=== PATIENT | female | born 1975 | race African-American/Black ===

== ENCOUNTER 2018-12-18 15:08 | Emergency (ER) | payer OTHER ==
[2018-12-18] MEDS ORDERED: FENTANYL CITRATE INJ/PF 100 MCG/2 ML AMPUL IV ONE ×2 (16:01→17:29)
[2018-12-18] MEDS ORDERED: NORMAL SALINE 1000 ML 1,000 ML IV ONE (16:01)
--- NOTE | 2018-12-18 16:03 | ER Document Report ---
ED Medical Screen (RME) - General Chief Complaint: Abdominal Pain Stated Complaint: ABDOMINAL PAIN Time Seen by Provider: 12/18/18 16:00 Primary Care Provider: MARCOS HALE MD [Primary Care Provider] - Follow up as needed Mode of Arrival: Medic Information source: Patient Notes: 43-year-old female presents to ED for complaint of severe left lower abdominal pain that started this morning and got much worse around noon. She states she has not had any nausea vomiting or diarrhea. She denies any fever. She states she is just having severe pain in the left lower quadrant. She states she had a normal bowel movement yesterday no diarrhea today. She does have a history of diabetes and cholesterol. Her last menstrual period was November 27. She states the only surgical history she has is a x2. Patient has not been to the ER recently. Patient is alert oriented respirations regular unlabored does have severe tenderness with palpation of the left lower quadrant. Consult to Dr. bonilla neurologist for the pain due to her allergy to morphine he stated to give her fentanyl 50 mcg IV. I have greeted and performed a rapid initial assessment of this patient. A comprehensive ED assessment and evaluation of the patient, analysis of test results and completion of medical decision making process will be conducted by an additional ED providers. TRAVEL OUTSIDE OF THE [place] IN LAST 30 DAYS: No - Related Data Allergies/Adverse Reactions: morphine [Morphine] Allergy (Verified 12/18/18 15:10) Hives Past Medical History - Social History Chew tobacco use (# tins/day): No Frequency of alcohol use: Occasional Drug Abuse: None Endocrine Medical History: Reports: Hx Diabetes Mellitus Type 2 - gestational DM Renal/ Medical History: Denies: Hx Peritoneal Dialysis Psychiatric Medical History: Reports: Hx Depression Past Surgical History: Reports: Hx Section - x2 - Immunizations Hx Diphtheria, Pertussis, Tetanus Vaccination: Yes Physical Exam - Vital signs Vitals: Temp Pulse Resp BP Pulse Ox 100.0 F 110 H 17 112/76 98 12/18/18 15:16 12/18/18 15:16 12/18/18 15:16 12/18/18 15:16 12/18/18 15:16 Course - Vital Signs Vital signs: Temp Pulse Resp BP Pulse Ox 100.0 F 110 H 17 112/76 98 12/18/18 15:16 12/18/18 15:16 12/18/18 15:16 12/18/18 15:16 12/18/18 15:16 Doctor's Discharge - Discharge Referrals: MARCOS HALE MD [Primary Care Provider] - Follow up as needed
--- NOTE | 2018-12-18 16:58 | ER Document Report ---
ED General - General Chief Complaint: Abdominal Pain Stated Complaint: ABDOMINAL PAIN Time Seen by Provider: 12/18/18 16:00 Primary Care Provider: JT YEE MD [ACTIVE STAFF] - Follow up tomorrow MARCOS HALE MD [ACTIVE STAFF] - Follow up as needed Mode of Arrival: Medic Notes: Patient is a 43-year-old female that presents to the emergency department for chief complaint of abdominal pain. Patient states the pain started early this morning, and has been persistent and seemingly worsening over time. The pain is located left upper quadrant of the abdomen, and they currently rate the pain as a 10 out of 10, and described as aching, and constant. She is had sharp pain associated with this as well, but denies having any nausea, vomiting, diarrhea, dysuria, hematuria, vaginal bleeding or discharge. Denies having pain like this in the past. Denies history of kidney stones. No other complaints at this time other than the pain. No recent fevers, chills, night sweats, headache, chest pain, shortness of breath or difficulty breathing. Past Medical History: Diabetes mellitus Past Surgical History: Denies chronic medical conditions Social History: Denies tobacco, alcohol or drug use Family History: Reviewed and noncontributory for presenting illness Allergies: Reviewed, see documented allergy list. REVIEW OF SYSTEMS: Other than noted above, the 12 point review of systems was reviewed with the patient and were negative, all pertinent findings are included in the HPI. PHYSICAL EXAMINATION: Vital signs reviewed, nursing noted reviewed. GENERAL: Obese female and appears uncomfortable HEAD: Atraumatic, normocephalic. EYES: Eyes appear normal, extraocular movements intact, sclera anicteric, conjunctiva are normal. ENT: nares patent, oropharynx clear without exudates. Moist mucous membranes. NECK: Normal range of motion, supple without lymphadenopathy LUNGS: Breath sounds clear to auscultation bilaterally and equal. No wheezes rales or rhonchi. HEART: Regular rate and rhythm without murmurs ABDOMEN: Soft, normal bowel sounds, tenderness with palpation, in the left upper quadrant of the abdomen, No rebound, guarding, or rigidity. No masses appre ciated. EXTREMITIES: Nontender, good range of motion, no pitting or edema. NEUROLOGICAL: No focal neurological deficits. Moves all extremities spontaneously Motor and sensory grossly intact on exam. PSYCH: Normal mood, normal affect. SKIN: Warm, Dry, normal turgor, no rashes or lesions noted on exposed skin TRAVEL OUTSIDE OF THE [place] IN LAST 30 DAYS: No - Related Data Allergies/Adverse Reactions: morphine [Morphine] Allergy (Verified 12/18/18 15:10) Hives Past Medical History - General Information source: Patient - Social History Smoking Status: Never Smoker Chew tobacco use (# tins/day): No Frequency of alcohol use: Occasional Drug Abuse: None Family History: Reviewed & Not Pertinent Patient has suicidal ideation: No Patient has homicidal ideation: No Endocrine Medical History: Reports: Hx Diabetes Mellitus Type 2 - gestational DM Renal/ Medical History: Denies: Hx Peritoneal Dialysis Psychiatric Medical History: Reports: Hx Depression Past Surgical History: Reports: Hx Section - x2 - Immunizations Hx Diphtheria, Pertussis, Tetanus Vaccination: Yes Physical Exam - Vital signs Vitals: Temp Pulse Resp BP Pulse Ox 100.0 F 110 H 17 112/76 98 12/18/18 15:16 12/18/18 15:16 12/18/18 15:16 12/18/18 15:16 12/18/18 15:16 Course - Re-evaluation Re-evalutation: Patient seen and examined vital signs reviewed. Laboratory data and imaging were ordered as appropriate for the patient's presenting symptoms and complaint, with consideration of any critical or life threatening conditions that may be associated with their obtained history and exam as noted above. Patient was treated with IV fluid, Zofran, initially given IV fentanyl 50 mcg x2, but the pain was uncontrolled and she was given a dose of 1 mg of IV Dilaudid, and 30 mg of IV Toradol. Results were reviewed when available and demonstrated suspicious lesion in the tail the pancreas measuring 2 cm, with some surrounding heterogenicity, with possible inflammation, blood work was otherwise unremarkable and negative, she did have a glucose of 213, normal lipase, LFTs normal, CBC was negative. As well as her UA. The patient was re-evaluated and was improved after medications, I discussed this case with the surgeon on-call Dr. Yee regarding the pancreatic lesion, he states it is possible this could be causing the pain, and like the patient to follow-up with him as she may need surgical resection and at minimum an MRI to have it further delineated which could be done as an outpatient recommended pain control with either Percocet or [place], and have her follow-up with him in his office. Patient was agreeable with this plan of care. Evaluation was most consistent with abdominal pain, pancreatic mass. Results were discussed with the patient at this point, after careful consideration I feel that that patient can be discharged from the emergency department, the patient was educated treatments and reasons to return to the emergency department based on their presumed diagnosis as noted above, they were advised to followup with a primary care physician in 2-3 days. Patient was agreeable to plan of care. *Note is created using voice recognition software and may contain spelling, syntax or grammatical errors. Laboratory 12/18/18 12/18/18 12/18/18 16:35 16:55 16:55 WBC 8.5 RBC 4.32 Hgb 12.6 Hct 37.8 MCV 88 MCH 29.1 MCHC 33.3 RDW 13.4 Plt Count 150 Seg Neutrophils % 82.7 H Lymphocytes % 9.7 L Monocytes % 6.9 Eosinophils % 0.3 Basophils % 0.4 Absolute Neutrophils 7.1 Absolute Lymphocytes 0.8 Absolute Monocytes 0.6 Absolute Eosinophils 0.0 Absolute Basophils 0.0 Sodium 138.5 Potassium 4.1 Chloride 102 Carbon Dioxide 27 Anion Gap 10 BUN 13 Creatinine 0.62 Est GFR ( Amer) > 60 Est GFR (Non-Af Amer) > 60 Glucose 233 H Calcium 9.1 Total Bilirubin 0.4 Direct Bilirubin 0.2 Neonat Total Bilirubin Not Reportable Neonat Direct Bilirubin Not Reportable Neonat Indirect Bili Not Reportable AST 24 ALT 22 Alkaline Phosphatase 83 Total Protein 7.8 Albumin 4.3 Lipase Beta HCG, Quant < 2.39 Total Beta HCG NEGATIVE Urine Color YELLOW Urine Appearance SLIGHTLY-CLOUDY Urine pH 6.0 Ur Specific [place] 1.018 Urine Protein NEGATIVE Urine Glucose (UA) 50 H Urine Ketones 20 H Urine Blood NEGATIVE Urine Nitrite NEGATIVE Urine Bilirubin NEGATIVE Urine Urobilinogen 2.0 H Ur Leukocyte Esterase TRACE H Urine WBC (Auto) 7 Urine RBC (Auto) 3 Urine Bacteria (Auto) 1+ Squamous Epi Cells Auto 8 Urine Mucus (Auto) RARE Urine Ascorbic Acid NEGATIVE 12/18/18 16:55 WBC RBC Hgb Hct MCV MCH MCHC RDW Plt Count Seg Neutrophils % Lymphocytes % Monocytes % Eosinophils % Basophils % Absolute Neutrophils Absolute Lymphocytes Absolute Monocytes Absolute Eosinophils Absolute Basophils Sodium Potassium Chloride Carbon Dioxide Anion Gap BUN Creatinine Est GFR ( Amer) Est GFR (Non-Af Amer) Glucose Calcium Total Bilirubin Direct Bilirubin Neonat Total Bilirubin Neonat Direct Bilirubin Neonat Indirect Bili AST ALT Alkaline Phosphatase Total Protein Albumin Lipase 118.4 Beta HCG, Quant Total Beta HCG Urine Color Urine Appearance Urine pH Ur Specific [place] Urine Protein Urine Glucose (UA) Urine Ketones Urine Blood Urine Nitrite Urine Bilirubin Urine Urobilinogen Ur Leukocyte Esterase Urine WBC (Auto) Urine RBC (Auto) Urine Bacteria (Auto) Squamous Epi Cells Auto Urine Mucus (Auto) Urine Ascorbic Acid Abdomen/Pelvis CT 12/18/18 17:07 IMPRESSION: 1. A 2 cm somewhat ill-defined area of decreased attenuation is seen in the tail of the pancreas. Concerning for neoplasm. Consider MRI with pancreas protocol for further evaluation. - Vital Signs Vital signs: Temp Pulse Resp BP Pulse Ox 99.6 F 92 17 113/80 98 12/18/18 20:16 12/18/18 21:10 12/18/18 20:16 12/18/18 20:16 12/18/18 20:16 - Laboratory Result Diagrams: 12/18/18 16:55 12/18/18 16:55 Laboratory results interpreted by me: 12/18/18 12/18/18 12/18/18 16:35 16:55 16:55 Seg Neutrophils % 82.7 H Lymphocytes % 9.7 L Glucose 233 H Urine Glucose (UA) 50 H Urine Ketones 20 H Urine Urobilinogen 2.0 H Ur Leukocyte Esterase TRACE H Discharge - Discharge Clinical Impression: Pancreatic mass Abdominal pain Qualifiers: Abdominal location: unspecified location Qualified Code(s): R10.9 - Unspecified abdominal pain Condition: Stable Disposition: HOME, SELF-CARE Instructions: Abdominal Pain ([facility]) Additional Instructions: Please follow-up with Dr. Yee with surgery, call his office tomorrow, and state that you were in the emergency department, and Dr. Yee is aware of your case and wants to see you in the office sooner than later. Least take the pain medication as directed, as well as the nausea medication. If you have any worsening pain, or if not controlled at home, do not hesitate to return to the emergency department. Prescriptions: Ondansetron HCl [Zofran 4 mg Tablet] 1 tab PO Q6H PRN #12 tablet PRN Reason: nausea Oxycodone HCl/Acetaminophen [Percocet 5-325 mg Tablet] 1 tab PO Q8H PRN #15 tab PRN Reason: general pain Referrals: MARCOS HALE MD [ACTIVE STAFF] - Follow up as needed JT YEE MD [ACTIVE STAFF] - Follow up tomorrow
[2018-12-18 17:23] LABS: APPEARANCE,URINE SLIGHTLY-CLOUDY; BILIRUBIN,URINE NEGATIVE (NEGATIVE); COLOR,URINE YELLOW; GLUCOSE, URINE 50 mg/dL (NEGATIVE); KETONES,URINE 20 mg/dL (NEGATIVE); LEUKOCYTE ESTERASE,URINE TRACE (NEGATIVE); NITRITE,URINE NEGATIVE (NEGATIVE); PROTEIN,URINE NEGATIVE (NEGATIVE); URINE SPECIFIC GRAVITY 1.018
[2018-12-18 17:27] LABS: ABSOLUTE LYMPHOCYTES (AUTO) 0.8 10^3/uL (0.5-4.7); ABSOLUTE MONOCYTES (AUTO) 0.6 10^3/uL (0.1-1.4); ABSOLUTE NEUT (AUTO) 7.1 10^3/uL (1.7-8.2); BASOPHILS % (AUTO) 0.4 % (0-2); EOSINOPHILS % (AUTO) 0.3 % (0-6); HEMATOCRIT 37.8 % (36.0-47.0); HEMOGLOBIN 12.6 g/dL (12.0-15.5); LYMPHOCYTES % (AUTO) 9.7 % (13-45); MEAN CORPUSCULAR HEMOGLOBIN 29.1 pg (27.0-33.4); MEAN CORPUSCULAR HGB CONC 33.3 g/dL (32.0-36.0); MEAN CORPUSCULAR VOLUME 88 fl (80-97); MONOCYTES % (AUTO) 6.9 % (3-13); PLATELET COUNT 150 10^3/uL (150-450); RED BLOOD COUNT 4.32 10^6/uL (3.72-5.28); RED CELL DISTRIBUTION WIDTH 13.4 % (11.5-14.0); SEGMENTED NEUTROPHILS % (AUTO) 82.7 % (42-78); TOTAL CELLS COUNTED % (AUTO) 100 %; WHITE BLOOD COUNT 8.5 10^3/uL (4.0-10.5)
[2018-12-18 17:42] LABS: ALANINE AMINOTRANSFERASE 22 U/L (9-52); ALBUMIN 4.3 g/dL (3.5-5.0); ALKALINE PHOSPHATASE 83 U/L (38-126); ANION GAP 10 (5-19); ASPARTATE AMINO TRANSFERASE 24 U/L (14-36); BILIRUBIN,DIRECT 0.2 mg/dL (0.0-0.4); BILIRUBIN,TOTAL 0.4 mg/dL (0.2-1.3); BLOOD UREA NITROGEN 13 mg/dL (7-20); CALCIUM 9.1 mg/dL (8.4-10.2); CARBON DIOXIDE 27 mmol/L (22-30); CHLORIDE 102 mmol/L (98-107); GLUCOSE 233 mg/dL (75-110); POTASSIUM 4.1 mmol/L (3.6-5.0); SODIUM 138.5 mmol/L (137-145); TOTAL PROTEIN 7.8 g/dL (6.3-8.2)
[2018-12-18] MEDS ORDERED: HYDROMORPHONE HCL INJ/PF 2 MG/ML AMPULE IV ONE ×2 (17:53→20:39)
[2018-12-18] MEDS ORDERED: KETOROLAC TROMETHAMINE INJ/PF 30 MG/1 ML SDV IV ONE (18:08)
--- NOTE | 2018-12-18 18:59 | RADIOLOGY REPORT (SQ) ---
EXAM DESCRIPTION: CT ABD/PELVIS WITH IV ONLY COMPLETED DATE/TIME: 12/18/2018 6:34 pm REASON FOR STUDY: llq abdominal pain COMPARISON: 02/03/2016 TECHNIQUE: CT scan of the abdomen and pelvis performed using helical scanning technique with dynamic intravenous contrast injection. No oral contrast. Images reviewed with lung, soft tissue, and bone windows. Reconstructed coronal and sagittal MPR images reviewed. Delayed images for evaluation of the urinary system also acquired. All images stored on PACS. All CT scanners at this facility use dose modulation, iterative reconstruction, and/or weight based d osing when appropriate to reduce radiation dose to as low as reasonably achievable (ALARA). [facility]: Dose Right [facility]: CareDose [facility]: Dose Right [facility]: Teradose 4D [facility]: [place] CONTRAST TYPE AND DOSE: contrast/concentration: Isovue 350.00 mg/ml; Total Contrast Delivered: 100.0 ml; Total Saline Delivered: 72.0 ml RENAL FUNCTION: BUN 13 creatinine 0.62 RADIATION DOSE: CT Rad equipment meets quality standard of care and radiation dose reduction techniq ues were employed. CTDIvol: 21.1 mGy. DLP: 2289 mGy-cm.. LIMITATIONS: None. FINDINGS: LOWER CHEST: No significant findings. No nodules or infiltrates. LIVER: Normal size. No masses. No dilated ducts. SPLEEN: The spleen is generous but not grossly enlarged. PANCREAS: There is the appearance of a 2 cm area of slightly decreased attenuation in the tail of the pancreas seen best on image 29. GALLBLADDER: No identified stones by CT criteria. No inflammatory changes to suggest cholecystitis. ADRENAL GLANDS: No significant masses or asymmetry. RIGHT KIDNEY AND URETER: No solid masses. No significant calcifications. No hydronephrosis or hyd roureter. LEFT KIDNEY AND URETER: No solid masses. No significant calcifications. No hydronephrosis or hydr oureter. AORTA AND VESSELS: No aneurysm. No dissection. Renal arteries, SMA, celiac without stenosis. RETROPERITONEUM: No retroperitoneal adenopathy, hemorrhage or masses. BOWEL AND PERITONEAL CAVITY: No masses or inflammatory changes. No free fluid or peritoneal masses. APPENDIX: Not identified. PELVIS: No mass. No free fluid. Normal bladder. ABDOMINAL WALL: No masses. No hernias. BONES: No significant or acute findings. OTHER: No other significant finding. IMPRESSION: 1. A 2 cm somewhat ill-defined area of decreased attenuation is seen in the tail of the pancreas. Concerning for neoplasm. Consider MRI with pancreas protocol for further evaluation. TECHNICAL DOCUMENTATION: JOB ID: [id number] Quality ID # [id number]: Final reports with documentation of one or more dose reduction techniques (e.g., Au tomated exposure control, adjustment of the mA and/or kV according to patient size, use of iterative reconstruction technique) 2010 [employer]- All Rights Reserved Reading location - IP/workstation name: [email or web address]
[2018-12-18 20:17] VITALS: BP 113/80
[2018-12-18] MEDS ORDERED: HYDROCODONE/ACETAMINOPHEN 5-325 MG (6 TAB/ER DISP) PO PRN (20:40)
== END 2018-12-18 21:13 | disposition home or self-care (01) ==
LOC: ER 15:08
DX: K86.9 Disease of pancreas, unspecified (principal); R10.9 Unspecified abdominal pain; R10.12 Left upper quadrant pain
CPT/HCPCS: 96376; 99284; 96361; 96374; 96375; 36415; 87086; 84702; 83690; 85025; 87088; 80053; 81001; 74177; J3010; J1885; J1170; J7030

== ENCOUNTER → 2018-12-20 | Outpatient (CLI) | payer OTHER ==
[2018-12-20 13:45] LABS: LIPASE 68.4 U/L (23-300)
== END ==
LOC: OD 11:59
PROVIDERS: ATTEND Surgery
DX: K86.9 Disease of pancreas, unspecified (principal); R10.9 Unspecified abdominal pain
CPT/HCPCS: 36415; 82150; 83690

== ENCOUNTER → 2018-12-20 | Outpatient (CLI) | payer OTHER ==
--- NOTE | 2018-12-20 17:26 | RADIOLOGY REPORT (SQ) ---
EXAM DESCRIPTION: MRI ABDOMEN COMBO COMPLETED DATE/TIME: 12/20/2018 3:54 pm REASON FOR STUDY: K86.9 DISEASE OF PANCREAS, UNSPECIFIED R10.9 UNSPECIFIED ABDOMINAL PAIN K86.9 DI SEASE OF PANCREAS, UNSPECIFIED COMPARISON: CT abdomen pelvis 12/18/2018, 02/03/2016, 02/25/2012 Abdominal ultrasound 02/25/2012 TECHNIQUE: Multiplanar multisequence imaging performed without and with contrast including sagittal, axial and coronal T2, axial T1, axial gradient fat sat T1, axial, sagittal and coronal fat sat T1 po st contrast. CONTRAST TYPE AND DOSE: 20 mL [place]. RENAL FUNCTION: GFR > 60. LIMITATIONS: None. FINDINGS: LIVER: Normal size. No masses. No dilated ducts. CBD normal. SPLEEN: 16 cm in length, stable compared to 12/18/2018, larger than on 02/03/2016. No focal lesions. PANCREAS: At the pancreatic tail, an ill-defined area of increased T2 signal is present with diffuse contrast enhancement. There is adjacent contrast enhancement in the peripancreatic fat. This correl ates with area of decreased density on CT exam 12/18/2018. This could either represent pancreatitis i nvolving the tail of the pancreas, or could represent an ill-defined mass. Remainder of the pancreat ic head neck and body is otherwise unremarkable. Normal flow in the splenic artery and vein GALLBLADDER: No masses. No stones. No gallbladder wall thickening or pericholecystic fluid. ADRENAL GLANDS: No significant masses or asymmetry. RIGHT KIDNEY AND URETER: No masses. No hydronephrosis. LEFT KIDNEY AND URETER: No masses. No hydronephrosis. AORTA AND VESSELS: No aneurysm. No dissection. Renal arteries, SMA, celiac without stenosis. RETROPERITONEUM: No retroperitoneal adenopathy, hemorrhage or masses. BOWEL: Not well seen. 3 cm gastric cardia diverticulum, filled with fluid on T2 image 14. This fill s with oral contrast on prior CT abdomen pelvis 02/25/2012 ABDOMINAL WALL AND PERITONEUM: No hernias. No free fluid. BONES: No acute or significant findings. OTHER: No other significant finding. IMPRESSION: Abnormality of the pancreatic tail, involving the distal 4 cm of pancreatic tail. Surro unding inflammatory change with increased T2 signal and spotty contrast enhancement could reflect eit her pancreatitis or tumor at the pancreatic tail. TECHNICAL DOCUMENTATION: JOB ID: [id number] [employer]- All Rights Reserved Reading location - IP/workstation name: [email or web address]
== END ==
LOC: RAD 16:14
PROVIDERS: ATTEND Surgery
DX: K86.9 Disease of pancreas, unspecified (principal); R10.9 Unspecified abdominal pain
CPT/HCPCS: 74183

== ENCOUNTER 2019-03-05 11:14 | Emergency (ER) | payer OTHER ==
[2019-03-05] MEDS ORDERED: FENTANYL CITRATE INJ/PF 100 MCG/2 ML AMPUL IV ONE (12:03)
[2019-03-05] MEDS ORDERED: ONDANSETRON HCL INJ/PF 4 MG/2 ML SDV IV ONE ×2 (12:03→19:15)
--- NOTE | 2019-03-05 12:08 | ER Document Report ---
ED Medical Screen (RME) - General Chief Complaint: Abdominal Pain Stated Complaint: ABDOMINAL PAIN Time Seen by Provider: 03/05/19 11:57 Primary Care Provider: JT YEE MD [Primary Care Provider] - Follow up as needed Mode of Arrival: Ambulatory Information source: Patient TRAVEL OUTSIDE OF THE [place] IN LAST 30 DAYS: No - HPI Patient complains to provider of: DAVID MCKEON CP Notes: 03/05/19 12:05 Patient here with complaints of upper abdominal pain and chest pain. The patient has a history of pancreatic cancer. She is currently not on chemo, but will be starting chemo shortly. She is here with complaints of upper abdominal pain. She had nausea, no vomiting. No fever. The patient recently had part of her pancreas removed as well as a splenectomy within the last 2 weeks. She was discharged home from [facility] [place] on Sunday. She was doing fine until about Sunday evening when the pain started. She states that the pain radiates up into her chest. She does complain of some mild exertional dyspnea. Exam Patient appears to be mildly uncomfortable, she is nontoxic-appearing. Upper abdominal incision is healing well with no redness, drainage. [place] are in place. Upper abdominal tenderness on limited triage abdominal exam. Lungs clear and equal throughout. Heart sounds normal. Plan CBC, CMP, lipase, troponin, BNP, UA. EKG. CT of the abdomen and pelvis due to recent abdominal surgery with pain. CTA of the chest to rule out PE due to the fact that the patient has pancreatic cancer and had a recent surgery. An initial examination was made on the patient as part of the triage process, and it was determined a more comprehensive evaluation was necessary. Initial labs were ordered and patient was transferred to another provider in the ED who assumed care and finished evaluation and plan. - Related Data Allergies/Adverse Reactions: morphine [Morphine] Allergy (Verified 03/05/19 11:25) Hives Past Medical History - Social History Chew tobacco use (# tins/day): No Frequency of alcohol use: Occasional Drug Abuse: None Endocrine Medical History: Reports: Hx Diabetes Mellitus Type 2 - gestational DM Renal/ Medical History: Denies: Hx Peritoneal Dialysis Psychiatric Medical History: Reports: Hx Depression Past Surgical History: Reports: Hx Section - x2 - Immunizations Hx Diphtheria, Pertussis, Tetanus Vaccination: Yes Physical Exam - Vital signs Vitals: Temp Pulse Resp BP Pulse Ox 98.8 F 81 18 126/74 H 95 03/05/19 11:28 03/05/19 11:28 03/05/19 11:28 03/05/19 11:28 03/05/19 11:28 Course - Vital Signs Vital signs: Temp Pulse Resp BP Pulse Ox 98.8 F 81 18 126/74 H 95 03/05/19 11:28 03/05/19 11:28 03/05/19 11:28 03/05/19 11:28 03/05/19 11:28 Doctor's Discharge - Discharge Referrals: JT YEE MD [Primary Care Provider] - Follow up as needed
[2019-03-05 12:54] LABS: ABSOLUTE EOSINOPHILS # (AUTO) 0.3 10^3/uL (0.0-0.6); ABSOLUTE LYMPHOCYTES (AUTO) 1.6 10^3/uL (0.5-4.7); ABSOLUTE MONOCYTES (AUTO) 1.1 10^3/uL (0.1-1.4); ABSOLUTE NEUT (AUTO) 8.3 10^3/uL (1.7-8.2); BASOPHILS % (AUTO) 0.4 % (0-2); HEMATOCRIT 31.1 % (36.0-47.0); HEMOGLOBIN 9.8 g/dL (12.0-15.5); LYMPHOCYTES % (AUTO) 13.8 % (13-45); MEAN CORPUSCULAR HEMOGLOBIN 26.6 pg (27.0-33.4); MEAN CORPUSCULAR HGB CONC 31.6 g/dL (32.0-36.0); MEAN CORPUSCULAR VOLUME 84 fl (80-97); MONOCYTES % (AUTO) 9.8 % (3-13); PLATELET COUNT 892 10^3/uL (150-450); RED CELL DISTRIBUTION WIDTH 16.4 % (11.5-14.0); TOTAL CELLS COUNTED % (AUTO) 100 %; WHITE BLOOD COUNT 11.4 10^3/uL (4.0-10.5)
[2019-03-05 13:15] LABS: ALANINE AMINOTRANSFERASE 102 U/L (9-52); ALBUMIN 3.4 g/dL (3.5-5.0); ALKALINE PHOSPHATASE 103 U/L (38-126); ANION GAP 8 (5-19); ASPARTATE AMINO TRANSFERASE 100 U/L (14-36); BILIRUBIN,DIRECT 0.2 mg/dL (0.0-0.4); BILIRUBIN,TOTAL 0.2 mg/dL (0.2-1.3); BLOOD UREA NITROGEN 3 mg/dL (7-20); CARBON DIOXIDE 29 mmol/L (22-30); CHLORIDE 102 mmol/L (98-107); GLUCOSE 196 mg/dL (75-110); LIPASE 12.5 U/L (23-300); POTASSIUM 4.6 mmol/L (3.6-5.0); SODIUM 139.4 mmol/L (137-145); TOTAL PROTEIN 6.8 g/dL (6.3-8.2)
[2019-03-05 13:28] LABS: NT PRO BNP 106 pg/mL (<125)
[2019-03-05 13:29] LABS: TROPONIN I < 0.012 ng/mL
--- NOTE | 2019-03-05 14:15 | RADIOLOGY REPORT (SQ) ---
EXAM DESCRIPTION: CTA CHEST COMPLETED DATE/TIME: 03/05/2019 2:04 pm REASON FOR STUDY: CP, RECENT SURG, HX OF PANCR CA COMPARISON: None. TECHNIQUE: CT scan of the chest performed using helical scanning technique with dynamic intravenous contrast injection. Images reviewed with lung, soft tissue and bone windows. Reconstructed coronal and sagittal MPR images reviewed. Additional 3 dimensional post-processing performed to develop Maximal Intensity Projection images (VA P). All images stored on PACS. All CT scanners at this facility use dose modulation, iterative reconstruction, and/or weight based d osing when appropriate to reduce radiation dose to as low as reasonably achievable (ALARA). [facility]: Dose Right [facility]: CareDose [facility]: Dose Right [facility]: Teradose 4D [facility]: [place] CONTRAST TYPE AND DOSE: contrast/concentration: Isovue 350.00 mg/ml; Total Contrast Delivered: 90.0 ml; Total Saline Delivered: 110.0 ml Contrast bolus optimized for the pulmonary arteries. Not diagnostic for the aorta. RENAL FUNCTION: None required. The patient is less than 50 years old. RADIATION DOSE: CT Rad equipment meets quality standard of care and radiation dose reduction techniq ues were employed. CTDIvol: 29.4 - 39.8 mGy. DLP: 5019 mGy-cm. . LIMITATIONS: None. FINDINGS: LUNGS AND PLEURA: Small left pleural effusion with associated atelectasis or consolidation . AORTA AND GREAT VESSELS: No aneurysm. Contrast bolus not optimized for the aorta. HEART: No pericardial effusion. No significant coronary artery calcifications. PULMONARY ARTERIES: No emboli visualized in the main pulmonary arteries or the segmental branches. HILAR AND MEDIASTINAL STRUCTURES: No identified masses or abnormal nodes. HARDWARE: None in the chest. UPPER ABDOMEN: See separate report of the CT of the abdomen. THYROID AND OTHER SOFT TISSUES: No masses. No adenopathy. BONES: No acute or significant finding. 3D MIPS: Confirm above findings. OTHER: No other significant finding. IMPRESSION: 1. Negative examination for pulmonary embolism. 2. Small left pleural effusion with associated atelectasis or consolidation. COMMENT: Quality ID # 436: Final reports with documentation of one or more dose reduction techniques (e.g., Automated exposure control, adjustment of the mA and/or kV according to patient size, use of iterative reconstruction technique) TECHNICAL DOCUMENTATION: JOB ID: [id number] [employer]- All Rights Reserved Reading location - IP/workstation name: [email or web address]
--- NOTE | 2019-03-05 14:26 | RADIOLOGY REPORT (SQ) ---
EXAM DESCRIPTION: CT ABD/PELVIS WITH IV ONLY COMPLETED DATE/TIME: 03/05/2019 2:04 pm REASON FOR STUDY: CP, RECENT SURG, HX OF PANCR CA COMPARISON: 12/18/2017 TECHNIQUE: CT scan of the abdomen and pelvis performed using helical scanning technique with dynamic intravenous contrast injection. No oral contrast. Images reviewed with lung, soft tissue, and bone windows. Reconstructed coronal and sagittal MPR images reviewed. Delayed images for evaluation of the urinary system also acquired. All images stored on PACS. All CT scanners at this facility use dose modulation, iterative reconstruction, and/or weight based d osing when appropriate to reduce radiation dose to as low as reasonably achievable (ALARA). [facility]: Dose Right [facility]: CareDose [facility]: Dose Right [facility]: Teradose 4D [facility]: [employer] CONTRAST TYPE AND DOSE: 90 mL Omnipaque 350 iodinated contrast IV RENAL FUNCTION: None required. The patient is less than 50 years old. RADIATION DOSE: 5019 mGy cm LIMITATIONS: None. FINDINGS: LOWER CHEST: See separate report of the CT of the chest. LIVER: Normal size. No masses. No dilated ducts. SPLEEN: Status post splenectomy. PANCREAS: Status post distal pancreatectomy. There is a fluid collection about the pancreatic neck m easuring 2.1 x 2.3 x 5.2 cm (series 604, image 36, series 3, image 152). GALLBLADDER: No identified stones by CT criteria. No inflammatory changes to suggest cholecystitis. ADRENAL GLANDS: No significant masses or asymmetry. RIGHT KIDNEY AND URETER: No solid masses. No significant calcifications. No hydronephrosis or hyd roureter. LEFT KIDNEY AND URETER: No solid masses. No significant calcifications. No hydronephrosis or hydr oureter. AORTA AND VESSELS: No aneurysm. No dissection. Renal arteries, SMA, celiac without stenosis. RETROPERITONEUM: No retroperitoneal adenopathy, hemorrhage or masses. BOWEL AND PERITONEAL CAVITY: No masses or inflammatory changes. Small volume ascites. APPENDIX: Normal. PELVIS: Probable fibroid of the uterine fundus. No free fluid. Normal bladder. ABDOMINAL WALL: Small air-fluid collection within the superior left rectus abdominus muscle body sangita uring 4.7 x 1.5 x 1.9 cm (series 3, image 155). BONES: No significant or acute findings. OTHER: No other significant finding. IMPRESSION: 1. Postoperative findings of distal pancreatectomy and splenectomy with a fluid collect ion about the pancreatic neck measuring 2.1 x 2.3 x 5.2 cm. This finding is nonspecific and consider ations include hematoma/seroma as well as abscess and pancreatic ductal leak. 2. Small air-fluid collection within the superior left rectus abdominus muscle body measuring 4.7 x 1 .5 x 1.9 cm, again nonspecific and may reflect postoperative hematoma/seroma as well as abscess. 3. Small volume ascites. TECHNICAL DOCUMENTATION: JOB ID: [id number] Quality ID # [id number]: Final reports with documentation of one or more dose reduction techniques (e.g., Au tomated exposure control, adjustment of the mA and/or kV according to patient size, use of iterative reconstruction technique) 2010 [employer]- All Rights Reserved Reading location - IP/workstation name: [email or web address]
[2019-03-05] MEDS ORDERED: NORMAL SALINE 1000 ML 1,000 ML IV ONE ×2 (15:46→17:31)
[2019-03-05] MEDS ORDERED: HYDROMORPHONE HCL INJ/PF 2 MG/ML AMPULE IV ONE ×2 (15:46→19:13)
--- NOTE | 2019-03-05 16:46 | ER Document Report ---
ED General - General Chief Complaint: Abdominal Pain Stated Complaint: ABDOMINAL PAIN Time Seen by Provider: 03/05/19 11:57 Primary Care Provider: JT YEE MD [ACTIVE STAFF] - Follow up as needed Mode of Arrival: Ambulatory Information source: Patient Notes: This is a 43-year-old female with stage II pancreatic cancer, status post partial pancreatectomy and splenectomy on February 25 (Dr. Niko Tillman at [facility]). Patient did have some residual fluid drainage by radiology at [facility] in the splenectomy sulcus 2 days after surgery. She presents to the emergency room with increasing abdominal pain over the last few days. Patient denies fever. TRAVEL OUTSIDE OF THE [place] IN LAST 30 DAYS: No - HPI Onset: Last week Onset/Duration: Gradual Quality of pain: Dull Severity: Moderate Pain Level: 4 Associated symptoms: Other - Decreased p.o. intake. denies: Chest pain, Shortness of breath Exacerbated by: Movement Relieved by: Remaining still Similar symptoms previously: Yes Recently seen / treated by doctor: Yes - Related Data Allergies/Adverse Reactions: morphine [Morphine] Allergy (Verified 03/05/19 11:25) Hives Past Medical History - General Information source: Patient - Social History Smoking Status: Unknown if Ever Smoked Cigarette use (# per day): No Chew tobacco use (# tins/day): No Frequency of alcohol use: Occasional Drug Abuse: None Lives with: Family Family History: Reviewed & Not Pertinent Patient has suicidal ideation: No Patient has homicidal ideation: No - Past Medical History Cardiac Medical History: Reports: None Pulmonary Medical History: Reports: None Neurological Medical History: Reports: None Endocrine Medical History: Reports: Hx Diabetes Mellitus Type 2 - gestational DM Renal/ Medical History: Reports: None. Denies: Hx Peritoneal Dialysis Malignancy Medical History: Reports: Hx Pancreatic Cancer GI Medical History: Reports: None Musculoskeletal Medical History: Reports None Skin Medical History: Reports None Psychiatric Medical History: Reports: Hx Depression Traumatic Medical History: Reports: None Infectious Medical History: Reports: None Past Surgical History: Reports: Hx Section - x2, Hx Pancreatic Surgery - Immunizations Hx Diphtheria, Pertussis, Tetanus Vaccination: Yes Review of Systems - Review of Systems Constitutional: denies: Chills, Fever EENT: No symptoms reported Cardiovascular: denies: Chest pain, Palpitations, Heart racing Respiratory: No symptoms reported Gastrointestinal: See HPI Genitourinary: No symptoms reported Female Genitourinary: No symptoms reported Musculoskeletal: No symptoms reported Skin: No symptoms reported Hematologic/Lymphatic: No symptoms reported Neurological/Psychological: No symptoms reported Physical Exam - Vital signs Vitals: Temp Pulse Resp BP Pulse Ox 98.8 F 81 18 126/74 H 95 03/05/19 11:28 03/05/19 11:28 03/05/19 11:28 03/05/19 11:28 03/05/19 11:28 Notes: Physical exam: GENERAL: Patient is alert and oriented x3, no acute distress HEAD: Atraumatic, normocephalic. EYES: Pupils equal round and reactive to light, extraocular movements intact, sclera anicteric, conjunctiva are normal. ENT: TMs normal, nares patent, oropharynx clear without exudates. Moist mucous membranes. NECK: Normal range of motion, supple without obvious mass or JVD. LUNGS: Breath sounds clear to auscultation bilaterally and equal. No wheezes rales or rhonchi. HEART: Regular rate and rhythm without murmurs, rubs or gallops. ABDOMEN: Soft, hypoactive bowel sounds. She does have some tenderness in the mid abdomen. No guarding, no rebound. No masses appreciated. Patient's wound site is intact, there is no erythema or dehiscence or discharge (it looks quite good). EXTREMITIES: Normal range of motion, no pitting or edema. No clubbing or cyanosis. NEUROLOGICAL: Cranial nerves II through XII grossly intact. Normal speech, moving all extremities. PSYCH: Normal mood, normal affect. SKIN: As mentioned above under the abdomen exam Course - Re-evaluation Re-evalutation: 03/05/19 18:38 I did discuss the new fluid changes with Jessica (nurse practitioner) who is covering for Dr. Niko Tillman. She did recommend we transfer the patient for evaluation and that we give the patient Zosyn. I have notified the family about this events and they are agreeable. Patient is getting IV fluids, IV Zosyn and will treat with pain medicine as needed. - Vital Signs Vital signs: Temp Pulse Resp BP Pulse Ox 98.8 F 81 18 126/74 H 95 03/05/19 11:28 03/05/19 11:28 03/05/19 11:28 03/05/19 11:28 03/05/19 11:28 - Laboratory Result Diagrams: 03/05/19 12:00 03/05/19 12:00 Laboratory results interpreted by me: 03/05/19 03/05/19 12:00 12:00 WBC 11.4 H RBC 3.70 L Hgb 9.8 L Hct 31.1 L MCH 26.6 L MCHC 31.6 L RDW 16.4 H Plt Count 892 H Absolute Neutrophils 8.3 H BUN 3 L Glucose 196 H AST 100 H ALT 102 H Albumin 3.4 L Lipase 12.5 L - Diagnostic Test Radiology reviewed: Image reviewed, Reports reviewed - CT does show 2 fluid collections 1 by the left lateral rectus and 1 by the pancreas Critical Care Note - Critical Care Note Total time excluding time spent on procedures (mins): 60 Discharge - Discharge Clinical Impression: Abdominal pain, Intra-abdominal Fluid collections Condition: Stable Disposition: [facility] Prescriptions: Ondansetron [Zofran Odt 4 mg Tablet] 4 mg PO Q4HP PRN #30 tab.rapdis PRN Reason: Hydromorphone HCl [Dilaudid 2 Mg Tablet] 2 mg PO Q6H PRN #20 tablet PRN Reason: for pain Referrals: JT YEE MD [ACTIVE STAFF] - Follow up as needed
[2019-03-05] MEDS ORDERED: PIPERACILLIN/TAZOBACTAM 3.375 GM VIAL IV SCH (17:45)
[2019-03-05] MEDS ORDERED: HYDROMORPHONE HCL INJ/PF 2 MG/ML AMPULE IV PRN (19:15)
[2019-03-05] MEDS ORDERED: ONDANSETRON HCL INJ/PF 4 MG/2 ML SDV IV SCH (19:30)
[2019-03-05 21:12] VITALS: BP 135/70
--- NOTE | 2019-03-05 22:58 | EKG REPORT ---
SEVERITY:- NORMAL ECG - SINUS RHYTHM : Confirmed by: Kyung Lee 05-Mar-2019 22:58:18
== END 2019-03-05 21:45 | disposition short-term general hospital (02) ==
LOC: ER 11:14
DX: R19.00 Intra-abdominal and pelvic swelling, mass and lump, unspecified site (principal); R10.9 Unspecified abdominal pain; R63.0 Anorexia; Z98.890 Other specified postprocedural states; E11.9 Type 2 diabetes mellitus without complications
CPT/HCPCS: 93005; 36415; 83690; 85025; 80053; 84484; 83880; 71275; 74177; 93010; J3010; J1170; J2405; J7030; J2543

== ENCOUNTER 2019-03-21 10:10 | Emergency (ER) | payer OTHER ==
--- NOTE | 2019-03-21 10:23 | ER Document Report ---
ED Medical Screen (RME) - General Chief Complaint: High Blood Sugar Stated Complaint: BLOOD SUGAR PROBLEM Time Seen by Provider: 03/21/19 10:20 Primary Care Provider: RACHANA PADILLA PA-C [Primary Care Provider] - Follow up as needed Notes: 43-year-old female presented to ED for complaint of elevated blood sugar of 490 this morning. She is a diabetic type II she also has a history of pancreatic cancer with a half of her pancreas and her spleen removed recently. She states she is on insulin and she is been using her insulin as instructed but she has been excessively thirsty cannot get her thirst clenched and is urinating constantly. Patient is alert oriented respirations regular and unlabored speaking in full sentences. I have ordered an Accu-Chek blood work and IV fluids at this time. I have greeted and performed a rapid initial assessment of this patient. A comprehensive ED assessment and evaluation of the patient, analysis of test results and completion of medical decision making process will be conducted by an additional ED providers. Dictation of this chart was performed using voice recognition software; therefore, there may be some unintended grammatical errors. TRAVEL OUTSIDE OF THE [place] IN LAST 30 DAYS: No - Related Data Allergies/Adverse Reactions: morphine [Morphine] Allergy (Verified 03/21/19 10:12) Hives Past Medical History Endocrine Medical History: Reports: Hx Diabetes Mellitus Type 2 - gestational DM Renal/ Medical History: Denies: Hx Peritoneal Dialysis Malignancy Medical History: Reports: Hx Pancreatic Cancer Psychiatric Medical History: Reports: Hx Depression Past Surgical History: Reports: Hx Section - x2, Hx Pancreatic Surgery - Immunizations Hx Diphtheria, Pertussis, Tetanus Vaccination: Yes Physical Exam - Vital signs Vitals: Temp Pulse Resp BP Pulse Ox 97.8 F 90 16 147/87 H 98 03/21/19 10:14 03/21/19 10:14 03/21/19 10:14 03/21/19 10:14 03/21/19 10:14 Course - Vital Signs Vital signs: Temp Pulse Resp BP Pulse Ox 97.8 F 90 16 147/87 H 98 03/21/19 10:14 03/21/19 10:14 03/21/19 10:14 03/21/19 10:14 03/21/19 10:14 Doctor's Discharge - Discharge Referrals: VALERIE,RACHANA, PA-C [Primary Care Provider] - Follow up as needed
[2019-03-21] MEDS: NORMAL SALINE 1000 ML 1,000 ML IV PRN ×2 (10:42→14:17)
[2019-03-21 11:01] LABS: VENOUS BLOOD BASE EXCESS -2.1 mmol/L; VENOUS BLOOD HCO3 22.4 mmol/L (20-32); VENOUS BLOOD PCO2 37.6 mmHg (35-63); VENOUS BLOOD PH 7.39 (7.30-7.42)
[2019-03-21 11:05] LABS: ABSOLUTE BASOPHILS # (AUTO) 0.2 10^3/uL (0.0-0.2); ABSOLUTE EOSINOPHILS # (AUTO) 0.1 10^3/uL (0.0-0.6); ABSOLUTE LYMPHOCYTES (AUTO) 2.1 10^3/uL (0.5-4.7); ABSOLUTE MONOCYTES (AUTO) 0.9 10^3/uL (0.1-1.4); ABSOLUTE NEUT (AUTO) 6.4 10^3/uL (1.7-8.2); BASOPHILS % (AUTO) 1.9 % (0-2); EOSINOPHILS % (AUTO) 1.5 % (0-6); HEMATOCRIT 35.3 % (36.0-47.0); HEMOGLOBIN 11.3 g/dL (12.0-15.5); LYMPHOCYTES % (AUTO) 21.7 % (13-45); MEAN CORPUSCULAR HEMOGLOBIN 26.2 pg (27.0-33.4); MEAN CORPUSCULAR HGB CONC 32.1 g/dL (32.0-36.0); MEAN CORPUSCULAR VOLUME 82 fl (80-97); PLATELET COUNT 810 10^3/uL (150-450); RED BLOOD COUNT 4.32 10^6/uL (3.72-5.28); RED CELL DISTRIBUTION WIDTH 16.5 % (11.5-14.0); SEGMENTED NEUTROPHILS % (AUTO) 65.9 % (42-78); TOTAL CELLS COUNTED % (AUTO) 100 %; WHITE BLOOD COUNT 9.7 10^3/uL (4.0-10.5)
[2019-03-21 11:18] LABS: APPEARANCE,URINE CLOUDY; BILIRUBIN,URINE NEGATIVE (NEGATIVE); COLOR,URINE YELLOW; GLUCOSE, URINE >=500 mg/dL (NEGATIVE); KETONES,URINE 80 mg/dL (NEGATIVE); LEUKOCYTE ESTERASE,URINE NEGATIVE (NEGATIVE); NITRITE,URINE NEGATIVE (NEGATIVE); PROTEIN,URINE 30 mg/dL (NEGATIVE); URINE SPECIFIC GRAVITY 1.036; UROBILINOGEN,URINE NEGATIVE mg/dL (<2.0)
[2019-03-21 11:24] LABS: ALANINE AMINOTRANSFERASE 48 U/L (9-52); ALBUMIN 4.3 g/dL (3.5-5.0); ALKALINE PHOSPHATASE 124 U/L (38-126); ANION GAP 15 (5-19); ASPARTATE AMINO TRANSFERASE 46 U/L (14-36); BILIRUBIN,DIRECT 0.4 mg/dL (0.0-0.4); BILIRUBIN,TOTAL 0.5 mg/dL (0.2-1.3); BLOOD UREA NITROGEN 10 mg/dL (7-20); CALCIUM 10.8 mg/dL (8.4-10.2); CARBON DIOXIDE 21 mmol/L (22-30); CHLORIDE 97 mmol/L (98-107); POTASSIUM 4.9 mmol/L (3.6-5.0); SODIUM 133.4 mmol/L (137-145); TOTAL PROTEIN 8.2 g/dL (6.3-8.2)
[2019-03-21 11:37] LABS: GLUCOSE 494 mg/dL (75-110)
[2019-03-21] MEDS ORDERED: INSULIN REG, HUMAN 100 UNIT/ML 3 ML VIAL (PYX) IV ONE (12:53)
--- NOTE | 2019-03-21 15:27 | ER Document Report ---
ED Blood Sugar Problem - General Chief Complaint: High Blood Sugar Stated Complaint: BLOOD SUGAR PROBLEM Time Seen by Provider: 03/21/19 10:20 Primary Care Provider: RACHANA PADILLA PA-C [Primary Care Provider] - Follow up as needed Mode of Arrival: Ambulatory Information source: Patient Notes: Patient is a 43-year-old female insulin diet dependent diabetic presented to the emergency department with home glucose of 490. She states she has been excessively thirsty and having increased urination lately. She states that she takes NovoLog 6 units with each meal and Lantus 20 units at night. She states that her pancreas and spleen were removed on 02/25/19 at [facility]. She states that her anodize machine operator at [facility] manages her insulins. TRAVEL OUTSIDE OF THE [place] IN LAST 30 DAYS: No - Related Data Allergies/Adverse Reactions: morphine [Morphine] Allergy (Verified 03/21/19 10:12) Hives Past Medical History - General Information source: Patient - Social History Smoking Status: Never Smoker Chew tobacco use (# tins/day): No Frequency of alcohol use: None Drug Abuse: None Family History: Reviewed & Not Pertinent Patient has suicidal ideation: No Patient has homicidal ideation: No Endocrine Medical History: Reports: Hx Diabetes Mellitus Type 2 - gestational DM Renal/ Medical History: Denies: Hx Peritoneal Dialysis Malignancy Medical History: Reports: Hx Pancreatic Cancer Psychiatric Medical History: Reports: Hx Depression Past Surgical History: Reports: Hx Section - x2, Hx Pancreatic Surgery - Immunizations Hx Diphtheria, Pertussis, Tetanus Vaccination: Yes Review of Systems - Review of Systems Constitutional: Other - Increased thirst, increased urination -: Yes All other systems reviewed and negative Physical Exam - Vital signs Vitals: Temp Pulse Resp BP Pulse Ox 97.8 F 90 16 147/87 H 98 03/21/19 10:14 03/21/19 10:14 03/21/19 10:14 03/21/19 10:14 03/21/19 10:14 - Notes Notes: PHYSICAL EXAMINATION: GENERAL: Well-appearing, well-nourished and in no acute distress. HEAD: Atraumatic, normocephalic. EYES: Pupils equal round and reactive to light, extraocular movements intact, conjunctiva are normal. ENT: Nares patent, oropharynx clear without exudates. Moist mucous membranes. NECK: Normal range of motion, supple without lymphadenopathy LUNGS: Breath sounds clear to auscultation bilaterally and equal. No wheezes r ales or rhonchi. HEART: Regular rate and rhythm without murmurs ABDOMEN: Soft, nontender, nondistended abdomen. No guarding, no rebound. No masses appreciated. Female : deferred Musculoskeletal: Normal range of motion, no pitting or edema. No cyanosis. NEUROLOGICAL: Cranial nerves grossly intact. Normal speech, normal gait. Normal sensory, motor exams PSYCH: Normal mood, normal affect. SKIN: Warm, Dry, normal turgor, no rashes or lesions noted. Course - Re-evaluation Re-evalutation: Patient appears well, nontoxic with no acute distress noted. Patient's labs as recorded. Patient has no evidence of DKA. Patient's blood sugar came down after giving her 2 L of fluids and 5 units of IV insulin. Patient is seeing endocrinology at [facility] due to recently having her pancreas removed. I do not want to make any changes to her insulin regimen, I did encourage her to call her anodize machine operator at [facility] for further direction since her blood sugars have been running higher than usual over the last couple of days. Patient verbalizes understanding and agreement with plan. ED return precautions were discussed. - Vital Signs Vital signs: Temp Pulse Resp BP Pulse Ox 98.6 F 95 18 132/80 H 98 03/21/19 16:04 03/21/19 16:04 03/21/19 16:04 03/21/19 16:04 03/21/19 16:04 - Laboratory Result Diagrams: 03/21/19 10:23 03/21/19 10:23 Laboratory results interpreted by me: 03/21/19 03/21/19 03/21/19 10:23 10:23 10:23 Hgb 11.3 L Hct 35.3 L MCH 26.2 L RDW 16.5 H Plt Count 810 H Sodium 133.4 L Chloride 97 L Carbon Dioxide 21 L Glucose 494 H* POC Glucose Calcium 10.8 H AST 46 H Urine Protein 30 H Urine Glucose (UA) >=500 H Urine Ketones 80 H 03/21/19 03/21/19 10:38 14:13 Hgb Hct MCH RDW Plt Count Sodium Chloride Carbon Dioxide Glucose POC Glucose 428 H* 353 H Calcium AST Urine Protein Urine Glucose (UA) Urine Ketones Discharge - Discharge Clinical Impression: Hyperglycemia Condition: Stable Disposition: HOME, SELF-CARE Additional Instructions: Your blood sugar was elevated today but there was no evidence of diabetic ketoacidosis. Please continue to watch your dietary intake, continue your insulins as per your usual insulin regimen. Please contact your anodize machine operator at [facility] to see if he would like you to increase your insulin. Return to the emergency department with any new or worsening symptoms. Referrals: RACHANA PADILLA PA-C [Primary Care Provider] - Follow up as needed
[2019-03-21 16:05] VITALS: BP 132/80
== END 2019-03-21 16:05 | disposition home or self-care (01) ==
LOC: ER 10:10
DX: E11.65 Type 2 diabetes mellitus with hyperglycemia (principal); Z88.6 Allergy status to analgesic agent; Z79.4 Long term (current) use of insulin; Z90.410 Acquired total absence of pancreas
CPT/HCPCS: 99284; 96360; 96361; 36415; 82962; 84703; 85025; 80053; 81001; 82803; J1815; J7030

== ENCOUNTER 2019-07-20 17:36 | Emergency (ER) | payer MEDICAID, OTHER ==
[2019-07-20 17:43] VITALS: BP 151/93
--- NOTE | 2019-07-20 17:50 | ER Document Report ---
ED Medical Screen (RME) - General Chief Complaint: High Blood Sugar Stated Complaint: HIGH BLOOD SUGAR Time Seen by Provider: 07/20/19 17:44 Primary Care Provider: RACHANA PADILLA PA-C [Primary Care Provider] - Follow up as needed TRAVEL OUTSIDE OF THE [place] IN LAST 30 DAYS: No - HPI Notes: 07/20/19 17:48 Patient is a 43-year-old female with a history of stage IV pancreatic cancer, type 2 diabetes on insulin and pills, DVT left personally diagnosed 5 days ago and subsequently placed on Xarelto who presents complaining of high readings on her glucometer as well as having excessive thirst and occasional blurriness with her vision. Patient states that she does have a slight productive cough that started yesterday. She does have aching in her legs primarily in the left one from the DVT. Her oncologist is induced. She did have chemotherapy this past Sunday. Denies YOUNGBLOOD, fever, neck pain, URI, CP, acute SOB, Abd pain, dysuria, back pain, or rash. I have treated and performed a rapid initial assessment of this patient. A comprehensive ED assessment and evaluation of the patient, analysis of test results and completion of medical decision making process will be conducted by additional ED providers. PHYSICAL EXAMINATION: GENERAL: Well-appearing, well-nourished and in no acute distress. A&Ox4. Answers questions appropriately. NEUROLOGICAL: Normal speech, normal gait. PSYCH: Normal mood, normal affect. - Related Data Allergies/Adverse Reactions: morphine [Morphine] Allergy (Verified 07/20/19 17:37) Hives Past Medical History Endocrine Medical History: Reports: Hx Diabetes Mellitus Type 2 - gestational DM Renal/ Medical History: Denies: Hx Peritoneal Dialysis Malignancy Medical History: Reports: Hx Pancreatic Cancer Psychiatric Medical History: Reports: Hx Depression Past Surgical History: Reports: Hx Section - x2, Hx Pancreatic Surgery - Immunizations Hx Diphtheria, Pertussis, Tetanus Vaccination: Yes Physical Exam - Vital signs Vitals: Temp Pulse Resp BP Pulse Ox 99.5 F 96 17 151/93 H 97 07/20/19 17:41 07/20/19 17:41 07/20/19 17:41 07/20/19 17:41 07/20/19 17:41 Course - Vital Signs Vital signs: Temp Pulse Resp BP Pulse Ox 99.5 F 96 17 151/93 H 97 07/20/19 17:41 07/20/19 17:41 07/20/19 17:41 07/20/19 17:41 07/20/19 17:41 Doctor's Discharge - Discharge Referrals: RACHANA PADILLA PA-C [Primary Care Provider] - Follow up as needed
[2019-07-20 18:28] LABS: VENOUS BLOOD BASE EXCESS -2.2 mmol/L; VENOUS BLOOD HCO3 22.7 mmol/L (20-32); VENOUS BLOOD PCO2 39.1 mmHg (35-63); VENOUS BLOOD PH 7.38 (7.30-7.42)
[2019-07-20] MEDS: NORMAL SALINE 1000 ML 1,000 ML IV PRN ×2 (18:31→19:19)
[2019-07-20 18:35] LABS: APPEARANCE,URINE CLEAR; BILIRUBIN,URINE NEGATIVE (NEGATIVE); COLOR,URINE STRAW; KETONES,URINE NEGATIVE (NEGATIVE); LEUKOCYTE ESTERASE,URINE NEGATIVE (NEGATIVE); NITRITE,URINE NEGATIVE (NEGATIVE); PROTEIN,URINE NEGATIVE (NEGATIVE); UROBILINOGEN,URINE NEGATIVE mg/dL (<2.0)
[2019-07-20 18:36] LABS: GLUCOSE, URINE >=1000 mg/dL (NEGATIVE); URINE SPECIFIC GRAVITY 1.029
[2019-07-20 18:38] LABS: ABSOLUTE BASOPHILS # (AUTO) 0.1 10^3/uL (0.0-0.2); ABSOLUTE LYMPHOCYTES (AUTO) 1.3 10^3/uL (0.5-4.7); ABSOLUTE MONOCYTES (AUTO) 0.1 10^3/uL (0.1-1.4); ABSOLUTE NEUT (AUTO) 8.2 10^3/uL (1.7-8.2); BASOPHILS % (AUTO) 1.1 % (0-2); HEMATOCRIT 35.6 % (36.0-47.0); HEMOGLOBIN 11.1 g/dL (12.0-15.5); MEAN CORPUSCULAR HEMOGLOBIN 28.9 pg (27.0-33.4); MEAN CORPUSCULAR HGB CONC 31.3 g/dL (32.0-36.0); MEAN CORPUSCULAR VOLUME 93 fl (80-97); MONOCYTES % (AUTO) 1.5 % (3-13); PLATELET COUNT 396 10^3/uL (150-450); RED BLOOD COUNT 3.85 10^6/uL (3.72-5.28); RED CELL DISTRIBUTION WIDTH 24.9 % (11.5-14.0); SEGMENTED NEUTROPHILS % (AUTO) 84.4 % (42-78); TOTAL CELLS COUNTED % (AUTO) 100 %; WHITE BLOOD COUNT 9.7 10^3/uL (4.0-10.5)
[2019-07-20 18:40] LABS: INTERNATIONAL RATION (INR) 1.96; PROTHROMBIN TIME 22.6 SEC (11.4-15.4)
[2019-07-20 18:41] LABS: PARTIAL THROMBOPLASTIN TIME 37.1 SEC (23.5-35.8)
[2019-07-20 18:50] LABS: ALBUMIN 4.1 g/dL (3.5-5.0); ALKALINE PHOSPHATASE 133 U/L (38-126); ANION GAP 15 (5-19); ASPARTATE AMINO TRANSFERASE 49 U/L (14-36); BILIRUBIN,DIRECT 0.2 mg/dL (0.0-0.4); BILIRUBIN,TOTAL 0.4 mg/dL (0.2-1.3); BLOOD UREA NITROGEN 14 mg/dL (7-20); CALCIUM 9.5 mg/dL (8.4-10.2); CARBON DIOXIDE 23 mmol/L (22-30); CHLORIDE 90 mmol/L (98-107); POTASSIUM 4.7 mmol/L (3.6-5.0); TOTAL PROTEIN 6.8 g/dL (6.3-8.2)
--- NOTE | 2019-07-20 18:59 | RADIOLOGY REPORT (SQ) ---
EXAM DESCRIPTION: CHEST 2 VIEWS COMPLETED DATE/TIME: 07/20/2019 6:37 pm REASON FOR STUDY: cough, pancreatic CA stage 4 COMPARISON: 03/05/2019 TECHNIQUE: Frontal and lateral radiographic views of the chest acquired. NUMBER OF VIEWS: Two view. LIMITATIONS: None. FINDINGS: LUNGS AND PLEURA: No pneumothorax. No consolidation or pleural effusion. MEDIASTINUM AND HILAR STRUCTURES: Stable. HEART AND VASCULAR STRUCTURES: Stable. BONES: No acute findings. HARDWARE: Right chest port. OTHER: No other significant finding. IMPRESSION: NO ACUTE FINDINGS. TECHNICAL DOCUMENTATION: JOB ID: [id number] 2010 [employer]- All Rights Reserved Reading location - IP/workstation name: [email or web address]
[2019-07-20 19:01] LABS: ANISOCYTOSIS 3+; GLUCOSE 797 mg/dL (75-110); OVALOCYTES 1+; PLATELET COMMENT ADEQUATE; POIKILOCYTOSIS 1+; POLYCHROMASIA SLIGHT; TEAR DROP CELLS SLIGHT
[2019-07-20] MEDS ORDERED: INSULIN REG, HUMAN 100 UNIT/ML 3 ML VIAL (PYX) IV ONE (19:14)
--- NOTE | 2019-07-20 19:14 | ER Document Report ---
Entered by PAPI MEADE SCRIBE 07/20/19 1824 Acting as scribe for:RORY LAMBERT MD ED General - General Chief Complaint: High Blood Sugar Stated Complaint: HIGH BLOOD SUGAR Time Seen by Provider: 07/20/19 17:44 Primary Care Provider: RACHANA PADILLA PA-C [Primary Care Provider] - Follow up as needed Information source: Patient Notes: Patient is a 43-year-old female with stage IV pancreatic cancer (liver mets) status post partial pancreatectomy who presents to the emergency department today with complaints of elevated blood glucose levels for the last 2 days. Patient states her readings at home have been "high" for the last two days. Patient was also diagnosed with a DVT July 15 and started on xarelto. Patient states she has been taking her 50 units of Lantus at night and 8 units of NovoLog with meals as prescribed. Patient reports she is on a sliding scale for her NovoLog. TRAVEL OUTSIDE OF THE [place] IN LAST 30 DAYS: No - Related Data Allergies/Adverse Reactions: morphine [Morphine] Allergy (Verified 07/20/19 17:37) Hives Past Medical History - General Information source: Patient - Social History Smoking Status: Former Smoker Chew tobacco use (# tins/day): No Frequency of alcohol use: Occasional Drug Abuse: None Family History: Reviewed & Not Pertinent Patient has suicidal ideation: No Patient has homicidal ideation: No Endocrine Medical History: Reports: Hx Diabetes Mellitus Type 2 - gestational DM Malignancy Medical History: Reports: Hx Pancreatic Cancer Psychiatric Medical History: Reports: Hx Depression Past Surgical History: Reports: Hx Section - x2, Hx Pancreatic Surgery - Immunizations Hx Diphtheria, Pertussis, Tetanus Vaccination: Yes Review of Systems - Review of Systems Constitutional: See HPI, Other - elevated BGLs EENT: No symptoms reported Cardiovascular: No symptoms reported Respiratory: No symptoms reported Gastrointestinal: No symptoms reported Genitourinary: See HPI, Frequency Female Genitourinary: No symptoms reported Musculoskeletal: No symptoms reported Skin: No symptoms reported Hematologic/Lymphatic: No symptoms reported Neurological/Psychological: No symptoms reported -: Yes All other systems reviewed and negative Physical Exam - Vital signs Vitals: Temp Pulse Resp BP Pulse Ox 99.5 F 96 17 151/93 H 97 07/20/19 17:41 07/20/19 17:41 07/20/19 17:41 07/20/19 17:41 07/20/19 17:41 - Notes Notes: Physical Exam: General: Alert, appears chronically ill. Obese. HEENT: Normocephalic. Atraumatic. PERRL. Extraocular movements intact. Oropharynx clear. Dry mucous membranes. Neck: Supple. Non-tender. Respiratory: No respiratory distress. Clear and equal breath sounds bilaterally. Cardiovascular: Regular rate and rhythm. Abdominal: Obese. Non-tender. No distension. Normal Bowel Sounds. Back: No gross abnormalities. Extremities: Moves all four extremities. Upper extremities: Normal inspection. Normal ROM. Lower extremities: Normal inspection. No edema. Normal ROM. Neurological: Normal cognition. AAOx4. Normal speech. Psychological: Normal affect. Normal Mood. Skin: Warm. Dry. Normal color. Freshly healed right subclavian scar from port placement. Course - Re-evaluation Re-evalutation: 07/20/19 20:08 The blood sugar today is 797, there are no ketones in the urine, serum CO2 is normal. It would appear the additional insulin she used according to her her sliding scale was enough to prevent fat metabolism and ketosis, but not enough to bring the blood sugars down. 07/20/19 20:55 The patient's hemoglobin A1c is greater than 14, this would suggest that these [id number] sugars are a chronic problem, not acute. - Vital Signs Vital signs: Temp Pulse Resp BP Pulse Ox 99.5 F 96 17 151/93 H 97 07/20/19 17:41 07/20/19 17:41 07/20/19 17:41 07/20/19 17:41 07/20/19 17:41 - Laboratory Result Diagrams: 07/20/19 18:08 07/20/19 18:08 Laboratory results interpreted by me: 07/20/19 07/20/19 07/20/19 18:08 18:08 18:08 Hgb 11.1 L Hct 35.6 L MCHC 31.3 L RDW 24.9 H [place] % (Auto) 1.5 L Seg Neutrophils % 84.4 H PT 22.6 H APTT 37.1 H Sodium 128.0 L Chloride 90 L Glucose 797 H* Hemoglobin A1c % AST 49 H Alkaline Phosphatase 133 H Urine Glucose (UA) 07/20/19 07/20/19 18:08 18:08 Hgb Hct MCHC RDW [place] % (Auto) Seg Neutrophils % PT APTT Sodium Chloride Glucose Hemoglobin A1c % > 14.0 H AST Alkaline Phosphatase Urine Glucose (UA) >=1000 H Discharge - Discharge Clinical Impression: Poorly controlled diabetes mellitus, Dehydration Hyperglycemia due to type 2 diabetes mellitus Qualifiers: Diabetes mellitus termite inspector insulin use: with termite inspector use Qualified Code(s): E11.65 - Type 2 diabetes mellitus with hyperglycemia; Z79.4 - snf (current) use of insulin Condition: Stable Disposition: HOME, SELF-CARE Additional Instructions: Your hemoglobin A1c today was greater than 14.0 This shows that your blood sugars have been very poorly controlled for several months. You should drink plenty of fluids. Increase your Lantus to 60 units at bedtime. Be sure to use the sliding scale when you check your sugars, if you decide to skip a meal, you should still check your sugar and give insulin as indicated. Call your doctor at [place] tomorrow and tell them about your blood sugars at night, and more importantly what your hemoglobin A1c is. RETURN TO THE EMERGENCY ROOM IF ANY NEW OR WORSENING SYMPTOMS. Referrals: RACHANA PADILLA PA-C [Primary Care Provider] - Follow up in 3-5 days Scribe Attestation: 07/20/19 20:56 I personally performed the services described in the documentation, reviewed and edited the documentation which was dictated to the scribe in my presence, and it accurately records my words and actions. I personally performed the services described in the documentation, reviewed and edited the documentation which was dictated to the scribe in my presence, and it accurately records my words and actions.
[2019-07-20] MEDS ORDERED: NORMAL SALINE 1000 ML 1,000 ML IV ONE (20:11)
== END 2019-07-20 21:14 | disposition home or self-care (01) ==
LOC: ER 17:36
DX: E11.65 Type 2 diabetes mellitus with hyperglycemia (principal); Z79.4 Long term (current) use of insulin; E86.0 Dehydration; C25.9 Malignant neoplasm of pancreas, unspecified; Z87.891 Personal history of nicotine dependence
CPT/HCPCS: 36415; 83735; 85025; 85610; 85730; 80053; 81001; 83036; 82803; 71046; J1815; J7030

== ENCOUNTER 2019-08-01 18:17 | Emergency (ER) | payer MEDICAID ==
--- NOTE | 2019-08-01 19:02 | ER Document Report ---
ED Medical Screen (RME) - General Chief Complaint: High Blood Sugar Stated Complaint: HIGH BLOOD SUGAR Time Seen by Provider: 08/01/19 18:54 Primary Care Provider: RACHANA PADILLA PA-C [Primary Care Provider] - Follow up as needed Notes: Patient is a 43-year-old female with past medical history of pancreatic cancer who presents to the emergency department with 2 different complaints. She first states that she has left lower extremity pain, where she was diagnosed with a DVT about 2 weeks ago. She states that she continues to have pain in the area. Notes that the swelling has only gone down a little bit. She is currently on Xarelto. Also, her blood sugar was in the 400s around 1700 today. She is currently taking insulin. She denies any shortness of breath or difficulty breathing. Exam: Mild edema noted to left lower extremity. I have greeted and performed a rapid initial assessment of this patient. A comprehensive ED assessment and evaluation of the patient, analysis of test results and completion of medical decision making process will be conducted by an additional ED providers. - Related Data Allergies/Adverse Reactions: morphine [Morphine] Allergy (Verified 07/20/19 17:37) Hives Past Medical History Endocrine Medical History: Reports: Hx Diabetes Mellitus Type 2 - gestational DM Renal/ Medical History: Denies: Hx Peritoneal Dialysis Malignancy Medical History: Reports: Hx Pancreatic Cancer GI Medical History: Reports: Hx Gastroesophageal Reflux Disease Psychiatric Medical History: Reports: Hx Depression Past Surgical History: Reports: Hx Section - x2, Hx Pancreatic Surgery - Immunizations Hx Diphtheria, Pertussis, Tetanus Vaccination: Yes Physical Exam - Vital signs Vitals: Temp Pulse Resp BP Pulse Ox 98.4 F 111 H 22 H 133/49 H 99 08/01/19 18:41 08/01/19 18:41 08/01/19 18:41 08/01/19 18:41 08/01/19 18:41 Course - Vital Signs Vital signs: Temp Pulse Resp BP Pulse Ox 98.4 F 111 H 22 H 133/49 H 99 08/01/19 18:41 08/01/19 18:41 08/01/19 18:41 08/01/19 18:41 08/01/19 18:41 Doctor's Discharge - Discharge Referrals: RACHANA PADILLA PA-C [Primary Care Provider] - Follow up as needed
[2019-08-01 19:44] LABS: ABSOLUTE BASOPHILS # (AUTO) 0.1 10^3/uL (0.0-0.2); ABSOLUTE LYMPHOCYTES (AUTO) 2.3 10^3/uL (0.5-4.7); ABSOLUTE MONOCYTES (AUTO) 0.9 10^3/uL (0.1-1.4); ABSOLUTE NEUT (AUTO) 3.3 10^3/uL (1.7-8.2); BASOPHILS % (AUTO) 0.8 % (0-2); EOSINOPHILS % (AUTO) 0.4 % (0-6); HEMATOCRIT 36.1 % (36.0-47.0); HEMOGLOBIN 11.6 g/dL (12.0-15.5); INTERNATIONAL RATION (INR) 1.51; LYMPHOCYTES % (AUTO) 34.8 % (13-45); MEAN CORPUSCULAR HEMOGLOBIN 29.7 pg (27.0-33.4); MEAN CORPUSCULAR HGB CONC 32.1 g/dL (32.0-36.0); MEAN CORPUSCULAR VOLUME 93 fl (80-97); MONOCYTES % (AUTO) 13.3 % (3-13); PLATELET COUNT 242 10^3/uL (150-450); PROTHROMBIN TIME 18.4 SEC (11.4-15.4); RED CELL DISTRIBUTION WIDTH 24.1 % (11.5-14.0); SEGMENTED NEUTROPHILS % (AUTO) 50.7 % (42-78); TOTAL CELLS COUNTED % (AUTO) 100 %
[2019-08-01 19:45] LABS: PARTIAL THROMBOPLASTIN TIME 35.1 SEC (23.5-35.8)
[2019-08-01 19:49] LABS: ALBUMIN 3.6 g/dL (3.5-5.0); ALKALINE PHOSPHATASE 108 U/L (38-126); ANION GAP 7 (5-19); ASPARTATE AMINO TRANSFERASE 27 U/L (14-36); BILIRUBIN,DIRECT 0.1 mg/dL (0.0-0.4); BILIRUBIN,TOTAL 0.2 mg/dL (0.2-1.3); BLOOD UREA NITROGEN 6 mg/dL (7-20); CALCIUM 9.3 mg/dL (8.4-10.2); CARBON DIOXIDE 28 mmol/L (22-30); CHLORIDE 100 mmol/L (98-107); POTASSIUM 3.9 mmol/L (3.6-5.0); TOTAL PROTEIN 6.6 g/dL (6.3-8.2)
[2019-08-01 19:58] LABS: GLUCOSE 408 mg/dL (75-110)
[2019-08-01 20:05] LABS: ANISOCYTOSIS 3+
[2019-08-01 20:07] LABS: OVALOCYTES SLIGHT; PLATELET COMMENT ADEQUATE; POIKILOCYTOSIS 1+
[2019-08-01] MEDS ORDERED: RINGERS SOLUTION,LACTATED 1,000 ML IV ONE (20:21)
--- NOTE | 2019-08-01 20:26 | ER Document Report ---
ED General - General Chief Complaint: High Blood Sugar Stated Complaint: HIGH BLOOD SUGAR Time Seen by Provider: 08/01/19 18:54 Primary Care Provider: RACHANA PADILLA PA-C [Primary Care Provider] - Follow up as needed - HPI Notes: Patient with history of pancreatic cancer diagnosed in January of this year on chemotherapy presents for concern of pain in her left lower extremity. She states she was noticed with DVT approximately 2 weeks ago at [place] and has been on Xarelto and has been medically compliant. She also states that her blood sugars normally run between 3 and 400 and she is to see an business analyst consultant next week regarding this. She denies any nausea vomiting or diarrhea. She denies any chest pain or shortness of breath more than normal. Her primary concern is the pain in her leg gets tingling and wakes her up at night. - Related Data Allergies/Adverse Reactions: morphine [Morphine] Allergy (Verified 07/20/19 17:37) Hives Past Medical History - Social History Smoking Status: Never Smoker Family History: Reviewed & Not Pertinent Patient has suicidal ideation: No Patient has homicidal ideation: No Endocrine Medical History: Reports: Hx Diabetes Mellitus Type 2 - gestational DM Renal/ Medical History: Denies: Hx Peritoneal Dialysis Malignancy Medical History: Reports: Hx Pancreatic Cancer GI Medical History: Reports: Hx Gastroesophageal Reflux Disease Psychiatric Medical History: Reports: Hx Depression Past Surgical History: Reports: Hx Section - x2, Hx Pancreatic Surgery - Immunizations Hx Diphtheria, Pertussis, Tetanus Vaccination: Yes Review of Systems - Review of Systems Constitutional: No symptoms reported EENT: No symptoms reported Cardiovascular: No symptoms reported Respiratory: No symptoms reported Gastrointestinal: No symptoms reported Genitourinary: No symptoms reported Female Genitourinary: No symptoms reported Musculoskeletal: No symptoms reported Skin: No symptoms reported Hematologic/Lymphatic: No symptoms reported Neurological/Psychological: See HPI Physical Exam - Vital signs Vitals: Temp Pulse Resp BP Pulse Ox 98.4 F 111 H 22 H 133/49 H 99 08/01/19 18:41 08/01/19 18:41 08/01/19 18:41 08/01/19 18:41 08/01/19 18:41 - General General appearance: Appears well, Alert - HEENT Head: Normocephalic, Atraumatic Eyes: Normal Conjunctiva: Normal - Respiratory Respiratory status: No respiratory distress Chest status: Nontender Breath sounds: Normal - Cardiovascular Rhythm: Regular Heart sounds: Normal auscultation Murmur: No - Abdominal Inspection: Normal Distension: No distension Bowel sounds: Normal - Extremities General upper extremity: Normal inspection, Normal ROM General lower extremity: Normal inspection, Normal ROM - Neurological Neuro grossly intact: Yes Cognition: Normal Orientation: AAOx4 Course - Re-evaluation Re-evalutation: 08/01/19 20:24 Patient does have positive DVT study in the emergency department here. She is currently on Xarelto. Will provide short dose of pain medications to help patient sleep at night. She was provided 1 L of lactated Ringer's prior to discharge. Her blood sugar runs between 3 and 400s she states and she is within that range today. She is having endocrinology follow-up next week regarding this. - Vital Signs Vital signs: Temp Pulse Resp BP Pulse Ox 98.4 F 111 H 22 H 133/49 H 99 08/01/19 18:41 08/01/19 18:41 08/01/19 18:41 08/01/19 18:41 08/01/19 18:41 - Laboratory Result Diagrams: 08/01/19 19:12 08/01/19 19:12 Laboratory results interpreted by me: 08/01/19 08/01/19 08/01/19 19:12 19:12 19:12 Hgb 11.6 L RDW 24.1 H [place] % (Auto) 13.3 H PT 18.4 H Sodium 135.3 L BUN 6 L Glucose 408 H* POC Glucose 08/01/19 19:13 Hgb RDW [place] % (Auto) PT Sodium BUN Glucose POC Glucose 368 H Discharge - Discharge Clinical Impression: Hyperglycemia DVT (deep venous thrombosis) Qualifiers: DVT location: lower extremity Affected thrombotic vein of extremity: other lower extremity vein Chronicity: unspecified Laterality: right Qualified Code(s): I82.491 - Acute embolism and thrombosis of other specified deep vein of right lower extremity Condition: Good Disposition: HOME, SELF-CARE Instructions: DVT Outpatient Treatment ([facility]) Additional Instructions: Please follow-up with your endocrinology appointment next week regarding her blood glucose levels. If you experience worsening shortness of breath or chest pain please seek medical attention promptly Prescriptions: Oxycodone HCl/Acetaminophen [Percocet 5-325 mg Tablet] 1 tab PO Q4H PRN #15 tablet PRN Reason:
--- NOTE | 2019-08-01 21:24 | VASCULAR PRELIM REPORT ---
Provider Note Provider Note: Positive fro DVT in the left Posterior Tibial veins.
[2019-08-01 22:39] VITALS: BP 116/60
--- NOTE | 2019-08-02 10:25 | XCELERA REPORT ---
[address] [address] Lower Extremity Venous Evaluation Procedure: Color flow and duplex imaging of the veins of the left lower extremity as well as the right Common Femoral vein. Right Sided Venous Evaluation The right common femoral vein is fully compressible. Spontaneous and phasic flow is present in the right common femoral vein. Left Sided Venous Evaluation Abnormal vessel filling, no compression or Colour flow , in the paired Posterior tibial veins. Critical Findings Called in to the ER. Interpretation Summary Subacute Deep Venous Thrombosis in the left infrageniculate veins. Normal otherwise. Name: HOA SALES Age: 43 yrs Gender: Female : 1975 Patient Status: Emergency Patient Location: ER Study Date: 08/01/2019 08:01 PM Reason For Study: LLE pain Ordering Physician: JOHN ATWOOD Performed By: Ольга Roberts : JOHN ATWOOD > Jaya Hu
[2019-08-04 09:15] LABS: WHITE BLOOD COUNT 6.6 10^3/uL (4.0-10.5)
[2019-08-04 12:06] LABS: PATH REVIEW PATHOLOGIST REVIEWED
== END 2019-08-01 22:47 | disposition home or self-care (01) ==
LOC: ER 18:17
DX: R73.9 Hyperglycemia, unspecified (principal); I82.491 Acute embolism and thrombosis of other specified deep vein of right lower extremity; M79.662 Pain in left lower leg; C25.9 Malignant neoplasm of pancreas, unspecified; Z88.6 Allergy status to analgesic agent; Z86.718 Personal history of other venous thrombosis and embolism; Z79.01 Long term (current) use of anticoagulants; Z79.4 Long term (current) use of insulin
CPT/HCPCS: 36415; 82962; 85025; 85610; 85730; 80053; 93971 ×2; J7120; 96360; 99283

== ENCOUNTER 2019-10-07 18:18 | Observation (INO) | payer MEDICAID, OTHER ==
--- NOTE | 2019-10-07 18:58 | ER Document Report ---
ED Medical Screen (RME) - General Chief Complaint: High Blood Sugar Stated Complaint: BLOOD SUGAR ISSUES Time Seen by Provider: 10/07/19 18:50 Primary Care Provider: RACHANA PADILLA PA-C [Primary Care Provider] - Follow up as needed Notes: 43-year-old female with pancreatic cancer with history of ?Whipple surgery in February 2019, insulin-dependent diabetes mellitus, DVT and PE currently on Lovenox presents to the emergency department with chief complaint of high blood sugar. Patient states she was at home checked her sugar and it read "high". No nausea or vomiting, only complaints are some blurred vision while watching the TV, polyuria, and mild dizziness and lightheadedness. Exam: Well-appearing no acute distress, lungs clear to auscultation, regular cardiac rate and rhythm with no murmur I have greeted and performed a rapid initial assessment of this patient. A comprehensive ED assessment and evaluation of the patient, analysis of test results and completion of medical decision making process will be conducted by an additional ED providers. TRAVEL OUTSIDE OF THE [place] IN LAST 30 DAYS: No - Related Data Allergies/Adverse Reactions: morphine [Morphine] Allergy (Verified 10/07/19 18:48) Hives Past Medical History - Social History Chew tobacco use (# tins/day): No Frequency of alcohol use: None Drug Abuse: None Endocrine Medical History: Reports: Hx Diabetes Mellitus Type 2 - gestational DM Renal/ Medical History: Denies: Hx Peritoneal Dialysis Malignancy Medical History: Reports: Hx Pancreatic Cancer GI Medical History: Reports: Hx Gastroesophageal Reflux Disease Psychiatric Medical History: Reports: Hx Depression Past Surgical History: Reports: Hx Section - x2, Hx Pancreatic Surgery - Immunizations Hx Diphtheria, Pertussis, Tetanus Vaccination: Yes Physical Exam - Vital signs Vitals: Temp Pulse Resp BP Pulse Ox 97.7 F 107 H 16 142/93 H 98 10/07/19 18:28 10/07/19 18:28 10/07/19 18:28 10/07/19 18:28 10/07/19 18:28 Course - Vital Signs Vital signs: Temp Pulse Resp BP Pulse Ox 97.7 F 107 H 16 142/93 H 98 10/07/19 18:48 10/07/19 18:48 10/07/19 18:48 10/07/19 18:48 12/03/19 18:48 Doctor's Discharge - Discharge Referrals: RACHANA PADILLA PA-C [Primary Care Provider] - Follow up as needed
--- NOTE | 2019-10-07 19:27 | ER Document Report ---
ED General - General Chief Complaint: High Blood Sugar Stated Complaint: BLOOD SUGAR ISSUES Time Seen by Provider: 10/07/19 18:50 Primary Care Provider: RACHANA PADILLA PA-C [Primary Care Provider] - Follow up as needed TRAVEL OUTSIDE OF THE [place] IN LAST 30 DAYS: No - HPI Notes: This is a 43-year-old female presenting with concern about high blood sugar polydipsia and polyuria and blood sugar readings of "high" on home glucometer. This lady has a history of pancreatic CA and has had a Whipple procedure and has been a type I diabetic since then. She supposed be on Lantus 60 units/day but says that she is been out of this for nearly 2 weeks because her Medicaid would not authorize medication to be filled apparently. She says she talked with her primary care and her pharmacist without any satisfaction and therefore has decided to come to the emergency department today. She denies nausea vomiting. She is having some slightly blurred vision. Not running a fever. - Related Data Allergies/Adverse Reactions: morphine [Morphine] Allergy (Verified 10/07/19 18:48) Hives Past Medical History - General Information source: Patient, Relative - Social History Smoking Status: Never Smoker Chew tobacco use (# tins/day): No Frequency of alcohol use: None Drug Abuse: None Family History: Reviewed & Not Pertinent Patient has suicidal ideation: No Patient has homicidal ideation: No Endocrine Medical History: Reports: Hx Diabetes Mellitus Type 2 - gestational DM Renal/ Medical History: Denies: Hx Peritoneal Dialysis Malignancy Medical History: Reports: Hx Pancreatic Cancer GI Medical History: Reports: Hx Gastroesophageal Reflux Disease Psychiatric Medical History: Reports: Hx Depression Past Surgical History: Reports: Hx Section - x2, Hx Pancreatic Surgery - Immunizations Hx Diphtheria, Pertussis, Tetanus Vaccination: Yes Review of Systems - Review of Systems Notes: Constitutional: Negative for fever. HENT: Negative for sore throat. Eyes: Blurred vision. Cardiovascular: Negative for chest pain. Respiratory: Negative for shortness of breath. Gastrointestinal: Negative for abdominal pain, vomiting or diarrhea. Genitourinary: Urinary frequency. Negative for dysuria. Musculoskeletal: Negative for back pain. Skin: Negative for rash. Neurological: Negative for headaches, weakness or numbness. 10 point ROS negative except as marked above and in HPI. Physical Exam - Vital signs Vitals: Temp Pulse Resp BP Pulse Ox 97.7 F 107 H 16 142/93 H 98 10/07/19 18:28 10/07/19 18:28 10/07/19 18:28 10/07/19 18:28 10/07/19 18:28 - Notes Notes: GENERAL: Well-developed well-nourished appearing in no acute distress. SKIN: Good turgor no rashes. HEAD: Normocephalic atraumatic. EYES: PERRLA. Conjunctivae and sclerae clear. EARS: CANALS AND TMS CLEAR. NOSE: CLEAR. MOUTH: Moist mucosa. Good dentition. No stridor or edema. No drooling. NECK: Supple. No masses or thyromegaly. No adenopathy. Carotids 2+ without bruits. No JVD. BACK: Symmetrical without tenderness. CHEST: Respirations unlabored. Breath sounds clear and symmetrical. HEART: Regular rhythm. No murmur gallop or rub. ABDOMEN: Mildly obese with healed surgical scars present soft nontender without masses, organomegaly or rebound. Bowel sounds normally active. No bruits. GENITALIA: Deferred. EXTREMITIES: Trace pretibial edema. No calf tenderness. Cap refill less than 1.5 seconds. Dorsalis pedis and posterior tibial pulses 3+ and symmetrical. NEUROLOGICAL: GCS 15. Alert and oriented x3. Normal gait. Fluent speech. Cranial nerves II through XII intact. Sensorimotor and cerebellar normal. Normal tone. Course - Re-evaluation Re-evalutation: 10/07/19 20:29 Patient is in a hyperosmolar state with a blood sugar around 843. Her CO2 venous is normal and her anion gap is not significantly increased. She is receiving IV fluids and IV insulin drip has been initiated. She will be admitted to telemetry and has been accepted for admission by Dr. Rufino Reeves. - Vital Signs Vital signs: Temp Pulse Resp BP Pulse Ox 97.7 F 107 H 16 142/93 H 98 10/07/19 18:48 10/07/19 18:48 10/07/19 18:48 10/07/19 18:48 10/07/19 18:48 - Laboratory Result Diagrams: 10/07/19 19:10 10/07/19 19:10 Laboratory results interpreted by me: 10/07/19 10/07/19 19:10 19:10 MCHC 31.9 L RDW 17.3 H Plt Count 542 H Sodium 126.7 L Chloride 90 L BUN 6 L Glucose 843 H* Calcium 10.3 H - EKG Interpretation by Me EKG shows normal: Sinus rhythm, [place] Rate: Tachycardia Critical Care Note - Critical Care Note Total time excluding time spent on procedures (mins): 35 Comments: IV fluids and IV insulin drip with telemetry monitoring for hyperglycemia with hyperosmolar state. Discharge - Discharge Clinical Impression: Hyperglycemia with hyperosmolar state, Diabetes mellitus type 1 Condition: Fair Disposition: ADMITTED INPATIENT Admitting Provider: Leandro (Hospitalist) Unit Admitted: Telemetry Referrals: RACHANA PADILLA PA-C [Primary Care Provider] - Follow up as needed
[2019-10-07 19:36] LABS: ABSOLUTE BASOPHILS # (AUTO) 0.1 10^3/uL (0.0-0.2); ABSOLUTE EOSINOPHILS # (AUTO) 0.1 10^3/uL (0.0-0.6); ABSOLUTE LYMPHOCYTES (AUTO) 2.3 10^3/uL (0.5-4.7); ABSOLUTE MONOCYTES (AUTO) 1.1 10^3/uL (0.1-1.4); ABSOLUTE NEUT (AUTO) 5.8 10^3/uL (1.7-8.2); BASOPHILS % (AUTO) 0.6 % (0-2); EOSINOPHILS % (AUTO) 1.3 % (0-6); HEMATOCRIT 43.2 % (36.0-47.0); HEMOGLOBIN 13.8 g/dL (12.0-15.5); MEAN CORPUSCULAR HGB CONC 31.9 g/dL (32.0-36.0); MEAN CORPUSCULAR VOLUME 97 fl (80-97); MONOCYTES % (AUTO) 11.2 % (3-13); PLATELET COUNT 542 10^3/uL (150-450); RED BLOOD COUNT 4.44 10^6/uL (3.72-5.28); RED CELL DISTRIBUTION WIDTH 17.3 % (11.5-14.0); SEGMENTED NEUTROPHILS % (AUTO) 61.9 % (42-78); TOTAL CELLS COUNTED % (AUTO) 100 %; WHITE BLOOD COUNT 9.4 10^3/uL (4.0-10.5)
[2019-10-07] MEDS: NORMAL SALINE 1000 ML 1,000 ML IV PRN ×2 (19:53→21:54)
[2019-10-07 19:54] LABS: ALBUMIN 4.4 g/dL (3.5-5.0); ALKALINE PHOSPHATASE 122 U/L (38-126); ANION GAP 14 (5-19); ASPARTATE AMINO TRANSFERASE 29 U/L (14-36); BILIRUBIN,DIRECT 0.3 mg/dL (0.0-0.4); BILIRUBIN,TOTAL 0.6 mg/dL (0.2-1.3); BLOOD UREA NITROGEN 6 mg/dL (7-20); CALCIUM 10.3 mg/dL (8.4-10.2); CARBON DIOXIDE 23 mmol/L (22-30); CHLORIDE 90 mmol/L (98-107); POTASSIUM 4.8 mmol/L (3.6-5.0); TOTAL PROTEIN 7.7 g/dL (6.3-8.2)
[2019-10-07 20:11] LABS: GLUCOSE 843 mg/dL (75-110)
[2019-10-07 20:16] LABS: APPEARANCE,URINE CLEAR; BILIRUBIN,URINE NEGATIVE (NEGATIVE); COLOR,URINE COLORLESS; GLUCOSE, URINE >=500 mg/dL (NEGATIVE); KETONES,URINE NEGATIVE (NEGATIVE); LEUKOCYTE ESTERASE,URINE NEGATIVE (NEGATIVE); NITRITE,URINE NEGATIVE (NEGATIVE); PROTEIN,URINE NEGATIVE (NEGATIVE); URINE SPECIFIC GRAVITY 1.029; UROBILINOGEN,URINE NEGATIVE mg/dL (<2.0)
[2019-10-07] MEDS ORDERED: GLUCAGON,HUMAN RECOMB 1 MG INJ IM PRN ×2 (20:21→20:26)
[2019-10-07] MEDS ORDERED: DEXTROSE 50%-WATER 25 GM/50 ML DISP.SYRIN IV PRN ×4 (20:21→20:26)
[2019-10-07] MEDS ORDERED: NORMAL SALINE 100 ML with INSULIN REGULAR, HUMAN 100 UNIT IV PRN ×2 (20:21)
[2019-10-07] MEDS ORDERED: DEXTROSE 40% GEL 15 GM TUBE PO PRN ×4 (20:21→20:26)
[2019-10-07] MEDS ORDERED: IPRATROPIUM/ALBUTEROL 0.5-2.5 MG/3 ML AMPUL NEB PRN (20:26)
[2019-10-07] MEDS ORDERED: ACETAMINOPHEN 325 MG TABLET PO PRN (20:26)
[2019-10-07] MEDS ORDERED: MAGNESIUM HYDROXIDE SUSP 30 ML UDCUP PO PRN (20:26)
[2019-10-07] MEDS ORDERED: MAG HYDROX/AL HYDROX/SIMETH SUSP 30 ML UDCUP PO PRN (20:26)
[2019-10-07] MEDS ORDERED: NORMAL SALINE 1000 ML 1,000 ML IV SCH (20:30)
[2019-10-07] MEDS: INSULIN LISPRO 100 UNIT/ML 3 ML VIAL SUBCUT SCH (21:28)
[2019-10-07] MEDS: POTASSIUM CHLORIDE 10 MEQ TABLET.ER PO SCH (21:29)
[2019-10-07] MEDS: HEPARIN SOD (PORCINE) 5,000 UNIT/ML 1 ML VIAL SUBCUT SCH (21:29)
[2019-10-07] MEDS ORDERED: INSULIN GLARGINE,HUM.REC.ANLOG 1,000 UNIT/10 ML VIAL SUBCUT ONE (21:30)
[2019-10-07] MEDS ORDERED: INSULIN GLARGINE,HUM.REC.ANLOG 1,000 UNIT/10 ML VIAL SUBCUT SCH (22:00)
--- NOTE | 2019-10-08 00:33 | EKG REPORT ---
SEVERITY:- BORDERLINE ECG - SINUS TACHYCARDIA PROBABLE LEFT ATRIAL ABNORMALITY : Confirmed by: Jyoti Ashley MD 08-Oct-2019 00:32:45
[2019-10-08] MEDS: INSULIN LISPRO 100 UNIT/ML 3 ML VIAL SUBCUT SCH ×5 (01:19→23:47)
[2019-10-08] MEDS ORDERED: NORMAL SALINE 1000 ML 1,000 ML IV PRN (01:31)
[2019-10-08 05:58] LABS: ANION GAP 11 (5-19); BLOOD UREA NITROGEN 5 mg/dL (7-20); CALCIUM 10.8 mg/dL (8.4-10.2); CARBON DIOXIDE 26 mmol/L (22-30); CHLORIDE 104 mmol/L (98-107); GLUCOSE 190 mg/dL (75-110); POTASSIUM 3.9 mmol/L (3.6-5.0)
--- NOTE | 2019-10-08 06:09 | PDOC H&P ---
History of Present Illness Admission Date/PCP: 10/07/19 20:46 RACHANA PADILLA PA-C Patient complains of: Hyperglycemia and blurred vision History of Present Illness: HOA SALES is a 43 year old female with a past medical history of stage IV pancreatic cancer status post Whipple, with subsequent insulin-dependent diabetes, under going chemotherapy at [place]. She presents with 2 weeks of uncontrolled hyperglycemia as she is unable to fill Lantus secondary to lack of finances. She is seen in the emergency room complaining of polyuria polydipsia, blurred vision and hyperglycemia. She is found to have a blood glucose of 843 without acidosis. She is started on IV fluids, insulin and referred to the hospitalist for admission. Past Medical History Endocrine Medical History: Reports: Diabetes Mellitus Type 2 - gestational DM Malignancy Medical History: Reports: Pancreatic Cancer GI Medical History: Reports: Gastroesophageal Reflux Disease Psychiatric Medical History: Reports: Depression Past Surgical History Past Surgical History: Reports: Section - x2 Social History Information Source: Patient, [facility] Records Lives with: Family Smoking Status: Never Smoker Electronic Cigarette use?: No Frequency of Alcohol Use: None Hx Recreational Drug Use: No Drugs: None Hx Prescription Drug Abuse: No - Advance Directive Resuscitation Status: Full Code Family History Family History: Hypertension Parental Family History Reviewed: Yes Children Family History Reviewed: Yes Sibling(s) Family History Reviewed.: Yes Medication/Allergy Home Medications: Ondansetron [Zofran Odt 4 mg Tablet] 4 mg PO Q4HP PRN #30 tab.rapdis 03/05/19 Gabapentin [Neurontin 300 mg Capsule] 300 mg PO QHS 10/08/19 Ibuprofen [Motrin 800 Mg Tablet] 800 mg PO TID PRN 10/08/19 Insulin Aspart [Novolog Flexpen] 25 units SUBCUT ASDIR 10/08/19 Insulin Glargine,Hum.rec.anlog [Lantus Insulin 100 Unit/1 ml 10 ml] 60 units SUBCUT QHS 10/08/19 Trazodone HCl 50 mg PO HSP PRN 10/08/19 Allergies/Adverse Reactions: morphine [Morphine] Allergy (Verified 10/07/19 18:48) Hives Review of Systems Constitutional: PRESENT: as per HPI, fatigue. ABSENT: weakness Eyes: ABSENT: visual disturbances Ears: ABSENT: hearing changes Cardiovascular: ABSENT: chest pain, dyspnea on exertion, edema, orthropnea, palpitations Respiratory: ABSENT: cough, hemoptysis Gastrointestinal: ABSENT: abdominal pain, constipation, diarrhea, hematemesis, hematochezia, nausea, vomiting Genitourinary: ABSENT: dysuria, hematuria Musculoskeletal: ABSENT: joint swelling Integumentary: ABSENT: rash, wounds Neurological: ABSENT: abnormal gait, abnormal speech, confusion, dizziness, focal weakness, syncope Psychiatric: ABSENT: anxiety, depression, homidical ideation, suicidal ideation Endocrine: PRESENT: as per HPI, polydipsia, polyphagia, polyuria. ABSENT: cold intolerance, heat intolerance, menstrual abnormalities Hematologic/Lymphatic: ABSENT: easy bleeding, easy bruising Physical Exam Vital Signs: Temp Pulse Resp BP Pulse Ox 98.2 F 94 18 125/70 100 10/08/19 02:38 10/08/19 02:46 10/08/19 02:38 10/08/19 02:38 10/08/19 02:38 Intake & Output 10/06/19 10/07/19 10/08/19 11:59 11:59 11:59 Intake Total 1999 Balance 1999 Weight 120.8 kg General appearance: PRESENT: no acute distress, well-developed, well-nourished Head exam: PRESENT: atraumatic, normocephalic Eye exam: PRESENT: conjunctiva pink, EOMI, PERRLA. ABSENT: scleral icterus Ear exam: PRESENT: normal external ear exam Mouth exam: PRESENT: moist, tongue midline Neck exam: ABSENT: carotid bruit, JVD, lymphadenopathy, thyromegaly Respiratory exam: PRESENT: clear to auscultation osmani. ABSENT: rales, rhonchi, wheezes Cardiovascular exam: PRESENT: RRR. ABSENT: diastolic murmur, rubs, systolic murmur Pulses: PRESENT: normal dorsalis pedis pul Vascular exam: PRESENT: normal capillary refill GI/Abdominal exam: PRESENT: normal bowel sounds, soft. ABSENT: distended, guarding, mass, organolmegaly, rebound, tenderness Rectal exam: PRESENT: deferred Extremities exam: PRESENT: full ROM. ABSENT: calf tenderness, clubbing, pedal edema Neurological exam: PRESENT: alert, awake, oriented to person, oriented to place, oriented to time, oriented to situation, CN II-XII grossly intact. ABSENT: motor sensory deficit Psychiatric exam: PRESENT: appropriate affect, normal mood. ABSENT: homicidal ideation, suicidal ideation Skin exam: PRESENT: dry, intact, warm. ABSENT: cyanosis, rash Results Laboratory Results: 10/08/19 04:36 10/07/19 10/07/19 10/07/19 19:05 19:10 19:10 WBC 9.4 RBC 4.44 Hgb 13.8 Hct 43.2 MCV 97 MCH 31.0 MCHC 31.9 L RDW 17.3 H Plt Count 542 H Seg Neutrophils % 61.9 Sodium 126.7 L Potassium 4.8 Chloride 90 L Carbon Dioxide 23 Anion Gap 14 BUN 6 L Creatinine 0.56 Est GFR ( Amer) > 60 Glucose 843 H* Calcium 10.3 H Total Bilirubin 0.6 AST 29 Alkaline Phosphatase 122 Total Protein 7.7 Albumin 4.4 Lipase 84.5 Urine Color COLORLESS Urine Appearance CLEAR Urine pH 6.0 Ur Specific [place] 1.029 Urine Protein NEGATIVE Urine Glucose (UA) >=500 H Urine Ketones NEGATIVE Urine Blood NEGATIVE Urine Nitrite NEGATIVE Ur Leukocyte Esterase NEGATIVE Urine WBC (Auto) 0 Urine RBC (Auto) 4 10/08/19 04:36 WBC RBC Hgb Hct MCV MCH MCHC RDW Plt Count Seg Neutrophils % Sodium 140.6 Potassium 3.9 Chloride 104 Carbon Dioxide 26 Anion Gap 11 BUN 5 L Creatinine 0.48 L Est GFR ( Amer) > 60 Glucose 190 H Calcium 10.8 H Total Bilirubin AST Alkaline Phosphatase Total Protein Albumin Lipase Urine Color Urine Appearance Urine pH Ur Specific [place] Urine Protein Urine Glucose (UA) Urine Ketones Urine Blood Urine Nitrite Ur Leukocyte Esterase Urine WBC (Auto) Urine RBC (Auto) Assessment and Plan - Diagnosis (1) Hyperglycemia due to type 1 diabetes mellitus Is this a current diagnosis for this admission?: Yes Plan: N.p.o. for 12 hours, resume outpatient Lantus, Humalog sliding scale, education, discharge with alternative financially viable, long/intermediate acting insulin (2) Hyperosmolar syndrome Is this a current diagnosis for this admission?: Yes Plan: IV fluid challenge, insulin, education (3) Hypercalcemia Is this a current diagnosis for this admission?: Yes Plan: IV fluid challenge, follow-up chemistry (4) Hyponatremia Is this a current diagnosis for this admission?: Yes Plan: Pseudohyponatremia secondary to hyperglycemia, follow-up chemistry - Time Time Spent with patient: 25-34 minutes - Inpatient Certification Medical Necessity: Need Close Monitoring Due to Risk of Patient Decompensation
[2019-10-08] MEDS: HEPARIN SOD (PORCINE) 5,000 UNIT/ML 1 ML VIAL SUBCUT SCH ×3 (06:38→22:34)
[2019-10-08 06:43] LABS: ABSOLUTE BASOPHILS # (AUTO) 0.2 10^3/uL (0.0-0.2); ABSOLUTE EOSINOPHILS # (AUTO) 0.3 10^3/uL (0.0-0.6); ABSOLUTE LYMPHOCYTES (AUTO) 2.7 10^3/uL (0.5-4.7); ABSOLUTE MONOCYTES (AUTO) 1.6 10^3/uL (0.1-1.4); ABSOLUTE NEUT (AUTO) 6.3 10^3/uL (1.7-8.2); BASOPHILS % (AUTO) 1.6 % (0-2); EOSINOPHILS % (AUTO) 2.9 % (0-6); HEMATOCRIT 40.6 % (36.0-47.0); HEMOGLOBIN 13.4 g/dL (12.0-15.5); LYMPHOCYTES % (AUTO) 23.9 % (13-45); MEAN CORPUSCULAR HEMOGLOBIN 30.6 pg (27.0-33.4); MEAN CORPUSCULAR HGB CONC 32.9 g/dL (32.0-36.0); MONOCYTES % (AUTO) 14.9 % (3-13); PLATELET COUNT 506 10^3/uL (150-450); RED BLOOD COUNT 4.36 10^6/uL (3.72-5.28); RED CELL DISTRIBUTION WIDTH 16.8 % (11.5-14.0); SEGMENTED NEUTROPHILS % (AUTO) 56.7 % (42-78); TOTAL CELLS COUNTED % (AUTO) 100 %; WHITE BLOOD COUNT 11.1 10^3/uL (4.0-10.5)
[2019-10-08 06:44] LABS: MEAN CORPUSCULAR VOLUME 93 fl (80-97)
[2019-10-08] MEDS: INSULIN GLARGINE,HUM.REC.ANLOG 1,000 UNIT/10 ML VIAL SUBCUT SCH ×2 (09:09→22:45)
[2019-10-08] MEDS: POTASSIUM CHLORIDE 10 MEQ TABLET.ER PO SCH ×2 (09:09→22:33)
[2019-10-08] MEDS: DOCUSATE SODIUM 100 MG CAPSULE PO SCH ×2 (09:09→18:04)
[2019-10-08 15:43] LABS: ANION GAP 9 (5-19); BLOOD UREA NITROGEN 7 mg/dL (7-20); CALCIUM 10.5 mg/dL (8.4-10.2); CARBON DIOXIDE 25 mmol/L (22-30); CHLORIDE 105 mmol/L (98-107); GLUCOSE 267 mg/dL (75-110); POTASSIUM 4.3 mmol/L (3.6-5.0)
--- NOTE | 2019-10-08 16:47 | PDOC PROGRESS REPORT ---
Subjective Progress Note for:: 10/08/19 Subjective:: This is a 43 year old female with a past medical history of stage IV pancreatic cancer status post Whipple procedure, with subsequent insulin-dependent diabetes, under going chemotherapy at [place] presented with polyuria, polydipsia and blurred vision. Patient was noted to be in HHS. Patient has been off her Lantus for the past 2 weeks due to insurance coverage issues. No acute event overnight. HHS has resolved. She denies acute complaints. Will need assistance from facility planner regarding her insurance coverage for Lantus. Reason For Visit: HYPEROSM HYPERGLYCEMIA Physical Exam Vital Signs: Temp Pulse Resp BP Pulse Ox 98.3 F 106 H 18 119/87 H 99 10/08/19 15:51 10/08/19 15:51 10/08/19 15:51 10/08/19 15:51 10/08/19 15:51 Intake & Output 10/07/19 10/08/19 10/09/19 06:59 06:59 06:59 Intake Total 1999 360 Balance 1999 360 Weight 266 lb 5.094 oz 266 lb 5.094 oz General appearance: PRESENT: no acute distress, well-developed, well-nourished Head exam: PRESENT: atraumatic, normocephalic Eye exam: PRESENT: conjunctiva pink, EOMI, PERRLA. ABSENT: scleral icterus Ear exam: PRESENT: normal external ear exam Mouth exam: PRESENT: moist, tongue midline Neck exam: ABSENT: carotid bruit, JVD, lymphadenopathy, thyromegaly Respiratory exam: PRESENT: clear to auscultation osmani. ABSENT: rales, rhonchi, wheezes Cardiovascular exam: PRESENT: RRR. ABSENT: diastolic murmur, rubs, systolic murmur Pulses: PRESENT: normal dorsalis pedis pul GI/Abdominal exam: PRESENT: normal bowel sounds, soft. ABSENT: distended, guarding, mass, organolmegaly, rebound, tenderness Rectal exam: PRESENT: deferred Extremities exam: PRESENT: full ROM. ABSENT: calf tenderness, clubbing, pedal edema Neurological exam: PRESENT: alert, awake, oriented to person, oriented to place, oriented to time, oriented to situation, CN II-XII grossly intact. ABSENT: motor sensory deficit Results Laboratory Results: 10/08/19 04:36 10/08/19 15:07 10/07/19 10/07/19 10/07/19 19:05 19:10 19:10 WBC 9.4 RBC 4.44 Hgb 13.8 Hct 43.2 MCV 97 MCH 31.0 MCHC 31.9 L RDW 17.3 H Plt Count 542 H Seg Neutrophils % 61.9 Sodium 126.7 L Potassium 4.8 Chloride 90 L Carbon Dioxide 23 Anion Gap 14 BUN 6 L Creatinine 0.56 Est GFR ( Amer) > 60 Glucose 843 H* Calcium 10.3 H Total Bilirubin 0.6 AST 29 Alkaline Phosphatase 122 Total Protein 7.7 Albumin 4.4 Lipase 84.5 Urine Color COLORLESS Urine Appearance CLEAR Urine pH 6.0 Ur Specific [place] 1.029 Urine Protein NEGATIVE Urine Glucose (UA) >=500 H Urine Ketones NEGATIVE Urine Blood NEGATIVE Urine Nitrite NEGATIVE Ur Leukocyte Esterase NEGATIVE Urine WBC (Auto) 0 Urine RBC (Auto) 4 10/08/19 10/08/19 10/08/19 04:36 04:36 15:07 WBC 11.1 H RBC 4.36 Hgb 13.4 Hct 40.6 MCV 93 D MCH 30.6 MCHC 32.9 RDW 16.8 H Plt Count 506 H Seg Neutrophils % 56.7 Sodium 140.6 138.8 Potassium 3.9 4.3 Chloride 104 105 Carbon Dioxide 26 25 Anion Gap 11 9 BUN 5 L 7 Creatinine 0.48 L 0.60 Est GFR ( Amer) > 60 > 60 Glucose 190 H 267 H Calcium 10.8 H 10.5 H Total Bilirubin AST Alkaline Phosphatase Total Protein Albumin Lipase Urine Color Urine Appearance Urine pH Ur Specific [place] Urine Protein Urine Glucose (UA) Urine Ketones Urine Blood Urine Nitrite Ur Leukocyte Esterase Urine WBC (Auto) Urine RBC (Auto) Assessment and Plan - Diagnosis (1) Hyperosmolar syndrome Is this a current diagnosis for this admission?: Yes Plan: HHS secondary to noncompliance to Lantus due to insurance coverage issues. Resolved with IV fluids and insulin. Will need assistance from facility planner regarding her insurance coverage for Lantus. (2) Hyponatremia Is this a current diagnosis for this admission?: Yes Plan: Pseudohyponatremia secondary to hyperglycemia. Resolved.
[2019-10-08] MEDS: NYSTATIN TOPICAL POWDER 15 GM TP SCH (22:34)
[2019-10-08 22:54] LABS: ANION GAP 10 (5-19); BLOOD UREA NITROGEN 8 mg/dL (7-20); CALCIUM 10.3 mg/dL (8.4-10.2); CARBON DIOXIDE 24 mmol/L (22-30); CHLORIDE 102 mmol/L (98-107); POTASSIUM 4.3 mmol/L (3.6-5.0)
[2019-10-08 23:03] LABS: GLUCOSE 461 mg/dL (75-110)
[2019-10-08] MEDS ORDERED: INSULIN GLARGINE,HUM.REC.ANLOG 1,000 UNIT/10 ML VIAL (PYX) SUBCUT ONE (23:45)
[2019-10-09] MEDS: NYSTATIN TOPICAL POWDER 15 GM TP SCH ×2 (05:11→14:57)
[2019-10-09] MEDS: HEPARIN SOD (PORCINE) 5,000 UNIT/ML 1 ML VIAL SUBCUT SCH ×2 (05:11→14:10)
[2019-10-09] MEDS: INSULIN LISPRO 100 UNIT/ML 3 ML VIAL SUBCUT SCH ×2 (06:30→12:21)
[2019-10-09] MEDS: DOCUSATE SODIUM 100 MG CAPSULE PO SCH (09:58)
[2019-10-09] MEDS ORDERED: INSULIN GLARGINE,HUM.REC.ANLOG 1,000 UNIT/10 ML VIAL SUBCUT SCH (10:00)
[2019-10-09 15:47] VITALS: BP 114/79
[2019-10-09] MEDS ORDERED: NYSTATIN CREAM 15 GM TP SCH (16:00)
--- NOTE | 2019-10-10 17:41 | PDOC DISCHARGE SUMMARY ---
Impression - Admit/DC Date/PCP Admission Date/Primary Care Provider: 10/07/19 20:46 RACHANA PADILLA PA-C Discharge Date: 10/09/19 - Discharge Diagnosis (1) Hyperosmolar syndrome Is this a current diagnosis for this admission?: Yes (2) Hyponatremia Is this a current diagnosis for this admission?: Yes - Additional Information Resuscitation Status: Full Code Discharge Diet: Diabetic Discharge Activity: Activity As Tolerated Referrals: RACHANA PADILLA PA-C [Primary Care Provider] - 10/17/19 9:15 am Prescriptions: Nystatin [Mycostatin Topical Powder 15 gm] 1 applic TP Q8 #2 bottle Home Medications: Gabapentin [Neurontin 300 mg Capsule] 300 mg PO QHS 10/08/19 Ibuprofen [Motrin 800 mg Tablet] 800 mg PO Q8HP PRN 10/08/19 Insulin Aspart [Novolog Flexpen] 25 units SQ MEALS MDD UP TO 100 UNITS PER DAY 10/08/19 Insulin Glargine,Hum.rec.anlog [Lantus Insulin 100 Unit/1 ml 10 ml] 60 units SQ QHS 10/08/19 Ondansetron [Zofran Odt 4 mg Tablet] 4 mg PO Q4HP PRN 10/08/19 Trazodone HCl 50 mg PO HSP PRN 10/08/19 Nystatin [Mycostatin Topical Powder 15 gm] 1 applic TP Q8 #2 bottle 10/09/19 History of Present Illiness History of Present Illness: Admitting hospitalist's H&P: HOA SALES is a 43 year old female with a past medical history of stage IV pancreatic cancer status post Whipple, with subsequent insulin-dependent diabetes, under going chemotherapy at [place]. She presents with 2 weeks of uncontrolled hyperglycemia as she is unable to fill Lantus secondary to lack of finances. She is seen in the emergency room complaining of polyuria polydipsia, blurred vision and hyperglycemia. She is found to have a blood glucose of 843 without acidosis. She is started on IV fluids, insulin and referred to the hospitalist for admission. Hospital Course Hospital Course: This is a 43 year old female with a past medical history of stage IV pancreatic cancer status post Whipple procedure, with subsequent insulin-dependent diabetes, under going chemotherapy at [place] presented with polyuria, polydipsia and blurred vision. Patient was noted to be in HHS. Patient has been off her Lantus for the past 2 weeks due to insurance coverage issues. Patient was treated with IV fluids and insulin. Her HHS promptly resolved. She returned to her baseline and did not complain of any further acute symptoms. Discharge planning assisted with patient's Lantus coverage. Insurance issue was sorted out and her local pharmacy was contacted by discharge planning. Pharmacy confirmed she will only have a co-pay of $3 to be able to get her Lantus prescription. 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 Physical Exam Vital Signs: Temp Pulse Resp BP Pulse Ox 97.9 F 93 16 117/73 100 10/09/19 15:34 10/09/19 15:34 10/09/19 15:34 10/09/19 15:34 10/09/19 15:34 Intake & Output 10/09/19 10/10/19 10/11/19 06:59 06:59 06:59 Intake Total 930 358 Output Total 800 Balance 130 358 Weight 268 lb 4.841 oz General appearance: PRESENT: no acute distress, well-developed, well-nourished Head exam: PRESENT: atraumatic, normocephalic Eye exam: PRESENT: conjunctiva pink, EOMI, PERRLA. ABSENT: scleral icterus Ear exam: PRESENT: normal external ear exam Mouth exam: PRESENT: moist, tongue midline Neck exam: ABSENT: carotid bruit, JVD, lymphadenopathy, thyromegaly Respiratory exam: PRESENT: clear to auscultation osmani. ABSENT: rales, rhonchi, wheezes Cardiovascular exam: PRESENT: RRR. ABSENT: diastolic murmur, rubs, systolic murmur Pulses: PRESENT: normal dorsalis pedis pul GI/Abdominal exam: PRESENT: normal bowel sounds, soft. ABSENT: distended, guarding, mass, organolmegaly, rebound, tenderness Rectal exam: PRESENT: deferred Extremities exam: PRESENT: full ROM. ABSENT: calf tenderness, clubbing, pedal edema Neurological exam: PRESENT: alert, awake, oriented to person, oriented to place, oriented to time, oriented to situation, CN II-XII grossly intact. ABSENT: motor sensory deficit Results Laboratory Results: WBC 11.1 10^3/uL (4.0-10.5) H 10/08/19 04:36 RBC 4.36 10^6/uL (3.72-5.28) 10/08/19 04:36 Hgb 13.4 g/dL (12.0-15.5) 10/08/19 04:36 Hct 40.6 % (36.0-47.0) 10/08/19 04:36 MCV 93 fl (80-97) D 10/08/19 04:36 MCH 30.6 pg (27.0-33.4) 10/08/19 04:36 MCHC 32.9 g/dL (32.0-36.0) 10/08/19 04:36 RDW 16.8 % (11.5-14.0) H 10/08/19 04:36 Plt Count 506 10^3/uL (150-450) H 10/08/19 04:36 Lymph % (Auto) 23.9 % (13-45) 10/08/19 04:36 [place] % (Auto) 14.9 % (3-13) H 10/08/19 04:36 Eos % (Auto) 2.9 % (0-6) 10/08/19 04:36 Baso % (Auto) 1.6 % (0-2) 10/08/19 04:36 Absolute Neuts (auto) 6.3 10^3/uL (1.7-8.2) 10/08/19 04:36 Absolute Lymphs (auto) 2.7 10^3/uL (0.5-4.7) 10/08/19 04:36 Absolute Monos (auto) 1.6 10^3/uL (0.1-1.4) H 10/08/19 04:36 Absolute Eos (auto) 0.3 10^3/uL (0.0-0.6) 10/08/19 04:36 Absolute Basos (auto) 0.2 10^3/uL (0.0-0.2) 10/08/19 04:36 Seg Neutrophils % 56.7 % (42-78) 10/08/19 04:36 Sodium 135.6 mmol/L (137-145) L 10/08/19 22:14 Potassium 4.3 mmol/L (3.6-5.0) 10/08/19 22:14 Chloride 102 mmol/L (98-107) 10/08/19 22:14 Carbon Dioxide 24 mmol/L (22-30) 10/08/19 22:14 Anion Gap 10 (5-19) 10/08/19 22:14 BUN 8 mg/dL (7-20) 10/08/19 22:14 Creatinine 0.56 mg/dL (0.52-1.25) 10/08/19 22:14 Est GFR ( Amer) > 60 (>60) 10/08/19 22:14 Est GFR (MDRD) Non-Af > 60 (>60) 10/08/19 22:14 Glucose 461 mg/dL (75-110) H* 10/08/19 22:14 POC Glucose 263 mg/dL (70-110) H 10/09/19 15:21 Hemoglobin A1c % 13.3 % (4.7-6.0) H 10/08/19 04:36 Calcium 10.3 mg/dL (8.4-10.2) H 10/08/19 22:14 Total Bilirubin 0.6 mg/dL (0.2-1.3) 10/07/19 19:10 Direct Bilirubin 0.3 mg/dL (0.0-0.4) 10/07/19 19:10 Neonat Total Bilirubin Not Reportable 10/07/19 19:10 Neonat Direct Bilirubin Not Reportable 10/07/19 19:10 Neonat Indirect Bili Not Reportable 10/07/19 19:10 AST 29 U/L (14-36) 10/07/19 19:10 ALT 22 U/L (<35) 10/07/19 19:10 Alkaline Phosphatase 122 U/L (38-126) 10/07/19 19:10 Total Protein 7.7 g/dL (6.3-8.2) 10/07/19 19:10 Albumin 4.4 g/dL (3.5-5.0) 10/07/19 19:10 Lipase 84.5 U/L (23-300) 10/07/19 19:10 Urine Color COLORLESS 10/07/19 19:05 Urine Appearance CLEAR 10/07/19 19:05 Urine pH 6.0 (5.0-9.0) 10/07/19 19:05 Ur Specific [place] 1.029 10/07/19 19:05 Urine Protein NEGATIVE mg/dL (NEGATIVE) 10/07/19 19:05 Urine Glucose (UA) >=500 mg/dL (NEGATIVE) H 10/07/19 19:05 Urine Ketones NEGATIVE mg/dL (NEGATIVE) 10/07/19 19:05 Urine Blood NEGATIVE (NEGATIVE) 10/07/19 19:05 Urine Nitrite NEGATIVE (NEGATIVE) 10/07/19 19:05 Urine Bilirubin NEGATIVE (NEGATIVE) 10/07/19 19:05 Urine Urobilinogen NEGATIVE mg/dL (<2.0) 10/07/19 19:05 Ur Leukocyte Esterase NEGATIVE (NEGATIVE) 10/07/19 19:05 Urine WBC (Auto) 0 /HPF 10/07/19 19:05 Urine RBC (Auto) 4 /HPF 10/07/19 19:05 Squamous Epi Cells Auto <1 /HPF 10/07/19 19:05 Urine Mucus (Auto) RARE /LPF 10/07/19 19:05 Urine Ascorbic Acid NEGATIVE (NEGATIVE) 10/07/19 19:05 Urine HCG, Qual NEGATIVE (NEGATIVE) 10/07/19 19:05 Stroke Is this a Stroke Patient?: No Acute Heart Failure - Is this a Heart Failure Patient?: No
== END 2019-10-09 17:07 | disposition home or self-care (01) ==
LOC: ER 18:18 → EH 20:46 → INTOOBSV 20:46 → 4W 10-08 02:35
PROVIDERS: ADMIT Internal Medicine; ATTEND Internal Medicine
DX: E10.65 Type 1 diabetes mellitus with hyperglycemia (principal); E10.69 Type 1 diabetes mellitus with other specified complication; E87.1 Hypo-osmolality and hyponatremia; E87.0 Hyperosmolality and hypernatremia; C25.9 Malignant neoplasm of pancreas, unspecified; E83.52 Hypercalcemia; Z86.718 Personal history of other venous thrombosis and embolism; Z86.711 Personal history of pulmonary embolism; Z86.32 Personal history of gestational diabetes; Z90.49 Acquired absence of other specified parts of digestive tract; Z59.8 Other problems related to housing and economic circumstances; Z91.14 Patient's other noncompliance with medication regimen; Z87.19 Personal history of other diseases of the digestive system
CPT/HCPCS: 93005; 99291; 96360; 36415 ×2; 82962 ×3; 83690; 85025 ×2; 81025; 80048; 80053; 81001; 83036; 93010; G0378 ×4; J3490 ×5; J1815 ×6; J1644 ×3; J7030 ×2

== ENCOUNTER 2020-02-15 07:18 | Emergency (ER) | payer MEDICAID ==
[2020-02-15] MEDS ORDERED: NORMAL SALINE 1000 ML 1,000 ML IV ONE ×2 (07:37→12:42)
[2020-02-15] MEDS ORDERED: ONDANSETRON HCL INJ/PF 4 MG/2 ML SDV IV ONE ×2 (07:38→18:18)
[2020-02-15 08:03] LABS: ABSOLUTE BASOPHILS # (AUTO) 0.1 10^3/uL (0.0-0.2); ABSOLUTE LYMPHOCYTES (AUTO) 1.1 10^3/uL (0.5-4.7); ABSOLUTE MONOCYTES (AUTO) 0.8 10^3/uL (0.1-1.4); ABSOLUTE NEUT (AUTO) 7.2 10^3/uL (1.7-8.2); BASOPHILS % (AUTO) 1.1 % (0-2); EOSINOPHILS % (AUTO) 0.4 % (0-6); HEMATOCRIT 38.9 % (36.0-47.0); HEMOGLOBIN 12.9 g/dL (12.0-15.5); LYMPHOCYTES % (AUTO) 11.7 % (13-45); MEAN CORPUSCULAR HEMOGLOBIN 30.3 pg (27.0-33.4); MEAN CORPUSCULAR HGB CONC 33.3 g/dL (32.0-36.0); MEAN CORPUSCULAR VOLUME 91 fl (80-97); MONOCYTES % (AUTO) 8.4 % (3-13); PLATELET COUNT 628 10^3/uL (150-450); RED BLOOD COUNT 4.28 10^6/uL (3.72-5.28); RED CELL DISTRIBUTION WIDTH 18.7 % (11.5-14.0); SEGMENTED NEUTROPHILS % (AUTO) 78.4 % (42-78); TOTAL CELLS COUNTED % (AUTO) 100 %; WHITE BLOOD COUNT 9.2 10^3/uL (4.0-10.5)
[2020-02-15 08:20] LABS: ALBUMIN 4.4 g/dL (3.5-5.0); ALKALINE PHOSPHATASE 287 U/L (38-126); ASPARTATE AMINO TRANSFERASE 24 U/L (14-36); BILIRUBIN,DIRECT 0.4 mg/dL (0.0-0.4); BILIRUBIN,TOTAL 0.6 mg/dL (0.2-1.3); BLOOD UREA NITROGEN 15 mg/dL (7-20); CALCIUM 10.8 mg/dL (8.4-10.2); CARBON DIOXIDE 19 mmol/L (22-30); CHLORIDE 93 mmol/L (98-107); POTASSIUM 4.8 mmol/L (3.6-5.0); TOTAL PROTEIN 7.5 g/dL (6.3-8.2)
--- NOTE | 2020-02-15 08:31 | RADIOLOGY REPORT (SQ) ---
EXAM DESCRIPTION: ACUTE ABDOMEN SERIES IMAGES COMPLETED DATE/TIME: 02/15/2020 8:14 am REASON FOR STUDY: n/v/pancreatic cancer COMPARISON: None. NUMBER OF VIEWS: Three views. TECHNIQUE: Frontal chest, supine abdomen and upright/decubitus abdomen radiographic images acquired. LIMITATIONS: None. FINDINGS: CHEST: Lungs clear of infiltrates. FREE AIR: None. No abnormal gas collections. BOWEL GAS PATTERN: Nonobstructive pattern. No dilated loops or air fluid levels. CALCIFICATIONS: No suspicious calcifications. HARDWARE: Clips left upper quadrant. SOFT TISSUES: No gross mass or suggestion of organomegaly. BONES: No acute fracture. No worrisome bone lesions. OTHER: Right-sided port tip overlying SVC. IMPRESSION: NO RADIOGRAPHIC EVIDENCE FOR ACUTE ABDOMINAL DISEASE. TECHNICAL DOCUMENTATION: JOB ID: [id number] 2010 [employer]- All Rights Reserved Reading location - IP/workstation name: [email or web address]
[2020-02-15 08:32] LABS: ANION GAP 19 (5-19); GLUCOSE 448 mg/dL (75-110)
[2020-02-15] MEDS ORDERED: INSULIN REG, HUMAN 100 UNIT/ML 3 ML VIAL (PYX) IV ONE ×3 (08:45→14:59)
[2020-02-15 11:43] LABS: APPEARANCE,URINE CLEAR; BILIRUBIN,URINE NEGATIVE (NEGATIVE); COLOR,URINE YELLOW; GLUCOSE, URINE >=500 mg/dL (NEGATIVE); KETONES,URINE 80 mg/dL (NEGATIVE); LEUKOCYTE ESTERASE,URINE NEGATIVE (NEGATIVE); NITRITE,URINE NEGATIVE (NEGATIVE); PROTEIN,URINE NEGATIVE (NEGATIVE); URINE SPECIFIC GRAVITY 1.032; UROBILINOGEN,URINE NEGATIVE mg/dL (<2.0)
[2020-02-15 13:19] LABS: ANION GAP 16 (5-19); BLOOD UREA NITROGEN 16 mg/dL (7-20); CALCIUM 10.2 mg/dL (8.4-10.2); CARBON DIOXIDE 19 mmol/L (22-30); CHLORIDE 98 mmol/L (98-107); GLUCOSE 363 mg/dL (75-110); POTASSIUM 4.1 mmol/L (3.6-5.0)
--- NOTE | 2020-02-15 15:23 | RADIOLOGY REPORT (SQ) ---
EXAM DESCRIPTION: CT ABD/PELVIS WITH IV ORAL IMAGES COMPLETED DATE/TIME: 02/15/2020 3:08 pm REASON FOR STUDY: abd pain/pancreatic cancer COMPARISON: 03/05/2019 TECHNIQUE: CT scan of the abdomen and pelvis performed using helical scanning technique with dynamic intravenous contrast injection. With oral contrast. Images reviewed with lung, soft tissue, and bon e windows. Reconstructed coronal and sagittal MPR images reviewed. Delayed images for evaluation of t he urinary system also acquired. All images stored on PACS. All CT scanners at this facility use dose modulation, iterative reconstruction, and/or weight based d osing when appropriate to reduce radiation dose to as low as reasonably achievable (ALARA). [facility]: Dose Right [facility]: CareDose [facility]: Dose Right [facility]: Teradose 4D [facility]: Yatra CONTRAST TYPE AND DOSE: contrast/concentration: Isovue 350.00 mg/ml; Total Contrast Delivered: 100.0 ml; Total Saline Delivered: 72.0 ml RENAL FUNCTION: GFR > 60. RADIATION DOSE: CT Rad equipment meets quality standard of care and radiation dose reduction techniq ues were employed. CTDIvol: NaN - NaN mGy. DLP: 0 mGy-cm.. LIMITATIONS: None. FINDINGS: LOWER CHEST: No significant findings. No nodules or infiltrates. LIVER: Hepatic diffusion defects. There are several poorly defined low-density lesions in the liver which are highly suspicious for metastatic disease. Largest is 3 cm. SPLEEN: Partial splenectomy. PANCREAS: Ill-defined 4 cm mass junction of the head and body of the pancreas suspicious for recurren t tumor. Causes marked compression of the stomach with marked gastric distention. GALLBLADDER: No identified stones by CT criteria. No inflammatory changes to suggest cholecystitis. ADRENAL GLANDS: No significant masses or asymmetry. RIGHT KIDNEY AND URETER: No solid masses. No significant calcifications. No hydronephrosis or hyd roureter. LEFT KIDNEY AND URETER: No solid masses. No significant calcifications. No hydronephrosis or hydr oureter. AORTA AND VESSELS: No aneurysm. No dissection. Renal arteries, SMA, celiac without stenosis. RETROPERITONEUM: No retroperitoneal adenopathy, hemorrhage or masses. BOWEL AND PERITONEAL CAVITY: No masses or inflammatory changes. No free fluid or peritoneal masses. APPENDIX: Normal. PELVIS: 5 cm fibroid in the uterus. ABDOMINAL WALL: Periumbilical hernia contains nonobstructed bowel. BONES: No significant or acute findings. OTHER: No other significant finding. IMPRESSION: Poorly defined mass at the junction of head and body of the pancreas site of previous presley rgery highly suspicious for recurrence. Multiple very poorly defined lesions in the liver suspicious for metastatic disease. Large fibroid. Marked gastric distention. TECHNICAL DOCUMENTATION: JOB ID: [id number] Quality ID # [id number]: Final reports with documentation of one or more dose reduction techniques (e.g., Au tomated exposure control, adjustment of the mA and/or kV according to patient size, use of iterative reconstruction technique) 2010 [employer]- All Rights Reserved Reading location - IP/workstation name: [email or web address]
[2020-02-15] MEDS ORDERED: METOCLOPRAMIDE HCL INJ/PF 10 MG/2 ML SDV IV ONE (16:05)
--- NOTE | 2020-02-15 16:27 | ER Document Report ---
Entered by CRISTHIAN SCHAFFER SCRIBE 02/15/20 0734 Acting as scribe for:NELSON SWENSON MD ED General - General Stated Complaint: NAUSEA,HEADACHE Time Seen by Provider: 02/15/20 07:26 Primary Care Provider: RACHANA PADILLA PA-C [Primary Care Provider] - Follow up as needed Information source: Patient Notes: This 44 year old female patient presents to the emergency department today with complaints of nausea and vomiting for the past x3 weeks. Patient states she has pancreatic cancer and has been doing chemo for a year. Patient states she recently started radiation and was nauseous before her appointment, and her symptoms worsened after. Patient states she feels weak and dehydrated, but joey es any fever, chills, or trouble urinating. Patient states she cannot keep anything down and tries to eat popsicles. Patient states her medications for nausea have not relieved her symptoms. TRAVEL OUTSIDE OF THE [place] IN LAST 30 DAYS: No - Related Data Allergies/Adverse Reactions: morphine [Morphine] Allergy (Verified 10/07/19 18:48) Hives Past Medical History - General Information source: Patient - Social History Smoking Status: Unknown if Ever Smoked Family History: Hypertension Endocrine Medical History: Reports: Hx Diabetes Mellitus Type 2 - gestational DM Malignancy Medical History: Reports: Hx Pancreatic Cancer GI Medical History: Reports: Hx Gastroesophageal Reflux Disease Psychiatric Medical History: Reports: Hx Depression Past Surgical History: Reports: Hx Section - x2, Hx Pancreatic Surgery - Immunizations Hx Diphtheria, Pertussis, Tetanus Vaccination: Yes Review of Systems - Review of Systems Constitutional: See HPI, Weakness. denies: Chills, Fever EENT: No symptoms reported Cardiovascular: No symptoms reported Respiratory: No symptoms reported Gastrointestinal: See HPI, Nausea, Vomiting Genitourinary: See HPI Female Genitourinary: No symptoms reported Musculoskeletal: No symptoms reported Skin: No symptoms reported Hematologic/Lymphatic: No symptoms reported Neurological/Psychological: No symptoms reported -: Yes All other systems reviewed and negative Physical Exam - Vital signs Vitals: Temp Resp BP Pulse Ox 98.2 F 19 117/89 H 100 02/15/20 07:22 02/15/20 07:22 02/15/20 07:22 02/15/20 07:22 - General General appearance: Alert In distress: Mild - Mild to moderate distress. - HEENT Head: Normocephalic, Atraumatic Eyes: Normal Pupils: PERRL - Respiratory Respiratory status: No respiratory distress Chest status: Nontender Breath sounds: Normal Chest palpation: Normal - Cardiovascular Rhythm: Regular Heart sounds: Normal auscultation Murmur: No - Abdominal Inspection: Morbidly Obese Distension: No distension Bowel sounds: Normal Tenderness: Nontender. No: Guarding, Rebound - Extremities General upper extremity: Normal inspection. No: Edema General lower extremity: Normal inspection. No: Edema - Neurological Neuro grossly intact: Yes Cognition: Normal Orientation: AAOx4 - Psychological Associated symptoms: Normal affect, Normal mood - Skin Skin Temperature: Warm Skin Moisture: Dry Skin Color: Normal Course - Re-evaluation Re-evalutation: 02/15/20 16:21 Patient with pancreatic cancer recurrence and intractable nausea and vomiting since beginning chemotherapy. Patient is generally weak and has not been eating much in the past few days as well as using sliding scale no insulin at all due to her poor intake. Denies any fever chills diarrhea. - Vital Signs Vital signs: Temp Pulse Resp BP Pulse Ox 98.2 F 20 134/84 H 100 02/15/20 07:22 02/15/20 09:01 02/15/20 09:01 02/15/20 09:01 - Laboratory Result Diagrams: 02/15/20 07:40 02/15/20 12:37 Laboratory results interpreted by me: 02/15/20 02/15/20 02/15/20 07:40 07:40 09:57 RDW 18.7 H Plt Count 628 H Lymph % (Auto) 11.7 L Seg Neutrophils % 78.4 H Sodium 130.8 L Chloride 93 L Carbon Dioxide 19 L Glucose 448 H* POC Glucose 313 H Calcium 10.8 H Alkaline Phosphatase 287 H Lipase < 10.0 L Urine Glucose (UA) Urine Ketones 02/15/20 02/15/20 02/15/20 11:11 11:29 12:11 RDW Plt Count Lymph % (Auto) Seg Neutrophils % Sodium Chloride Carbon Dioxide Glucose POC Glucose 315 H 377 H Calcium Alkaline Phosphatase Lipase Urine Glucose (UA) >=500 H Urine Ketones 80 H 02/15/20 12:37 RDW Plt Count Lymph % (Auto) Seg Neutrophils % Sodium 133.2 L Chloride Carbon Dioxide 19 L Glucose 363 H POC Glucose Calcium Alkaline Phosphatase Lipase Urine Glucose (UA) Urine Ketones Elevated blood sugars, with a CO2 of 19 glucose 363. Anion gap 16. Pending beta hydroxybutyrate. - Diagnostic Test Radiology reviewed: Image reviewed, Reports reviewed Radiology results interpreted by me: 02/15/20 16:23 Acute abdominal series plain film shows no acute process chest clear of any infiltrate. Abdomen without any obstruction or air-fluid levels. CT abdomen and pelvis with oral and IV contrast disclose recurrence of tumor in the area of the head and body of the pancreas no obstructive process. Delayed gastric emptying in the stomach. Discharge - Discharge Clinical Impression: Pancreatic cancer, Intractable nausea and vomiting, Hyperglycemia, Hyperglycemia due to type 1 diabetes mellitus Condition: Fair Disposition: ADMITTED INPATIENT Admitting Provider: Jared (Hospitalist) Unit Admitted: Medical Floor Referrals: RACHANA PADILLA PA-C [Primary Care Provider] - Follow up as needed I personally performed the services described in the documentation, reviewed and edited the documentation which was dictated to the scribe in my presence, and it accurately records my words and actions.
--- NOTE | 2020-02-15 17:31 | PDOC CONSULTATION ---
Consultation Consult Date: 02/15/20 Attending physician:: NELSON SWENSON Provider Consulted: ALONSO LAGUERRE History of Present Illness Admission Date/PCP: RACHANA PADILLA PA-C Patient complains of: nausea and vomiting History of Present Illness: HOA SALES is a 44 year old female with a past medical history of pancreatic cancer, diabetes mellitus, and DVT who presented to the emergency department today with a complaint of 3 weeks of progressively worsening nausea a nd vomiting to the extent that she can no longer tolerate any p.o. fluids. Per patient, she is no longer even tolerating popsicles and begins vomiting shortly after attempting. She also reports increased abdominal discomfort. Evaluation in the emergency department revealed tachycardia but otherwise stable vital signs, thrombocytosis but otherwise acceptable CBC, mild dehydration with hyponatremia and high urine pecific gravity; bicarb 19, glucose 448 at time of arrival, normal lactic acid, and negative urinalysis. Acute abdominal series was negative for acute disease; follow-up abdominal CT demonstrated who poorly defined mass at the junction of head and body of pancreas suspicious for recurrent malignant lesion, multiple poorly defined liver lesions concerning for metastatic disease marked gastric distention; likely due to a 4 cm mass of the pancreas causing marked decompression of the stomach. Patient has been provided 2 L normal saline IV bolus, appropriate IV insulin therapy, and antiemetics. She is then referred to the hospitalist service for evaluation for admission and management of the above-stated complaints and findings. Past Medical History Cardiac Medical History: Reports: None Pulmonary Medical History: Reports: None EENT Medical History: Reports: None Neurological Medical History: Reports: None Endocrine Medical History: Reports: Diabetes Mellitus Type 2 - Insulin-dependent Renal/ Medical History: Reports: None Malignancy Medical History: Reports: Pancreatic Cancer GI Medical History: Reports: Gastroesophageal Reflux Disease Musculoskeltal Medical History: Reports: None Skin Medical History: Reports: None Psychiatric Medical History: Reports: Depression Traumatic Medical History: Reports: None Hematology: Reports: None Past Surgical History Past Surgical History: Reports: Section - x2 Social History Information Source: Patient Smoking Status: Unknown if Ever Smoked Frequency of Alcohol Use: None Hx Recreational Drug Use: No Drugs: None Hx Prescription Drug Abuse: No - Advance Directive Resuscitation Status: Full Code Family History Family History: Hypertension Parental Family History Reviewed: Yes Children Family History Reviewed: Yes Sibling(s) Family History Reviewed.: Yes Medication/Allergy Home Medications: Gabapentin [Neurontin 300 mg Capsule] 300 mg PO QHS 10/08/19 Ibuprofen [Motrin 800 mg Tablet] 800 mg PO Q8HP PRN 10/08/19 Insulin Aspart [Novolog Flexpen] 25 units SQ MEALS MDD UP TO 100 UNITS PER DAY 10/08/19 Insulin Glargine,Hum.rec.anlog [Lantus Insulin 100 Unit/1 ml 10 ml] 60 units SQ QHS 10/08/19 Ondansetron [Zofran Odt 4 mg Tablet] 4 mg PO Q4HP PRN 10/08/19 Trazodone HCl 50 mg PO HSP PRN 10/08/19 Nystatin [Mycostatin Topical Powder 15 gm] 1 applic TP Q8 #2 bottle 10/09/19 Allergies/Adverse Reactions: morphine [Morphine] Allergy (Verified 10/07/19 18:48) Hives Review of Systems Constitutional: PRESENT: anorexia. ABSENT: chills, fever(s), headache(s), weight gain, weight loss Eyes: ABSENT: visual disturbances Ears: ABSENT: hearing changes Cardiovascular: ABSENT: chest pain, dyspnea on exertion, edema, orthropnea, palpitations Respiratory: ABSENT: cough, hemoptysis Gastrointestinal: PRESENT: abdominal pain, nausea, vomiting. ABSENT: constipation, diarrhea, hematemesis, hematochezia Genitourinary: ABSENT: dysuria, hematuria Musculoskeletal: ABSENT: joint swelling Integumentary: ABSENT: rash, wounds Neurological: ABSENT: abnormal gait, abnormal speech, confusion, dizziness, focal weakness, syncope Psychiatric: ABSENT: anxiety, depression, homidical ideation, suicidal ideation Endocrine: ABSENT: cold intolerance, heat intolerance, polydipsia, polyuria Hematologic/Lymphatic: ABSENT: easy bleeding, easy bruising Physical Exam Vital Signs: Temp Pulse Resp BP Pulse Ox 98.2 F 13 123/76 100 02/15/20 07:22 02/15/20 14:01 02/15/20 14:01 02/15/20 12:01 Intake & Output 02/14/20 02/15/20 02/16/20 06:59 06:59 06:59 Intake Total 1999 Balance 1999 Weight 121.109 kg General appearance: PRESENT: no acute distress, well-developed, well-nourished Head exam: PRESENT: atraumatic, normocephalic Eye exam: PRESENT: conjunctiva pink, EOMI, PERRLA. ABSENT: scleral icterus Mouth exam: PRESENT: dry mucosa, tongue midline Respiratory exam: PRESENT: clear to auscultation osmani, symmetrical, unlabored. ABSENT: rales, rhonchi, wheezes Cardiovascular exam: PRESENT: RRR. ABSENT: diastolic murmur, rubs, systolic murmur Pulses: PRESENT: normal dorsalis pedis pul Vascular exam: PRESENT: normal capillary refill GI/Abdominal exam: PRESENT: diminished bowel sounds, distended, soft, tenderness. ABSENT: guarding, mass, organolmegaly, rebound Rectal exam: PRESENT: deferred Extremities exam: PRESENT: full ROM. ABSENT: calf tenderness, clubbing, pedal edema Neurological exam: PRESENT: alert, awake, oriented to person, oriented to place, oriented to time, oriented to situation, CN II-XII grossly intact. ABSENT: motor sensory deficit Psychiatric exam: PRESENT: appropriate affect, normal mood. ABSENT: homicidal ideation, suicidal ideation Skin exam: PRESENT: dry, intact, warm. ABSENT: cyanosis, rash Results Laboratory Results: 02/15/20 07:40 02/15/20 12:37 02/15/20 02/15/20 02/15/20 07:40 07:40 07:50 WBC 9.2 RBC 4.28 Hgb 12.9 Hct 38.9 MCV 91 MCH 30.3 MCHC 33.3 RDW 18.7 H Plt Count 628 H Seg Neutrophils % 78.4 H Sodium 130.8 L Potassium 4.8 Chloride 93 L Carbon Dioxide 19 L Anion Gap 19 BUN 15 Creatinine 0.67 Est GFR ( Amer) > 60 Glucose 448 H* Lactic Acid 1.9 Calcium 10.8 H Total Bilirubin 0.6 AST 24 Alkaline Phosphatase 287 H Total Protein 7.5 Albumin 4.4 Lipase < 10.0 L Urine Color Urine Appearance Urine pH Ur Specific [place] Urine Protein Urine Glucose (UA) Urine Ketones Urine Blood Urine Nitrite Ur Leukocyte Esterase Urine WBC (Auto) 02/15/20 02/15/20 11:29 12:37 WBC RBC Hgb Hct MCV MCH MCHC RDW Plt Count Seg Neutrophils % Sodium 133.2 L Potassium 4.1 Chloride 98 Carbon Dioxide 19 L Anion Gap 16 BUN 16 Creatinine 0.59 Est GFR ( Amer) > 60 Glucose 363 H Lactic Acid Calcium 10.2 Total Bilirubin AST Alkaline Phosphatase Total Protein Albumin Lipase Urine Color YELLOW Urine Appearance CLEAR Urine pH 6.0 Ur Specific [place] 1.032 Urine Protein NEGATIVE Urine Glucose (UA) >=500 H Urine Ketones 80 H Urine Blood NEGATIVE Urine Nitrite NEGATIVE Ur Leukocyte Esterase NEGATIVE Urine WBC (Auto) 1 Impressions: Abdomen/Pelvis CT 02/15/20 00:00 IMPRESSION: Poorly defined mass at the junction of head and body of the pancreas site of previous surgery highly suspicious for recurrence. Multiple very poorly defined lesions in the liver suspicious for metastatic disease. Large fibroid. Marked gastric distention. Acute Abdomen Series 02/15/20 07:37 IMPRESSION: NO RADIOGRAPHIC EVIDENCE FOR ACUTE ABDOMINAL DISEASE. Assessment and Plan - Diagnosis (1) Gastric outlet obstruction Is this a current diagnosis for this admission?: Yes Plan: CT abdomen revealed a 4 cm pancreatic mass causing marked compression of the stomach resulting in marked gastric distention. Discussed with surgery; Dr. Flores recommends the patient transfer to [facility] where she is an established patient. She should be evaluated by her team there for radiation treatment versus surgical intervention. Discussed recommendations for transfer with Dr. Swenson. (2) Gastric distention Is this a current diagnosis for this admission?: Yes Plan: Secondary to pancreatic mass causing outlet obstruction. Evaluation management as above. (3) Pancreatic cancer Qualifiers: Pancreatic malignancy location: body of pancreas Qualified Code(s): C25.1 - Malignant neoplasm of body of pancreas Is this a current diagnosis for this admission?: Yes Plan: CT of the abdomen reveals a 4 cm mass at the junction of the head and body of the pancreas. She is also noted to have hepatic diffuse defects with several poorly defined low-density lesions in the liver highly suspicious for metastatic disease. Followed at [place]. As the patient is now developing gastric compression and resultant marked distention, it is recommended by both the hospitalist service and surgery (personally spoke with Dr. Flores who reviewed CT images with me). (4) Intractable nausea and vomiting Is this a current diagnosis for this admission?: Yes Plan: Secondary to all of the above. Recommend consideration of NG tube to low wall suction. Continue antiemetics. IV fluids as needed to maintain hydration. Unfortunately, her N/V is likely to persist until the pancreatic mass is dire ctly addressed. (5) Thrombocytosis Is this a current diagnosis for this admission?: Yes (6) Diabetes Qualifiers: Diabetes mellitus type: type 2 Diabetes mellitus half-way insulin use: wi th termite helper use Is this a current diagnosis for this admission?: Yes Plan: Recommend Accu-Cheks every 6 hours with sliding scale insulin while in n.p.o. status. Observe for hypoglycemia and change IV fluids as necessary to prevent. Recommend continuing IV fluids to prevent dehydration and thus placing the patient at further risk of developing DKA. Fortunately at this time her anion gap is normal although her bicarb is slightly low. - Time Time Spent with patient: 35 or more minutes Medications reviewed and adjusted accordingly: Yes Disposition: Recommend transfer to [place].
[2020-02-15] MEDS ORDERED: LIDOCAINE 2% URO-JET 5 ML KIT MM ONE (18:27)
--- NOTE | 2020-02-15 19:27 | RADIOLOGY REPORT (SQ) ---
EXAM DESCRIPTION: CHEST SINGLE VIEW IMAGES COMPLETED DATE/TIME: 02/15/2020 7:17 pm REASON FOR STUDY: ng tube placement COMPARISON: 07/20/2019 EXAM PARAMETERS: NUMBER OF VIEWS: One view. TECHNIQUE: Single frontal radiographic view of the chest acquired. RADIATION DOSE: NA LIMITATIONS: None. FINDINGS: LUNGS AND PLEURA: No opacities, masses or pneumothorax. No pleural effusion. MEDIASTINUM AND HILAR STRUCTURES: No masses. Contour normal. HEART AND VASCULAR STRUCTURES: Heart normal in size. Normal vasculature. BONES: No acute findings. HARDWARE: Venous access catheter. NG tube tip in the stomach. OTHER: No other significant finding. IMPRESSION: NO ACUTE RADIOGRAPHIC FINDING IN THE CHEST. TECHNICAL DOCUMENTATION: JOB ID: [id number] 2010 [employer]- All Rights Reserved Reading location - IP/workstation name: [email or web address]
[2020-02-15 20:28] VITALS: BP 96/51
== END 2020-02-15 20:00 | disposition short-term general hospital (02) ==
LOC: ER 07:18
DX: C25.1 Malignant neoplasm of body of pancreas (principal); K30 Functional dyspepsia; R11.2 Nausea with vomiting, unspecified; E10.65 Type 1 diabetes mellitus with hyperglycemia; R53.1 Weakness; Z79.899 Other long term (current) drug therapy; Z88.6 Allergy status to analgesic agent; Z88.5 Allergy status to narcotic agent
CPT/HCPCS: 96376; 99285; 96361; 96374; 96375; 36415; 82010; 82962; 83605; 83690; 85025; 80053; 81001; 74022; 71045; 74177; J2765; J1815; J2405; J7030; J3490

== ENCOUNTER 2020-04-14 14:10 | Emergency (ER) | payer BC, MEDICAID ==
[2020-04-14] MEDS ORDERED: NORMAL SALINE 1000 ML 1,000 ML IV ONE ×3 (15:33→18:36)
[2020-04-14] MEDS ORDERED: METOCLOPRAMIDE HCL INJ/PF 10 MG/2 ML SDV IV ONE (15:33)
[2020-04-14 16:14] LABS: ABSOLUTE BASOPHILS # (AUTO) 0.1 10^3/uL (0.0-0.2); ABSOLUTE LYMPHOCYTES (AUTO) 1.7 10^3/uL (0.5-4.7); ABSOLUTE MONOCYTES (AUTO) 0.8 10^3/uL (0.1-1.4); ABSOLUTE NEUT (AUTO) 5.6 10^3/uL (1.7-8.2); BASOPHILS % (AUTO) 0.8 % (0-2); EOSINOPHILS % (AUTO) 0.1 % (0-6); HEMATOCRIT 39.2 % (36.0-47.0); HEMOGLOBIN 12.9 g/dL (12.0-15.5); LYMPHOCYTES % (AUTO) 20.5 % (13-45); MEAN CORPUSCULAR HEMOGLOBIN 30.7 pg (27.0-33.4); MEAN CORPUSCULAR HGB CONC 32.8 g/dL (32.0-36.0); MEAN CORPUSCULAR VOLUME 93 fl (80-97); MONOCYTES % (AUTO) 9.8 % (3-13); PLATELET COUNT 260 10^3/uL (150-450); RED BLOOD COUNT 4.19 10^6/uL (3.72-5.28); RED CELL DISTRIBUTION WIDTH 16.7 % (11.5-14.0); SEGMENTED NEUTROPHILS % (AUTO) 68.8 % (42-78); TOTAL CELLS COUNTED % (AUTO) 100 %; WHITE BLOOD COUNT 8.2 10^3/uL (4.0-10.5)
[2020-04-14 16:31] LABS: ALBUMIN 3.4 g/dL (3.5-5.0); ALKALINE PHOSPHATASE 230 U/L (38-126); ANION GAP 16 (5-19); ASPARTATE AMINO TRANSFERASE 33 U/L (14-36); BILIRUBIN,DIRECT 0.1 mg/dL (0.0-0.4); BILIRUBIN,TOTAL 0.5 mg/dL (0.2-1.3); BLOOD UREA NITROGEN 16 mg/dL (7-20); CALCIUM 9.7 mg/dL (8.4-10.2); CARBON DIOXIDE 20 mmol/L (22-30); CHLORIDE 95 mmol/L (98-107); POTASSIUM 4.7 mmol/L (3.6-5.0); TOTAL PROTEIN 6.3 g/dL (6.3-8.2)
[2020-04-14 16:39] LABS: GLUCOSE 442 mg/dL (75-110)
[2020-04-14] MEDS ORDERED: INSULIN REG, HUMAN 100 UNIT/ML 3 ML VIAL (PYX) IV ONE (16:44)
--- NOTE | 2020-04-14 17:50 | RADIOLOGY REPORT (SQ) ---
EXAM DESCRIPTION: CT ABD/PELVIS WITH IV ONLY IMAGES COMPLETED DATE/TIME: 04/14/2020 4:17 pm REASON FOR STUDY: panc ca/abd pain. Distal pancreatectomy and splenectomy in 2019. Currently recei ving chemotherapy. COMPARISON: CT abdomen pelvis, 02/15/2020. CT abdomen and pelvis, 03/05/2019. CT abdomen and pelvis, 12/18/2018. MRI abdomen, 12/20/2018. TECHNIQUE: CT scan of the abdomen and pelvis performed using helical scanning technique with dynamic intravenous contrast injection. No oral contrast. Images reviewed with lung, soft tissue, and bone windows. Reconstructed coronal and sagittal MPR images reviewed. Delayed images for evaluation of the urinary system also acquired. All images stored on PACS. All CT scanners at this facility use dose modulation, iterative reconstruction, and/or weight based d osing when appropriate to reduce radiation dose to as low as reasonably achievable (ALARA). [facility]: Dose Right [facility]: CareDose [facility]: Dose Right [facility]: Teradose 4D [facility]: [employer] CONTRAST TYPE AND DOSE: 100 mL Omnipaque 350- low osmolar. RENAL FUNCTION: GFR > 60. RADIATION DOSE: CT Rad equipment meets quality standard of care and radiation dose reduction techniq ues were employed. CTDIvol: 18.6 - 21.0 mGy. DLP: 2277 mGy-cm.. LIMITATIONS: None. FINDINGS: LOWER CHEST: No significant findings. No nodules or infiltrates. LIVER: The liver has normal size and contour. Multiple new hepatic metastases in the right hepatic l obe, for example the largest along the right lateral subcapsular region measures 2.7 cm. There is th rombus in the left portal vein and branches, in retrospect present on previous examination. Thrombos ed main portal vein with collateralization at the duodenum consistent with chronic thrombosis. No bi liary ductal dilation. SPLEEN: Surgically absent. PANCREAS: Resection of the distal pancreas with decreasing size of the hypodense attenuation along th e surgical suture now measuring 2 cm previously 3 cm when measured similarly. This hypodense attenua tion is directly adjacent to the surgical clip and may represent postsurgical change or recurrent elly or. No pancreatic ductal dilation in the residual pancreatic head. No peripancreatic fluid. GALLBLADDER: No identified stones by CT criteria. No inflammatory changes to suggest cholecystitis. ADRENAL GLANDS: No significant masses or asymmetry. RIGHT KIDNEY AND URETER: No solid masses. No significant calcifications. No hydronephrosis or hyd roureter. LEFT KIDNEY AND URETER: No solid masses. No significant calcifications. No hydronephrosis or hydr oureter. AORTA AND VESSELS: No aneurysm. No dissection. Renal arteries, SMA, celiac without stenosis. RETROPERITONEUM: No retroperitoneal adenopathy, hemorrhage or masses. BOWEL AND PERITONEAL CAVITY: No masses or inflammatory changes. Decreasing size of the postsurgical seroma adjacent to the left kidney since previous. No evidence of focal drainable abscess. . APPENDIX: Normal. PELVIS: No mass. No free fluid. Normal bladder. ABDOMINAL WALL: Multiple injection granulomas. No subcutaneous mass or fluid. Small fat containing umbilical hernia is unchanged. BONES: No suspicious bone lesions. OTHER: No other significant finding. IMPRESSION: 1. No acute abnormality to explain the patient's symptoms. 2. Status post resection of the distal pancreas and spleen. Decreasing size of the postsurgical sero ma adjacent to the left kidney since previous. Decreasing size of the hypodense attenuation along th e resection margin of the pancreas, which may represent postsurgical change or residual tumor. 3. Multiple new hepatic metastases in the right hepatic lobe. 4. 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 Multiple collaterals are seen in the hepatic hilum with normal filling of the mid to distal main portal vein. TECHNICAL DOCUMENTATION: JOB ID: [id number] Quality ID # [id number]: Final reports with documentation of one or more dose reduction techniques (e.g., Au tomated exposure control, adjustment of the mA and/or kV according to patient size, use of iterative reconstruction technique) 2010 [employer]- All Rights Reserved Reading location - IP/workstation name: [email or web address]
[2020-04-14] MEDS ORDERED: ONDANSETRON HCL INJ/PF 4 MG/2 ML SDV IV ONE (18:36)
--- NOTE | 2020-04-14 18:36 | ER Document Report ---
ED General - General Chief Complaint: Nausea/Vomiting Stated Complaint: NAUSEA/VOMITING Time Seen by Provider: 04/14/20 14:44 Primary Care Provider: RACHANA PADILLA PA-C [Primary Care Provider] - Follow up as needed Information source: Patient TRAVEL OUTSIDE OF THE [place] IN LAST 30 DAYS: No - HPI Notes: Patient complains of nausea and vomiting. She has had some mild diffuse abdominal cramping as well. This pain is been mild to moderate. Is been const ant. Not makes better or worse. It does radiate throughout her abdomen. She does have a history of pancreatic cancer with pancreatic resection. She states she is currently on chemotherapy and last had chemo about 1 week ago. She states she is not been able to keep down any type of liquids or solids over the last several days. She states that she does not see an oncologist here in [place] her care is in [place]. - Related Data Allergies/Adverse Reactions: morphine [Morphine] Allergy (Verified 04/14/20 15:04) Hives Past Medical History - General Information source: Patient - Social History Smoking Status: Never Smoker Frequency of alcohol use: None Drug Abuse: None Family History: Hypertension Patient has homicidal ideation: No Endocrine Medical History: Reports: Hx Diabetes Mellitus Type 2 - Insulin-dep endent Renal/ Medical History: Denies: Hx Peritoneal Dialysis Malignancy Medical History: Reports: Hx Pancreatic Cancer GI Medical History: Reports: Hx Gastroesophageal Reflux Disease Psychiatric Medical History: Reports: Hx Depression Past Surgical History: Reports: Hx Abdominal Surgery - pancreas resection, splenectomy, Hx Section - x2, Hx Pancreatic Surgery - pancreatic surgery - Immunizations Hx Diphtheria, Pertussis, Tetanus Vaccination: Yes Review of Systems - Review of Systems Constitutional: Malaise, Weakness. denies: Chills, Fever Cardiovascular: denies: Chest pain, Palpitations Respiratory: denies: Cough, Short of breath -: Yes All other systems reviewed and negative Physical Exam - Vital signs Vitals: Temp Pulse Resp BP Pulse Ox 98.7 F 123 H 14 113/86 H 99 04/14/20 14:17 04/14/20 14:17 04/14/20 14:17 04/14/20 14:17 04/14/20 14:17 Interpretation: Tachycardic - General General appearance: Appears well, Alert - HEENT Head: Normocephalic, Atraumatic Eyes: Normal Pupils: PERRL - Respiratory Respiratory status: No respiratory distress Chest status: Nontender Breath sounds: Normal Chest palpation: Normal - Cardiovascular Rhythm: Regular Heart sounds: Normal auscultation Murmur: No - Abdominal Inspection: Obese Distension: No distension Bowel sounds: Normal Tenderness: Tender - Mild diffuse Organomegaly: No organomegaly - Back Back: Normal, Nontender - Extremities General upper extremity: Normal inspection, Nontender, Normal color, Normal ROM, Normal temperature General lower extremity: Normal inspection, Nontender, Normal color, Normal ROM, Normal temperature, Normal weight bearing. No: Brenden's sign - Neurological Neuro grossly intact: Yes Cognition: Normal Orientation: AAOx4 [place] Coma Scale Eye Opening: Spontaneous [place] Coma Scale Verbal: Oriented [place] Coma Scale Motor: Obeys Commands [place] Coma Scale Total: 15 Speech: Normal Motor strength normal: LUE, RUE, LLE, RLE Sensory: Normal - Psychological Associated symptoms: Normal affect, Normal mood - Skin Skin Temperature: Warm Skin Moisture: Dry Skin Color: Normal Course - Re-evaluation Re-evalutation: 04/14/20 18:34 I have reexamined patient several times. Most recently at 6:30 PM. At this time she states that her nausea is better but she does not feel well enough to be discharged. She states that she would prefer not to be admitted to the hospital. She asked if she can receive some more nausea medicine another liter of fluids and be reexamined in an hour to see if she feels well enough to go home. She is not requesting any pain medication at this time. CT shows no evidence of any new pathology that would explain her persistent nausea such as a bowel obstruction. Patient's labs are unremarkable other than patient sugar of 440. She was treated with insulin for this. Currently that will be rechecked. I will turn the care of the patient over to Dr. Dooley will follow-up after patient receives more fluid and antinausea medicine to see if discharge is possible. - Vital Signs Vital signs: Temp Pulse Resp BP Pulse Ox 98.7 F 123 H 14 113/86 H 99 04/14/20 14:59 04/14/20 14:17 04/14/20 14:17 04/14/20 14:17 04/14/20 14:17 - Laboratory Result Diagrams: 04/14/20 16:00 04/14/20 16:00 Laboratory results interpreted by me: 04/14/20 04/14/20 16:00 16:00 RDW 16.7 H Sodium 130.8 L Chloride 95 L Carbon Dioxide 20 L Glucose 442 H* ALT 40 H Alkaline Phosphatase 230 H Albumin 3.4 L - Diagnostic Test Radiology reviewed: Image reviewed, Reports reviewed Discharge - Discharge Clinical Impression: Pancreatic cancer metastasized to liver Vomiting Qualifiers: Vomiting type: unspecified Vomiting Intractability: intractable Nausea presence: with nausea Qualified Code(s): R11.2 - Nausea with vomiting, uns pecified Condition: Serious Disposition: OTHER Referrals: RACHANA PADILLA PA-C [Primary Care Provider] - Follow up as needed
[2020-04-14] MEDS ORDERED: PROMETHAZINE HCL INJ 25 MG/1 ML VIAL IV ONE (19:57)
[2020-04-14 20:18] LABS: APPEARANCE,URINE CLEAR; BILIRUBIN,URINE NEGATIVE (NEGATIVE); COLOR,URINE YELLOW; GLUCOSE, URINE >=500 mg/dL (NEGATIVE); KETONES,URINE 80 mg/dL (NEGATIVE); LEUKOCYTE ESTERASE,URINE NEGATIVE (NEGATIVE); NITRITE,URINE NEGATIVE (NEGATIVE); PROTEIN,URINE NEGATIVE (NEGATIVE); URINE SPECIFIC GRAVITY 1.058; UROBILINOGEN,URINE NEGATIVE mg/dL (<2.0)
[2020-04-14] MEDS ORDERED: HEPARIN SOD (PORCINE) 1,000 UNIT/ML 10 ML VIAL IV ONE (21:32)
[2020-04-14 21:49] VITALS: BP 124/72
== END 2020-04-14 21:50 | disposition other institution (70) ==
LOC: ER 14:10
DX: R11.2 Nausea with vomiting, unspecified (principal); R10.84 Generalized abdominal pain; C25.9 Malignant neoplasm of pancreas, unspecified; C78.7 Secondary malignant neoplasm of liver and intrahepatic bile duct; I81 Portal vein thrombosis; R53.81 Other malaise; R53.1 Weakness; E11.9 Type 2 diabetes mellitus without complications; Z79.899 Other long term (current) drug therapy; Z88.6 Allergy status to analgesic agent; Z88.5 Allergy status to narcotic agent
CPT/HCPCS: 36591; 99284; 96361; 96374; 96375; 36415; 82962; 85025; 80053; 81001; 74177; J2765; J1815; J2550; J2405; J7030

== ENCOUNTER 2020-07-19 15:49 | Inpatient (IN) | payer BC, MEDICAID ==
[2020-07-19] MEDS ORDERED: NORMAL SALINE 1000 ML 2,950 ML IV ONE (16:23)
[2020-07-19] MEDS ORDERED: NORMAL SALINE 100 ML with INSULIN REGULAR, HUMAN 100 UNIT IV PRN ×2 (16:24)
[2020-07-19 16:36] LABS: INTERNATIONAL RATION (INR) 1.19; PROTHROMBIN TIME 15.3 SEC (11.4-15.4)
[2020-07-19] MEDS ORDERED: INSULIN REG, HUMAN 100 UNIT/ML 3 ML VIAL (PYX) ONE (16:42)
--- NOTE | 2020-07-19 16:46 | RADIOLOGY REPORT (SQ) ---
EXAM DESCRIPTION: CHEST SINGLE VIEW IMAGES COMPLETED DATE/TIME: 07/19/2020 4:38 pm REASON FOR STUDY: sob COMPARISON: 02/15/2020 EXAM PARAMETERS: NUMBER OF VIEWS: One view. TECHNIQUE: Single frontal radiographic view of the chest acquired. RADIATION DOSE: NA LIMITATIONS: None. FINDINGS: LUNGS AND PLEURA: No opacities, masses or pneumothorax. No pleural effusion. MEDIASTINUM AND HILAR STRUCTURES: No masses. Contour normal. HEART AND VASCULAR STRUCTURES: Heart normal in size. Normal vasculature. BONES: No acute findings. HARDWARE: Right-sided chest port with catheter tip at cavoatrial junction. OTHER: No other significant finding. IMPRESSION: No evidence of acute intrathoracic process. TECHNICAL DOCUMENTATION: JOB ID: [id number] 2010 [employer]- All Rights Reserved Reading location - IP/workstation name: [email or web address]
[2020-07-19 17:44] LABS: HEMATOCRIT 40.4 % (36.0-47.0); HEMOGLOBIN 12.2 g/dL (12.0-15.5); RED CELL DISTRIBUTION WIDTH 17.8 % (11.5-14.0)
[2020-07-19 17:48] LABS: MEAN CORPUSCULAR HEMOGLOBIN 28.9 pg (27.0-33.4); MEAN CORPUSCULAR HGB CONC 30.1 g/dL (32.0-36.0); MEAN CORPUSCULAR VOLUME 96 fl (80-97); RED BLOOD COUNT 4.21 10^6/uL (3.72-5.28)
[2020-07-19 17:51] LABS: ABSOLUTE LYMPHOCYTES# (MANUAL) 0.7 10^3/uL (0.5-4.7); ABSOLUTE MONOCYTES # (MANUAL) 0.1 10^3/uL (0.1-1.4); BAND NEUTROPHILS % (MANUAL) 1 % (3-5); BASOPHILS % (MANUAL) 1 % (0-2); EOSINOPHILS % (MANUAL) 0 % (0-6); LYMPHOCYTES % (MANUAL) 8 % (13-45); MONOCYTES % (MANUAL) 1 % (3-13); PLATELET CLUMPS PRESENT; PLATELET COMMENT ADEQUATE; PLATELET LARGE PRESENT; SEGMENTED NEUTROPHILS % (MAN) 88 % (42-78); TOTAL CELLS COUNTED 100
[2020-07-19 17:52] LABS: ANISOCYTOSIS 1+
[2020-07-19 17:53] LABS: OVALOCYTES 1+; POIKILOCYTOSIS 2+
[2020-07-19 17:54] LABS: TARGET CELLS SLIGHT
[2020-07-19 17:55] LABS: PLATELET COUNT 328 10^3/uL (150-450)
[2020-07-19 18:16] LABS: APPEARANCE,URINE CLEAR; BILIRUBIN,URINE NEGATIVE (NEGATIVE); COLOR,URINE STRAW; GLUCOSE, URINE >=500 mg/dL (NEGATIVE); KETONES,URINE 80 mg/dL (NEGATIVE); PROTEIN,URINE 100 mg/dL (NEGATIVE); URINE SPECIFIC GRAVITY 1.023; UROBILINOGEN,URINE NEGATIVE mg/dL (<2.0)
[2020-07-19 19:11] LABS: VENOUS BLOOD BASE EXCESS -26.3 mmol/L; VENOUS BLOOD HCO3 5.5 mmol/L (20-32); VENOUS BLOOD PCO2 27.7 mmHg (35-63)
[2020-07-19 19:11] LABS: ALBUMIN 4.5 g/dL (3.5-5.0); BILIRUBIN,DIRECT 0.5 mg/dL (0.0-0.4); BILIRUBIN,TOTAL 0.6 mg/dL (0.2-1.3); BLOOD UREA NITROGEN 12 mg/dL (7-20); CALCIUM 9.8 mg/dL (8.4-10.2); CHLORIDE 105 mmol/L (98-107); GLUCOSE 375 mg/dL (75-110); TOTAL PROTEIN 8.1 g/dL (6.3-8.2)
[2020-07-19 19:18] LABS: CARBON DIOXIDE < 5 mmol/L (22-30)
[2020-07-19] MEDS ORDERED: NORMAL SALINE 1000 ML 1,000 ML IV ONE ×2 (19:18→19:19)
[2020-07-19 19:19] LABS: ALKALINE PHOSPHATASE 252 U/L (38-126); ASPARTATE AMINO TRANSFERASE 39 U/L (14-36); POTASSIUM 5.5 mmol/L (3.6-5.0)
--- NOTE | 2020-07-19 19:24 | ER Document Report ---
ED General - General Chief Complaint: Shortness Of Breath Stated Complaint: SHORTNESS OF BREATH Time Seen by Provider: 07/19/20 16:22 Primary Care Provider: RACHANA PADILLA PA-C [Primary Care Provider] - Follow up as needed Mode of Arrival: Medic Information source: Patient TRAVEL OUTSIDE OF THE [place] IN LAST 30 DAYS: No - HPI Notes: Patient presents with severe weakness upper epigastric pain and vomiting. She states she has a history of pancreatic cancer and is currently receiving chemotherapy at [facility]. She also states that she is diabetic. She denies any known recent infections. She describes the pain as currently absent but earlier it was mild in the epigastric area without radiation. Nothing made it better or worse. It was a sharp sensation. Patient has had no significant diarrhea. She has had some vomiting. Patient states she feels weak as well. No recent fevers cough cold or congestion. - Related Data Allergies/Adverse Reactions: morphine [Morphine] Allergy (Verified 04/14/20 15:04) Hives Past Medical History - General Information source: Patient - Social History Smoking Status: Former Smoker Chew tobacco use (# tins/day): No Frequency of alcohol use: None Drug Abuse: None Family History: Hypertension Endocrine Medical History: Reports: Hx Diabetes Mellitus Type 2 - Insulin- dependent Renal/ Medical History: Denies: Hx Peritoneal Dialysis Malignancy Medical History: Reports: Hx Pancreatic Cancer GI Medical History: Reports: Hx Gastroesophageal Reflux Disease Psychiatric Medical History: Reports: Hx Depression Past Surgical History: Reports: Hx Abdominal Surgery - pancreas resection, splenectomy, Hx Section - x2, Hx Pancreatic Surgery - pancreatic surgery - Immunizations Hx Diphtheria, Pertussis, Tetanus Vaccination: Yes Review of Systems - Review of Systems Constitutional: Malaise, Weakness. denies: Chills, Fever Cardiovascular: denies: Chest pain, Palpitations Respiratory: denies: Cough, Short of breath -: Yes All other systems reviewed and negative Physical Exam - Vital signs Vitals: Pulse Ox 100 07/19/20 15:49 Interpretation: Tachycardic, Tachypneic - General General appearance: Alert, Anxious In distress: Mild - HEENT Head: Normocephalic, Atraumatic Eyes: Normal Pupils: PERRL - Respiratory Respiratory status: Tachypnea Chest status: Nontender Breath sounds: Normal Chest palpation: Normal - Cardiovascular Rhythm: Tachycardia Heart sounds: Normal auscultation Murmur: No - Abdominal Inspection: Normal Distension: No distension Bowel sounds: Normal Tenderness: Nontender Organomegaly: No organomegaly - Back Back: Normal, Nontender - Extremities General upper extremity: Normal inspection, Nontender, Normal color, Normal ROM, Normal temperature General lower extremity: Normal inspection, Nontender, Normal color, Normal ROM, Normal temperature, Normal weight bearing. No: Brenden's sign - Neurological Neuro grossly intact: Yes Cognition: Normal Orientation: AAOx4 [place] Coma Scale Eye Opening: Spontaneous [place] Coma Scale Verbal: Oriented [place] Coma Scale Motor: Obeys Commands [place] Coma Scale Total: 15 Speech: Normal Motor strength normal: LUE, RUE, LLE, RLE Sensory: Normal - Psychological Associated symptoms: Normal affect, Normal mood - Skin Skin Temperature: Warm Skin Moisture: Dry Skin Color: Normal Course - Re-evaluation Re-evalutation: 07/19/20 19:22 Patient presents with tachypnea tachycardia and malaise. She is a pancreatic cancer patient with a history of diabetes. Presentation was consistent with diabetic ketoacidosis. Laboratories confirm this. She is on insulin drip and currently receiving fluids. After a little over 2 L of fluid she has had significant improvement. Her blood sugars are approximately half of what they were when she arrived. In addition she is no longer tachypneic. Also her heart rate has significantly lowered and she states she feels better. - Vital Signs Vital signs: Temp Pulse Resp BP Pulse Ox 97.3 F 26 H 126/114 H 98 07/19/20 16:09 07/19/20 19:01 07/19/20 19:00 07/19/20 17:55 - Laboratory Result Diagrams: 07/19/20 15:50 07/19/20 15:50 Laboratory results interpreted by me: 07/19/20 07/19/20 07/19/20 15:50 16:35 17:43 MCHC 30.1 L RDW 17.8 H Seg Neuts % (Manual) 88 H Band Neutrophils % 1 L Lymphocytes % (Manual) 8 L Monocytes % (Manual) 1 L POC Glucose 450 H* 420 H* Urine Protein Urine Glucose (UA) Urine Ketones Urine Blood 07/19/20 07/19/20 17:47 18:41 MCHC RDW Seg Neuts % (Manual) Band Neutrophils % Lymphocytes % (Manual) Monocytes % (Manual) POC Glucose 392 H Urine Protein 100 H Urine Glucose (UA) >=500 H Urine Ketones 80 H Urine Blood SMALL H - Diagnostic Test Radiology reviewed: Image reviewed, Reports reviewed Critical Care Note - Critical Care Note Total time excluding time spent on procedures (mins): 50 Comments: Approximate 50 minutes of critical care time were spent on this patient. This time was spent doing multiple reassessments. Is spent talking with travel service consultant. Is spent reviewing imaging and laboratory values. Discharge - Discharge Clinical Impression: Diabetic ketoacidosis Qualifiers: Diabetes mellitus type: type 1 Diabetes mellitus complication detail: without coma Qualified Code(s): E10.10 - Type 1 diabetes mellitus with ketoacidosis without coma Pancreatic cancer Qualifiers: Pancreatic malignancy location: unspecified Qualified Code(s): C25.9 - Malignant neoplasm of pancreas, unspecified Condition: Critical Disposition: ADMITTED INPATIENT Admitting Provider: [facility] (Clinical Data Specialist) Unit Admitted: ICU Referrals: RACHANA PADILLA PA-C [Primary Care Provider] - Follow up as needed
[2020-07-19 19:30] LABS: VENOUS BLOOD PH 6.91 (7.30-7.42)
[2020-07-19] MEDS ORDERED: DEXTROSE 40% GEL 15 GM TUBE PO PRN ×4 (20:49→21:50)
[2020-07-19] MEDS ORDERED: GLUCAGON,HUMAN RECOMB 1 MG INJ SUBCUT PRN (20:49)
[2020-07-19] MEDS ORDERED: RINGERS SOLUTION,LACTATED 1,000 ML IV PRN (20:49)
[2020-07-19] MEDS ORDERED: DEXTROSE 50%-WATER 25 GM/50 ML DISP.SYRIN IV PRN ×4 (20:49→21:50)
[2020-07-19] MEDS ORDERED: ONDANSETRON HCL INJ/PF 4 MG/2 ML SDV IV PRN (20:49)
[2020-07-19] MEDS ORDERED: ACETAMINOPHEN 325 MG TABLET PO PRN (20:49)
[2020-07-19] MEDS ORDERED: NORMAL SALINE 1000 ML 1,000 ML IV PRN (21:00)
[2020-07-19] MEDS ORDERED: GLUCAGON,HUMAN RECOMB 1 MG INJ IM PRN (21:50)
[2020-07-19] MEDS ORDERED: PANTOPRAZOLE SODIUM 40 MG VIAL IV SCH (22:00)
[2020-07-19 22:09] LABS: ALBUMIN 3.5 g/dL (3.5-5.0); BLOOD UREA NITROGEN 10 mg/dL (7-20); CHLORIDE 115 mmol/L (98-107)
[2020-07-19 22:10] LABS: ALKALINE PHOSPHATASE 206 U/L (38-126); ASPARTATE AMINO TRANSFERASE 25 U/L (14-36); BILIRUBIN,DIRECT 0.3 mg/dL (0.0-0.4); BILIRUBIN,TOTAL 0.3 mg/dL (0.2-1.3); PHOSPHORUS 1.4 mg/dL (2.5-4.5); TOTAL PROTEIN 6.6 g/dL (6.3-8.2)
[2020-07-19 22:14] LABS: AMYLASE < 30 U/L (30-110)
[2020-07-19] MEDS ORDERED: DEXTROSE 50%-WATER 25 GM/50 ML DISP.SYRIN IV ONE (22:17)
[2020-07-19] MEDS ORDERED: DEXTROSE 5%-WATER 1000 ML 1,000 ML IV PRN (22:18)
[2020-07-19 22:24] LABS: GLUCOSE 27 mg/dL (75-110); POTASSIUM 3.5 mmol/L (3.6-5.0)
[2020-07-19 22:25] LABS: ANION GAP 19 (5-19); CARBON DIOXIDE 5 mmol/L (22-30)
[2020-07-19] MEDS ORDERED: SODIUM BICARBONATE 8.4% INJ 50 MEQ/50 ML DISP.SYRIN IV ONE ×3 (22:50→22:58)
[2020-07-19] MEDS ORDERED: DEXTROSE 5%-1/2 NORMAL SALINE 1,000 ML IV PRN (22:51)
[2020-07-19 22:53] LABS: VENOUS BLOOD BASE EXCESS -21.6 mmol/L; VENOUS BLOOD HCO3 6.8 mmol/L (20-32); VENOUS BLOOD PCO2 23.9 mmHg (35-63)
[2020-07-19 22:55] LABS: VENOUS BLOOD PH 7.07 (7.30-7.42)
[2020-07-19 22:57] LABS: APPEARANCE,URINE SLIGHTLY-CLOUDY; BILIRUBIN,URINE NEGATIVE (NEGATIVE); COLOR,URINE YELLOW; GLUCOSE, URINE >=500 mg/dL (NEGATIVE); KETONES,URINE 80 mg/dL (NEGATIVE); PROTEIN,URINE 100 mg/dL (NEGATIVE); URINE SPECIFIC GRAVITY 1.018; UROBILINOGEN,URINE NEGATIVE mg/dL (<2.0)
[2020-07-19] MEDS ORDERED: SODIUM BICARBONATE 8.4% INJ 50 MEQ/50 ML DISP.SYRIN ONE (23:00)
[2020-07-19] MEDS ORDERED: 1/2 NORMAL SALINE 1,000 ML IV PRN (23:07)
[2020-07-19] MEDS ORDERED: POTASSI CL 20 MEQ/1/2NS 1L 20 MEQ/1,000 ML RTUINJ IV PRN ×2 (23:10→23:23)
[2020-07-19] MEDS: HEPARIN SOD (PORCINE) 5,000 UNIT/ML 1 ML VIAL SUBCUT SCH (23:20)
[2020-07-20] MEDS ORDERED: POTASSIUM PHOS,M-BASIC-D-BASIC 30 MMOL in NORMAL SALINE 500 ML IV ONE ×2 (01:00→08:00)
--- NOTE | 2020-07-20 01:06 | CRITICAL CARE ADMISSION REPORT ---
HPI Date:: 07/19/20 Time:: 21:00 Reason for ICU Reason:: DKA , insulin drip Admission Date/Time & PCP: Admission Date/Time: 07/19/20 19:37 Primary Care Provider: RACHANA PADILLA PA-C - Diagnosis/Plan (1) Diabetic ketoacidosis Qualifiers: Diabetes mellitus type: type 2 Diabetes mellitus complication detail: without coma Qualified Code(s): E11.10 - Type 2 diabetes mellitus with ketoacidosis without coma Is this a current diagnosis for this admission?: Yes Plan: Patient has history DM, admitted due to DKA. Blood sugar, lactic acid and and anion gap elevated.IVF boluses given and insulin drip per protocol. (2) Pancreatic cancer Qualifiers: Pancreatic malignancy location: unspecified Qualified Code(s): C25.9 - Malignant neoplasm of pancreas, unspecified Is this a current diagnosis for this admission?: Yes Plan: Patient has history of pancreatic cancer and being treated @ [facility]. (5) Hyperosmolar syndrome Is this a current diagnosis for this admission?: Yes Plan: Monitor. Past Medical History Pulmonary Medical History: Reports: Asthma Neurological Medical History: Reports: None Endocrine Medical History: Reports: Diabetes Mellitus Type 2 - Insulin-dependent Renal/ Medical History: Reports: None Malignancy Medical History: Reports: None, Pancreatic Cancer GI Medical History: Reports: None, Gastroesophageal Reflux Disease Psychiatric Medical History: Reports: Depression Hematology: Reports: None Infectious Medical History: Reports: None Past Surgical History Past Surgical History: Reports: Section - x2 Social/Family History - Social History Smoking Status: Former Smoker Number of Years Smokin Last Time Smoked: 2009 Frequency of Alcohol Use: Social Hx Recreational Drug Use: No Drugs: None Hx Prescription Drug Abuse: No - Medication/Allergies Home Medications: Gabapentin [Neurontin 300 mg Capsule] 300 mg PO QHS 10/08/19 Ibuprofen [Motrin 800 mg Tablet] 800 mg PO Q8HP PRN 10/08/19 Insulin Aspart [Novolog Flexpen] 25 units SQ MEALS MDD UP TO 100 UNITS PER DAY 10/08/19 Insulin Glargine,Hum.rec.anlog [Lantus Insulin 100 Unit/1 ml 10 ml] 60 units SQ QHS 10/08/19 Ondansetron [Zofran Odt 4 mg Tablet] 4 mg PO Q4HP PRN 12/04/19 Trazodone HCl 50 mg PO HSP PRN 10/08/19 Nystatin [Mycostatin Topical Powder 15 gm] 1 applic TP Q8 #2 bottle 10/09/19 Promethazine HCl 12.5 mg RC TID #8 supp.rect 04/14/20 Allergies/Adverse Reactions: morphine [Morphine] Allergy (Verified 04/14/20 15:04) Hives Review of Systems ROS unobtainable: Due to mental status, Other Constitutional: PRESENT: as per HPI Eyes: PRESENT: as per HPI Ears: PRESENT: as per HPI Nose, Mouth, and Throat: PRESENT: as per HPI Breasts: PRESENT: as per HPI Cardiovascular: PRESENT: edema Respiratory: PRESENT: as per HPI, cough Gastrointestinal: PRESENT: bloating, constipation, nausea Musculoskeletal: PRESENT: other Integumentary: PRESENT: as per HPI Psychiatric: PRESENT: other Hematologic/Lymphatic: PRESENT: as per HPI Allergic/Immunologic: PRESENT: as per HPI Physical Exam Vital Signs: Temp Pulse Resp BP Pulse Ox 97.3 F 22 H 128/100 H 98 07/19/20 16:09 07/19/20 20:01 07/19/20 20:01 07/19/20 17:55 Intake & Output 07/18/20 07/19/20 07/20/20 06:59 06:59 06:59 Intake Total 2969 Output Total 300 Balance 2669 Weight 98.3 kg Weight/Height Weight 98.3 kg Height 5 ft 1 in General appearance: PRESENT: no acute distress, obese Head exam: PRESENT: atraumatic, normocephalic Eye exam: PRESENT: conjunctival injection, EOMI, PERRLA Ear exam: PRESENT: normal external ear exam Mouth exam: PRESENT: dry mucosa, tongue midline Throat exam: PRESENT: other Neck exam: PRESENT: carotid bruit Cardiovascular exam: PRESENT: RRR, +S1, +S2 Laboratory/Radiographs Laboratory Results: 07/19/20 15:50 07/19/20 07/19/20 07/19/20 15:50 15:50 17:47 WBC 8.0 RBC 4.21 Hgb 12.2 Hct 40.4 MCV 96 MCH 28.9 MCHC 30.1 L RDW 17.8 H Plt Count 328 Seg Neutrophils % Not Reportable VBG pH VBG pCO2 VBG HCO3 VBG Base Excess Sodium Cancelled Potassium Cancelled Chloride Cancelled Carbon Dioxide Cancelled Anion Gap Cancelled BUN Cancelled Creatinine Cancelled Est GFR ( Amer) Cancelled Est GFR (Non-Af Amer) Cancelled Glucose Cancelled Lactic Acid Calcium Cancelled Total Bilirubin Cancelled AST Cancelled Alkaline Phosphatase Cancelled Total Protein Cancelled Albumin Cancelled Urine Color STRAW Urine Appearance CLEAR Urine pH 5.0 Ur Specific [place] 1.023 Urine Protein 100 H Urine Glucose (UA) >=500 H Urine Ketones 80 H Urine Blood SMALL H Urine RBC (Auto) 2 07/19/20 07/19/20 07/19/20 18:29 18:29 18:46 WBC RBC Hgb Hct MCV MCH MCHC RDW Plt Count Seg Neutrophils % VBG pH 6.91 L* VBG pCO2 27.7 L VBG HCO3 5.5 L VBG Base Excess -26.3 Sodium 137.4 Potassium 5.5 H Chloride 105 Carbon Dioxide < 5 L* Anion Gap Not Reportable BUN 12 Creatinine 0.95 Est GFR ( Amer) > 60 Est GFR (Non-Af Amer) Glucose 375 H Lactic Acid 3.4 H Calcium 9.8 Total Bilirubin 0.6 AST 39 H Alkaline Phosphatase 252 H Total Protein 8.1 Albumin 4.5 Urine Color Urine Appearance Urine pH Ur Specific [place] Urine Protein Urine Glucose (UA) Urine Ketones Urine Blood Urine RBC (Auto) 07/19/20 15:50 Troponin I < 0.012 Impressions: Chest X-Ray 07/19/20 16:23 IMPRESSION: No evidence of acute intrathoracic process. Critical Time Critical Time (minutes): 50 -: The care of a critically ill patient is dynamic. This note represents a static moment in the admission process. Orders and treatments may be given simultaneously and urgently, and time is not rental sales representative of the treatment process. This patient requires Critical Care secondary to life threatening organ or limb dysfunction. Without Critical Care services, the patient is at risk for increased mortality and morbidity.
[2020-07-20] MEDS ORDERED: GLUCAGON,HUMAN RECOMB 1 MG INJ IM PRN ×2 (01:10→07:23)
[2020-07-20] MEDS ORDERED: DEXTROSE 50%-WATER 25 GM/50 ML DISP.SYRIN IV PRN ×4 (01:10→07:23)
[2020-07-20] MEDS ORDERED: DEXTROSE 40% GEL 15 GM TUBE PO PRN ×3 (01:10→07:23)
[2020-07-20] MEDS ORDERED: NORMAL SALINE 100 ML with INSULIN REGULAR, HUMAN 100 UNIT IV PRN ×2 (01:11)
[2020-07-20 01:13] LABS: ANION GAP 18 (5-19); BLOOD UREA NITROGEN 10 mg/dL (7-20); CHLORIDE 112 mmol/L (98-107); GLUCOSE 216 mg/dL (75-110)
[2020-07-20] MEDS ORDERED: DEXTROSE 5%-1/4 NORMAL SALINE 1,000 ML IV PRN (01:13)
[2020-07-20 01:25] LABS: CARBON DIOXIDE 7 mmol/L (22-30)
[2020-07-20 01:43] LABS: ARTERIAL BLOOD BASE EXCESS -15.5 mmol/L; ARTERIAL BLOOD FIO2 ROOM AIR; ARTERIAL BLOOD H2CO3 0.57 mmol/L (1.05-1.35); ARTERIAL BLOOD HCO3 9.1 mmol/L (20-24); ARTERIAL BLOOD O2 SATURATION 97.7 % (94-98); ARTERIAL BLOOD PCO2 19.1 mmHg (35-45); ARTERIAL BLOOD PH 7.29 (7.35-7.45); ARTERIAL BLOOD PO2 109.8 mmHg (80-100); ARTERIAL BLOOD TOTAL CO2 9.6 mmol/L (21-25)
[2020-07-20] MEDS ORDERED: SODIUM BICARBONATE 8.4% INJ 50 MEQ/50 ML DISP.SYRIN IV ONE (01:50)
[2020-07-20] MEDS: DEXTROSE 5%-1/2 NORMAL SALINE 1,000 ML IV PRN ×2 (03:13→10:10)
[2020-07-20 04:50] LABS: INTERNATIONAL RATION (INR) 1.07; PROTHROMBIN TIME 14.1 SEC (11.4-15.4)
[2020-07-20 04:51] LABS: PARTIAL THROMBOPLASTIN TIME 24.5 SEC (23.5-35.8)
[2020-07-20 04:57] LABS: HEMATOCRIT 33.2 % (36.0-47.0); HEMOGLOBIN 10.4 g/dL (12.0-15.5); MEAN CORPUSCULAR HEMOGLOBIN 28.9 pg (27.0-33.4); MEAN CORPUSCULAR HGB CONC 31.2 g/dL (32.0-36.0); MEAN CORPUSCULAR VOLUME 93 fl (80-97); PLATELET COUNT 196 10^3/uL (150-450); RED BLOOD COUNT 3.58 10^6/uL (3.72-5.28); RED CELL DISTRIBUTION WIDTH 17.4 % (11.5-14.0); WHITE BLOOD COUNT 7.9 10^3/uL (4.0-10.5)
[2020-07-20 04:59] LABS: CHOLESTEROL 233.45 mg/dL (0-200); TRIGLYCERIDES 189 mg/dL (<150)
[2020-07-20 05:11] LABS: DIRECT LDL 128 mg/dL (<100)
[2020-07-20 05:35] LABS: VLDL CHOLESTEROL 37.8 mg/dL (10-31)
[2020-07-20 05:50] LABS: ABSOLUTE LYMPHOCYTES# (MANUAL) 1.6 10^3/uL (0.5-4.7); ABSOLUTE MONOCYTES # (MANUAL) 0.3 10^3/uL (0.1-1.4); BASOPHILS % (MANUAL) 1 % (0-2); EOSINOPHILS % (MANUAL) 0 % (0-6); LYMPHOCYTES % (MANUAL) 20 % (13-45); MONOCYTES % (MANUAL) 4 % (3-13); SEGMENTED NEUTROPHILS % (MAN) 75 % (42-78); TOTAL CELLS COUNTED 100
[2020-07-20 05:52] LABS: ANISOCYTOSIS 1+; BURR CELLS 2+; HOWELL-JOLLY BODIES PRESENT; OVALOCYTES SLIGHT; PLATELET COMMENT ADEQUATE; POIKILOCYTOSIS 1+; TOXIC GRANULATION SLIGHT
[2020-07-20] MEDS: HEPARIN SOD (PORCINE) 5,000 UNIT/ML 1 ML VIAL SUBCUT SCH ×3 (06:28→22:51)
[2020-07-20] MEDS ORDERED: INSULIN GLARGINE,HUM.REC.ANLOG 1,000 UNIT/10 ML VIAL (PYX) SUBCUT ONE ×2 (08:00→22:40)
[2020-07-20 08:14] LABS: ANION GAP 19 (5-19); BLOOD UREA NITROGEN 10 mg/dL (7-20); CALCIUM 9.5 mg/dL (8.4-10.2); CHLORIDE 115 mmol/L (98-107); GLUCOSE 210 mg/dL (75-110); POTASSIUM 4.5 mmol/L (3.6-5.0)
[2020-07-20] MEDS: INSULIN REG, HUMAN 100 UNIT/ML 3 ML VIAL (PYX) SUBCUT SCH ×4 (08:19→23:53)
[2020-07-20 08:22] LABS: CARBON DIOXIDE 10 mmol/L (22-30)
--- NOTE | 2020-07-20 09:09 | EKG REPORT ---
SEVERITY:- OTHERWISE NORMAL ECG - SINUS TACHYCARDIA : Confirmed by: Kyung Lee 20-Jul-2020 09:08:45
[2020-07-20] MEDS: DOCUSATE SODIUM 100 MG CAPSULE PO SCH (09:24)
--- NOTE | 2020-07-20 09:34 | RADIOLOGY REPORT (SQ) ---
EXAM DESCRIPTION: CHEST SINGLE VIEW IMAGES COMPLETED DATE/TIME: 07/20/2020 5:55 am REASON FOR STUDY: shortness of breath COMPARISON: 07/19/2020 NUMBER OF VIEWS: One view. TECHNIQUE: Single frontal radiographic image of the chest acquired. LIMITATIONS: Poor inspiratory effort. FINDINGS: LUNGS AND PLEURA: Low lung volumes. No infiltrate or pneumothorax. MEDIASTINUM AND HEART: Stable heart size and mediastinal structures. SUPPORT DEVICES: Appropriate location without change. BONY STRUCTURES: No acute findings. HARDWARE: None. OTHER: No other significant finding. IMPRESSION: No infiltrate or pneumothorax. Reading location - IP/workstation name: [email or web address]
[2020-07-20 09:52] LABS: ALBUMIN 3.2 g/dL (3.5-5.0); ALKALINE PHOSPHATASE 186 U/L (38-126); ANION GAP 12 (5-19); ASPARTATE AMINO TRANSFERASE 23 U/L (14-36); BILIRUBIN,DIRECT 0.3 mg/dL (0.0-0.4); BILIRUBIN,TOTAL 0.4 mg/dL (0.2-1.3); BLOOD UREA NITROGEN 8 mg/dL (7-20); CARBON DIOXIDE 16 mmol/L (22-30); CHLORIDE 108 mmol/L (98-107); GLUCOSE 218 mg/dL (75-110); PHOSPHORUS 2.3 mg/dL (2.5-4.5); POTASSIUM 3.8 mmol/L (3.6-5.0)
--- NOTE | 2020-07-20 11:17 | PDOC CRITICAL CARE PROG REPORT ---
General Date:: 07/20/20 Hospital Day:: 2 Resuscitation Status: Full Code Events in the past 12 to 24 Hours:: Anion gap closed Review of systems relevant to events:: Endocrine Reason for ICU Addmission:: DKA , insulin drip, acidosis now improved. - Medications: Medications reviewed and adjusted accordingly: Yes Vasopressors:: None Sedation:: None Physical Exam Vital Signs: Temp Pulse Resp BP Pulse Ox 98.6 F 80 19 104/72 100 07/20/20 10:01 07/20/20 08:00 07/20/20 10:01 07/20/20 10:00 07/20/20 08:00 Intake & Output 07/19/20 07/20/20 07/21/20 06:59 06:59 06:59 Intake Total 5876 1000 Output Total 1300 Balance 4576 1000 Weight 101.5 kg Weight/Height Weight 101.5 kg Height 5 ft 1 in General appearance: PRESENT: no acute distress, obese, other - Sleepy Head exam: PRESENT: atraumatic, normocephalic Eye exam: PRESENT: conjunctiva pink, EOMI, PERRLA. ABSENT: scleral icterus Ear exam: PRESENT: normal external ear exam Mouth exam: PRESENT: moist, tongue midline Respiratory exam: PRESENT: clear to auscultation osmani, decreased breath sounds. ABSENT: rales, rhonchi, wheezes Cardiovascular exam: PRESENT: RRR. ABSENT: diastolic murmur, rubs, systolic murmur GI/Abdominal exam: PRESENT: normal bowel sounds, soft. ABSENT: distended, guarding, mass, organolmegaly, rebound, tenderness Rectal exam: PRESENT: deferred Gentrourinary exam: PRESENT: indwelling catheter Extremities exam: PRESENT: full ROM. ABSENT: calf tenderness, clubbing, pedal edema Neurological exam: PRESENT: alert, awake, oriented to person, oriented to place, oriented to time, oriented to situation, CN II-XII grossly intact. ABSENT: motor sensory deficit Psychiatric exam: PRESENT: flat affect. ABSENT: homicidal ideation, suicidal ideation Skin exam: PRESENT: dry, intact, warm. ABSENT: cyanosis, rash Laboratory/Radiographs Laboratory Results: 07/20/20 04:21 07/20/20 09:20 07/19/20 07/19/20 07/19/20 15:50 15:50 17:47 WBC 8.0 RBC 4.21 Hgb 12.2 Hct 40.4 MCV 96 MCH 28.9 MCHC 30.1 L RDW 17.8 H Plt Count 328 Seg Neutrophils % Not Reportable Carbonic Acid HCO3/H2CO3 Ratio ABG pH ABG pCO2 ABG pO2 ABG HCO3 ABG O2 Saturation ABG Base Excess VBG pH VBG pCO2 VBG HCO3 VBG Base Excess FiO2 Sodium Cancelled Potassium Cancelled Chloride Cancelled Carbon Dioxide Cancelled Anion Gap Cancelled BUN Cancelled Creatinine Cancelled Est GFR ( Amer) Cancelled Est GFR (Non-Af Amer) Cancelled Glucose Cancelled Lactic Acid Calcium Cancelled Phosphorus Magnesium Total Bilirubin Cancelled AST Cancelled Alkaline Phosphatase Cancelled Total Protein Cancelled Albumin Cancelled Triglycerides Cholesterol LDL Cholesterol Direct VLDL Cholesterol HDL Cholesterol Amylase Lipase TSH Urine Color STRAW Urine Appearance CLEAR Urine pH 5.0 Ur Specific [place] 1.023 Urine Protein 100 H Urine Glucose (UA) >=500 H Urine Ketones 80 H Urine Blood SMALL H Urine RBC (Auto) 2 07/19/20 07/19/20 07/19/20 18:29 18:29 18:46 WBC RBC Hgb Hct MCV MCH MCHC RDW Plt Count Seg Neutrophils % Carbonic Acid HCO3/H2CO3 Ratio ABG pH ABG pCO2 ABG pO2 ABG HCO3 ABG O2 Saturation ABG Base Excess VBG pH 6.91 L* VBG pCO2 27.7 L VBG HCO3 5.5 L VBG Base Excess -26.3 FiO2 Sodium 137.4 Potassium 5.5 H Chloride 105 Carbon Dioxide < 5 L* Anion Gap Not Reportable BUN 12 Creatinine 0.95 Est GFR ( Amer) > 60 Est GFR (Non-Af Amer) Glucose 375 H Lactic Acid 3.4 H Calcium 9.8 Phosphorus Magnesium Total Bilirubin 0.6 AST 39 H Alkaline Phosphatase 252 H Total Protein 8.1 Albumin 4.5 Triglycerides Cholesterol LDL Cholesterol Direct VLDL Cholesterol HDL Cholesterol Amylase Lipase TSH Urine Color Urine Appearance Urine pH Ur Specific [place] Urine Protein Urine Glucose (UA) Urine Ketones Urine Blood Urine RBC (Auto) 07/19/20 07/19/20 07/19/20 21:42 21:42 21:42 WBC RBC Hgb Hct MCV MCH MCHC RDW Plt Count Seg Neutrophils % Carbonic Acid HCO3/H2CO3 Ratio ABG pH ABG pCO2 ABG pO2 ABG HCO3 ABG O2 Saturation ABG Base Excess VBG pH VBG pCO2 VBG HCO3 VBG Base Excess FiO2 Sodium 138.6 Potassium 3.5 L D Chloride 115 H Carbon Dioxide 5 L* Anion Gap 19 BUN 10 Creatinine 0.69 Est GFR ( Amer) > 60 Est GFR (Non-Af Amer) Glucose 27 L* Lactic Acid 1.0 Calcium 9.0 Phosphorus 1.4 L Magnesium 1.9 Total Bilirubin 0.3 AST 25 Alkaline Phosphatase 206 H Total Protein 6.6 Albumin 3.5 Triglycerides Cholesterol LDL Cholesterol Direct VLDL Cholesterol HDL Cholesterol Amylase < 30 L Lipase 17.6 L TSH Urine Color Urine Appearance Urine pH Ur Specific [place] Urine Protein Urine Glucose (UA) Urine Ketones Urine Blood Urine RBC (Auto) 07/19/20 07/19/20 07/20/20 22:32 22:32 00:36 WBC RBC Hgb Hct MCV MCH MCHC RDW Plt Count Seg Neutrophils % Carbonic Acid HCO3/H2CO3 Ratio ABG pH ABG pCO2 ABG pO2 ABG HCO3 ABG O2 Saturation ABG Base Excess VBG pH 7.07 L* VBG pCO2 23.9 L VBG HCO3 6.8 L VBG Base Excess -21.6 FiO2 Sodium Potassium Chloride Carbon Dioxide Anion Gap BUN Creatinine Est GFR ( Amer) Est GFR (Non-Af Amer) Glucose Lactic Acid 1.8 Calcium Phosphorus Magnesium Total Bilirubin AST Alkaline Phosphatase Total Protein Albumin Triglycerides Cholesterol LDL Cholesterol Direct VLDL Cholesterol HDL Cholesterol Amylase Lipase TSH Urine Color YELLOW Urine Appearance SLIGHTLY-CLOUDY Urine pH 5.0 Ur Specific [place] 1.018 Urine Protein 100 H Urine Glucose (UA) >=500 H Urine Ketones 80 H Urine Blood SMALL H Urine RBC (Auto) 0 07/20/20 07/20/20 07/20/20 00:36 01:25 04:21 WBC 7.9 RBC 3.58 L Hgb 10.4 L Hct 33.2 L MCV 93 MCH 28.9 MCHC 31.2 L RDW 17.4 H Plt Count 196 Seg Neutrophils % Not Reportable Carbonic Acid 0.57 L HCO3/H2CO3 Ratio 15:1 ABG pH 7.29 L ABG pCO2 19.1 L* ABG pO2 109.8 H ABG HCO3 9.1 L ABG O2 Saturation 97.7 ABG Base Excess -15.5 VBG pH VBG pCO2 VBG HCO3 VBG Base Excess FiO2 ROOM AIR Sodium 136.6 L Potassium 4.0 Chloride 112 H Carbon Dioxide 7 L* Anion Gap 18 BUN 10 Creatinine 0.67 Est GFR ( Amer) > 60 Est GFR (Non-Af Amer) Glucose 216 H Lactic Acid Calcium 9.0 Phosphorus Magnesium Total Bilirubin AST Alkaline Phosphatase Total Protein Albumin Triglycerides Cholesterol LDL Cholesterol Direct VLDL Cholesterol HDL Cholesterol Amylase Lipase TSH Urine Color Urine Appearance Urine pH Ur Specific [place] Urine Protein Urine Glucose (UA) Urine Ketones Urine Blood Urine RBC (Auto) 07/20/20 07/20/20 07/20/20 04:21 04:21 04:21 WBC RBC Hgb Hct MCV MCH MCHC RDW Plt Count Seg Neutrophils % Carbonic Acid HCO3/H2CO3 Ratio ABG pH ABG pCO2 ABG pO2 ABG HCO3 ABG O2 Saturation ABG Base Excess VBG pH VBG pCO2 VBG HCO3 VBG Base Excess FiO2 Sodium 144.4 Potassium 4.5 Chloride 115 H Carbon Dioxide 10 L* Anion Gap 19 BUN 10 Creatinine 0.64 Est GFR ( Amer) > 60 Est GFR (Non-Af Amer) Glucose 210 H Lactic Acid Calcium 9.5 Phosphorus Magnesium Total Bilirubin AST Alkaline Phosphatase Total Protein Albumin Triglycerides 189 H Cholesterol 233.45 H LDL Cholesterol Direct 128 H VLDL Cholesterol 37.8 H HDL Cholesterol 73 Amylase Lipase TSH 1.43 Urine Color Urine Appearance Urine pH Ur Specific [place] Urine Protein Urine Glucose (UA) Urine Ketones Urine Blood Urine RBC (Auto) 07/20/20 09:20 WBC RBC Hgb Hct MCV MCH MCHC RDW Plt Count Seg Neutrophils % Carbonic Acid HCO3/H2CO3 Ratio ABG pH ABG pCO2 ABG pO2 ABG HCO3 ABG O2 Saturation ABG Base Excess VBG pH VBG pCO2 VBG HCO3 VBG Base Excess FiO2 Sodium 136.2 L Potassium 3.8 Chloride 108 H Carbon Dioxide 16 L Anion Gap 12 BUN 8 Creatinine 0.58 Est GFR ( Amer) > 60 Est GFR (Non-Af Amer) Glucose 218 H Lactic Acid Calcium 9.0 Phosphorus 2.3 L Magnesium Total Bilirubin 0.4 AST 23 Alkaline Phosphatase 186 H Total Protein 6.0 L Albumin 3.2 L Triglycerides Cholesterol LDL Cholesterol Direct VLDL Cholesterol HDL Cholesterol Amylase Lipase TSH Urine Color Urine Appearance Urine pH Ur Specific [place] Urine Protein Urine Glucose (UA) Urine Ketones Urine Blood Urine RBC (Auto) 07/19/20 07/20/20 15:50 04:21 Troponin I < 0.012 NT-Pro-B Natriuret Pep 37 Impressions: Chest X-Ray 07/20/20 06:00 IMPRESSION: No infiltrate or pneumothorax. All labs, radiographs, diagnostic studies and EKGs were personally reviewed: Yes In addition, reports of radiographic and diagnostic studies were read: Yes Assessment and Plan - Diagnosis (1) Diabetic ketoacidosis Qualifiers: Diabetes mellitus type: type 2 Diabetes mellitus complication detail: wit hout coma Qualified Code(s): E11.10 - Type 2 diabetes mellitus with ketoa cidosis without coma Is this a current diagnosis for this admission?: Yes Plan: She has BG in urine, ketones and acidosis. Blood sugar is not high. Can be maintained on IMC if insulin drip needed. (2) Pancreatic cancer Qualifiers: Pancreatic malignancy location: tail of pancreas Qualified Code(s): C25.2 - Malignant neoplasm of tail of pancreas Is this a current diagnosis for this admission?: Yes Plan: The records are at [facility]. Said to have liver metastises. Getting CTx. Plan Summary: Able to down grade. Start lantus and d/c insulin drip. Critical Time Critical Time (minutes): 30 Level of Care: IMCU Anticipated discharge: Home Anticipated DC Timeframe: Other -: 1. The care of a critical patient is a dynamic process. This note is a repre sentative synopsis but static in nature. The timeframe for treatments given in order is not necessarily the actual time these treatments may have been done. 2. This patient requires critical care secondary to ongoing requirements for therapy not offered or safe outside the critical care environment. Transfer to a lower level of care will result in altered life or limb morbidity and mortality. 3. Multidisciplinary rounds completed. 4. ABCDE bundle addressed.
[2020-07-20] MEDS: NORMAL SALINE 1000 ML 1,000 ML IV PRN (12:43)
[2020-07-20] MEDS: INSULIN GLARGINE,HUM.REC.ANLOG 1,000 UNIT/10 ML VIAL SUBCUT SCH (22:51)
[2020-07-21] MEDS: NORMAL SALINE 1000 ML 1,000 ML IV PRN ×2 (01:57→18:16)
[2020-07-21] MEDS: HEPARIN SOD (PORCINE) 5,000 UNIT/ML 1 ML VIAL SUBCUT SCH ×3 (05:06→22:53)
[2020-07-21 06:11] LABS: HEMATOCRIT 28.1 % (36.0-47.0); HEMOGLOBIN 9.2 g/dL (12.0-15.5); MEAN CORPUSCULAR HEMOGLOBIN 28.7 pg (27.0-33.4); MEAN CORPUSCULAR HGB CONC 32.7 g/dL (32.0-36.0); PLATELET COUNT 140 10^3/uL (150-450); RED BLOOD COUNT 3.21 10^6/uL (3.72-5.28); RED CELL DISTRIBUTION WIDTH 17.3 % (11.5-14.0); WHITE BLOOD COUNT 4.9 10^3/uL (4.0-10.5)
[2020-07-21 06:19] LABS: ALBUMIN 2.6 g/dL (3.5-5.0); ALKALINE PHOSPHATASE 174 U/L (38-126); ANION GAP 7 (5-19); ASPARTATE AMINO TRANSFERASE 22 U/L (14-36); BILIRUBIN,DIRECT 0.3 mg/dL (0.0-0.4); BILIRUBIN,TOTAL 0.4 mg/dL (0.2-1.3); BLOOD UREA NITROGEN 6 mg/dL (7-20); CALCIUM 8.7 mg/dL (8.4-10.2); CARBON DIOXIDE 19 mmol/L (22-30); CHLORIDE 107 mmol/L (98-107); GLUCOSE 242 mg/dL (75-110); POTASSIUM 3.3 mmol/L (3.6-5.0)
[2020-07-21 06:41] LABS: MEAN CORPUSCULAR VOLUME 88 fl (80-97)
[2020-07-21 06:44] LABS: ABSOLUTE LYMPHOCYTES# (MANUAL) 0.5 10^3/uL (0.5-4.7); ABSOLUTE MONOCYTES # (MANUAL) 0.4 10^3/uL (0.1-1.4); BASOPHILS % (MANUAL) 0 % (0-2); EOSINOPHILS % (MANUAL) 1 % (0-6); LYMPHOCYTES % (MANUAL) 11 % (13-45); MONOCYTES % (MANUAL) 8 % (3-13); NUCLEATED RED BLOOD CELLS 2 /100 WBC (0); SEGMENTED NEUTROPHILS % (MAN) 80 % (42-78); TOTAL CELLS COUNTED 100
[2020-07-21 06:45] LABS: ANISOCYTOSIS 1+; OVALOCYTES 1+; POIKILOCYTOSIS 1+; POLYCHROMASIA 1+
[2020-07-21 06:46] LABS: HOWELL-JOLLY BODIES PRESENT; PAPPENHEIMER BODIES PRESENT; PLATELET COMMENT DECREASED; SCHISTOCYTES SLIGHT
[2020-07-21] MEDS: INSULIN REG, HUMAN 100 UNIT/ML 3 ML VIAL (PYX) SUBCUT SCH ×4 (08:28→22:55)
--- NOTE | 2020-07-21 09:20 | RADIOLOGY REPORT (SQ) ---
EXAM DESCRIPTION: CHEST SINGLE VIEW IMAGES COMPLETED DATE/TIME: 07/21/2020 8:57 am REASON FOR STUDY: shortness of breath COMPARISON: 07/20/2020 EXAM PARAMETERS: NUMBER OF VIEWS: One view. TECHNIQUE: Single frontal radiographic view of the chest acquired. RADIATION DOSE: NA LIMITATIONS: None. FINDINGS: LUNGS AND PLEURA: No opacities, masses or pneumothorax. No pleural effusion. MEDIASTINUM AND HILAR STRUCTURES: No masses. Contour normal. HEART AND VASCULAR STRUCTURES: Heart normal in size. Normal vasculature. BONES: No acute findings. HARDWARE: [id number] remains in place. OTHER: No other significant finding. IMPRESSION: NO ACUTE RADIOGRAPHIC FINDING IN THE CHEST. TECHNICAL DOCUMENTATION: JOB ID: [id number] 2010 [employer]- All Rights Reserved Reading location - IP/workstation name: [email or web address]
[2020-07-21] MEDS: INSULIN GLARGINE,HUM.REC.ANLOG 1,000 UNIT/10 ML VIAL SUBCUT SCH ×2 (10:00→22:54)
[2020-07-21] MEDS: DOCUSATE SODIUM 100 MG CAPSULE PO SCH (10:00)
[2020-07-21] MEDS ORDERED: TRAZODONE HCL 50 MG TABLET PO PRN (10:44)
[2020-07-21] MEDS ORDERED: ALBUTEROL SULFATE HFA (90 MCG/PUFF) 8 GM MDI (1 MDI/ER DISP) IH PRN (10:44)
[2020-07-21] MEDS ORDERED: PROMETHAZINE HCL INJ 25 MG/1 ML VIAL IV PRN (10:47)
--- NOTE | 2020-07-21 10:53 | PDOC PROGRESS REPORT ---
Subjective Progress Note for:: 07/21/20 Subjective:: Patient still feeling poorly. She is experiencing nausea with any attempts to eat and even drink. She states that this does happen at home. She is not due for her next chemotherapy treatment until this coming Sunday. Her Accu-Cheks are still higher than desired. Reason For Visit: DIABETIC KETOACIDOSIS,PANCREATIC CANCER Physical Exam Vital Signs: Temp Pulse Resp BP Pulse Ox 98.5 F 95 18 115/75 100 07/21/20 07:47 07/21/20 07:47 07/21/20 07:47 07/21/20 07:47 07/21/20 07:47 Intake & Output 07/20/20 07/21/20 07/22/20 06:59 06:59 06:59 Intake Total 5876 2201 Output Total 1300 590 Balance 4576 1611 Weight 101.5 kg 105.2 kg General appearance: PRESENT: cooperative, mild distress, morbidly obese, well- developed Head exam: PRESENT: atraumatic, normocephalic Eye exam: PRESENT: conjunctiva pale, EOMI Ear exam: PRESENT: normal external ear exam. ABSENT: bleeding, drainage Mouth exam: PRESENT: moist, tongue midline Respiratory exam: PRESENT: clear to auscultation osmani, symmetrical, unlabored. ABSENT: rales, rhonchi, tachypnea, wheezes Cardiovascular exam: PRESENT: RRR, +S1, +S2. ABSENT: bradycardia, diastolic murmur, irregular rhythm, systolic murmur, tachycardia GI/Abdominal exam: PRESENT: normal bowel sounds, soft. ABSENT: distended, tenderness Rectal exam: PRESENT: deferred Extremities exam: PRESENT: pedal edema - Trace Neurological exam: PRESENT: alert, awake, oriented to person, oriented to place, oriented to time, oriented to situation, CN II-XII grossly intact Psychiatric exam: PRESENT: flat affect. ABSENT: agitated, anxious Focused psych exam: ABSENT: delusional, paranoid, restlessness Skin exam: PRESENT: dry, warm. ABSENT: rash Results Laboratory Results: 07/21/20 05:14 07/21/20 05:14 07/21/20 07/21/20 05:14 05:14 WBC 4.9 RBC 3.21 L Hgb 9.2 L Hct 28.1 L MCV 88 D MCH 28.7 MCHC 32.7 RDW 17.3 H Plt Count 140 L Seg Neutrophils % Not Reportable Sodium 132.6 L Potassium 3.3 L Chloride 107 Carbon Dioxide 19 L Anion Gap 7 BUN 6 L Creatinine 0.51 L Est GFR ( Amer) > 60 Glucose 242 H Calcium 8.7 Magnesium 1.7 Total Bilirubin 0.4 AST 22 Alkaline Phosphatase 174 H Total Protein 5.0 L Albumin 2.6 L 07/19/20 07/20/20 15:50 04:21 Troponin I < 0.012 NT-Pro-B Natriuret Pep 37 Impressions: Chest X-Ray 07/21/20 06:00 IMPRESSION: NO ACUTE RADIOGRAPHIC FINDING IN THE CHEST. Assessment and Plan - Diagnosis (1) Diabetic ketoacidosis Qualifiers: Diabetes mellitus type: type 2 Diabetes mellitus complication detail: without coma Qualified Code(s): E11.10 - Type 2 diabetes mellitus with ketoacidosis without coma Is this a current diagnosis for this admission?: Yes (2) Hypokalemia Is this a current diagnosis for this admission?: Yes (3) Hyponatremia Is this a current diagnosis for this admission?: Yes (4) Hyperosmolar syndrome Is this a current diagnosis for this admission?: Yes (5) Pancreatic cancer Qualifiers: Pancreatic malignancy location: tail of pancreas Qualified Code(s): C25.2 - Malignant neoplasm of tail of pancreas Is this a current diagnosis for this admission?: Yes (6) Nausea Is this a current diagnosis for this admission?: Yes - Plan Summary Summary: 07/21/2020 The ketoacidosis has resolved. The patient's Accu-Cheks are still higher than desired. I will increase her Lantus to 14 units twice daily and continue Accu- Cheks with sliding scale The patient has hyponatremia and now hypokalemia. Because of her nausea I have chosen to give her a dose of IV potassium chloride today and start oral potassium chloride 20 mEq daily which is her standard home dose beginning tomorrow. Continue to monitor electrolytes and glucose. The patient reports that her nausea is no better in fact today might be a little worse. She reports that the Zofran only gives marginal relief. We will try Phenergan and resume her scheduled metoclopramide - Time Time Spent with patient: 15-24 minutes Medications reviewed and adjusted accordingly: Yes Anticipated Discharge Disposition: Home with Home Health Anticipated Discharge Timeframe: within 72 hours
[2020-07-21] MEDS ORDERED: POTASSI CL 20 MEQ/50 ML RIDER 20 MEQ/50 ML RTUPB IV ONE (10:54)
[2020-07-21] MEDS: POTASSIUM CHLORIDE 10 MEQ TABLET.ER PO SCH (12:26)
[2020-07-21] MEDS: METOCLOPRAMIDE HCL ORAL SOLN 10 MG/10 ML UDCUP PO SCH ×3 (12:26→22:54)
[2020-07-21] MEDS ORDERED: LIDOCAINE 4% CREAM 5 GM TUBE TP ONE (16:00)
[2020-07-21] MEDS: GABAPENTIN 100 MG CAPSULE PO SCH (18:10)
[2020-07-21] MEDS ORDERED: METOPROLOL TARTRATE PF/INJ 5 MG/5 ML SDV IV ONE (18:45)
--- NOTE | 2020-07-21 19:05 | EKG REPORT ---
SEVERITY:- BORDERLINE ECG - SINUS TACHYCARDIA PROBABLE LEFT ATRIAL ABNORMALITY : Confirmed by: Kyung Lee 21-Jul-2020 19:04:31
[2020-07-21] MEDS: GABAPENTIN 300 MG CAPSULE PO SCH (22:56)
[2020-07-22 05:49] LABS: HEMATOCRIT 27.5 % (36.0-47.0); HEMOGLOBIN 9.1 g/dL (12.0-15.5); MEAN CORPUSCULAR HEMOGLOBIN 28.9 pg (27.0-33.4); MEAN CORPUSCULAR VOLUME 88 fl (80-97); PLATELET COUNT 129 10^3/uL (150-450); RED BLOOD COUNT 3.13 10^6/uL (3.72-5.28); RED CELL DISTRIBUTION WIDTH 17.6 % (11.5-14.0); WHITE BLOOD COUNT 4.6 10^3/uL (4.0-10.5)
[2020-07-22 06:09] LABS: ALBUMIN 2.5 g/dL (3.5-5.0); ALKALINE PHOSPHATASE 179 U/L (38-126); ANION GAP 7 (5-19); ASPARTATE AMINO TRANSFERASE 24 U/L (14-36); BILIRUBIN,DIRECT 0.2 mg/dL (0.0-0.4); BILIRUBIN,TOTAL 0.4 mg/dL (0.2-1.3); BLOOD UREA NITROGEN 5 mg/dL (7-20); CALCIUM 8.8 mg/dL (8.4-10.2); CARBON DIOXIDE 21 mmol/L (22-30); CHLORIDE 109 mmol/L (98-107); GLUCOSE 146 mg/dL (75-110); TOTAL PROTEIN 5.1 g/dL (6.3-8.2)
[2020-07-22 06:19] LABS: POTASSIUM 2.7 mmol/L (3.6-5.0)
[2020-07-22 06:30] LABS: BASOPHILS % (MANUAL) 0 % (0-2); EOSINOPHILS % (MANUAL) 0 % (0-6); LYMPHOCYTES % (MANUAL) 21 % (13-45); MONOCYTES % (MANUAL) 1 % (3-13); NUCLEATED RED BLOOD CELLS 2 /100 WBC (0); SEGMENTED NEUTROPHILS % (MAN) 78 % (42-78); TOTAL CELLS COUNTED 100
[2020-07-22 06:32] LABS: ANISOCYTOSIS 1+; OVALOCYTES SLIGHT; PLATELET COMMENT DECREASED; POIKILOCYTOSIS SLIGHT; SCHISTOCYTES SLIGHT
[2020-07-22 06:33] LABS: HOWELL-JOLLY BODIES PRESENT
[2020-07-22] MEDS: HEPARIN SOD (PORCINE) 5,000 UNIT/ML 1 ML VIAL SUBCUT SCH ×3 (07:00→22:53)
[2020-07-22] MEDS: POTASSIUM CHLORIDE 20 MEQ/50 ML RTU IV SCH ×2 (07:00→09:05)
[2020-07-22] MEDS: NORMAL SALINE 1000 ML 1,000 ML IV PRN ×2 (07:02→23:03)
[2020-07-22] MEDS: INSULIN REG, HUMAN 100 UNIT/ML 3 ML VIAL (PYX) SUBCUT SCH ×4 (09:05→23:02)
[2020-07-22] MEDS: METOCLOPRAMIDE HCL ORAL SOLN 10 MG/10 ML UDCUP PO SCH ×3 (09:06→23:00)
[2020-07-22] MEDS: DEXAMETHASONE 4 MG TABLET PO SCH (09:09)
[2020-07-22] MEDS: PANTOPRAZOLE SODIUM 40 MG TABLET.DR PO SCH (09:09)
[2020-07-22] MEDS: POTASSIUM CHLORIDE 10 MEQ TABLET.ER PO SCH ×4 (09:09→18:07)
[2020-07-22] MEDS: INSULIN GLARGINE,HUM.REC.ANLOG 1,000 UNIT/10 ML VIAL SUBCUT SCH ×2 (09:10→23:00)
[2020-07-22] MEDS: DOCUSATE SODIUM 100 MG CAPSULE PO SCH (09:10)
[2020-07-22] MEDS: GABAPENTIN 100 MG CAPSULE PO SCH ×2 (09:10→18:07)
--- NOTE | 2020-07-22 09:43 | RADIOLOGY REPORT (SQ) ---
EXAM DESCRIPTION: CHEST SINGLE VIEW IMAGES COMPLETED DATE/TIME: 07/22/2020 8:33 am REASON FOR STUDY: shortness of breath COMPARISON: AP view of the chest from 07/21/2020. EXAM PARAMETERS: NUMBER OF VIEWS: One view. TECHNIQUE: An AP view of the chest was obtained. RADIATION DOSE: NA LIMITATIONS: None. FINDINGS: LUNGS AND PLEURA: No consolidation, pleural effusion or pneumothorax. MEDIASTINUM AND HILAR STRUCTURES: No mediastinal or hilar contour abnormality. HEART AND VASCULAR STRUCTURES: The cardiac silhouette and pulmonary vasculature are within normal day its. BONES: No acute findings. HARDWARE: The tip of the right IJ single-lumen port projects within the SVC. OTHER: No other finding. IMPRESSION: Low inspiratory lung volumes without a superimposed acute cardiopulmonary process. TECHNICAL DOCUMENTATION: JOB ID: [id number] 2010 [employer]- All Rights Reserved Reading location - IP/workstation name: [email or web address]
--- NOTE | 2020-07-22 11:10 | PDOC PROGRESS REPORT ---
Subjective Progress Note for:: 07/22/20 Subjective:: States she feels a little better. The meclizine seems to be helping. She said at the edge of the bed but has not been out of bed to chair. Reason For Visit: DIABETIC KETOACIDOSIS,PANCREATIC CANCER Physical Exam Vital Signs: Temp Pulse Resp BP Pulse Ox 98.4 F 90 20 101/75 89 L 07/22/20 03:21 07/22/20 07:00 07/22/20 03:21 07/22/20 03:21 07/22/20 03:21 Intake & Output 07/21/20 07/22/20 07/23/20 06:59 06:59 06:59 Intake Total 2201 2675 1008 Output Total 590 1625 Balance 1611 1050 1008 Weight 105.2 kg 107.9 kg General appearance: PRESENT: no acute distress, cooperative, morbidly obese, well-developed Head exam: PRESENT: atraumatic, normocephalic Eye exam: PRESENT: conjunctiva pale. ABSENT: scleral icterus Mouth exam: PRESENT: moist, tongue midline Respiratory exam: PRESENT: clear to auscultation osmani, symmetrical, unlabored. ABSENT: rales, rhonchi, tachypnea, wheezes Cardiovascular exam: PRESENT: RRR, +S1, +S2, systolic murmur - 2/6. ABSENT: bradycardia, diastolic murmur, irregular rhythm, tachycardia GI/Abdominal exam: PRESENT: normal bowel sounds, soft. ABSENT: tenderness Rectal exam: PRESENT: deferred Extremities exam: ABSENT: pedal edema Musculoskeletal exam: PRESENT: normal inspection. ABSENT: deformity, dislocation Neurological exam: PRESENT: alert, awake, oriented to person, oriented to place, oriented to time, oriented to situation, CN II-XII grossly intact. ABSENT: altered Psychiatric exam: PRESENT: flat affect. ABSENT: agitated, anxious Focused psych exam: ABSENT: delusional, paranoid, restlessness Results Laboratory Results: 07/22/20 05:24 07/22/20 05:24 07/22/20 07/22/20 05:24 05:24 WBC 4.6 RBC 3.13 L Hgb 9.1 L Hct 27.5 L MCV 88 MCH 28.9 MCHC 33.0 RDW 17.6 H Plt Count 129 L Seg Neutrophils % Not Reportable Sodium 137.4 Potassium 2.7 L* Chloride 109 H Carbon Dioxide 21 L Anion Gap 7 BUN 5 L Creatinine 0.50 L Est GFR ( Amer) > 60 Glucose 146 H Calcium 8.8 Magnesium 1.7 Total Bilirubin 0.4 AST 24 Alkaline Phosphatase 179 H Total Protein 5.1 L Albumin 2.5 L 07/19/20 07/20/20 15:50 04:21 Troponin I < 0.012 NT-Pro-B Natriuret Pep 37 Impressions: Chest X-Ray 07/22/20 06:00 IMPRESSION: Low inspiratory lung volumes without a superimposed acute cardiopulmonary process. Assessment and Plan - Diagnosis (1) Diabetic ketoacidosis Qualifiers: Diabetes mellitus type: type 2 Diabetes mellitus complication detail: witho ut coma Qualified Code(s): E11.10 - Type 2 diabetes mellitus with ketoacidosis without coma Is this a current diagnosis for this admission?: Yes (2) Hypokalemia Is this a current diagnosis for this admission?: Yes (3) Hyponatremia Is this a current diagnosis for this admission?: Yes (4) Hyperosmolar syndrome Is this a current diagnosis for this admission?: Yes (5) Pancreatic cancer Qualifiers: Pancreatic malignancy location: tail of pancreas Qualified Code(s): C25.2 - Malignant neoplasm of tail of pancreas Is this a current diagnosis for this admission?: Yes (6) Nausea Is this a current diagnosis for this admission?: Yes - Plan Summary Summary: 07/21/2020 The ketoacidosis has resolved. The patient's Accu-Cheks are still higher than desired. I will increase her Lantus to 14 units twice daily and continue Accu- Cheks with sliding scale The patient has hyponatremia and now hypokalemia. Because of her nausea I have chosen to give her a dose of IV potassium chloride today and start oral potassium chloride 20 mEq daily which is her standard home dose beginning tomorrow. Continue to monitor electrolytes and glucose. The patient reports that her nausea is no better in fact today might be a little worse. She reports that the Zofran only gives marginal relief. We will try Phenergan and resume her scheduled metoclopramide 07/22/2020 Hypokalemia potassium is down to 2.7 today. This is unexpected with potassium supplement initiated yesterday. Accu-Cheks have been much better on the increased dose of Lantus. She reports ongoing nausea however intake and output records indicate that she is eating 100% of multiple meals. The nausea certainly could be related to the carcinoma. I am going to increase her metoclopramide back to her standard 10 mg before meals and at bedtime. Will recheck laboratory studies tomorrow. I did broach the subject of depression. The patient's family is concerned. The patient does exhibit a flat affect all of the time but denied depression out right. - Time Time Spent with patient: 15-24 minutes Medications reviewed and adjusted accordingly: Yes Anticipated Discharge Disposition: Home, Self Care Anticipated Discharge Timeframe: within 72 hours
[2020-07-22] MEDS: GABAPENTIN 300 MG CAPSULE PO SCH (23:00)
[2020-07-23] MEDS: HEPARIN SOD (PORCINE) 5,000 UNIT/ML 1 ML VIAL SUBCUT SCH ×3 (06:07→21:30)
[2020-07-23] MEDS: INSULIN REG, HUMAN 100 UNIT/ML 3 ML VIAL (PYX) SUBCUT SCH ×4 (09:09→21:31)
[2020-07-23] MEDS: DOCUSATE SODIUM 100 MG CAPSULE PO SCH (09:10)
[2020-07-23] MEDS: PANTOPRAZOLE SODIUM 40 MG TABLET.DR PO SCH (09:10)
[2020-07-23] MEDS: GABAPENTIN 100 MG CAPSULE PO SCH ×2 (09:10→17:59)
[2020-07-23] MEDS: POTASSIUM CHLORIDE 10 MEQ TABLET.ER PO SCH ×3 (09:10→17:58)
[2020-07-23] MEDS: METOCLOPRAMIDE HCL ORAL SOLN 10 MG/10 ML UDCUP PO SCH ×4 (09:10→21:31)
[2020-07-23] MEDS ORDERED: INSULIN GLARGINE,HUM.REC.ANLOG 1,000 UNIT/10 ML VIAL (PYX) SUBCUT ONE (09:14)
[2020-07-23] MEDS: DEXAMETHASONE 4 MG TABLET PO SCH (09:16)
[2020-07-23] MEDS: INSULIN GLARGINE,HUM.REC.ANLOG 1,000 UNIT/10 ML VIAL SUBCUT SCH (09:18)
[2020-07-23 09:35] LABS: HEMOGLOBIN 10.1 g/dL (12.0-15.5); MEAN CORPUSCULAR HEMOGLOBIN 28.3 pg (27.0-33.4); MEAN CORPUSCULAR HGB CONC 32.4 g/dL (32.0-36.0); MEAN CORPUSCULAR VOLUME 87 fl (80-97); RED BLOOD COUNT 3.55 10^6/uL (3.72-5.28); RED CELL DISTRIBUTION WIDTH 18.7 % (11.5-14.0); WHITE BLOOD COUNT 6.3 10^3/uL (4.0-10.5)
[2020-07-23 09:49] LABS: BLOOD UREA NITROGEN 4 mg/dL (7-20); CALCIUM 9.3 mg/dL (8.4-10.2); GLUCOSE 127 mg/dL (75-110); POTASSIUM 3.7 mmol/L (3.6-5.0)
[2020-07-23 09:55] LABS: CARBON DIOXIDE 23 mmol/L (22-30); CHLORIDE 110 mmol/L (98-107)
[2020-07-23 09:57] LABS: ANION GAP 4 (5-19)
[2020-07-23 10:39] LABS: ABSOLUTE LYMPHOCYTES# (MANUAL) 1.9 10^3/uL (0.5-4.7); ABSOLUTE MONOCYTES # (MANUAL) 0.8 10^3/uL (0.1-1.4); BASOPHILS % (MANUAL) 0 % (0-2); EOSINOPHILS % (MANUAL) 0 % (0-6); LYMPHOCYTES % (MANUAL) 30 % (13-45); MONOCYTES % (MANUAL) 13 % (3-13); NUCLEATED RED BLOOD CELLS 1 /100 WBC (0); SEGMENTED NEUTROPHILS % (MAN) 57 % (42-78); TOTAL CELLS COUNTED 100
[2020-07-23 10:44] LABS: ANISOCYTOSIS 2+; OVALOCYTES SLIGHT; POIKILOCYTOSIS 1+; POLYCHROMASIA 1+; SCHISTOCYTES 1+
[2020-07-23 10:45] LABS: HOWELL-JOLLY BODIES PRESENT; PAPPENHEIMER BODIES PRESENT; PLATELET CLUMPS PRESENT; PLATELET COMMENT DECREASED; PLATELET COUNT 135 10^3/uL (150-450); PLATELET LARGE PRESENT; TARGET CELLS SLIGHT; TEAR DROP CELLS SLIGHT
--- NOTE | 2020-07-23 15:33 | PDOC PROGRESS REPORT ---
Subjective Progress Note for:: 07/23/20 Subjective:: The patient is feeling better. She would like to advance her diet. Her glucose was low this morning but is better now. She is experiencing less nausea. Reason For Visit: DIABETIC KETOACIDOSIS,PANCREATIC CANCER Physical Exam Vital Signs: Temp Pulse Resp BP Pulse Ox 98.2 F 111 H 20 111/68 100 07/23/20 15:08 07/23/20 07:00 07/23/20 03:06 07/23/20 03:06 07/23/20 03:06 Intake & Output 07/22/20 07/23/20 07/24/20 06:59 06:59 06:59 Intake Total 2675 2215 Output Total 1625 2025 Balance 1050 190 Weight 107.9 kg 110.5 kg General appearance: PRESENT: no acute distress, cooperative, morbidly obese, well-developed Head exam: PRESENT: atraumatic, normocephalic Eye exam: PRESENT: conjunctiva pink. ABSENT: nystagmus, scleral icterus Ear exam: PRESENT: normal external ear exam. ABSENT: bleeding, drainage Mouth exam: PRESENT: moist, neck supple, tongue midline Neck exam: PRESENT: full ROM. ABSENT: carotid bruit, JVD, lymphadenopathy, tracheostomy Respiratory exam: PRESENT: clear to auscultation osmani, symmetrical, unlabored. ABSENT: rales, rhonchi, tachypnea, wheezes Cardiovascular exam: PRESENT: RRR, +S1, +S2. ABSENT: bradycardia, diastolic murmur, irregular rhythm, systolic murmur, tachycardia GI/Abdominal exam: PRESENT: normal bowel sounds, soft. ABSENT: distended, tenderness Extremities exam: ABSENT: pedal edema Musculoskeletal exam: PRESENT: ambulatory, normal inspection. ABSENT: deformity, dislocation Neurological exam: PRESENT: alert, awake, oriented to person, oriented to place, oriented to time, oriented to situation, CN II-XII grossly intact. ABSENT: altered Psychiatric exam: PRESENT: appropriate affect. ABSENT: agitated, anxious Focused psych exam: PRESENT: delusional, paranoid, restlessness Skin exam: PRESENT: dry, normal color, warm. ABSENT: rash Results Laboratory Results: 07/23/20 08:51 07/23/20 08:51 07/23/20 07/23/20 07/23/20 08:51 08:51 08:51 WBC 6.3 RBC 3.55 L Hgb 10.1 L Hct 31.0 L MCV 87 MCH 28.3 MCHC 32.4 RDW 18.7 H Plt Count 135 L Seg Neutrophils % Not Reportable Sodium 136.9 L Potassium 3.7 Chloride 110 H Carbon Dioxide 23 Anion Gap 4 L BUN 4 L Creatinine 0.54 Est GFR ( Amer) > 60 Glucose 127 H Calcium 9.3 Magnesium 1.6 07/19/20 07/20/20 15:50 04:21 Troponin I < 0.012 NT-Pro-B Natriuret Pep 37 Impressions: Chest X-Ray 07/22/20 06:00 IMPRESSION: Low inspiratory lung volumes without a superimposed acute cardiopulmonary process. Assessment and Plan - Diagnosis (1) Diabetic ketoacidosis Qualifiers: Diabetes mellitus type: type 2 Diabetes mellitus complication detail: without coma Qualified Code(s): E11.10 - Type 2 diabetes mellitus with ketoacidosis without coma Is this a current diagnosis for this admission?: Yes (2) Hypokalemia Is this a current diagnosis for this admission?: Yes (3) Hyponatremia Is this a current diagnosis for this admission?: Yes (4) Hyperosmolar syndrome Is this a current diagnosis for this admission?: Yes (5) Pancreatic cancer Qualifiers: Pancreatic malignancy location: tail of pancreas Qualified Code(s): C25.2 - Malignant neoplasm of tail of pancreas Is this a current diagnosis for this admission?: Yes (6) Nausea Is this a current diagnosis for this admission?: Yes - Plan Summary Summary: 07/21/2020 The ketoacidosis has resolved. The patient's Accu-Cheks are still higher than desired. I will increase her Lantus to 14 units twice daily and continue Accu- Cheks with sliding scale The patient has hyponatremia and now hypokalemia. Because of her nausea I have chosen to give her a dose of IV potassium chloride today and start oral potassium chloride 20 mEq daily which is her standard home dose beginning tomorrow. Continue to monitor electrolytes and glucose. The patient reports that her nausea is no better in fact today might be a little worse. She reports that the Zofran only gives marginal relief. We will try Phenergan and resume her scheduled metoclopramide 07/22/2020 Hypokalemia potassium is down to 2.7 today. This is unexpected with potassium supplement initiated yesterday. Accu-Cheks have been much better on the increased dose of Lantus. She reports ongoing nausea however intake and output records indicate that she is eating 100% of multiple meals. The nausea certainly could be related to the carcinoma. I am going to increase her metoclopramide back to her standard 10 mg before meals and at bedtime. Will recheck laboratory studies tomorrow. I did broach the subject of depression. The patient's family is concerned. The patient does exhibit a flat affect all of the time but denied depression out right. 07/23/2020 Hypokalemia-serum potassium is now normal. Continue scheduled oral supplements Diabetes-low Accu-Chek this morning. Will change to 12 units of Lantus at night and 16 in the morning. Adjust based on sliding scale and insulin requirements. Nausea is much better. She is requesting an advance in diet. Will move to mechanical soft with chopped meats. Even the patient has a fairly flat affect she still denies depression. Scheduled for chemotherapy on Sunday. If she does well with soft mechanical diet anticipate discharge tomorrow. - Time Time Spent with patient: 15-24 minutes Medications reviewed and adjusted accordingly: Yes Anticipated Discharge Disposition: Home with Home Health Anticipated Discharge Timeframe: within 48 hours
[2020-07-23] MEDS: GABAPENTIN 300 MG CAPSULE PO SCH (21:31)
[2020-07-23] MEDS ORDERED: INSULIN GLARGINE,HUM.REC.ANLOG 1,000 UNIT/10 ML VIAL SUBCUT SCH (22:00)
[2020-07-24] MEDS: HEPARIN SOD (PORCINE) 5,000 UNIT/ML 1 ML VIAL SUBCUT SCH ×3 (05:49→21:28)
[2020-07-24 06:52] LABS: RED BLOOD COUNT 3.05 10^6/uL (3.72-5.28)
[2020-07-24 07:01] LABS: HEMATOCRIT 26.9 % (36.0-47.0); HEMOGLOBIN 8.7 g/dL (12.0-15.5); MEAN CORPUSCULAR HEMOGLOBIN 28.5 pg (27.0-33.4); MEAN CORPUSCULAR HGB CONC 32.3 g/dL (32.0-36.0); MEAN CORPUSCULAR VOLUME 88 fl (80-97); PLATELET COUNT 105 10^3/uL (150-450); RED CELL DISTRIBUTION WIDTH 18.7 % (11.5-14.0); WHITE BLOOD COUNT 5.2 10^3/uL (4.0-10.5)
[2020-07-24 07:08] LABS: ALBUMIN 2.4 g/dL (3.5-5.0); ALKALINE PHOSPHATASE 188 U/L (38-126); ASPARTATE AMINO TRANSFERASE 35 U/L (14-36); BILIRUBIN,DIRECT 0.2 mg/dL (0.0-0.4); BILIRUBIN,TOTAL 0.4 mg/dL (0.2-1.3); BLOOD UREA NITROGEN 5 mg/dL (7-20); CALCIUM 8.9 mg/dL (8.4-10.2); CARBON DIOXIDE 20 mmol/L (22-30); CHLORIDE 109 mmol/L (98-107); GLUCOSE 212 mg/dL (75-110); POTASSIUM 4.3 mmol/L (3.6-5.0)
[2020-07-24 07:17] LABS: ANION GAP 4 (5-19)
[2020-07-24 08:21] LABS: ABSOLUTE LYMPHOCYTES# (MANUAL) 1.9 10^3/uL (0.5-4.7); ABSOLUTE MONOCYTES # (MANUAL) 0.6 10^3/uL (0.1-1.4); BASOPHILS % (MANUAL) 1 % (0-2); EOSINOPHILS % (MANUAL) 2 % (0-6); LYMPHOCYTES % (MANUAL) 36 % (13-45); MONOCYTES % (MANUAL) 12 % (3-13); NUCLEATED RED BLOOD CELLS 1 /100 WBC (0); SEGMENTED NEUTROPHILS % (MAN) 49 % (42-78); TOTAL CELLS COUNTED 100
[2020-07-24 08:22] LABS: ANISOCYTOSIS 2+; OVALOCYTES 1+
[2020-07-24 08:23] LABS: HOWELL-JOLLY BODIES PRESENT; PLATELET COMMENT DECREASED
[2020-07-24] MEDS: INSULIN REG, HUMAN 100 UNIT/ML 3 ML VIAL (PYX) SUBCUT SCH ×4 (08:41→21:43)
[2020-07-24] MEDS: POTASSIUM CHLORIDE 10 MEQ TABLET.ER PO SCH ×3 (08:41→17:45)
[2020-07-24] MEDS: PANTOPRAZOLE SODIUM 40 MG TABLET.DR PO SCH (08:41)
[2020-07-24] MEDS: METOCLOPRAMIDE HCL ORAL SOLN 10 MG/10 ML UDCUP PO SCH ×5 (08:41→21:42)
[2020-07-24] MEDS: DEXAMETHASONE 4 MG TABLET PO SCH (11:40)
[2020-07-24] MEDS: INSULIN GLARGINE,HUM.REC.ANLOG 1,000 UNIT/10 ML VIAL SUBCUT SCH ×2 (11:40→21:43)
[2020-07-24] MEDS: GABAPENTIN 100 MG CAPSULE PO SCH ×2 (11:41→17:45)
[2020-07-24] MEDS: DOCUSATE SODIUM 100 MG CAPSULE PO SCH (11:41)
[2020-07-24] MEDS ORDERED: RINGERS SOLUTION,LACTATED 1,000 ML IV ONE (14:24)
--- NOTE | 2020-07-24 14:24 | PDOC PROGRESS REPORT ---
Subjective Progress Note for:: 07/24/20 Subjective:: Patient complains of increased shortness of breath and tachycardia when walking to the bathroom. Last night she needed 2 L nasal cannula oxygen briefly. Reason For Visit: DIABETIC KETOACIDOSIS,PANCREATIC CANCER Physical Exam Vital Signs: Temp Pulse Resp BP Pulse Ox 97.8 F 120 H 21 H 101/72 100 07/24/20 11:58 07/24/20 11:58 07/24/20 11:58 07/24/20 11:58 07/24/20 11:58 Intake & Output 07/23/20 07/24/20 07/25/20 06:59 06:59 06:59 Intake Total 2215 1616 Output Total 2024 1700 Balance 190 -84 Weight 110.5 kg 114 kg General appearance: PRESENT: cooperative, mild distress, morbidly obese, well-developed Head exam: PRESENT: atraumatic, normocephalic Eye exam: PRESENT: conjunctiva pink. ABSENT: scleral icterus Ear exam: PRESENT: normal external ear exam. ABSENT: bleeding, drainage Mouth exam: PRESENT: moist, tongue midline Teeth exam: ABSENT: poor dentation Respiratory exam: PRESENT: clear to auscultation osmani, symmetrical, unlabored. ABSENT: prolonged expiratory phas, rales, rhonchi, tachypnea, wheezes Cardiovascular exam: PRESENT: +S1, +S2, tachycardia. ABSENT: bradycardia, diastolic murmur, irregular rhythm, systolic murmur GI/Abdominal exam: PRESENT: normal bowel sounds, soft. ABSENT: distended, guarding, tenderness Rectal exam: PRESENT: deferred Gentrourinary exam: PRESENT: indwelling catheter Extremities exam: ABSENT: pedal edema Musculoskeletal exam: PRESENT: ambulatory, normal inspection. ABSENT: deformity, dislocation Neurological exam: PRESENT: alert, awake, oriented to person, oriented to place, oriented to time, oriented to situation, CN II-XII grossly intact. ABSENT: altered Psychiatric exam: PRESENT: appropriate affect. ABSENT: agitated, anxious Focused psych exam: ABSENT: delusional, paranoid, restlessness Skin exam: PRESENT: dry, normal color, warm. ABSENT: erythema, rash Results Laboratory Results: 07/24/20 06:27 07/24/20 06:27 07/24/20 07/24/20 06:27 06:27 WBC 5.2 RBC 3.05 L Hgb 8.7 L Hct 26.9 L MCV 88 MCH 28.5 MCHC 32.3 RDW 18.7 H Plt Count 105 L Seg Neutrophils % Not Reportable Sodium 133.4 L Potassium 4.3 Chloride 109 H Carbon Dioxide 20 L Anion Gap 4 L BUN 5 L Creatinine 0.57 Est GFR ( Amer) > 60 Glucose 212 H Calcium 8.9 Total Bilirubin 0.4 AST 35 Alkaline Phosphatase 188 H Total Protein 5.0 L Albumin 2.4 L 07/19/20 07/20/20 15:50 04:21 Troponin I < 0.012 NT-Pro-B Natriuret Pep 37 Impressions: Chest X-Ray 07/22/20 06:00 IMPRESSION: Low inspiratory lung volumes without a superimposed acute cardiopulmonary process. Assessment and Plan - Diagnosis (1) Diabetic ketoacidosis Qualifiers: Diabetes mellitus type: type 2 Diabetes mellitus complication detail: without coma Qualified Code(s): E11.10 - Type 2 diabetes mellitus with ketoacidosis without coma Is this a current diagnosis for this admission?: Yes (2) Hypokalemia Is this a current diagnosis for this admission?: Yes (3) Hyponatremia Is this a current diagnosis for this admission?: Yes (4) Hyperosmolar syndrome Is this a current diagnosis for this admission?: Yes (5) Pancreatic cancer Qualifiers: Pancreatic malignancy location: tail of pancreas Qualified Code(s): 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 The patient's Accu-Cheks are still higher than desired. I will increase her Lantus to 14 units twice daily and continue Accu- Cheks with sliding scale The patient has hyponatremia and now hypokalemia. Because of her nausea I have chosen to give her a dose of IV potassium chloride today and start oral potassium chloride 20 mEq daily which is her standard home dose beginning tomorrow. Continue to monitor electrolytes and glucose. The patient reports that her nausea is no better in fact today might be a little worse. She reports that the Zofran only gives marginal relief. We will try Phenergan and resume her scheduled metoclopramide 07/22/2020 Hypokalemia potassium is down to 2.7 today. This is unexpected with potassium supplement initiated yesterday. Accu-Cheks have been much better on the increased dose of Lantus. She reports ongoing nausea however intake and output records indicate that she is eating 100% of multiple meals. The nausea certainly could be related to the carcinoma. I am going to increase her metoclopramide back to her standard 10 mg before meals and at bedtime. Will recheck laboratory studies tomorrow. I did broach the subject of depression. The patient's family is concerned. The patient does exhibit a flat affect all of the time but denied depression out right. 07/23/2020 Hypokalemia-serum potassium is now normal. Continue scheduled oral supplements Diabetes-low Accu-Chek this morning. Will change to 12 units of Lantus at night and 16 in the morning. Adjust based on sliding scale and insulin requirements. Nausea is much better. She is requesting an advance in diet. Will move to mechanical soft with chopped meats. Even the patient has a fairly flat affect she still denies depression. Scheduled for chemotherapy on Sunday. If she does well with soft mechanical diet anticipate discharge tomorrow. 07/24/2020 Tachycardia-her lungs are clear. I will check a chest x-ray. I believe she is hypovolemic and will order IV fluids. She states that she feels winded walking to and from the bathroom. There is probably some deconditioning as well. Diabetes-month small change in Lantus her Accu-Cheks are now very high. After discussion with the nurse it is discovered that family brings in food that is inappropriate for a controlled carbohydrate diet. I will adjust Lantus. Anemia-hemoglobin is low. No evidence of bleeding. Will check again tomorrow. This certainly could account for shortness of breath with exertion. - Time Time Spent with patient: 15-24 minutes Medications reviewed and adjusted accordingly: Yes Anticipated Discharge Disposition: Home with Home Health Anticipated Discharge Timeframe: within 72 hours
[2020-07-24] MEDS: NORMAL SALINE 1000 ML 1,000 ML IV PRN ×2 (17:46→18:50)
[2020-07-24] MEDS ORDERED: INSULIN GLARGINE,HUM.REC.ANLOG 1,000 UNIT/10 ML VIAL (PYX) SUBCUT ONE (21:37)
[2020-07-24] MEDS: RINGERS SOLUTION,LACTATED 1,000 ML IV PRN (21:42)
[2020-07-24] MEDS: GABAPENTIN 300 MG CAPSULE PO SCH (21:42)
[2020-07-25] MEDS ORDERED: NORMAL SALINE 1000 ML 1,000 ML IV ONE (01:00)
[2020-07-25] MEDS: RINGERS SOLUTION,LACTATED 1,000 ML IV PRN (04:37)
[2020-07-25 05:54] LABS: HEMATOCRIT 26.2 % (36.0-47.0); HEMOGLOBIN 8.4 g/dL (12.0-15.5); MEAN CORPUSCULAR HEMOGLOBIN 28.5 pg (27.0-33.4); MEAN CORPUSCULAR HGB CONC 32.1 g/dL (32.0-36.0); MEAN CORPUSCULAR VOLUME 89 fl (80-97); PLATELET COUNT 132 10^3/uL (150-450); RED BLOOD COUNT 2.95 10^6/uL (3.72-5.28); WHITE BLOOD COUNT 5.4 10^3/uL (4.0-10.5)
[2020-07-25 06:10] LABS: ALBUMIN 2.3 g/dL (3.5-5.0); ALKALINE PHOSPHATASE 178 U/L (38-126); ASPARTATE AMINO TRANSFERASE 34 U/L (14-36); BILIRUBIN,DIRECT 0.2 mg/dL (0.0-0.4); BILIRUBIN,TOTAL 0.2 mg/dL (0.2-1.3); BLOOD UREA NITROGEN 5 mg/dL (7-20); CALCIUM 8.7 mg/dL (8.4-10.2); CARBON DIOXIDE 22 mmol/L (22-30); CHLORIDE 113 mmol/L (98-107); GLUCOSE 143 mg/dL (75-110); POTASSIUM 4.3 mmol/L (3.6-5.0); TOTAL PROTEIN 4.8 g/dL (6.3-8.2)
[2020-07-25 06:17] LABS: ANION GAP 2 (5-19)
[2020-07-25] MEDS: PANTOPRAZOLE SODIUM 40 MG TABLET.DR PO SCH (06:31)
[2020-07-25 07:02] LABS: ABSOLUTE LYMPHOCYTES# (MANUAL) 1.1 10^3/uL (0.5-4.7); ABSOLUTE MONOCYTES # (MANUAL) 0.3 10^3/uL (0.1-1.4); BASOPHILS % (MANUAL) 0 % (0-2); EOSINOPHILS % (MANUAL) 2 % (0-6); LYMPHOCYTES % (MANUAL) 21 % (13-45); MONOCYTES % (MANUAL) 5 % (3-13); SEGMENTED NEUTROPHILS % (MAN) 72 % (42-78); TOTAL CELLS COUNTED 100
[2020-07-25 07:05] LABS: ANISOCYTOSIS 2+; OVALOCYTES 1+; TEAR DROP CELLS SLIGHT
[2020-07-25 07:06] LABS: HYPOCHROMASIA SLIGHT; POLYCHROMASIA SLIGHT; TARGET CELLS SLIGHT
[2020-07-25 07:07] LABS: PLATELET COMMENT DECREASED
[2020-07-25] MEDS: HEPARIN SOD (PORCINE) 5,000 UNIT/ML 1 ML VIAL SUBCUT SCH ×2 (07:11→13:08)
[2020-07-25] MEDS: INSULIN REG, HUMAN 100 UNIT/ML 3 ML VIAL (PYX) SUBCUT SCH ×4 (09:29→21:45)
[2020-07-25] MEDS: GABAPENTIN 100 MG CAPSULE PO SCH ×2 (09:32→17:37)
[2020-07-25] MEDS: POTASSIUM CHLORIDE 10 MEQ TABLET.ER PO SCH ×3 (09:32→17:37)
[2020-07-25] MEDS: METOCLOPRAMIDE HCL ORAL SOLN 10 MG/10 ML UDCUP PO SCH ×4 (09:32→21:45)
[2020-07-25] MEDS: DOCUSATE SODIUM 100 MG CAPSULE PO SCH (09:32)
[2020-07-25] MEDS: INSULIN GLARGINE,HUM.REC.ANLOG 1,000 UNIT/10 ML VIAL SUBCUT SCH ×2 (09:33→21:46)
[2020-07-25] MEDS: DEXAMETHASONE 4 MG TABLET PO SCH (09:33)
--- NOTE | 2020-07-25 12:33 | PDOC PROGRESS REPORT ---
Subjective Progress Note for:: 07/25/20 Subjective:: Still somewhat lightheaded and short of breath. Blood pressures have been in the 90s and she has been tachycardic. Hemoglobin is lower today. She does report a history of GI bleeding in the past. Awaiting a stool sample for fecal occult blood testing. Reason For Visit: DIABETIC KETOACIDOSIS,PANCREATIC CANCER Physical Exam Vital Signs: Temp Pulse Resp BP Pulse Ox 98.1 F 109 H 18 94/64 L 99 07/25/20 07:28 07/25/20 07:28 07/25/20 07:28 07/25/20 07:28 07/25/20 07:28 Intake & Output 07/24/20 07/25/20 07/26/20 06:59 06:59 06:59 Intake Total 2616 3793 1000 Output Total 1700 2150 Balance 916 1643 1000 Weight 114 kg 117.5 kg General appearance: PRESENT: cooperative, mild distress, morbidly obese, well- developed Head exam: PRESENT: atraumatic, normocephalic Eye exam: PRESENT: conjunctiva pale. ABSENT: scleral icterus Ear exam: PRESENT: normal external ear exam. ABSENT: bleeding, drainage Mouth exam: PRESENT: moist, tongue midline Respiratory exam: PRESENT: clear to auscultation osmani, symmetrical, unlabored. ABSENT: rales, rhonchi, tachypnea, wheezes Cardiovascular exam: PRESENT: +S1, +S2, tachycardia. ABSENT: bradycardia, diastolic murmur, irregular rhythm, systolic murmur GI/Abdominal exam: PRESENT: normal bowel sounds, soft, tenderness - Mild nonspecific, other - Pendulous abdomen. ABSENT: guarding Rectal exam: PRESENT: deferred Gentrourinary exam: ABSENT: indwelling catheter Extremities exam: ABSENT: calf tenderness, joint swelling, pedal edema Musculoskeletal exam: PRESENT: ambulatory, normal inspection. ABSENT: deformity, dislocation Neurological exam: PRESENT: alert, awake, oriented to person, oriented to place, oriented to time, oriented to situation, CN II-XII grossly intact. ABSENT: altered Psychiatric exam: PRESENT: flat affect. ABSENT: agitated, anxious Focused psych exam: ABSENT: delusional, paranoid, restlessness Skin exam: PRESENT: dry, normal color, warm. ABSENT: erythema, rash Results Laboratory Results: 07/25/20 05:06 07/25/20 05:06 07/25/20 07/25/20 05:06 05:06 WBC 5.4 RBC 2.95 L Hgb 8.4 L Hct 26.2 L MCV 89 MCH 28.5 MCHC 32.1 RDW 19.0 H Plt Count 132 L Seg Neutrophils % Not Reportable Sodium 137.0 Potassium 4.3 Chloride 113 H Carbon Dioxide 22 Anion Gap 2 L BUN 5 L Creatinine 0.65 Est GFR ( Amer) > 60 Glucose 143 H Calcium 8.7 Magnesium 1.6 Total Bilirubin 0.2 AST 34 Alkaline Phosphatase 178 H Total Protein 4.8 L Albumin 2.3 L 07/19/20 20:03 Blood Blood Culture - Final NO GROWTH IN 5 DAYS 07/19/20 18:51 Blood Blood Culture - Final NO GROWTH IN 5 DAYS 07/19/20 07/20/20 15:50 04:21 Troponin I < 0.012 NT-Pro-B Natriuret Pep 37 Impressions: Chest X-Ray 07/22/20 06:00 IMPRESSION: Low inspiratory lung volumes without a superimposed acute cardiopulmonary process. Assessment and Plan - Diagnosis (1) Pulmonary embolism Qualifiers: Pulmonary embolism type: multiple subsegmental (without acute cor pulmonale) Qualified Code(s): I26.94 - Multiple subsegmental pulmonary emboli without acute cor pulmonale Is this a current diagnosis for this admission?: Yes (2) Diabetic ketoacidosis Qualifiers: Diabetes mellitus type: type 2 Diabetes mellitus complication detail: without coma Qualified Code(s): E11.10 - Type 2 diabetes mellitus with ketoacidosis without coma Is this a current diagnosis for this admission?: Yes (3) Hypokalemia Is this a current diagnosis for this admission?: Yes (4) Hyponatremia Is this a current diagnosis for this admission?: Yes (5) Hyperosmolar syndrome Is this a current diagnosis for this admission?: Yes (6) Pancreatic cancer Qualifiers: Pancreatic malignancy location: tail of pancreas Qualified Code(s): 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 The patient's Accu-Cheks are still higher than desired. I will increase her Lantus to 14 units twice daily and continue Accu- Cheks with sliding scale The patient has hyponatremia and now hypokalemia. Because of her nausea I have chosen to give her a dose of IV potassium chloride today and start oral potassium chloride 20 mEq daily which is her standard home dose beginning tomorrow. Continue to monitor electrolytes and glucose. The patient reports that her nausea is no better in fact today might be a little worse. She reports that the Zofran only gives marginal relief. We will try Phenergan and resume her scheduled metoclopramide 07/22/2020 Hypokalemia potassium is down to 2.7 today. This is unexpected with potassium supplement initiated yesterday. Accu-Cheks have been much better on the increased dose of Lantus. She reports ongoing nausea however intake and output records indicate that she is eating 100% of multiple meals. The nausea certainly could be related to the carcinoma. I am going to increase her metoclopramide back to her standard 10 mg before meals and at bedtime. Will recheck laboratory studies tomorrow. I did broach the subject of depression. The patient's family is concerned. The patient does exhibit a flat affect all of the time but denied depression out right. 07/23/2020 Hypokalemia-serum potassium is now normal. Continue scheduled oral supplements Diabetes-low Accu-Chek this morning. Will change to 12 units of Lantus at night and 16 in the morning. Adjust based on sliding scale and insulin requirements. Nausea is much better. She is requesting an advance in diet. Will move to mechanical soft with chopped meats. Even the patient has a fairly flat affect she still denies depression. Scheduled for chemotherapy on Sunday. If she does well with soft mechanical diet anticipate discharge tomorrow. 07/24/2020 Tachycardia-her lungs are clear. I will check a chest x-ray. I believe she is hypovolemic and will order IV fluids. She states that she feels winded walking to and from the bathroom. There is probably some deconditioning as well. Diabetes-month small change in Lantus her Accu-Cheks are now very high. After discussion with the nurse it is discovered that family brings in food that is in appropriate for a controlled carbohydrate diet. I will adjust Lantus. Anemia-hemoglobin is low. No evidence of bleeding. Will check again tomorrow. This certainly could account for shortness of breath with exertion. 07/25/2020 The patient blood pressure was low today. She still complained of dyspnea. Because of her history we obtained a CT angiogram of the chest and this showed multiple bilateral pulmonary emboli. Laboratory studies were available at approximately the same time as the CT scan report. D-dimer was greater than 20. The CT scan suggested right heart strain and I have ordered an echocardiogram. The patient was placed immediately on therapeutic dose Lovenox. Diabetes-morning Accu-Cheks are quite good. The afternoon Accu-Cheks are still high. I will increase her morning Lantus. Anemia-iron studies have been ordered. Dr. Tesfaye will see the patient tomorrow. Part of this is likely consumption due to the increased clotting. Serum iron was quite low. Ferritin was normal. B12 and folic acid were also within the normal range. - Time Time Spent with patient: 15-24 minutes Medications reviewed and adjusted accordingly: Yes Anticipated Discharge Disposition: Home with Home Health Anticipated Discharge Timeframe: within 72 hours
[2020-07-25] MEDS: HYDROCORTISONE SOD SUCCINATE INJ/PF 100 MG/2 ML SDV IV SCH ×2 (13:06→21:46)
[2020-07-25 13:41] LABS: ABSOLUTE RETICS # 0.192 10^6/uL (0.028-0.122); RETICULOCYTE COUNT (AUTO) 5.59 % (0.66-2.85)
[2020-07-25 13:44] LABS: IRON(TIBC) 19.9 ug/dL (37-170)
[2020-07-25 13:45] LABS: INTERNATIONAL RATION (INR) 0.98; PROTHROMBIN TIME 13.2 SEC (11.4-15.4)
[2020-07-25 13:46] LABS: FIBRINOGEN 276 mg/dL (209-497)
[2020-07-25] MEDS ORDERED: HYDROCORTISONE SOD SUCCINATE INJ/PF 100 MG/2 ML SDV IV SCH (14:00)
[2020-07-25 14:43] LABS: D-DIMER > 20.00 ug/mL (0.00-0.50)
[2020-07-25 14:51] LABS: FOLATE 4.12 ng/mL (>2.76)
--- NOTE | 2020-07-25 14:57 | RADIOLOGY REPORT (SQ) ---
EXAM DESCRIPTION: CTA CHEST; CTA ABDOMEN/PELVIS W WO IMAGES COMPLETED DATE/TIME: 07/25/2020 12:53 pm REASON FOR STUDY: History DVT/PE, increasedsob, tachy low BP; Hx DVT/PE, inc sob, tachy low BP, panc CA, infarc COMPARISON: Chest radiograph same date. CT abdomen and pelvis, 02/15/2020 and 04/14/2020. CONTRAST TYPE AND DOSE: contrast/concentration: Isovue 350.00 mmol/ml; Total Contrast Delivered: 72. 0 ml; Total Saline Delivered: 50.0 ml RENAL FUNCTION: GFR > 60. TECHNIQUE: CT scan of the chest performed using helical scanning technique with dynamic intravenous contrast injection. Images reviewed with lung, soft tissue and bone windows. Reconstructed coronal a nd sagittal MPR images reviewed. All images stored on PACS. CT scan of the abdomen and pelvis performed with intravenous and oral contrast using helical scanning technique with dynamic intravenous contrast injection. Images reviewed with lung, soft tissue and b one windows. Reconstructed coronal and sagittal MPR images reviewed. Delayed images for evaluation of the urinary system also acquired and evaluated. All images stored on PACS. All CT scanners at this facility use dose modulation, iterative reconstruction, and/or weight based d osing when appropriate to reduce radiation dose to as low as reasonably achievable (ALARA). [facility]: Dose Right [facility]: CareDose [facility]: Dose Right [facility]: Teradose 4D [facility]: Smart Technologies RADIATION DOSE: CT Rad equipment meets quality standard of care and radiation dose reduction techniq ues were employed. CTDIvol: 14.9 - 39.6 mGy. DLP: 4330 mGy-cm. . LIMITATIONS: None. FINDINGS: CHEST: AXILLAE: No adenopathy. CHEST WALL: No masses. No subcutaneous air. LUNGS: Trachea has normal caliber and appearance. No bronchial wall thickening or bronchiectasis. N o focal consolidation. Minimal atelectasis. No suspicious pulmonary nodules. PLEURA: No effusions. No calcifications. THYROID: No masses or significant asymmetry. HILAR AND MEDIASTINAL STRUCTURES: No identified masses or abnormal nodes. AORTA AND GREAT VESSELS: No aneurysm. No dissection. PULMONARY ARTERIES: There is extensive pulmonary emboli involving the right and left main pulmonary a rteries, right upper, middle, and lower lobar and segmental pulmonary arteries, and left upper and lo wer lobar and lower lobe segmental pulmonary arteries. There is evidence of right heart strain with RV/LV ratio of 30/29 or 1.31. HEART: Heart has normal size. Small pericardial effusion/ pericardial thickening, slightly increased from prior. HARDWARE AND LIFELINES: Right MediPort catheter with tip in the right atrium. BONES: No suspicious bone lesions. OTHER: No other significant finding. ABDOMEN AND PELVIS: LIVER: Normal size and contour. Multiple hepatic metastases are again demonstrated. Probable subcap sular implants at the right inferior hepatic lobe. Hepatic and portal veins are patent. Interval re solution of the portal vein thrombus since prior. No biliary ductal dilation. SPLEEN: Post splenectomy. PANCREAS: Status post distal pancreatectomy. The pancreatic head has normal contour. No recurrent p ancreatic mass. GALLBLADDER: No identified stones by CT criteria. No inflammatory changes to suggest cholecystitis. ADRENAL GLANDS: No significant masses or asymmetry. RIGHT KIDNEY AND URETER: No solid masses. No significant calcifications. No hydronephrosis or hyd roureter. LEFT KIDNEY AND URETER: No solid masses. No significant calcifications. No hydronephrosis or hydr oureter. AORTA AND VESSELS: No aneurysm. No dissection. Renal arteries, SMA, celiac without stenosis. RETROPERITONEUM: No retroperitoneal adenopathy, hemorrhage or masses. LARGE AND SMALL BOWEL: No dilatation. No masses. No wall thickening. APPENDIX: Not visualized. ABDOMINAL WALL: No hernia or masses. PERITONEAL CAVITY: Increased pain size of a peritoneal nodule along the anterior left abdomen now jojo suring 1.8 x 2.2 cm, previously subcentimeter 1.4 x 1.3 cm. No pleural effusion or pneumothorax. PELVIS: No mass or free fluid. Normal bladder. BONES: No significant or acute findings. OTHER: No other significant finding. IMPRESSION: 1. Extensive bilateral pulmonary emboli. There is evidence of right heart failure. 2. Small pericardial effusion/ pericardial thickening. 3. Probable new subcapsular implant in the right hepatic lobe. Multiple hepatic metastases. 4. Increasing size of a peritoneal implant along the anterior left abdomen. COMMENT: Findings were communicated to Abbey Fletcher RN on 07/25/2020 at 1445 hours. TECHNICAL DOCUMENTATION: JOB ID: [id number] Quality ID # [id number]: Final reports with documentation of one or more dose reduction techniques (e.g., Au tomated exposure control, adjustment of the mA and/or kV according to patient size, use of iterative reconstruction technique) 2010 [employer]- All Rights Reserved Reading location - IP/workstation name: [email or web address]
[2020-07-25] MEDS: ENOXAPARIN SODIUM INJ 120 MG/0.8 ML DISP.SYRIN SUBCUT SCH (15:30)
[2020-07-25] MEDS: GABAPENTIN 300 MG CAPSULE PO SCH (21:45)
[2020-07-26] MEDS: NORMAL SALINE 1000 ML 1,000 ML IV PRN (03:54)
[2020-07-26] MEDS: PANTOPRAZOLE SODIUM 40 MG TABLET.DR PO SCH (05:31)
[2020-07-26] MEDS: HYDROCORTISONE SOD SUCCINATE INJ/PF 100 MG/2 ML SDV IV SCH ×3 (05:31→22:32)
[2020-07-26] MEDS: ENOXAPARIN SODIUM INJ 120 MG/0.8 ML DISP.SYRIN SUBCUT SCH ×2 (05:31→17:23)
[2020-07-26 06:14] LABS: WHITE BLOOD COUNT 6.4 10^3/uL (4.0-10.5)
[2020-07-26 06:15] LABS: HEMATOCRIT 26.3 % (36.0-47.0); HEMOGLOBIN 8.4 g/dL (12.0-15.5); MEAN CORPUSCULAR HEMOGLOBIN 28.4 pg (27.0-33.4); MEAN CORPUSCULAR HGB CONC 32.1 g/dL (32.0-36.0); MEAN CORPUSCULAR VOLUME 88 fl (80-97); PLATELET COUNT 182 10^3/uL (150-450); RED BLOOD COUNT 2.98 10^6/uL (3.72-5.28); RED CELL DISTRIBUTION WIDTH 18.9 % (11.5-14.0)
--- NOTE | 2020-07-26 07:50 | PDOC CONSULTATION ---
Consultation Consult Date: 07/26/20 Attending physician:: MIGUEL JIMENEZ Provider Consulted: DELMA VALENTE Consult reason:: Patient with stage IV pancreatic cancer here with weakness, tachycardia, found to have PE History of Present Illness Admission Date/PCP: 07/19/20 19:37 RACHANA PADILLA PA-C Patient complains of: Weakness, tachycardia History of Present Illness: HOA SALES is a 44 year old female who presented with weakness and tachy cardia, ultimately found to have DKA and was being treated aggressively in the ICU setting. More recently, she was transferred to the floor setting and was getting more hypotensive and tachycardic, although the DKA seem to have resolved. Therefore, hospitalist team decided on doing CTA of the chest which indeed showed what was feared, bilateral PE. She has been placed on Lovenox. Her hemoglobin has been low in the 8 range, I asked for iron studies and B12 levels to be sent, ferritin was indeed 30 indicating low levels. Of note, we have seen her in the past about 4 years ago for iron infusions. She tolerated them well. But more recently about a year and a half ago she was diagnosed in 02/2019 with stage IV pancreatic cancer, it sounds like she was initially on chemotherapy may be with Gemzar and Abraxane and more recently she has been on FOLFIRINOX, she has been treated primarily through [facility]. She is being seen by Dr. WILLIS there. Records have been requested. She was due for another cycle of chemotherapy tomorrow. Of note, in review of the CT imaging here, they note some changes in the liver and omental metastasis, however the patient notes that all of her previous imaging had been done at [place]. Also of note, patient has had both GI bleed as well as PE in the past, she tells me she was placed on Xarelto but unfortunately had failure of that and ultimately had to complete a 6-month course of Lovenox, but she was unclear on dates. She also notes that she had history of variceal bleed in the past. On this admission, she is Hemoccult positive. But she denies any notice of GI bleed. Past Medical History Pulmonary Medical History: Reports: Asthma Neurological Medical History: Reports: None Endocrine Medical History: Reports: Diabetes Mellitus Type 2 - Insulin-dependent Renal/ Medical History: Reports: None Malignancy Medical History: Reports: Pancreatic Cancer GI Medical History: Reports: None, Gastroesophageal Reflux Disease Psychiatric Medical History: Reports: Depression Hematology: Reports: None Infectious Medical History: Reports: None Past Surgical History Past Surgical History: Reports: Section - x2 Social History Information Source: Patient Smoking Status: Former Smoker Electronic Cigarette use?: No Number of Years Smokin Last Time Smoked: 2009 Frequency of Alcohol Use: Social Hx Recreational Drug Use: No Drugs: None Hx Prescription Drug Abuse: No - Advance Directive Resuscitation Status: Full Code Family History Family History: Hypertension Parental Family History Reviewed: Yes Children Family History Reviewed: Yes Sibling(s) Family History Reviewed.: Yes Medication/Allergy Home Medications: Gabapentin [Neurontin 300 mg Capsule] 300 mg PO QHS 10/08/19 Insulin Glargine,Hum.rec.anlog [Lantus Insulin 100 Unit/1 ml 10 ml] 35 units SQ QHS 10/08/19 Ondansetron [Zofran Odt 4 mg Tablet] 8 mg PO Q12HP PRN 10/08/19 Trazodone HCl 50 mg PO HSP PRN 10/08/19 Albuterol Sulfate [Albuterol Sulfate Hfa] 1 puff IH Q4HP PRN 07/20/20 Dexamethasone [Decadron 4 Mg Tablet] 2 mg PO DAILY 07/20/20 Gabapentin [Neurontin 100 mg Capsule] 100 mg PO BID 07/20/20 Lidocaine/Benadryl\Maalox 5 ml PO Q4 07/20/20 Metoclopramide HCl [Reglan] 10 mg PO TID 07/20/20 Oxycodone HCl [Oxycodone HCl ER] 40 mg PO TIDP PRN 07/20/20 Pantoprazole Sodium [Protonix [address] Tablet] 40 mg PO QAM 07/20/20 Potassium Chloride 20 meq PO DAILY 07/20/20 Allergies/Adverse Reactions: morphine [Morphine] Allergy (Verified 04/14/20 15:04) Hives Review of Systems Constitutional: ABSENT: chills, fever(s), headache(s), weight gain, weight loss Eyes: ABSENT: visual disturbances Ears: ABSENT: hearing changes Cardiovascular: ABSENT: chest pain, dyspnea on exertion, edema, orthropnea, palpitations Respiratory: ABSENT: cough, hemoptysis Gastrointestinal: ABSENT: abdominal pain, constipation, diarrhea, hematemesis, hematochezia, nausea, vomiting Genitourinary: ABSENT: dysuria, hematuria Musculoskeletal: ABSENT: joint swelling Integumentary: ABSENT: rash, wounds Neurological: ABSENT: abnormal gait, abnormal speech, confusion, dizziness, focal weakness, syncope Psychiatric: ABSENT: anxiety, depression, homidical ideation, suicidal ideation Endocrine: ABSENT: cold intolerance, heat intolerance, polydipsia, polyuria Hematologic/Lymphatic: ABSENT: easy bleeding, easy bruising Physical Exam Vital Signs: Temp Pulse Resp BP Pulse Ox 97.6 F 85 14 111/68 100 07/26/20 03:10 07/26/20 03:10 07/26/20 03:10 07/26/20 03:10 07/26/20 03:10 Intake & Output 07/25/20 07/26/20 07/27/20 06:59 06:59 06:59 Intake Total 3793 2915 Output Total 2150 1501 Balance 1643 1414 Weight 117.5 kg 117.6 kg General appearance: PRESENT: no acute distress, well-developed, well-nourished Head exam: PRESENT: atraumatic, normocephalic Eye exam: PRESENT: conjunctiva pink, EOMI, PERRLA. ABSENT: scleral icterus Ear exam: PRESENT: normal external ear exam Mouth exam: PRESENT: moist, tongue midline Neck exam: ABSENT: carotid bruit, JVD, lymphadenopathy, thyromegaly Respiratory exam: PRESENT: clear to auscultation osmani. ABSENT: rales, rhonchi, wheezes Cardiovascular exam: PRESENT: RRR. ABSENT: diastolic murmur, rubs, systolic murmur Pulses: PRESENT: normal dorsalis pedis pul Vascular exam: PRESENT: normal capillary refill GI/Abdominal exam: PRESENT: normal bowel sounds, soft. ABSENT: distended, guarding, mass, organolmegaly, rebound, tenderness Rectal exam: PRESENT: deferred Extremities exam: PRESENT: full ROM. ABSENT: calf tenderness, clubbing, pedal edema Neurological exam: PRESENT: alert, awake, oriented to person, oriented to place, oriented to time, oriented to situation, CN II-XII grossly intact. ABSENT: motor sensory deficit Psychiatric exam: PRESENT: appropriate affect, normal mood. ABSENT: homicidal ideation, suicidal ideation Skin exam: PRESENT: dry, intact, warm. ABSENT: cyanosis, rash Results Laboratory Results: 07/26/20 05:27 07/25/20 05:06 07/25/20 07/25/20 07/25/20 12:38 13:20 13:20 WBC RBC Hgb Hct MCV MCH MCHC RDW Plt Count Retic Count (auto) 5.59 H Iron 19.9 L TIBC 284 % Saturation 7 Ferritin 32.80 Vitamin B12 915.0 Folate 4.12 Stool Occult Blood POSITIVE 07/26/20 05:27 WBC 6.4 RBC 2.98 L Hgb 8.4 L Hct 26.3 L MCV 88 MCH 28.4 MCHC 32.1 RDW 18.9 H Plt Count 182 Retic Count (auto) Iron TIBC % Saturation Ferritin Vitamin B12 Folate Stool Occult Blood 07/19/20 07/20/20 15:50 04:21 Troponin I < 0.012 NT-Pro-B Natriuret Pep 37 Impressions: Chest X-Ray 07/22/20 06:00 IMPRESSION: Low inspiratory lung volumes without a superimposed acute cardiopulmonary process. Abdomen/Pelvis CTA 07/25/20 00:00 IMPRESSION: 1. Extensive bilateral pulmonary emboli. There is evidence of right heart failure. 2. Small pericardial effusion/ pericardial thickening. 3. Probable new subcapsular implant in the right hepatic lobe. Multiple hepatic metastases. 4. Increasing size of a peritoneal implant along the anterior left abdomen. Chest/Abdomen CTA 07/25/20 00:00 IMPRESSION: 1. Extensive bilateral pulmonary emboli. There is evidence of right heart failure. 2. Small pericardial effusion/ pericardial thickening. 3. Probable new subcapsular implant in the right hepatic lobe. Multiple hepatic metastases. 4. Increasing size of a peritoneal implant along the anterior left abdomen. Assessment & Plan - Diagnosis (1) Pulmonary embolism Qualifiers: Pulmonary embolism type: multiple subsegmental (without acute cor pulmonale) Qualified Code(s): I26.94 - Multiple subsegmental pulmonary emboli without acute cor pulmonale Is this a current diagnosis for this admission?: Yes Plan: Agree with Lovenox, ultimately she will need to be discharged on Lovenox and probably will need lifelong Lovenox or Arixtra. She has failed Xarelto in the past. She will need lifelong anticoagulation because she has had a PE in the past and because she has a cancer diagnosis. (2) Anemia Qualifiers: Anemia type: iron deficiency Iron deficiency anemia type: other iron deficiency Qualified Code(s): D50.8 - Other iron deficiency anemias Is this a current diagnosis for this admission?: Yes Plan: Iron deficiency anemia, I will give her 1 dose of Feraheme. This should improve her hemoglobin. There is some concern of GI bleed because she is Hemoccult positive, I will discuss with the hospitalist team, ultimately she would benefit from a GI work-up. (3) Pancreatic cancer Qualifiers: Pancreatic malignancy location: tail of pancreas Qualified Code(s): C25.2 - Malignant neoplasm of tail of pancreas Is this a current diagnosis for this admission?: Yes Plan: Stage IV pancreatic cancer, patient voiced interest in trying to get chemotherapy done closer to home. We will ultimately try and make those arrangements for her. - Time Time Spent: Greater than 70 Minutes - Inpatient Certification Based on my medical assessment, after consideration of the patient's comorbidities, presenting symptoms, or acuity I expect that the services needed warrant INPATIENT care.: Yes I certify that my determination is in accordance with my understanding of Medicare's requirements for reasonable and necessary INPATIENT services [42 CFR 412.3e].: Yes Medical Necessity: Risk of Complication if Not Cared For in Hospital
[2020-07-26] MEDS: INSULIN REG, HUMAN 100 UNIT/ML 3 ML VIAL (PYX) SUBCUT SCH ×4 (09:12→21:59)
[2020-07-26] MEDS: METOCLOPRAMIDE HCL ORAL SOLN 10 MG/10 ML UDCUP PO SCH ×4 (09:12→21:58)
[2020-07-26] MEDS: DOCUSATE SODIUM 100 MG CAPSULE PO SCH ×2 (09:12→10:15)
[2020-07-26] MEDS: POTASSIUM CHLORIDE 10 MEQ TABLET.ER PO SCH ×3 (09:12→17:23)
[2020-07-26] MEDS: GABAPENTIN 100 MG CAPSULE PO SCH ×2 (09:12→17:23)
[2020-07-26] MEDS: DEXAMETHASONE 4 MG TABLET PO SCH (09:14)
[2020-07-26] MEDS: INSULIN GLARGINE,HUM.REC.ANLOG 1,000 UNIT/10 ML VIAL SUBCUT SCH ×2 (09:14→21:58)
--- NOTE | 2020-07-26 15:24 | XCELERA REPORT ---
[address] [address] Transthoracic Echocardiogram Report Name: HOA SALES Age: 44 yrs Gender: Female : 1975 Patient Status: Inpatient Patient Location: [address] [place], [place] [address] Study Date: 07/26/2020 11:09 AM History: Pulmomary Embolism Height: 61 in Weight: 259 lb BSA: 2.1 m2 Procedure: A complete two-dimensional transthoracic echocardiogram was performed (2D, M-mode, spectral and color flow Doppler). The study was technically difficult with many images being suboptimal in quality. Reason For Study: bilateral PE's Previous Evaluation: No previous studies were available. History: Pulmomary Embolism. Ordering Physician: MIGUEL JIMENEZ Performed By: Suzie Murillo Interpretation Summary The study was technically difficult with many images being suboptimal in quality. Left ventricular systolic function is normal. The Ejection Fraction estimate is 55-60% The right ventricle is normal in size and function. There is no mitral regurgitation noted. There is no aortic valve stenosis There is a trace amount of tricuspid regurgitation There is mild pulmonary hypertension by echo There is no pericardial effusion. MMode/2D Measurements & Calculations RVDd: 3.1 cm LVIDd: 4.8 cm FS: 39.1 % Ao root diam: 2.4 cm IVSd: 0.99 cm LVIDs: 2.9 cm EDV(Teich): 108.7 ml Ao root area: 4.6 cm2 LVPWd: 1.0 cm ESV(Teich): 33.2 ml LA dimension: 3.1 cm EF(Teich): 69.4 % Doppler Measurements & Calculations MV E max acacia: MV P1/2t max acacia: Ao V2 max: LV V1 max P.5 cm/sec 77.1 cm/sec 165.1 cm/sec 4.8 mmHg MV A max acacia: MV P1/2t: 75.3 msec Ao max PG: LV V1 max: 67.1 cm/sec MVA(P1/2t): 2.9 cm2 10.9 mmHg 109.1 cm/sec MV E/A: 1.2 MV dec slope: 300.0 cm/sec2 MV dec time: 0.26 sec PA V2 max: TR max acacia: MV P1/2t-pr_phl: 89.8 cm/sec 277.1 cm/sec 75.3 msec PA max PG: TR max P.7 mmHg 3.2 mmHg Left Ventricle The left ventricle is normal in size. There is mild concentric left ventricular hypertrophy. Left ventricular systolic function is normal. The Ejection Fraction estimate is 55-60%. Doppler measurements suggest pseudonormalized left ventricular relaxation, which is associated with grade II/IV or mild to moderate diastolic dysfunction. Regional wall motion abnormalities cannot be excluded due to limited visualization. Right Ventricle The right ventricle is normal in size and function. Atria The right atrium is normal. The left atrial size is normal. The interatrial septum is intact with no evidence for an atrial septal defect. There is no Doppler evidence for an interatrial shunt. Mitral Valve The mitral valve is grossly normal. There is no mitral valve stenosis. There is no mitral regurgitation noted. Aortic Valve The aortic valve opens well. The aortic valve is normal in structure and function. The aortic valve is trileaflet. There is no aortic valve stenosis. No aortic regurgitation is present. Tricuspid Valve The tricuspid valve is normal in structure and function. There is no tricuspid stenosis. There is a trace amount of tricuspid regurgitation. Right ventricular systolic pressure is estimated to be elevated at 30-40mmHg. There is mild pulmonary hypertension by echo. Pulmonic Valve The pulmonic valve is normal in structure and function. There is no pulmonic valvular stenosis. There is a trace amount of pulmonic regurgitation. Great Vessels The aortic root is normal size. The inferior vena cava appeared normal and decreased > 50% with respiration (RAP 5-10 mmHg). Effusions There is no pericardial effusion. : MIGUEL JIMENEZ Anil
[2020-07-26] MEDS ORDERED: FERUMOXYTOL (ESRD) 510 MG/NS 100 ML IV PRN ×2 (20:00)
[2020-07-26] MEDS: GABAPENTIN 300 MG CAPSULE PO SCH (21:58)
--- NOTE | 2020-07-26 22:54 | PDOC PROGRESS REPORT ---
Subjective Progress Note for:: 07/26/20 Subjective:: The patient is resting in bed. Her mother is at the bedside. She reports feeling somewhat better but still gets short of breath. Noticeable edema lower extremities. Reason For Visit: DIABETIC KETOACIDOSIS,PANCREATIC CANCER Physical Exam Vital Signs: Temp Pulse Resp BP Pulse Ox 97.9 F 76 20 108/67 97 07/26/20 19:20 07/26/20 19:20 07/26/20 19:20 07/26/20 19:20 07/26/20 19:20 Intake & Output 07/25/20 07/26/20 07/27/20 06:59 06:59 06:59 Intake Total 3793 2915 2372 Output Total 2150 1501 Balance 1643 1414 2372 Weight 117.5 kg 117.6 kg 117.6 kg General appearance: PRESENT: no acute distress, cooperative, morbidly obese, well-developed Head exam: PRESENT: atraumatic, normocephalic Eye exam: PRESENT: conjunctiva pale. ABSENT: scleral icterus Ear exam: PRESENT: normal external ear exam. ABSENT: bleeding, drainage Mouth exam: PRESENT: moist, tongue midline Neck exam: ABSENT: carotid bruit, JVD, lymphadenopathy Respiratory exam: PRESENT: clear to auscultation osmani, symmetrical, unlabored. ABSENT: rales, rhonchi, tachypnea, wheezes Cardiovascular exam: PRESENT: RRR, +S1, +S2, systolic murmur - 2/6. ABSENT: bradycardia, diastolic murmur, irregular rhythm, tachycardia GI/Abdominal exam: PRESENT: normal bowel sounds, soft, other - Protuberant abdomen. ABSENT: tenderness Rectal exam: PRESENT: deferred Gentrourinary exam: ABSENT: indwelling catheter Extremities exam: PRESENT: +1 edema Musculoskeletal exam: PRESENT: ambulatory, normal inspection. ABSENT: deformity, dislocation Neurological exam: PRESENT: alert, awake, oriented to person, oriented to place, oriented to time, oriented to situation, CN II-XII grossly intact. ABSENT: altered Psychiatric exam: PRESENT: appropriate affect. ABSENT: agitated, anxious Focused psych exam: ABSENT: delusional, paranoid, restlessness Skin exam: PRESENT: dry, normal color, warm. ABSENT: rash Results Laboratory Results: 07/26/20 05:27 07/25/20 05:06 07/26/20 05:27 WBC 6.4 RBC 2.98 L Hgb 8.4 L Hct 26.3 L MCV 88 MCH 28.4 MCHC 32.1 RDW 18.9 H Plt Count 182 07/19/20 07/20/20 15:50 04:21 Troponin I < 0.012 NT-Pro-B Natriuret Pep 37 Impressions: Chest X-Ray 07/22/20 06:00 IMPRESSION: Low inspiratory lung volumes without a superimposed acute cardiopulmonary process. Abdomen/Pelvis CTA 07/25/20 00:00 IMPRESSION: 1. Extensive bilateral pulmonary emboli. There is evidence of right heart failure. 2. Small pericardial effusion/ pericardial thickening. 3. Probable new subcapsular implant in the right hepatic lobe. Multiple hepatic metastases. 4. Increasing size of a peritoneal implant along the anterior left abdomen. Chest/Abdomen CTA 07/25/20 00:00 IMPRESSION: 1. Extensive bilateral pulmonary emboli. There is evidence of right heart failure. 2. Small pericardial effusion/ pericardial thickening. 3. Probable new subcapsular implant in the right hepatic lobe. Multiple hepatic metastases. 4. Increasing size of a peritoneal implant along the anterior left abdomen. Assessment and Plan - Diagnosis (1) Pulmonary embolism Qualifiers: Pulmonary embolism type: multiple subsegmental (without acute cor pulmonale) Qualified Code(s): I26.94 - Multiple subsegmental pulmonary emboli without acute cor pulmonale Is this a current diagnosis for this admission?: Yes (2) Diabetic ketoacidosis Qualifiers: Diabetes mellitus type: type 2 Diabetes mellitus complication detail: without coma Qualified Code(s): E11.10 - Type 2 diabetes mellitus with ketoacidosis without coma Is this a current diagnosis for this admission?: Yes (3) Hypokalemia Is this a current diagnosis for this admission?: Yes (4) Hyponatremia Is this a current diagnosis for this admission?: Yes (5) Hyperosmolar syndrome Is this a current diagnosis for this admission?: Yes (6) Pancreatic cancer Qualifiers: Pancreatic malignancy location: tail of pancreas Qualified Code(s): 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 The patient's Accu-Cheks are still higher than desired. I will increase her Lantus to 14 units twice daily and continue Accu- Cheks with sliding scale The patient has hyponatremia and now hypokalemia. Because of her nausea I have chosen to give her a dose of IV potassium chloride today and start oral potassium chloride 20 mEq daily which is her standard home dose beginning tomorrow. Continue to monitor electrolytes and glucose. The patient reports that her nausea is no better in fact today might be a little worse. She reports that the Zofran only gives marginal relief. We will try Phenergan and resume her scheduled metoclopramide 07/22/2020 Hypokalemia potassium is down to 2.7 today. This is unexpected with potassium supplement initiated yesterday. Accu-Cheks have been much better on the increased dose of Lantus. She reports ongoing nausea however intake and output records indicate that she is eating 100% of multiple meals. The nausea certainly could be related to the carcinoma. I am going to increase her metoclopramide back to her standard 10 mg before meals and at bedtime. Will recheck laboratory studies tomorrow. I did broach the subject of depression. The patient's family is concerned. The patient does exhibit a flat affect all of the time but denied depression out right. 07/23/2020 Hypokalemia-serum potassium is now normal. Continue scheduled oral supplements Diabetes-low Accu-Chek this morning. Will change to 12 units of Lantus at night and 16 in the morning. Adjust based on sliding scale and insulin requirements. Nausea is much better. She is requesting an advance in diet. Will move to mechanical soft with chopped meats. Even the patient has a fairly flat affect she still denies depression. Scheduled for chemotherapy on Sunday. If she does well with soft mechanical diet anticipate discharge tomorrow. 07/24/2020 Tachycardia-her lungs are clear. I will check a chest x-ray. I believe she is hypovolemic and will order IV fluids. She states that she feels winded walking to and from the bathroom. There is probably some deconditioning as well. Diabetes-month small change in Lantus her Accu-Cheks are now very high. After discussion with the nurse it is discovered that family brings in food that is inappropriate for a controlled carbohydrate diet. I will adjust Lantus. Anemia-hemoglobin is low. No evidence of bleeding. Will check again tomorrow. This certainly could account for shortness of breath with exertion. 07/25/2020 The patient blood pressure was low today. She still complained of dyspnea. Because of her history we obtained a CT angiogram of the chest and this showed multiple bilateral pulmonary emboli. Laboratory studies were available at approximately the same time as the CT scan report. D-dimer was greater than 20. The CT scan suggested right heart strain and I have ordered an echocardiogram. The patient was placed immediately on therapeutic dose Lovenox. Diabetes-morning Accu-Cheks are quite good. The afternoon Accu-Cheks are still high. I will increase her morning Lantus. Anemia-iron studies have been ordered. Dr. Tesfaye will see the patient tomorrow. Part of this is likely consumption due to the increased clotting. Serum iron was quite low. Ferritin was normal. B12 and folic acid were also within the normal range. 07/26/2020 The patient is currently on Lovenox. This is adequate treatment for her pulmonary emboli. When she had her last pulmonary embolus she failed DOAC treatment. She was on Lovenox at that time. Echocardiogram revealed normal ejection fraction. 2/4 diastolic failure with mild pulmonary hypertension. Anemia-the patient did have a fecal occult blood positive test. She has a history of variceal bleeding and. Her hemoglobin is stable. The conundrum is stop the Lovenox to investigate the GI bleeding but leave her open for more pulmonary emboli. The other option is to continue the Lovenox and monitor her hemoglobin. If her hemoglobin is stable or improved slightly then pick a window several weeks from now where it might be safer to stop the Lovenox for 48 hours while she gets an endoscopy and then resume Lovenox based on the results of the endoscopy. Another alternative could be to put the patient on a heparin drip. Stop it, perform the gastroscopy then resume the heparin or Lovenox based on the results of the endoscopy. Was unable to obtain a gastroenterology consult today as there was no coverage. I believe there is coverage tomorrow. Dr. Tesfaye continues to follow the patient as well. This is a complex issue because she already failed oral anticoagulant therapy once. Diabetic ketoacidosis has resolved. Continue Accu-Cheks and adjust treatment plan based on sliding scale requirements. I have been increasing her morning Lantus. Evidently her mother brings her food which is not completely consistent with a controlled carbohydrate diet. Diastolic failure-the echocardiogram revealed 2/4 diastolic dysfunction. We will hold IV fluids and will likely initiate diuretic therapy. - Time Time Spent with patient: 25-34 minutes Medications reviewed and adjusted accordingly: Yes Anticipated Discharge Disposition: Home with Home Health Anticipated Discharge Timeframe: within 72 hours
[2020-07-27] MEDS: PANTOPRAZOLE SODIUM 40 MG TABLET.DR PO SCH (05:41)
[2020-07-27] MEDS: HYDROCORTISONE SOD SUCCINATE INJ/PF 100 MG/2 ML SDV IV SCH ×2 (05:41→22:11)
[2020-07-27] MEDS: ENOXAPARIN SODIUM INJ 120 MG/0.8 ML DISP.SYRIN SUBCUT SCH ×2 (05:42→17:50)
[2020-07-27 07:16] LABS: HEMATOCRIT 25.1 % (36.0-47.0); HEMOGLOBIN 8.4 g/dL (12.0-15.5); MEAN CORPUSCULAR HEMOGLOBIN 29.8 pg (27.0-33.4); MEAN CORPUSCULAR HGB CONC 33.7 g/dL (32.0-36.0); MEAN CORPUSCULAR VOLUME 89 fl (80-97); PLATELET COUNT 261 10^3/uL (150-450); RED BLOOD COUNT 2.83 10^6/uL (3.72-5.28); RED CELL DISTRIBUTION WIDTH 19.3 % (11.5-14.0); WHITE BLOOD COUNT 7.9 10^3/uL (4.0-10.5)
[2020-07-27 07:22] LABS: APPEARANCE,URINE SLIGHTLY-CLOUDY; BILIRUBIN,URINE NEGATIVE (NEGATIVE); COLOR,URINE YELLOW; GLUCOSE, URINE 50 mg/dL (NEGATIVE); KETONES,URINE NEGATIVE (NEGATIVE); LEUKOCYTE ESTERASE,URINE NEGATIVE (NEGATIVE); NITRITE,URINE NEGATIVE (NEGATIVE); PROTEIN,URINE NEGATIVE (NEGATIVE); URINE SPECIFIC GRAVITY 1.014; UROBILINOGEN,URINE NEGATIVE mg/dL (<2.0)
[2020-07-27 07:40] LABS: ALBUMIN 2.5 g/dL (3.5-5.0); ALKALINE PHOSPHATASE 175 U/L (38-126); ASPARTATE AMINO TRANSFERASE 30 U/L (14-36); BILIRUBIN,DIRECT 0.3 mg/dL (0.0-0.4); BILIRUBIN,TOTAL 0.5 mg/dL (0.2-1.3); BLOOD UREA NITROGEN 12 mg/dL (7-20); CALCIUM 9.1 mg/dL (8.4-10.2); GLUCOSE 216 mg/dL (75-110); POTASSIUM 4.3 mmol/L (3.6-5.0)
[2020-07-27 07:46] LABS: ANION GAP 5 (5-19); CARBON DIOXIDE 22 mmol/L (22-30); CHLORIDE 109 mmol/L (98-107)
--- NOTE | 2020-07-27 07:55 | PDOC PROGRESS REPORT ---
Subjective Progress Note for:: 07/27/20 Subjective:: no acute events overnight Reason For Visit: DIABETIC KETOACIDOSIS,PANCREATIC CANCER Physical Exam Vital Signs: Temp Pulse Resp BP Pulse Ox 97.8 F 87 20 110/69 96 07/27/20 03:10 07/27/20 03:10 07/27/20 03:10 07/27/20 03:10 07/27/20 03:10 Intake & Output 07/26/20 07/27/20 07/28/20 06:59 06:59 06:59 Intake Total 2915 2694 Output Total 1501 700 Balance 1414 1993 Weight 117.6 kg 118.4 kg General appearance: PRESENT: no acute distress, well-developed, well-nourished Head exam: PRESENT: atraumatic, normocephalic Eye exam: PRESENT: conjunctiva pink, EOMI, PERRLA. ABSENT: scleral icterus Ear exam: PRESENT: normal external ear exam Mouth exam: PRESENT: moist, tongue midline Neck exam: ABSENT: carotid bruit, JVD, lymphadenopathy, thyromegaly Respiratory exam: PRESENT: clear to auscultation osmani. ABSENT: rales, rhonchi, wheezes Cardiovascular exam: PRESENT: RRR. ABSENT: diastolic murmur, rubs, systolic murmur Pulses: PRESENT: normal dorsalis pedis pul Vascular exam: PRESENT: normal capillary refill GI/Abdominal exam: PRESENT: normal bowel sounds, soft. ABSENT: distended, guarding, mass, organolmegaly, rebound, tenderness Rectal exam: PRESENT: deferred Extremities exam: PRESENT: full ROM. ABSENT: calf tenderness, clubbing, pedal edema Neurological exam: PRESENT: alert, awake, oriented to person, oriented to place, oriented to time, oriented to situation, CN II-XII grossly intact. ABSENT: motor sensory deficit Psychiatric exam: PRESENT: appropriate affect, normal mood. ABSENT: homicidal ideation, suicidal ideation Skin exam: PRESENT: dry, intact, warm. ABSENT: cyanosis, rash Results Laboratory Results: 07/27/20 06:58 07/27/20 07/27/20 05:15 06:58 Sodium 135.5 L Potassium 4.3 Chloride 109 H Carbon Dioxide 22 Anion Gap 5 BUN 12 Creatinine 0.61 Est GFR ( Amer) > 60 Glucose 216 H Calcium 9.1 Magnesium 1.6 Total Bilirubin 0.5 AST 30 Alkaline Phosphatase 175 H Total Protein 5.0 L Albumin 2.5 L Urine Color YELLOW Urine Appearance SLIGHTLY-CLOUDY Urine pH 5.0 Ur Specific [place] 1.014 Urine Protein NEGATIVE Urine Glucose (UA) 50 H Urine Ketones NEGATIVE Urine Blood NEGATIVE Urine Nitrite NEGATIVE Ur Leukocyte Esterase NEGATIVE Urine WBC (Auto) 1 Urine RBC (Auto) 1 07/19/20 07/20/20 15:50 04:21 Troponin I < 0.012 NT-Pro-B Natriuret Pep 37 Impressions: Chest X-Ray 07/22/20 06:00 IMPRESSION: Low inspiratory lung volumes without a superimposed acute cardiopulmonary process. Abdomen/Pelvis CTA 07/25/20 00:00 IMPRESSION: 1. Extensive bilateral pulmonary emboli. There is evidence of right heart failure. 2. Small pericardial effusion/ pericardial thickening. 3. Probable new subcapsular implant in the right hepatic lobe. Multiple hepatic metastases. 4. Increasing size of a peritoneal implant along the anterior left abdomen. Chest/Abdomen CTA 07/25/20 00:00 IMPRESSION: 1. Extensive bilateral pulmonary emboli. There is evidence of right heart failure. 2. Small pericardial effusion/ pericardial thickening. 3. Probable new subcapsular implant in the right hepatic lobe. Multiple hepatic metastases. 4. Increasing size of a peritoneal implant along the anterior left abdomen. Assessment & Plan - Diagnosis (1) Pulmonary embolism Qualifiers: Pulmonary embolism type: multiple subsegmental (without acute cor pulmonale) Qualified Code(s): I26.94 - Multiple subsegmental pulmonary emboli without acute cor pulmonale Is this a current diagnosis for this admission?: Yes Plan: cont lifelong lovenox (2) Anemia Qualifiers: Anemia type: iron deficiency Iron deficiency anemia type: other iron deficiency Qualified Code(s): D50.8 - Other iron deficiency anemias Is this a current diagnosis for this admission?: Yes Plan: IV iron given. 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 Plan for f/u in our office - Time Time Spent with patient: 35 or more minutes
[2020-07-27 08:42] LABS: ABSOLUTE LYMPHOCYTES# (MANUAL) 0.6 10^3/uL (0.5-4.7); ABSOLUTE MONOCYTES # (MANUAL) 0.8 10^3/uL (0.1-1.4); BASOPHILS % (MANUAL) 0 % (0-2); EOSINOPHILS % (MANUAL) 0 % (0-6); LYMPHOCYTES % (MANUAL) 6 % (13-45); MONOCYTES % (MANUAL) 10 % (3-13); SEGMENTED NEUTROPHILS % (MAN) 83 % (42-78); TOTAL CELLS COUNTED 100
[2020-07-27 08:46] LABS: ANISOCYTOSIS 1+; HOWELL-JOLLY BODIES PRESENT; OVALOCYTES SLIGHT; PAPPENHEIMER BODIES PRESENT; PLATELET COMMENT ADEQUATE; POIKILOCYTOSIS 1+; POLYCHROMASIA 1+; SCHISTOCYTES 1+; TARGET CELLS SLIGHT; TEAR DROP CELLS SLIGHT; TOXIC GRANULATION SLIGHT
[2020-07-27 08:47] LABS: NUCLEATED RED BLOOD CELLS 6 /100 WBC (0)
[2020-07-27] MEDS: DOCUSATE SODIUM 100 MG CAPSULE PO SCH (09:15)
[2020-07-27] MEDS: METOCLOPRAMIDE HCL ORAL SOLN 10 MG/10 ML UDCUP PO SCH ×4 (09:19→22:11)
[2020-07-27] MEDS: GABAPENTIN 100 MG CAPSULE PO SCH ×2 (09:19→17:52)
[2020-07-27] MEDS: POTASSIUM CHLORIDE 10 MEQ TABLET.ER PO SCH ×3 (09:19→17:51)
[2020-07-27] MEDS: DEXAMETHASONE 4 MG TABLET PO SCH ×2 (09:20→10:11)
[2020-07-27] MEDS: INSULIN REG, HUMAN 100 UNIT/ML 3 ML VIAL (PYX) SUBCUT SCH ×4 (09:20→22:11)
[2020-07-27] MEDS: INSULIN GLARGINE,HUM.REC.ANLOG 1,000 UNIT/10 ML VIAL SUBCUT SCH ×2 (09:21→22:12)
--- NOTE | 2020-07-27 10:09 | PDOC PROGRESS REPORT ---
Subjective Progress Note for:: 07/27/20 Subjective:: 44-year-old female with history of pancreatic cancer admitted with DKA. Also found to have pulmonary embolism on Lovenox at this time. Patient failed oral anticoagulation before. Patient is tachycardic this morning. Oncology is following the patient. Patient is comfortably in the bed communicating well. Hemoglobin today 8.4 stable for the last 3 days. Reason For Visit: DIABETIC KETOACIDOSIS,PANCREATIC CANCER Physical Exam Vital Signs: Temp Pulse Resp BP Pulse Ox 97.8 F 68 20 110/69 96 07/27/20 03:10 07/27/20 07:00 07/27/20 03:10 07/27/20 03:10 07/27/20 03:10 Intake & Output 07/26/20 07/27/20 07/28/20 06:59 06:59 06:59 Intake Total 2915 2694 Output Total 1501 700 Balance 1414 1994 Weight 117.6 kg 118.4 kg General appearance: PRESENT: no acute distress, morbidly obese Head exam: PRESENT: atraumatic Eye exam: PRESENT: conjunctiva pale, PERRLA Ear exam: PRESENT: normal external ear exam Mouth exam: PRESENT: neck supple Teeth exam: PRESENT: poor dentation Neck exam: ABSENT: carotid bruit, JVD, lymphadenopathy, thyromegaly Respiratory exam: PRESENT: clear to auscultation osmani, other - Port is present on the right side of the chest.. ABSENT: rales, rhonchi, wheezes Cardiovascular exam: PRESENT: tachycardia GI/Abdominal exam: PRESENT: normal bowel sounds, soft. ABSENT: distended, guarding, mass, organolmegaly, rebound, tenderness Rectal exam: PRESENT: deferred Extremities exam: PRESENT: full ROM. ABSENT: calf tenderness, clubbing, pedal edema Neurological exam: PRESENT: alert, awake, oriented to person, oriented to place, oriented to time, oriented to situation, CN II-XII grossly intact. ABSENT: motor sensory deficit Psychiatric exam: PRESENT: appropriate affect, normal mood. ABSENT: homicidal ideation, suicidal ideation Results Laboratory Results: 07/27/20 06:58 07/27/20 06:58 07/27/20 07/27/20 07/27/20 05:15 06:58 06:58 WBC 7.9 RBC 2.83 L Hgb 8.4 L Hct 25.1 L MCV 89 MCH 29.8 MCHC 33.7 RDW 19.3 H Plt Count 261 Seg Neutrophils % Not Reportable Sodium 135.5 L Potassium 4.3 Chloride 109 H Carbon Dioxide 22 Anion Gap 5 BUN 12 Creatinine 0.61 Est GFR ( Amer) > 60 Glucose 216 H Calcium 9.1 Magnesium 1.6 Total Bilirubin 0.5 AST 30 Alkaline Phosphatase 175 H Total Protein 5.0 L Albumin 2.5 L Urine Color YELLOW Urine Appearance SLIGHTLY-CLOUDY Urine pH 5.0 Ur Specific [place] 1.014 Urine Protein NEGATIVE Urine Glucose (UA) 50 H Urine Ketones NEGATIVE Urine Blood NEGATIVE Urine Nitrite NEGATIVE Ur Leukocyte Esterase NEGATIVE Urine WBC (Auto) 1 Urine RBC (Auto) 1 07/19/20 07/20/20 15:50 04:21 Troponin I < 0.012 NT-Pro-B Natriuret Pep 37 Impressions: Chest X-Ray 07/22/20 06:00 IMPRESSION: Low inspiratory lung volumes without a superimposed acute cardiopulmonary process. Abdomen/Pelvis CTA 07/25/20 00:00 IMPRESSION: 1. Extensive bilateral pulmonary emboli. There is evidence of right heart failure. 2. Small pericardial effusion/ pericardial thickening. 3. Probable new subcapsular implant in the right hepatic lobe. Multiple hepatic metastases. 4. Increasing size of a peritoneal implant along the anterior left abdomen. Chest/Abdomen CTA 07/25/20 00:00 IMPRESSION: 1. Extensive bilateral pulmonary emboli. There is evidence of right heart failure. 2. Small pericardial effusion/ pericardial thickening. 3. Probable new subcapsular implant in the right hepatic lobe. Multiple hepatic metastases. 4. Increasing size of a peritoneal implant along the anterior left abdomen. Assessment and Plan - Diagnosis (1) Pancreatic cancer Qualifiers: Pancreatic malignancy location: tail of pancreas Qualified Code(s): C25.2 - Malignant neoplasm of tail of pancreas Is this a current diagnosis for this admission?: Yes Plan: The records are at [facility]. Said to have liver metastises. Getting CTx. 07/27/2020-patient has history of pancreatic cancer Dr. Tesfaye is following the patient on regular basis. (2) Anemia Qualifiers: Anemia type: iron deficiency Iron deficiency anemia type: other iron deficiency Qualified Code(s): D50.8 - Other iron deficiency anemias Is this a current diagnosis for this admission?: Yes Plan: 07/27/2020-patient has history of anemia of chronic disease. Latest hemoglobin is 8.4. Stool guaiac was positive. Patient is on full dose of Lovenox for pulmonary embolism. Patient has history of failed oral anticoagulation. (3) Diabetic ketoacidosis Qualifiers: Diabetes mellitus type: type 2 Diabetes mellitus complication detail: without coma Qualified Code(s): E11.10 - Type 2 diabetes mellitus with ketoacidosis without coma Is this a current diagnosis for this admission?: Yes Plan: She has BG in urine, ketones and acidosis. Blood sugar is not high. Can be maintained on IMC if insulin drip needed. 07/27/2020-latest blood sugar is 216. Patient is noncompliant with the diet. Presently on insulin sliding scale before meals and at bedtime. She is also on Lantus 18 units in the morning, 14 units at bedtime. Patient is also on hydrocortisone 100 mg IV every 8 hours. Plan is to decrease the IV Solu-Medrol to 100 mg twice a day. (4) Pulmonary embolism Qualifiers: Pulmonary embolism type: multiple subsegmental (without acute cor pulmonale) Qualified Code(s): I26.94 - Multiple subsegmental pulmonary emboli without acute cor pulmonale Is this a current diagnosis for this admission?: Yes Plan: 07/27/2020-patient has history of pulmonary embolism. CTA during the hospital stay indicated pulmonary embolism and echocardiogram ruled out right heart strain. Patient failed outpatient oral anticoagulation. Presently on Lovenox plan is to discharge her home on Lovenox and follow-up with Dr. Tesfaye as an outpatient. (5) Chronic diastolic heart failure Is this a current diagnosis for this admission?: Yes Plan: 07/27/2020-patient has a history of chronic diastolic heart failure. EF is 55 to 60%. Not in fluid overload at the time of my examination. (6) Hypokalemia Is this a current diagnosis for this admission?: Yes Plan: 07/27/2020-latest serum potassium is 4.3. Hypokalemia resolved. (7) Tachycardia Is this a current diagnosis for this admission?: Yes Plan: 07/27/2020-patient is tachycardic. Heart rate in the 90s. Most likely secondary to deconditioning. (8) Morbid obesity Is this a current diagnosis for this admission?: No Plan: 07/27/2020-patient BMI is more than 49. Diet exercise weight loss lifestyle modifications discussed with the patient. (9) Hyperosmolar syndrome Is this a current diagnosis for this admission?: Yes (10) Hyponatremia Is this a current diagnosis for this admission?: Yes Plan: 07/27/2020-latest serum sodium is around 135. Hyponatremia is resolved. - Plan Summary Summary: 07/21/2020 The ketoacidosis has resolved. The patient's Accu-Cheks are still higher than desired. I will increase her Lantus to 14 units twice daily and continue Accu- Cheks with sliding scale The patient has hyponatremia and now hypokalemia. Because of her nausea I have chosen to give her a dose of IV potassium chloride today and start oral potassium chloride 20 mEq daily which is her standard home dose beginning tomorrow. Continue to monitor electrolytes and glucose. The patient reports that her nausea is no better in fact today might be a little worse. She reports that the Zofran only gives marginal relief. We will try Phenergan and resume her scheduled metoclopramide 07/22/2020 Hypokalemia potassium is down to 2.7 today. This is unexpected with potassium supplement initiated yesterday. Accu-Cheks have been much better on the increased dose of Lantus. She reports ongoing nausea however intake and output records indicate that she is eating 100% of multiple meals. The nausea certainly could be related to the carcinoma. I am going to increase her metoclopramide back to her standard 10 mg before meals and at bedtime. Will recheck laboratory studies tomorrow. I did broach the subject of depression. The patient's family is concerned. The patient does exhibit a flat affect all of the time but denied depression out right. 07/23/2020 Hypokalemia-serum potassium is now normal. Continue scheduled oral supplements Diabetes-low Accu-Chek this morning. Will change to 12 units of Lantus at night and 16 in the morning. Adjust based on sliding scale and insulin requirements. Nausea is much better. She is requesting an advance in diet. Will move to mechanical soft with chopped meats. Even the patient has a fairly flat affect she still denies depression. Scheduled for chemotherapy on Sunday. If she does well with soft mechanical diet anticipate discharge tomorrow. 07/24/2020 Tachycardia-her lungs are clear. I will check a chest x-ray. I believe she is hypovolemic and will order IV fluids. She states that she feels winded walking to and from the bathroom. There is probably some deconditioning as well. Diabetes-month small change in Lantus her Accu-Cheks are now very high. After discussion with the nurse it is discovered that family brings in food that is inappropriate for a controlled carbohydrate diet. I will adjust Lantus. Anemia-hemoglobin is low. No evidence of bleeding. Will check again tomorrow. This certainly could account for shortness of breath with exertion. 07/25/2020 The patient blood pressure was low today. She still complained of dyspnea. Because of her history we obtained a CT angiogram of the chest and this showed multiple bilateral pulmonary emboli. Laboratory studies were available at approximately the same time as the CT scan report. D-dimer was greater than 20. The CT scan suggested right heart strain and I have ordered an echocardiogram. The patient was placed immediately on therapeutic dose Lovenox. Diabetes-morning Accu-Cheks are quite good. The afternoon Accu-Cheks are still high. I will increase her morning Lantus. Anemia-iron studies have been ordered. Dr. Tesfaye will see the patient tomorrow. Part of this is likely consumption due to the increased clotting. Serum iron was quite low. Ferritin was normal. B12 and folic acid were also within the normal range. 07/26/2020 The patient is currently on Lovenox. This is adequate treatment for her pulmonary emboli. When she had her last pulmonary embolus she failed DOAC treatment. She was on Lovenox at that time. Echocardiogram revealed normal ejection fraction. 2/4 diastolic failure with mild pulmonary hypertension. Anemia-the patient did have a fecal occult blood positive test. She has a history of variceal bleeding and. Her hemoglobin is stable. The conundrum is stop the Lovenox to investigate the GI bleeding but leave her open for more pulmonary emboli. The other option is to continue the Lovenox and monitor her hemoglobin. If her hemoglobin is stable or improved slightly then pick a window several weeks from now where it might be safer to stop the Lovenox for 48 hours while she gets an endoscopy and then resume Lovenox based on the results of the endoscopy. Another alternative could be to put the patient on a heparin drip. Stop it, perform the gastroscopy then resume the heparin or Lovenox based on the results of the endoscopy. Was unable to obtain a gastroenterology consult today as there was no coverage. I believe there is coverage tomorrow. Dr. Tesfaye continues to follow the patient as well. This is a complex issue because she already failed oral anticoagulant therapy once. Diabetic ketoacidosis has resolved. Continue Accu-Cheks and adjust treatment plan based on sliding scale requirements. I have been increasing her morning Lantus. Evidently her mother brings her food which is not completely consistent with a controlled carbohydrate diet. Diastolic failure-the echocardiogram revealed 2/4 diastolic dysfunction. We will hold IV fluids and will likely initiate diuretic therapy. - Time Anticipated Discharge Disposition: Home, Self Care Anticipated Discharge Timeframe: within 24 hours
[2020-07-27 13:01] LABS: PATH REVIEW PATHOLOGIST REVIEWED
[2020-07-27] MEDS: GABAPENTIN 300 MG CAPSULE PO SCH (22:11)
[2020-07-28 06:11] LABS: HEMATOCRIT 26.3 % (36.0-47.0); HEMOGLOBIN 8.6 g/dL (12.0-15.5); MEAN CORPUSCULAR HEMOGLOBIN 29.3 pg (27.0-33.4); MEAN CORPUSCULAR HGB CONC 32.8 g/dL (32.0-36.0); MEAN CORPUSCULAR VOLUME 89 fl (80-97); PLATELET COUNT 326 10^3/uL (150-450); RED BLOOD COUNT 2.95 10^6/uL (3.72-5.28); RED CELL DISTRIBUTION WIDTH 19.6 % (11.5-14.0)
[2020-07-28 06:30] LABS: ABSOLUTE LYMPHOCYTES# (MANUAL) 1.1 10^3/uL (0.5-4.7); ABSOLUTE MONOCYTES # (MANUAL) 1.1 10^3/uL (0.1-1.4); BASOPHILS % (MANUAL) 0 % (0-2); EOSINOPHILS % (MANUAL) 1 % (0-6); LYMPHOCYTES % (MANUAL) 12 % (13-45); MONOCYTES % (MANUAL) 12 % (3-13); NUCLEATED RED BLOOD CELLS 24 /100 WBC (0); SEGMENTED NEUTROPHILS % (MAN) 75 % (42-78); TOTAL CELLS COUNTED 100
[2020-07-28 06:32] LABS: ALBUMIN 2.4 g/dL (3.5-5.0); ALKALINE PHOSPHATASE 171 U/L (38-126); ASPARTATE AMINO TRANSFERASE 37 U/L (14-36); BILIRUBIN,DIRECT 0.3 mg/dL (0.0-0.4); BILIRUBIN,TOTAL 0.4 mg/dL (0.2-1.3); BLOOD UREA NITROGEN 11 mg/dL (7-20); CALCIUM 9.1 mg/dL (8.4-10.2); CHLORIDE 112 mmol/L (98-107); GLUCOSE 109 mg/dL (75-110); POTASSIUM 4.1 mmol/L (3.6-5.0); TOTAL PROTEIN 4.9 g/dL (6.3-8.2)
[2020-07-28 06:37] LABS: CARBON DIOXIDE 23 mmol/L (22-30)
[2020-07-28 06:38] LABS: ANION GAP 1 (5-19)
[2020-07-28 06:39] LABS: ANISOCYTOSIS 2+; OVALOCYTES 1+; POIKILOCYTOSIS 1+; POLYCHROMASIA 1+
[2020-07-28 06:40] LABS: PLATELET COMMENT ADEQUATE; TARGET CELLS SLIGHT; TOXIC GRANULATION SLIGHT
[2020-07-28] MEDS: PANTOPRAZOLE SODIUM 40 MG TABLET.DR PO SCH (06:44)
[2020-07-28] MEDS: ENOXAPARIN SODIUM INJ 120 MG/0.8 ML DISP.SYRIN SUBCUT SCH (06:44)
--- NOTE | 2020-07-28 08:41 | PDOC PROGRESS REPORT ---
Subjective Progress Note for:: 07/28/20 Subjective:: Doing okay, patient has appointment with us next week, eager to go home Reason For Visit: DIABETIC KETOACIDOSIS,PANCREATIC CANCER Physical Exam Vital Signs: Temp Pulse Resp BP Pulse Ox 98.5 F 81 20 111/61 95 07/28/20 07:20 07/28/20 07:20 07/28/20 07:20 07/28/20 07:20 07/28/20 07:20 Intake & Output 07/27/20 07/28/20 07/29/20 06:59 06:59 06:59 Intake Total 2694 1862 Output Total 700 1300 Balance 1994 562 Weight 118.4 kg 120.5 kg General appearance: PRESENT: no acute distress, well-developed, well-nourished Head exam: PRESENT: atraumatic, normocephalic Eye exam: PRESENT: conjunctiva pink, EOMI, PERRLA. ABSENT: scleral icterus Ear exam: PRESENT: normal external ear exam Mouth exam: PRESENT: moist, tongue midline Neck exam: ABSENT: carotid bruit, JVD, lymphadenopathy, thyromegaly Respiratory exam: PRESENT: clear to auscultation osmani. ABSENT: rales, rhonchi, wheezes Cardiovascular exam: PRESENT: RRR. ABSENT: diastolic murmur, rubs, systolic murmur Pulses: PRESENT: normal dorsalis pedis pul Vascular exam: PRESENT: normal capillary refill GI/Abdominal exam: PRESENT: normal bowel sounds, soft. ABSENT: distended, guarding, mass, organolmegaly, rebound, tenderness Rectal exam: PRESENT: deferred Extremities exam: PRESENT: full ROM. ABSENT: calf tenderness, clubbing, pedal edema Neurological exam: PRESENT: alert, awake, oriented to person, oriented to place, oriented to time, oriented to situation, CN II-XII grossly intact. ABSENT: motor sensory deficit Psychiatric exam: PRESENT: appropriate affect, normal mood. ABSENT: homicidal ideation, suicidal ideation Skin exam: PRESENT: dry, intact, warm. ABSENT: cyanosis, rash Results Laboratory Results: 07/28/20 05:45 07/28/20 05:45 07/27/20 07/28/20 07/28/20 06:58 05:45 05:45 WBC 7.9 9.0 RBC 2.83 L 2.95 L Hgb 8.4 L 8.6 L Hct 25.1 L 26.3 L MCV 89 89 MCH 29.8 29.3 MCHC 33.7 32.8 RDW 19.3 H 19.6 H Plt Count 261 326 Seg Neutrophils % Not Reportable Sodium 136.1 L Potassium 4.1 Chloride 112 H Carbon Dioxide 23 Anion Gap 1 L BUN 11 Creatinine 0.59 Est GFR ( Amer) > 60 Glucose 109 Calcium 9.1 Magnesium 1.8 Total Bilirubin 0.4 AST 37 H Alkaline Phosphatase 171 H Total Protein 4.9 L Albumin 2.4 L 07/19/20 07/20/20 15:50 04:21 Troponin I < 0.012 NT-Pro-B Natriuret Pep 37 Impressions: Chest X-Ray 07/22/20 06:00 IMPRESSION: Low inspiratory lung volumes without a superimposed acute cardiopulmonary process. Abdomen/Pelvis CTA 07/25/20 00:00 IMPRESSION: 1. Extensive bilateral pulmonary emboli. There is evidence of right heart failure. 2. Small pericardial effusion/ pericardial thickening. 3. Probable new subcapsular implant in the right hepatic lobe. Multiple hepatic metastases. 4. Increasing size of a peritoneal implant along the anterior left abdomen. Chest/Abdomen CTA 07/25/20 00:00 IMPRESSION: 1. Extensive bilateral pulmonary emboli. There is evidence of right heart failure. 2. Small pericardial effusion/ pericardial thickening. 3. Probable new subcapsular implant in the right hepatic lobe. Multiple hepatic metastases. 4. Increasing size of a peritoneal implant along the anterior left abdomen. Assessment & Plan - Diagnosis (1) Pulmonary embolism Qualifiers: Pulmonary embolism type: multiple subsegmental (without acute cor pulmonale) Qualified Code(s): I26.94 - Multiple subsegmental pulmonary emboli without acute cor pulmonale Is this a current diagnosis for this admission?: Yes Plan: Continue lifelong Lovenox (2) Anemia Qualifiers: Anemia type: iron deficiency Iron deficiency anemia type: other iron deficiency Qualified Code(s): D50.8 - Other iron deficiency anemias Is this a current diagnosis for this admission?: Yes Plan: Hemoglobin has been stable, GI work-up could potentially be done as an outpatient (3) Pancreatic cancer Qualifiers: Pancreatic malignancy location: tail of pancreas Qualified Code(s): C25.2 - Malignant neoplasm of tail of pancreas Is this a current diagnosis for this admission?: Yes Plan: Contacted [facility], awaiting response, we will be seeing patient next week - Time Time Spent with patient: 25-34 minutes
[2020-07-28] MEDS: INSULIN REG, HUMAN 100 UNIT/ML 3 ML VIAL (PYX) SUBCUT SCH ×2 (09:01→12:25)
[2020-07-28] MEDS: POTASSIUM CHLORIDE 10 MEQ TABLET.ER PO SCH ×2 (09:11→13:02)
[2020-07-28] MEDS: METOCLOPRAMIDE HCL ORAL SOLN 10 MG/10 ML UDCUP PO SCH ×2 (09:12→12:25)
[2020-07-28] MEDS: DOCUSATE SODIUM 100 MG CAPSULE PO SCH (09:13)
[2020-07-28] MEDS: DEXAMETHASONE 4 MG TABLET PO SCH (09:13)
[2020-07-28] MEDS: INSULIN GLARGINE,HUM.REC.ANLOG 1,000 UNIT/10 ML VIAL SUBCUT SCH (09:14)
[2020-07-28] MEDS: GABAPENTIN 100 MG CAPSULE PO SCH (09:15)
[2020-07-28] MEDS: HYDROCORTISONE SOD SUCCINATE INJ/PF 100 MG/2 ML SDV IV SCH (09:15)
[2020-07-28 12:42] VITALS: BP 110/70
--- NOTE | 2020-07-28 17:50 | PDOC DISCHARGE SUMMARY ---
Impression - Admit/DC Date/PCP Admission Date/Primary Care Provider: 07/19/20 19:37 RACHANA PADILLA PA-C Discharge Date: 07/28/20 - Discharge Diagnosis (1) Pancreatic cancer Is this a current diagnosis for this admission?: Yes (2) Anemia Is this a current diagnosis for this admission?: Yes (3) Diabetic ketoacidosis Is this a current diagnosis for this admission?: Yes (4) Pulmonary embolism Is this a current diagnosis for this admission?: Yes (5) Chronic diastolic heart failure Is this a current diagnosis for this admission?: Yes (6) Hypokalemia Is this a current diagnosis for this admission?: Yes (7) Tachycardia Is this a current diagnosis for this admission?: Yes (8) Morbid obesity Is this a current diagnosis for this admission?: No (9) Hyperosmolar syndrome Is this a current diagnosis for this admission?: Yes (10) Hyponatremia Is this a current diagnosis for this admission?: Yes - Assessment Summary: 07/21/2020 The ketoacidosis has resolved. The patient's Accu-Cheks are still higher than desired. I will increase her Lantus to 14 units twice daily and continue Accu- Cheks with sliding scale The patient has hyponatremia and now hypokalemia. Because of her nausea I have chosen to give her a dose of IV potassium chloride today and start oral potassium chloride 20 mEq daily which is her standard home dose beginning tomorrow. Continue to monitor electrolytes and glucose. The patient reports that her nausea is no better in fact today might be a little worse. She reports that the Zofran only gives marginal relief. We will try Phenergan and resume her scheduled metoclopramide 07/22/2020 Hypokalemia potassium is down to 2.7 today. This is unexpected with potassium supplement initiated yesterday. Accu-Cheks have been much better on the increased dose of Lantus. She reports ongoing nausea however intake and output records indicate that she is eating 100% of multiple meals. The nausea certainly could be related to the carcinoma. I am going to increase her metoclopramide back to her standard 10 mg before meals and at bedtime. Will recheck laboratory studies tomorrow. I did broach the subject of depression. The patient's family is concerned. The patient does exhibit a flat affect all of the time but denied depression out right. 07/23/2020 Hypokalemia-serum potassium is now normal. Continue scheduled oral supplements Diabetes-low Accu-Chek this morning. Will change to 12 units of Lantus at night and 16 in the morning. Adjust based on sliding scale and insulin requirements. Nausea is much better. She is requesting an advance in diet. Will move to ks chanical soft with chopped meats. Even the patient has a fairly flat affect she still denies depression. Scheduled for chemotherapy on Sunday. If she does well with soft mechanical diet anticipate discharge tomorrow. 07/24/2020 Tachycardia-her lungs are clear. I will check a chest x-ray. I believe she is hypovolemic and will order IV fluids. She states that she feels winded walking to and from the bathroom. There is probably some deconditioning as well. Diabetes-month small change in Lantus her Accu-Cheks are now very high. After discussion with the nurse it is discovered that family brings in food that is inappropriate for a controlled carbohydrate diet. I will adjust Lantus. Anemia-hemoglobin is low. No evidence of bleeding. Will check again tomorrow. This certainly could account for shortness of breath with exertion. 07/25/2020 The patient blood pressure was low today. She still complained of dyspnea. Because of her history we obtained a CT angiogram of the chest and this showed multiple bilateral pulmonary emboli. Laboratory studies were available at approximately the same time as the CT scan report. D-dimer was greater than 20. The CT scan suggested right heart strain and I have ordered an echocardiogram. The patient was placed immediately on therapeutic dose Lovenox. Diabetes-morning Accu-Cheks are quite good. The afternoon Accu-Cheks are still high. I will increase her morning Lantus. Anemia-iron studies have been ordered. Dr. Tesfaye will see the patient tomorrow. Part of this is likely consumption due to the increased clotting. Serum iron was quite low. Ferritin was normal. B12 and folic acid were also within the normal range. 07/26/2020 The patient is currently on Lovenox. This is adequate treatment for her pulmonary emboli. When she had her last pulmonary embolus she failed DOAC treatment. She was on Lovenox at that time. Echocardiogram revealed normal ejection fraction. 2/4 diastolic failure with mild pulmonary hypertension. Anemia-the patient did have a fecal occult blood positive test. She has a history of variceal bleeding and. Her hemoglobin is stable. The conundrum is stop the Lovenox to investigate the GI bleeding but leave her open for more pulmonary emboli. The other option is to continue the Lovenox and monitor her hemoglobin. If her hemoglobin is stable or improved slightly then pick a window several weeks from now where it might be safer to stop the Lovenox for 48 hours while she gets an endoscopy and then resume Lovenox based on the results of the endoscopy. Another alternative could be to put the patient on a heparin drip. Stop it, perform the gastroscopy then resume the heparin or Lovenox based on the results of the endoscopy. Was unable to obtain a gastroenterology consult today as there was no coverage. I believe there is coverage tomorrow. Dr. Tesfaye continues to follow the patient as well. This is a complex issue because she already failed oral anticoagulant therapy once. Diabetic ketoacidosis has resolved. Continue Accu-Cheks and adjust treatment plan based on sliding scale requirements. I have been increasing her morning Lantus. Evidently her mother brings her food which is not completely consistent with a controlled carbohydrate diet. Diastolic failure-the echocardiogram revealed 2/4 diastolic dysfunction. We will hold IV fluids and will likely initiate diuretic therapy. (1) Pancreatic cancer Qualifiers: Pancreatic malignancy location: tail of pancreas Qualified Code(s): C25.2 - Malignant neoplasm of tail of pancreas Is this a current diagnosis for this admission?: Yes Plan: The records are at [facility]. Said to have liver metastises. Getting CTx. 07/27/2020-patient has history of pancreatic cancer Dr. Tesfaye is following the patient on regular basis. 07/28/20 patient has history of pancreatic cancer she is going to follow-up with Dr. Tesfaye as an outpatient. (2) Anemia Qualifiers: Anemia type: iron deficiency Iron deficiency anemia type: other iron deficiency Qualified Code(s): D50.8 - Other iron deficiency anemias Is this a current diagnosis for this admission?: Yes Plan: 07/27/2020-patient has history of anemia of chronic disease. Latest hemoglobin is 8.4. Stool guaiac was positive. Patient is on full dose of Lovenox for pulmonary embolism. Patient has history of failed oral anticoagulation. 07/28/2020-patient has history of anemia of chronic disease. Hemoglobin is 8.6 today. Stable. (3) Diabetic ketoacidosis Qualifiers: Diabetes mellitus type: type 2 Diabetes mellitus complication detail: without coma Qualified Code(s): E11.10 - Type 2 diabetes mellitus with ketoacidosis without coma Is this a current diagnosis for this admission?: Yes Plan: She has BG in urine, ketones and acidosis. Blood sugar is not high. Can be maintained on IMC if insulin drip needed. 07/27/2020-latest blood sugar is 216. Patient is noncompliant with the diet. Presently on insulin sliding scale before meals and at bedtime. She is also on Lantus 18 units in the morning, 14 units at bedtime. Patient is also on hydrocortisone 100 mg IV every 8 hours. Plan is to decrease the IV Solu-Medrol to 100 mg twice a day. 07/28/20-blood sugar this morning is 116. Stable. Patient is advised to continue insulin sliding scale, diabetic diet and continue to use Lantus 35 units at bedtime. Diet exercise weight loss lifestyle modifications discussed with the patient again. She is going to follow-up with Dr. Viktoria lozoya. (4) Pulmonary embolism Qualifiers: Pulmonary embolism type: multiple subsegmental (without acute cor pulmonale) Qualified Code(s): I26.94 - Multiple subsegmental pulmonary emboli without acute cor pulmonale Is this a current diagnosis for this admission?: Yes Plan: 07/27/2020-patient has history of pulmonary embolism. CTA during the hospital stay indicated pulmonary embolism and echocardiogram ruled out right heart strain. Patient failed outpatient oral anticoagulation. Presently on Lovenox plan is to discharge her home on Lovenox and follow-up with Dr. Tesfaye as an o utpatient. 07/28/2020-patient is going home on treatment dose of Lovenox. She is to be on oral anticoagulation and has a treatment failure. (5) Chronic diastolic heart failure Is this a current diagnosis for this admission?: Yes Plan: 07/27/2020-patient has a history of chronic diastolic heart failure. EF is 55 to 60%. Not in fluid overload at the time of my examination. (6) Hypokalemia Is this a current diagnosis for this admission?: Yes Plan: 07/27/2020-latest serum potassium is 4.3. Hypokalemia resolved. (7) Tachycardia Is this a current diagnosis for this admission?: Yes Plan: 07/27/2020-patient is tachycardic. Heart rate in the 90s. Most likely secondary to deconditioning. (8) Morbid obesity Is this a current diagnosis for this admission?: No Plan: 07/27/2020-patient BMI is more than 49. Diet exercise weight loss lifestyle modifications discussed with the patient. (9) Hyperosmolar syndrome Is this a current diagnosis for this admission?: Yes (10) Hyponatremia Is this a current diagnosis for this admission?: Yes Plan: 07/27/2020-latest serum sodium is around 135. Hyponatremia is resolved. - Additional Information Resuscitation Status: Full Code Discharge Diet: Diabetic Discharge Activity: Activity As Tolerated Referrals: DELMA TESFAYE MD [ACTIVE STAFF] - 08/02/20 9:30 am RACHANA PADILLA PA-C [Primary Care Provider] - 08/04/20 10:15 am Prescriptions: Enoxaparin Sodium [Lovenox Inj 120 mg/0.8 ml Disp.syrin] 120 mg SUBCUT Q12A 30 Days #240 disp.syrin Home Medications: Gabapentin [Neurontin 300 mg Capsule] 300 mg PO QHS 10/08/19 Insulin Glargine,Hum.rec.anlog [Lantus Insulin 100 Unit/1 ml 10 ml] 35 units SQ QHS 10/08/19 Ondansetron [Zofran Odt 4 mg Tablet] 8 mg PO Q12HP PRN 10/08/19 Trazodone HCl 50 mg PO HSP PRN 10/08/19 Albuterol Sulfate [Albuterol Sulfate Hfa] 1 puff IH Q4HP PRN 07/20/20 Lidocaine/Benadryl\Maalox 5 ml PO Q4 07/20/20 Metoclopramide HCl [Reglan] 10 mg PO TID 07/20/20 Oxycodone HCl [Oxycodone HCl ER] 40 mg PO TIDP PRN 07/20/20 Pantoprazole Sodium [Protonix [address] Tablet] 40 mg PO QAM 07/20/20 Potassium Chloride 20 meq PO DAILY 07/20/20 Enoxaparin Sodium [Lovenox Inj 120 mg/0.8 ml Disp.syrin] 120 mg SUBCUT Q12A 30 Days #240 disp.syrin 07/28/20 History of Present Illiness History of Present Illness: HOA SALES is a 44 year old female with history of pancreatic cancer came to the emergency room with uncontrolled blood sugars. She was admitted to ICU and transfer to [facility]. Dilatation with Dr. Tesfaye was done during the hospital stay. No acute events no complications during the hospital stay. Blood sugars are relatively controlled. Sugar this morning is 116. Alert and awake communicating well. Not in distress. Patient is advised to continue her home medications. Because of history of Tsai embolism and failed outpatient oral anticoagulation patient went home on Lovenox treatment dose. She is going to follow-up with Dr. Tesfaye next week. Physical Exam Vital Signs: Temp Pulse Resp BP Pulse Ox 98.1 F 74 18 110/70 99 07/28/20 12:37 07/28/20 12:37 07/28/20 12:37 07/28/20 12:37 07/28/20 12:37 Intake & Output 07/27/20 07/28/20 07/29/20 06:59 06:59 06:59 Intake Total 2694 1862 Output Total 700 1300 Balance 1993 562 Weight 118.4 kg 120.5 kg General appearance: PRESENT: no acute distress, morbidly obese Head exam: PRESENT: atraumatic Eye exam: PRESENT: PERRLA Neck exam: ABSENT: carotid bruit, JVD, lymphadenopathy, thyromegaly Cardiovascular exam: PRESENT: RRR. ABSENT: diastolic murmur, rubs, systolic murmur GI/Abdominal exam: PRESENT: normal bowel sounds, soft. ABSENT: distended, guarding, mass, organolmegaly, rebound, tenderness Rectal exam: PRESENT: deferred, decreased rectal tone Extremities exam: PRESENT: full ROM. ABSENT: calf tenderness, clubbing, pedal edema Musculoskeletal exam: PRESENT: ambulatory Neurological exam: PRESENT: alert, awake, oriented to person, oriented to place, oriented to time, oriented to situation, CN II-XII grossly intact. ABSENT: motor sensory deficit Psychiatric exam: PRESENT: appropriate affect, normal mood. ABSENT: homicidal ideation, suicidal ideation Results Laboratory Results: WBC 9.0 10^3/uL (4.0-10.5) 07/28/20 05:45 RBC 2.95 10^6/uL (3.72-5.28) L 07/28/20 05:45 Hgb 8.6 g/dL (12.0-15.5) L 07/28/20 05:45 Hct 26.3 % (36.0-47.0) L 07/28/20 05:45 MCV 89 fl (80-97) 07/28/20 05:45 MCH 29.3 pg (27.0-33.4) 07/28/20 05:45 MCHC 32.8 g/dL (32.0-36.0) 07/28/20 05:45 RDW 19.6 % (11.5-14.0) H 07/28/20 05:45 Plt Count 326 10^3/uL (150-450) 07/28/20 05:45 Lymph % (Auto) Not Reportable 07/28/20 05:45 [place] % (Auto) Not Reportable 07/28/20 05:45 Eos % (Auto) Not Reportable 07/28/20 05:45 Baso % (Auto) Not Reportable 07/28/20 05:45 Reticulocyte # 0.192 10^6/uL (0.028-0.122) H 07/25/20 13:20 Absolute Neuts (auto) Not Reportable 07/28/20 05:45 Absolute Lymphs (auto) Not Reportable 07/28/20 05:45 Absolute Monos (auto) Not Reportable 07/28/20 05:45 Absolute Eos (auto) Not Reportable 07/28/20 05:45 Absolute Basos (auto) Not Reportable 07/28/20 05:45 Total Counted 100 07/28/20 05:45 Seg Neutrophils % Not Reportable 07/28/20 05:45 Seg Neuts % (Manual) 75 % (42-78) 07/28/20 05:45 Band Neutrophils % 1 % (3-5) L 07/19/20 15:50 Lymphocytes % (Manual) 12 % (13-45) L 07/28/20 05:45 Atypical Lymphs % 1 % (0) 07/27/20 06:58 Monocytes % (Manual) 12 % (3-13) 07/28/20 05:45 Eosinophils % (Manual) 1 % (0-6) 07/28/20 05:45 Basophils % (Manual) 0 % (0-2) 07/28/20 05:45 Abs Neuts (Manual) 6.8 10^3/uL (1.7-8.2) 07/28/20 05:45 Abs Lymphs (Manual) 1.1 10^3/uL (0.5-4.7) 07/28/20 05:45 Abs Monocytes (Manual) 1.1 10^3/uL (0.1-1.4) 07/28/20 05:45 Absolute Eos (Manual) 0.1 10^3/uL (0.0-0.6) 07/28/20 05:45 Abs Basophils (Manual) 0.0 10^3/uL (0.0-0.2) 07/28/20 05:45 Nucleated RBCs 24 /100 WBC (0) 07/28/20 05:45 Toxic Granulation SLIGHT 07/28/20 05:45 Clumped Platelets PRESENT 07/23/20 08:51 Large Platelets PRESENT 07/23/20 08:51 Platelet Comment ADEQUATE 07/28/20 05:45 Polychromasia 1+ 07/28/20 05:45 Hypochromasia SLIGHT 07/25/20 05:06 Poikilocytosis 1+ 07/28/20 05:45 Anisocytosis 2+ 07/28/20 05:45 Pappenheimer Bodies PRESENT 07/27/20 06:58 Target Cells SLIGHT 07/28/20 05:45 Tear Drop Cells SLIGHT 07/27/20 06:58 Ovalocytes 1+ 07/28/20 05:45 [place] Bodies PRESENT 07/27/20 06:58 [place] Cells 2+ 07/20/20 04:21 Acanthocytes (Spur) 1+ 07/27/20 06:58 Schistocytes 1+ 07/27/20 06:58 Retic Count (auto) 5.59 % (0.66-2.85) H 07/25/20 13:20 PT 13.2 SEC (11.4-15.4) 07/25/20 13:20 INR 0.98 07/25/20 13:20 APTT 31.0 SEC (23.5-35.8) 07/25/20 13:20 Fibrinogen 276 mg/dL (209-497) 07/25/20 13:20 D-Dimer > 20.00 ug/mL (0.00-0.50) H* 07/25/20 13:20 Carbonic Acid 0.57 mmol/L (1.05-1.35) L 07/20/20 01:25 HCO3/H2CO3 Ratio 15:1 07/20/20 01:25 ABG pH 7.29 (7.35-7.45) L 07/20/20 01:25 ABG pCO2 19.1 mmHg (35-45) L* 07/20/20 01:25 ABG pO2 109.8 mmHg (80-100) H 07/20/20 01:25 ABG HCO3 9.1 mmol/L (20-24) L 07/20/20 01:25 ABG Total CO2 9.6 mmol/L (21-25) L 07/20/20 01:25 ABG O2 Saturation 97.7 % (94-98) 07/20/20 01:25 ABG Base Excess -15.5 mmol/L 07/20/20 01:25 VBG pH 7.07 (7.30-7.42) L* 07/19/20 22:32 VBG pCO2 23.9 mmHg (35-63) L 07/19/20 22:32 VBG HCO3 6.8 mmol/L (20-32) L 07/19/20 22:32 VBG Base Excess -21.6 mmol/L 07/19/20 22:32 FiO2 ROOM AIR 07/20/20 01:25 Sodium 136.1 mmol/L (137-145) L 07/28/20 05:45 Potassium 4.1 mmol/L (3.6-5.0) 07/28/20 05:45 Chloride 112 mmol/L (98-107) H 07/28/20 05:45 Carbon Dioxide 23 mmol/L (22-30) 07/28/20 05:45 Anion Gap 1 (5-19) L 07/28/20 05:45 BUN 11 mg/dL (7-20) 07/28/20 05:45 Creatinine 0.59 mg/dL (0.52-1.25) 07/28/20 05:45 Est GFR ( Amer) > 60 (>60) 07/28/20 05:45 Est GFR (Non-Af Amer) Cancelled 07/19/20 15:50 Est GFR (MDRD) Non-Af > 60 (>60) 07/28/20 05:45 Glucose 109 mg/dL (75-110) 07/28/20 05:45 POC Glucose 208 mg/dL (70-110) H 07/28/20 11:24 Hemoglobin A1c % 13.6 % (4.7-6.0) H 07/20/20 04:21 Lactic Acid 1.8 mmol/L (0.7-2.1) 07/20/20 00:36 Calcium 9.1 mg/dL (8.4-10.2) 07/28/20 05:45 Phosphorus 2.3 mg/dL (2.5-4.5) L 07/20/20 09:20 Magnesium 1.8 mg/dL (1.6-2.3) 07/28/20 05:45 Iron 19.9 ug/dL (37-170) L 07/25/20 13:20 TIBC 284 ug/dL (250-450) 07/25/20 13:20 % Saturation 7 % 07/25/20 13:20 Ferritin 32.80 ng/mL (6.2-137.0) 07/25/20 13:20 Total Bilirubin 0.4 mg/dL (0.2-1.3) 07/28/20 05:45 Direct Bilirubin 0.3 mg/dL (0.0-0.4) 07/28/20 05:45 Neonat Total Bilirubin Not Reportable 07/28/20 05:45 Neonat Direct Bilirubin Not Reportable 07/28/20 05:45 Neonat Indirect Bili Not Reportable 07/28/20 05:45 AST 37 U/L (14-36) H 07/28/20 05:45 ALT 25 U/L (<35) 07/28/20 05:45 Alkaline Phosphatase 171 U/L (38-126) H 07/28/20 05:45 Troponin I < 0.012 ng/mL 07/19/20 15:50 NT-Pro-B Natriuret Pep 37 pg/mL (<125) 07/20/20 04:21 Total Protein 4.9 g/dL (6.3-8.2) L 07/28/20 05:45 Albumin 2.4 g/dL (3.5-5.0) L 07/28/20 05:45 Triglycerides 189 mg/dL (<150) H 07/20/20 04:21 Cholesterol 233.45 mg/dL (0-200) H 07/20/20 04:21 LDL Cholesterol Direct 128 mg/dL (<100) H 07/20/20 04:21 VLDL Cholesterol 37.8 mg/dL (10-31) H 07/20/20 04:21 HDL Cholesterol 73 mg/dL (>40) 07/20/20 04:21 Amylase < 30 U/L (30-110) L 07/19/20 21:42 Lipase 17.6 U/L (23-300) L 07/19/20 21:42 EGFR Cancelled 07/19/20 15:50 Vitamin B12 915.0 pg/mL (239-931) 07/25/20 13:20 Folate 4.12 ng/mL (>2.76) 07/25/20 13:20 TSH 1.43 uIU/mL (0.47-4.68) 07/20/20 04:21 Urine Color YELLOW 07/27/20 05:15 Urine Appearance SLIGHTLY-CLOUDY 07/27/20 05:15 Urine pH 5.0 (5.0-9.0) 07/27/20 05:15 Ur Specific [place] 1.014 07/27/20 05:15 Urine Protein NEGATIVE mg/dL (NEGATIVE) 07/27/20 05:15 Urine Glucose (UA) 50 mg/dL (NEGATIVE) H 07/27/20 05:15 Urine Ketones NEGATIVE mg/dL (NEGATIVE) 07/27/20 05:15 Urine Blood NEGATIVE (NEGATIVE) 07/27/20 05:15 Urine Nitrite NEGATIVE (NEGATIVE) 07/27/20 05:15 Urine Nitrite (Reflex) NEGATIVE (NEGATIVE) 07/19/20 22:32 Urine Bilirubin NEGATIVE (NEGATIVE) 07/27/20 05:15 Urine Urobilinogen NEGATIVE mg/dL (<2.0) 07/27/20 05:15 Ur Leukocyte Esterase NEGATIVE (NEGATIVE) 07/27/20 05:15 Leukocyte Esterase Rfl NEGATIVE (NEGATIVE) 07/19/20 22:32 Urine WBC (Auto) 1 /HPF 07/27/20 05:15 Urine RBC (Auto) 1 /HPF 07/27/20 05:15 U Hyaline Cast (Auto) 7 /LPF 07/19/20 22:32 Urine Bacteria (Auto) TRACE /HPF 07/27/20 05:15 Urine WBC (Reflex) 2 /HPF 07/19/20 22:32 Squamous Epi Cells Auto 5 /HPF 07/27/20 05:15 Urine Mucus (Auto) RARE /LPF 07/27/20 05:15 Urine Ascorbic Acid NEGATIVE (NEGATIVE) 07/27/20 05:15 Stool Occult Blood POSITIVE (NEGATIVE) 07/25/20 12:38 Slides for Path Review PATHOLOGIST REVIEWED 07/27/20 06:58 07/19/20 07/20/20 15:50 04:21 Troponin I < 0.012 NT-Pro-B Natriuret Pep 37 Impressions: Chest X-Ray 07/19/20 16:23 IMPRESSION: No evidence of acute intrathoracic process. Chest X-Ray 07/20/20 06:00 IMPRESSION: No infiltrate or pneumothorax. Chest X-Ray 07/21/20 06:00 IMPRESSION: NO ACUTE RADIOGRAPHIC FINDING IN THE CHEST. Chest X-Ray 07/22/20 06:00 IMPRESSION: Low inspiratory lung volumes without a superimposed acute card iopulmonary process. Abdomen/Pelvis CTA 07/25/20 00:00 IMPRESSION: 1. Extensive bilateral pulmonary emboli. There is evidence of right heart failure. 2. Small pericardial effusion/ pericardial thickening. 3. Probable new subcapsular implant in the right hepatic lobe. Multiple hepatic metastases. 4. Increasing size of a peritoneal implant along the anterior left abdomen. Chest/Abdomen CTA 07/25/20 00:00 IMPRESSION: 1. Extensive bilateral pulmonary emboli. There is evidence of right heart failure. 2. Small pericardial effusion/ pericardial thickening. 3. Probable new subcapsular implant in the right hepatic lobe. Multiple hepatic metastases. 4. Increasing size of a peritoneal implant along the anterior left abdomen. Plan Plan of Treatment: Patient is advised to be compliant with a diet exercise weight loss and medications she was also advised to follow-up with Dr. Tesfaye next week. Time Spent: Greater than 30 Minutes Stroke Is this a Stroke Patient?: No Acute Heart Failure Is this a Heart Failure Patient?: No
== END 2020-07-28 13:20 | disposition home or self-care (01) | DRG 637 ==
LOC: ER 15:49 → EH 19:37 → ICU 20:47 → 3S 07-20 20:45
PROVIDERS: ADMIT Anesthesiology; ATTEND Internal Medicine
DX: E11.10 Type 2 diabetes mellitus with ketoacidosis without coma (principal); I26.94 Multiple subsegmental thrombotic pulmonary emboli without acute cor pulmonale; I50.32 Chronic diastolic (congestive) heart failure; E87.1 Hypo-osmolality and hyponatremia; C25.2 Malignant neoplasm of tail of pancreas; C78.7 Secondary malignant neoplasm of liver and intrahepatic bile duct; Z68.41 Body mass index [BMI] 40.0-44.9, adult; E87.6 Hypokalemia; E66.01 Morbid (severe) obesity due to excess calories; E11.00 Type 2 diabetes mellitus with hyperosmolarity without nonketotic hyperglycemic-hyperosmolar coma (NKHHC); I27.20 Pulmonary hypertension, unspecified; D63.0 Anemia in neoplastic disease; R00.0 Tachycardia, unspecified; Z79.4 Long term (current) use of insulin; Z79.899 Other long term (current) drug therapy
CPT/HCPCS: 36415; 71045; 71275; 74174; 80048; 80053; 80061; 81001; 82150; 82272; 82607; 82728; 82746; 82803; 82962; 83036; 83540; 83550; 83605; 83690; 83735; 83880; 84100; 84443; 84484; 85025; 85027; 85045; 85379; 85384; 85610; 85730; 87040; 87070; 93005; 93010; 93306; 96360; 96361; 99291; C9113; J1642; J1644; J1650; J1720; J1815; J2405; J2550; J3480; J3490; J7030; J7040; J7050; J7120; J8540; Q0139

== ENCOUNTER → 2020-10-14 | Outpatient (CLI) | payer OTHER, MEDICAID ==
--- NOTE | 2020-10-14 11:48 | RADIOLOGY REPORT (SQ) ---
EXAM DESCRIPTION: CT CHEST WITH; CT ABD/PELVIS WITH IV ONLY IMAGES COMPLETED DATE/TIME: 10/14/2020 9:52 am REASON FOR STUDY: PANCREATIC CANCER C25.2 MALIGNANT NEOPLASM OF TAIL OF PANCREAS CONTRAST TYPE AND DOSE: contrast/concentration: Isovue 350.00 mmol/ml; Total Contrast Delivered: 100 .0 ml; Total Saline Delivered: 72.0 ml RENAL FUNCTION: Creatinine 0.6 COMPARISON: None. TECHNIQUE: CT scan of the chest performed using helical scanning technique with dynamic intravenous contrast injection. Images reviewed with lung, soft tissue and bone windows. Reconstructed coronal a nd sagittal MPR images reviewed. All images stored on PACS. All CT scanners at this facility use dose modulation, iterative reconstruction, and/or weight based d osing when appropriate to reduce radiation dose to as low as reasonably achievable (ALARA). [facility]: Dose Right [facility]: CareDose [facility]: Dose Right [facility]: Teradose 4D [facility]: [employer] RADIATION DOSE: CT Rad equipment meets quality standard of care and radiation dose reduction techniq ues were employed. CTDIvol: 13.5 - 18.6 mGy. DLP: 2480 mGy-cm. . LIMITATIONS: None. FINDINGS: AXILLAE: No adenopathy. CHEST WALL: No masses. No subcutaneous air. LUNGS: No suspicious pulmonary nodules. No consolidation. PLEURA: Bilateral pleural thickening versus very small effusions. THYROID: No masses or significant asymmetry. HILAR AND MEDIASTINAL STRUCTURES: No identified masses or abnormal nodes. AORTA AND GREAT VESSELS: No aneurysm. No dissection. PULMONARY ARTERIES: No identified pulmonary emboli. Study not optimized for the pulmonary arteries. HEART: No pericardial effusion. HARDWARE AND LIFELINES: Dmoldr-V-Vymd is in place on the right. BONES: No significant finding. OTHER: No other significant finding. IMPRESSION: No evidence of metastatic disease in the chest. Bilateral pleural thickening and/or sma ll effusions. COMPARISON: None. RADIATION DOSE: CT Rad equipment meets quality standard of care and radiation dose reduction techniq ues were employed. CTDIvol: 13.5 - 18.6 mGy. DLP: 2480 mGy-cm. mGy. TECHNIQUE: CT scan of the abdomen and pelvis performed with intravenous and oral contrast using shashi dwayne scanning technique with dynamic intravenous contrast injection. Images reviewed with lung, soft tissue and bone windows. Reconstructed coronal and sagittal MPR images reviewed. Delayed images for evaluation of the urinary system also acquired and evaluated. All images stored on PACS. All CT scanners at this facility use dose modulation, iterative reconstruction, and/or weight based d osing when appropriate to reduce radiation dose to as low as reasonably achievable (ALARA). [facility]: Dose Right [facility]: [employer] [facility]: Dose Right [facility]: Teradose 4D [facility]: [employer] FINDINGS: LIVER: Widespread hepatic metastasis are again noted. Subcapsular lesions in the right lo be are more apparent on today's study. SPLEEN: Prior splenectomy. PANCREAS: Prior partial pancreatectomy pancreatic head remains and is grossly unremarkable. GALLBLADDER: No identified stones by CT criteria. No inflammatory changes to suggest cholecystitis. ADRENAL GLANDS: No significant masses or asymmetry. RIGHT KIDNEY AND URETER: No solid masses. No significant calcifications. No hydronephrosis or hyd roureter. LEFT KIDNEY AND URETER: No solid masses. No significant calcifications. No hydronephrosis or hydr oureter. AORTA AND VESSELS: No aneurysm. No dissection. Renal arteries, SMA, celiac without stenosis. RETROPERITONEUM: Small occasional retroperitoneal nodes are identified these are stable from prior st udy. LARGE AND SMALL BOWEL: No dilatation. No masses. No wall thickening. APPENDIX: Normal. ABDOMINAL WALL: Small subcutaneous nodules are stable and may be related to injection granulomas. PERITONEAL CAVITY: Peritoneal implant involving the left anterior abdominal wall is not significantly changed. No definite new lesions. PELVIS: No mass or free fluid. Normal bladder. BONES: No significant or acute findings. OTHER: No other significant finding. IMPRESSION: 1. Hepatic metastatic disease is again noted. Subscapular lesions are more apparent on today's study possibly representing progression of disease. 2. Peritoneal implant along the left anterior abdominal wall is grossly unchanged. TECHNICAL DOCUMENTATION: JOB ID: [id number] Quality ID # [id number]: Final reports with documentation of one or more dose reduction techniques (e.g., Au tomated exposure control, adjustment of the mA and/or kV according to patient size, use of iterative reconstruction technique) 2010 [employer] All Rights Reserved Reading location - IP/workstation name: [email or web address]
== END ==
LOC: RAD 09:19
PROVIDERS: ATTEND Internal Medicine
DX: C25.2 Malignant neoplasm of tail of pancreas (principal); C78.7 Secondary malignant neoplasm of liver and intrahepatic bile duct
CPT/HCPCS: 71260; 74177; 82565

== ENCOUNTER 2020-11-21 11:26 | Observation (INO) | payer OTHER, MEDICAID ==
[2020-11-21] MEDS ORDERED: HYDROMORPHONE HCL INJ/PF 2 MG/ML AMPULE IV ONE ×2 (12:04→15:20)
[2020-11-21] MEDS ORDERED: NORMAL SALINE 1000 ML 1,000 ML IV ONE ×2 (12:04→13:43)
[2020-11-21] MEDS ORDERED: METOCLOPRAMIDE HCL INJ/PF 10 MG/2 ML SDV IV ONE (12:05)
--- NOTE | 2020-11-21 12:19 | ER Document Report ---
ED General - General Stated Complaint: ABDOMINAL PAIN Time Seen by Provider: 11/21/20 11:41 Primary Care Provider: DELMA VALENTE MD [Primary Care Provider] - Follow up as needed TRAVEL OUTSIDE OF THE [place] IN LAST 30 DAYS: No - HPI Notes: Chief complaint: Right upper quadrant abdominal pain History of present illness: 44-year-old female with history of pancreatic CA followed at the oncology center locally by Dr. Valente receiving chemotherapy and also with a history of diabetes mellitus presents now with increasing right upper quadrant abdominal pain over several days. She has been nauseated and having intermittent vomiting and says she has had poor fluid intake for nearly a week. She denies fever chills. Pain radiates through to her back. Patient received 1 dose of IV fentanyl during transport. Reports ongoing pain 6/10 intensity. Denies dysuria. - Related Data Allergies/Adverse Reactions: morphine [Morphine] Allergy (Verified 04/14/20 15:04) Hives Past Medical History - General Information source: Patient, Emergency Med Personnel, [facility] - Social History Smoking Status: Former Smoker Frequency of alcohol use: None Drug Abuse: None Lives with: Family Family History: Hypertension - Past Medical History Cardiac Medical History: Reports: Hx Congestive Heart Failure, Hx DVT, Hx Pulmonary Embolism Pulmonary Medical History: Reports: Hx Asthma Endocrine Medical History: Reports: Hx Diabetes Mellitus Type 2 - Insulin- dependent Renal/ Medical History: Denies: Hx Peritoneal Dialysis Malignancy Medical History: Reports: Hx Pancreatic Cancer GI Medical History: Reports: Hx Gastroesophageal Reflux Disease Psychiatric Medical History: Reports: Hx Depression Past Surgical History: Reports: Hx Abdominal Surgery - pancreas resection, splenectomy, Hx Section - x2, Hx Pancreatic Surgery - pancreatic surgery - Immunizations Hx Diphtheria, Pertussis, Tetanus Vaccination: Yes Review of Systems - Review of Systems Notes: Constitutional: Negative for fever. HENT: Negative for sore throat. Eyes: Negative for visual changes. Cardiovascular: Negative for chest pain. Respiratory: Negative for shortness of breath. Gastrointestinal: As per HPI. Genitourinary: Negative for dysuria. Musculoskeletal: As per HPI. Skin: Negative for rash. Neurological: Negative for headaches, focal weakness or numbness. 10 point ROS negative except as marked above and in HPI. Physical Exam - Notes Notes: GENERAL: Middle-age female appearing somewhat dehydrated moderately uncomfortable. SKIN: Good turgor no rashes. HEAD: Normocephalic atraumatic. EYES: Mildly sunken consistent with dehydration. PERRLA. EOMI. Conjunctivae and sclerae clear. EARS: CANALS AND TMS CLEAR. NOSE: CLEAR. MOUTH: Tacky oral mucosa. Good dentition. No stridor or edema. No drooling. NECK: Supple. No masses or thyromegaly. No adenopathy. Carotids 2+ without bruits. No JVD. BACK: Symmetrical without tenderness. CHEST: Respirations unlabored. Breath sounds clear and symmetrical. HEART: Regular rhythm. No murmur gallop or rub. ABDOMEN: Mild right upper quadrant tenderness. Soft without masses, orga nomegaly or rebound. Bowel sounds normally active. No bruits. GENITALIA: Deferred. EXTREMITIES: No edema. No calf tenderness. Cap refill less than 1.5 seconds. Dorsalis pedis and posterior tibial pulses 3+ and symmetrical. NEUROLOGICAL: GCS 15. Alert and oriented x3. Fluent speech. Cranial nerves II through XII intact. Sensorimotor and cerebellar normal. Normal tone. PSYCHIATRIC: Appropriate affect. Course - Re-evaluation Re-evalutation: 11/21/20 15:05 Patient has findings consistent with mild diabetic ketoacidosis. IV insulin and IV fluids initiated. She does not have typical findings of Covid by examination by history and she is afebrile here but she does have some questionable mild groundglass infiltrate starting at the base of her right lung noted on CT scan of the abdomen. The chest x-ray was unremarkable. We requested rapid Covid testing for the patient. Patient has been accepted for admission to a telemetry bed on the hospitalist service by . - Laboratory Results Result Diagrams: 11/21/20 12:25 11/21/20 12:25 Laboratory Results Interpreted: 11/21/20 11/21/20 11/21/20 12:25 12:25 12:30 WBC 15.8 H Hgb 11.8 L MCHC 31.8 L RDW 17.4 H Lymph % (Auto) 5.5 L Lake % (Auto) 15.0 H Absolute Neuts (auto) 12.3 H Absolute Monos (auto) 2.4 H VBG pH 7.28 L VBG HCO3 16.1 L Carbon Dioxide 16 L Anion Gap 23 H BUN 3 L Glucose 424 H* POC Glucose Direct Bilirubin 0.8 H AST 159 H ALT 46 H Alkaline Phosphatase 261 H Lipase < 10.0 L Urine Protein Urine Glucose (UA) Urine Ketones 11/21/20 11/21/20 12:35 12:44 WBC Hgb MCHC RDW Lymph % (Auto) Lake % (Auto) Absolute Neuts (auto) Absolute Monos (auto) VBG pH VBG HCO3 Carbon Dioxide Anion Gap BUN Glucose POC Glucose 365 H Direct Bilirubin AST ALT Alkaline Phosphatase Lipase Urine Protein 30 H Urine Glucose (UA) >=500 H Urine Ketones 80 H Critical Laboratory Results Reviewed: Yes Attending or Supervising Physician who Reviewed Labs: GARRETT BURTON - Radiology Results Radiology Results Interpreted: 11/21/20 15:04 Abdomen/Pelvis CT 11/21/20 12:06 IMPRESSION: 1. Few subtle subpleural ground-glass opacity seen at the right lung base are nonspecific, but may represent developing multifocal pneumonia. 2. Hepatomegaly demonstrating diffusely diminished attenuation and interval increase in size of multiple metastatic masses. Status post distal pancreatectomy. Stable appearance of a left peritoneal implants. Chest X-Ray 11/21/20 12:06 IMPRESSION: Mild hypoinflation without acute radiographic abnormality. Critical Radiology Results Reviewed: Yes Attending or Supervising Physician who Reviewed Radiology: GARRETT BURTON - EKG Interpretation by Me Additional EKG results interpreted by me: 11/21/20 12:28 Twelve-lead EKG reviewed by me contemporaneously: 1213 hrs. Indication for study: Upper quadrant abdominal pain Rhythm: Sinus tachycardia Rate: 106 Intervals: Normal intervals QRS axis: +[address]/T wave changes: None Comparison with prior tracing: No significant change compared with prior study 07/19/2020 Interpretation: Sinus tachycardia Critical Care Note - Critical Care Note Total time excluding time spent on procedures (mins): 75 - DKA treated with IV insulin infusion Discharge - Discharge Clinical Impression: Pancreatic cancer metastasized to liver Diabetic ketoacidosis Qualifiers: Diabetes mellitus type: other specified (including NEGRO) Diabetes mellitus complication detail: without coma Qualified Code(s): E13.10 - Other specified diabetes mellitus with ketoacidosis without coma Condition: Fair Disposition: ADMITTED INPATIENT Admitting Provider: Renu (Hospitalist) Unit Admitted: Telemetry Referrals: DELMA VALENTE MD [Primary Care Provider] - Follow up as needed
--- NOTE | 2020-11-21 12:41 | RADIOLOGY REPORT (SQ) ---
EXAM DESCRIPTION: CHEST SINGLE VIEW IMAGES COMPLETED DATE/TIME: 11/21/2020 9:30 am REASON FOR STUDY: RUQ abd. pain; hx. pancreatic CA COMPARISON: 07/22/2020 EXAM PARAMETERS: NUMBER OF VIEWS: One view. TECHNIQUE: Single frontal radiographic view of the chest acquired. RADIATION DOSE: NA LIMITATIONS: External leads partially obscure underlying structures. FINDINGS: LUNGS AND PLEURA: No opacities, masses or pneumothorax. No pleural effusion. Lungs are mi ldly hypoinflated. MEDIASTINUM AND HILAR STRUCTURES: No masses. Contour normal. HEART AND VASCULAR STRUCTURES: Heart normal in size. Normal vasculature. BONES: No acute findings. HARDWARE: Right MediPort catheter is unchanged. OTHER: No other significant finding. IMPRESSION: Mild hypoinflation without acute radiographic abnormality. TECHNICAL DOCUMENTATION: JOB ID: [id number] 2010 [employer]- All Rights Reserved Reading location - IP/workstation name: [email or web address]
[2020-11-21 12:47] LABS: ABSOLUTE BASOPHILS # (AUTO) 0.2 10^3/uL (0.0-0.2); ABSOLUTE LYMPHOCYTES (AUTO) 0.9 10^3/uL (0.5-4.7); ABSOLUTE MONOCYTES (AUTO) 2.4 10^3/uL (0.1-1.4); ABSOLUTE NEUT (AUTO) 12.3 10^3/uL (1.7-8.2); BASOPHILS % (AUTO) 1.5 % (0-2); EOSINOPHILS % (AUTO) 0.1 % (0-6); HEMATOCRIT 37.1 % (36.0-47.0); HEMOGLOBIN 11.8 g/dL (12.0-15.5); LYMPHOCYTES % (AUTO) 5.5 % (13-45); MEAN CORPUSCULAR HEMOGLOBIN 29.5 pg (27.0-33.4); MEAN CORPUSCULAR HGB CONC 31.8 g/dL (32.0-36.0); MEAN CORPUSCULAR VOLUME 93 fl (80-97); PLATELET COUNT 204 10^3/uL (150-450); RED CELL DISTRIBUTION WIDTH 17.4 % (11.5-14.0); SEGMENTED NEUTROPHILS % (AUTO) 77.9 % (42-78); TOTAL CELLS COUNTED % (AUTO) 100 %; WHITE BLOOD COUNT 15.8 10^3/uL (4.0-10.5)
[2020-11-21 13:03] LABS: VENOUS BLOOD BASE EXCESS -9.7 mmol/L; VENOUS BLOOD HCO3 16.1 mmol/L (20-32); VENOUS BLOOD PCO2 35.2 mmHg (35-63); VENOUS BLOOD PH 7.28 (7.30-7.42)
[2020-11-21 13:07] LABS: ALBUMIN 3.6 g/dL (3.5-5.0); ALKALINE PHOSPHATASE 261 U/L (38-126); ASPARTATE AMINO TRANSFERASE 159 U/L (14-36); BILIRUBIN,DIRECT 0.8 mg/dL (0.0-0.4); BLOOD UREA NITROGEN 3 mg/dL (7-20); CALCIUM 9.9 mg/dL (8.4-10.2); CARBON DIOXIDE 16 mmol/L (22-30); CHLORIDE 98 mmol/L (98-107); TOTAL PROTEIN 7.4 g/dL (6.3-8.2)
[2020-11-21 13:09] LABS: APPEARANCE,URINE CLEAR; BILIRUBIN,URINE NEGATIVE (NEGATIVE); COLOR,URINE YELLOW; GLUCOSE, URINE >=500 mg/dL (NEGATIVE); KETONES,URINE 80 mg/dL (NEGATIVE); PROTEIN,URINE 30 mg/dL (NEGATIVE); URINE SPECIFIC GRAVITY 1.028; UROBILINOGEN,URINE NEGATIVE mg/dL (<2.0)
[2020-11-21 13:13] LABS: ANION GAP 23 (5-19)
[2020-11-21 13:16] LABS: GLUCOSE 424 mg/dL (75-110)
[2020-11-21 13:26] LABS: URINE AMPHETAMINES SCREEN NEGATIVE; URINE BARBITURATES SCREEN NEGATIVE; URINE BENZODIAZEPINES SCREEN NEGATIVE; URINE COCAINE SCREEN NEGATIVE; URINE MARIJUANA (THC) SCREEN NEGATIVE; URINE METHADONE SCREEN NEGATIVE; URINE PHENCYCLIDINE SCREEN NEGATIVE
[2020-11-21] MEDS ORDERED: NORMAL SALINE 100 ML with INSULIN REGULAR, HUMAN 100 UNIT IV PRN ×4 (13:43→16:27)
[2020-11-21] MEDS ORDERED: INSULIN REG, HUMAN 100 UNIT/ML 3 ML VIAL (PYX) ONE (14:17)
--- NOTE | 2020-11-21 14:42 | RADIOLOGY REPORT (SQ) ---
EXAM DESCRIPTION: CT ABD/PELVIS WITH IV ONLY IMAGES COMPLETED DATE/TIME: 11/21/2020 2:19 pm REASON FOR STUDY: RUQ pain, hx. pancreatic CA COMPARISON: 10/14/2020 and 04/14/2020 TECHNIQUE: CT scan of the abdomen and pelvis performed using helical scanning technique with dynamic intravenous contrast injection. No oral contrast. Images reviewed with lung, soft tissue, and bone windows. Reconstructed coronal and sagittal MPR images reviewed. Delayed images for evaluation of the urinary system also acquired. All images stored on PACS. All CT scanners at this facility use dose modulation, iterative reconstruction, and/or weight based d osing when appropriate to reduce radiation dose to as low as reasonably achievable (ALARA). [facility]: Dose Right [facility]: CareDose [facility]: Dose Right [facility]: Teradose 4D [facility]: TRAKLOK CONTRAST TYPE AND DOSE: contrast/concentration: Isovue 350.00 mmol/ml; Total Contrast Delivered: 100 .0 ml; Total Saline Delivered: 35.1 ml RENAL FUNCTION: BUN 16; creatinine 0.70 RADIATION DOSE: CT Rad equipment meets quality standard of care and radiation dose reduction techniq ues were employed. CTDIvol: 15.1 - 19.3 mGy. DLP: 1910 mGy-cm.. LIMITATIONS: None. FINDINGS: LOWER CHEST: Few subtle subpleural ground-glass opacities are seen of the right lung base. No pleural effusion. No pneumothorax. LIVER: Hepatomegaly. Interval increase in the size of multiple previously demonstrated metastatic fo ci, the largest measuring on the order of 7.0 x 5.4 x 10.5 cm within the left hepatic lobe several of these lesions demonstrate central necrosis. Diminished attenuation of the liver, edema versus hepat ic steatosis. SPLEEN: Status post splenectomy. PANCREAS: Status post distal pancreatectomy. No evidence of recurrent mass. No peripancreatic infla mmatory changes. GALLBLADDER: No identified stones by CT criteria. No inflammatory changes to suggest cholecystitis. ADRENAL GLANDS: No significant masses or asymmetry. RIGHT KIDNEY AND URETER: No solid masses. No significant calcifications. No hydronephrosis or hyd roureter. LEFT KIDNEY AND URETER: No solid masses. No significant calcifications. No hydronephrosis or hydr oureter. AORTA AND VESSELS: No aneurysm. No dissection. Renal arteries, SMA, celiac without stenosis. RETROPERITONEUM: No retroperitoneal adenopathy, hemorrhage or masses. BOWEL AND PERITONEAL CAVITY: No masses or inflammatory changes. No free fluid or peritoneal masses. APPENDIX: Normal. PELVIS: No mass. No free fluid. The bladder is normal in appearance. ABDOMINAL WALL: A left anterior abdominal wall nodular density measures 2.4 x 1.3 x 1.6 cm on today's examination, this does not appear to be significantly changed in the study interval. Tiny fat conta ining umbilical hernia. BONES: No significant or acute findings. OTHER: No other significant finding. IMPRESSION: 1. Few subtle subpleural ground-glass opacity seen at the right lung base are nonspecif ic, but may represent developing multifocal pneumonia. 2. Hepatomegaly demonstrating diffusely diminished attenuation and interval increase in size of mult iple metastatic masses. Status post distal pancreatectomy. Stable appearance of a left peritoneal i mplants. TECHNICAL DOCUMENTATION: JOB ID: [id number] Quality ID # [id number]: Final reports with documentation of one or more dose reduction techniques (e.g., Au tomated exposure control, adjustment of the mA and/or kV according to patient size, use of iterative reconstruction technique) 2010 [employer]- All Rights Reserved Reading location - IP/workstation name: [email or web address]
[2020-11-21] MEDS ORDERED: DEXTROSE 50%-WATER 25 GM/50 ML DISP.SYRIN IV PRN ×4 (16:16→16:27)
[2020-11-21] MEDS ORDERED: ONDANSETRON HCL INJ/PF 4 MG/2 ML SDV IV PRN (16:16)
[2020-11-21] MEDS ORDERED: DEXTROSE 40% GEL 15 GM TUBE PO PRN ×4 (16:16→16:27)
[2020-11-21] MEDS ORDERED: GLUCAGON,HUMAN RECOMB 1 MG INJ SUBCUT PRN (16:16)
[2020-11-21] MEDS ORDERED: PROMETHAZINE HCL INJ 25 MG/1 ML VIAL IV PRN (16:16)
[2020-11-21] MEDS ORDERED: ALBUTEROL SULFATE 0.083% NEB 2.5 MG/3 ML AMPUL NEB PRN (16:16)
[2020-11-21] MEDS ORDERED: GLUCAGON,HUMAN RECOMB 1 MG INJ IM PRN (16:27)
--- NOTE | 2020-11-21 16:43 | PDOC H&P ---
History of Present Illness Admission Date/PCP: 11/21/20 15:43 DELMA VALENTE MD Patient complains of: Right upper quadrant abdominal pain, generalized malaise, Uncontrolled blood sugars History of Present Illness: HOA SALES is a 44 year old female with a past medical history significant for CHF, DVT, PE, asthma, IDDM, pancreatic cancer (s/p splenectomy and pancreas resection), GERD, depression, and obesity who presents to the emergency department with a complaint of 1 week of generalized malaise, fatigue, dyspnea, controlled blood sugars, and abdominal pain. She reports nausea and vomiting with inability to tolerate p.o. intake x3 days. Evaluation in the emergency department revealed stable vital signs, leukocytosis (WBCs 15.8) DKA (anion gap 23, bicarb 16, glucose 424), mildly elevated LFTs, urinalysis positive for protein, glucose, ketones and evidence of dehydration, and a negative UDS. Chest x-ray was benign. Abdominal/pelvic CT incidentally noted groundglass opacity to the right base. Further identified hepatomegaly with interval increase in size of multiple metastatic masses. Patient was provided 2 L normal saline bolus and started on insulin drip. She was then referred to the hospitalist service for further evaluation management of the above-stated complaints findings. Past Medical History Cardiac Medical History: Reports: Congestive Heart Failure, DVT, Pulmonary Embolism Pulmonary Medical History: Reports: Asthma Endocrine Medical History: Reports: Diabetes Mellitus Type 2 - Insulin- dependent, Obesity Malignancy Medical History: Reports: Pancreatic Cancer GI Medical History: Reports: Gastroesophageal Reflux Disease Psychiatric Medical History: Reports: Depression Past Surgical History Past Surgical History: Reports: Section - x2 Social History Information Source: Patient Lives with: Family Smoking Status: Former Smoker Electronic Cigarette use?: No Frequency of Alcohol Use: Social Hx Recreational Drug Use: No Drugs: None Hx Prescription Drug Abuse: No Family History Family History: Hypertension Parental Family History Reviewed: Yes Children Family History Reviewed: Yes Sibling(s) Family History Reviewed.: Yes Medication/Allergy Home Medications: Gabapentin [Neurontin 300 mg Capsule] 300 mg PO QHS 10/08/19 Insulin Glargine,Hum.rec.anlog [Lantus Insulin 100 Unit/1 ml 10 ml] 35 units SQ QHS 10/08/19 Ondansetron [Zofran Odt 4 mg Tablet] 8 mg PO Q12HP PRN 10/08/19 Trazodone HCl 50 mg PO HSP PRN 10/08/19 Albuterol Sulfate [Albuterol Sulfate Hfa] 1 puff IH Q4HP PRN 07/20/20 Lidocaine/Benadryl\Maalox 5 ml PO Q4 07/20/20 Metoclopramide HCl [Reglan] 10 mg PO TID 07/20/20 Oxycodone HCl [Oxycodone HCl ER] 40 mg PO TIDP PRN 07/20/20 Pantoprazole Sodium [Protonix [address] Tablet] 40 mg PO QAM 07/20/20 Potassium Chloride 20 meq PO DAILY 07/20/20 Enoxaparin Sodium [Lovenox Inj 120 mg/0.8 ml Disp.syrin] 120 mg SUBCUT Q12A 30 Days #240 disp.syrin 07/28/20 Allergies/Adverse Reactions: morphine [Morphine] Allergy (Verified 04/14/20 15:04) Hives Review of Systems Constitutional: PRESENT: anorexia, fatigue. ABSENT: chills, fever(s), head ache(s), weight gain, weight loss Eyes: ABSENT: visual disturbances Ears: ABSENT: hearing changes Cardiovascular: ABSENT: chest pain, dyspnea on exertion, edema, orthropnea, palpitations Respiratory: PRESENT: cough, dyspnea. ABSENT: hemoptysis Gastrointestinal: PRESENT: abdominal pain, nausea, vomiting. ABSENT: constipation, diarrhea, hematemesis, hematochezia Genitourinary: ABSENT: dysuria, hematuria Musculoskeletal: ABSENT: joint swelling Integumentary: ABSENT: rash, wounds Neurological: ABSENT: abnormal gait, abnormal speech, confusion, dizziness, focal weakness, syncope Psychiatric: ABSENT: anxiety, depression, homidical ideation, suicidal ideation Endocrine: ABSENT: cold intolerance, heat intolerance, polydipsia, polyuria Hematologic/Lymphatic: ABSENT: easy bleeding, easy bruising Physical Exam Vital Signs: Temp Pulse Resp BP Pulse Ox 100 11/21/20 12:23 Intake & Output 11/20/20 11/21/20 11/22/20 06:59 06:59 06:59 Intake Total 1000 Balance 1000 General appearance: PRESENT: no acute distress, cooperative, morbidly obese, well-developed, well-nourished Head exam: PRESENT: atraumatic, normocephalic Eye exam: PRESENT: conjunctiva pink, EOMI, PERRLA. ABSENT: scleral icterus Mouth exam: PRESENT: dry mucosa, tongue midline Respiratory exam: PRESENT: clear to auscultation osmani, symmetrical, unlabored. ABSENT: rales, rhonchi, wheezes Cardiovascular exam: PRESENT: RRR, +S1, +S2. ABSENT: diastolic murmur, rubs, systolic murmur Pulses: PRESENT: normal dorsalis pedis pul Vascular exam: PRESENT: normal capillary refill GI/Abdominal exam: PRESENT: normal bowel sounds, soft, tenderness - RUQ. ABSENT: distended, guarding, mass, organolmegaly, rebound Rectal exam: PRESENT: deferred Extremities exam: PRESENT: full ROM. ABSENT: calf tenderness, clubbing, pedal edema Neurological exam: PRESENT: alert, awake, oriented to person, oriented to place, oriented to time, oriented to situation, CN II-XII grossly intact. ABSENT: motor sensory deficit Psychiatric exam: PRESENT: appropriate affect, normal mood. ABSENT: homicidal ideation, suicidal ideation Skin exam: PRESENT: dry, intact, warm. ABSENT: cyanosis, rash Results Laboratory Results: 11/21/20 12:25 11/21/20 12:25 11/21/20 11/21/20 11/21/20 12:25 12:25 12:30 WBC 15.8 H RBC 4.00 Hgb 11.8 L Hct 37.1 MCV 93 MCH 29.5 MCHC 31.8 L RDW 17.4 H Plt Count 204 Seg Neutrophils % 77.9 VBG pH 7.28 L VBG pCO2 35.2 VBG HCO3 16.1 L VBG Base Excess -9.7 Sodium 137.2 Potassium 4.0 Chloride 98 Carbon Dioxide 16 L Anion Gap 23 H BUN 3 L Creatinine 0.59 Est GFR ( Amer) > 60 Glucose 424 H* Calcium 9.9 Magnesium 1.9 Total Bilirubin 1.0 AST 159 H Alkaline Phosphatase 261 H Total Protein 7.4 Albumin 3.6 Lipase < 10.0 L Urine Color Urine Appearance Urine pH Ur Specific Street Urine Protein Urine Glucose (UA) Urine Ketones Urine Blood Urine RBC (Auto) 11/21/20 12:44 WBC RBC Hgb Hct MCV MCH MCHC RDW Plt Count Seg Neutrophils % VBG pH VBG pCO2 VBG HCO3 VBG Base Excess Sodium Potassium Chloride Carbon Dioxide Anion Gap BUN Creatinine Est GFR ( Amer) Glucose Calcium Magnesium Total Bilirubin AST Alkaline Phosphatase Total Protein Albumin Lipase Urine Color YELLOW Urine Appearance CLEAR Urine pH 6.[address] 1.028 Urine Protein 30 H Urine Glucose (UA) >=500 H Urine Ketones 80 H Urine Blood NEGATIVE Urine RBC (Auto) 3 11/21/20 12:25 Troponin I < 0.012 Impressions: Abdomen/Pelvis CT 11/21/20 12:06 IMPRESSION: 1. Few subtle subpleural ground-glass opacity seen at the right lung base are nonspecific, but may represent developing multifocal pneumonia. 2. Hepatomegaly demonstrating diffusely diminished attenuation and interval increase in size of multiple metastatic masses. Status post distal pancreatectomy. Stable appearance of a left peritoneal implants. Chest X-Ray 11/21/20 12:06 IMPRESSION: Mild hypoinflation without acute radiographic abnormality. Assessment and Plan - Diagnosis (1) Diabetic ketoacidosis Qualifiers: Diabetes mellitus type: other specified (including NEGRO) Diabetes mellitus complication detail: without coma Qualified Code(s): E13.10 - Other specified diabetes mellitus with ketoacidosis without coma Is this a current diagnosis for this admission?: Yes Plan: Patient is admitted to medical floor continuous cardiac telemetry. She is provided generous IV fluids. She has been placed on a insulin drip. Accu-Cheks hourly and titrate drip per protocol. N.p.o. status with the exception of ice chips and small sips of water. Antiemetics as needed. Serial chemistries; electrolyte repletion as indicated. (2) Pancreatic cancer metastasized to liver Is this a current diagnosis for this admission?: Yes Plan: Followed by Dr. Valente. Dr. Mcnamara consulted. IV Dilaudid as needed while n.p.o. Primary management per their expertise. (3) Dyspnea Is this a current diagnosis for this admission?: Yes Plan: Small groundglass opacities noted on CT imaging. Patient does complain of shortness of breath x1 week. She also reports right upper quadrant abdominal pain with deep inspiration and cough. It is likely that her pain is related to her liver metastasis which has been intervally increased in size and now have central necrosis. Covid testing pending; low suspicion. Analgesics as above. Encourage pulmonary toilet with incentive spirometer and ambulation. No indications of pneumonia or need for antibiotics at this time. (4) Anemia Qualifiers: Anemia type: iron deficiency Iron deficiency anemia type: other iron defici ency Qualified Code(s): D50.8 - Other iron deficiency anemias Is this a current diagnosis for this admission?: Yes Plan: Hemoglobin 11.8; likely hemoconcentrated in setting of dehydration/DKA. Baseline hemoglobin appears to be around 8.4. Hematology/oncology is consulted. Follow-up CBC. (5) Morbid obesity Is this a current diagnosis for this admission?: Yes Plan: Dietary discretion and lifestyle modification encouraged. - Time Time Spent with patient: 35 or more minutes Medications reviewed and adjusted accordingly: Yes Anticipated Discharge Disposition: Home, Self Care Anticipated Discharge Timeframe: within 48 hours
[2020-11-21 18:17] LABS: ANION GAP 14 (5-19); BLOOD UREA NITROGEN 3 mg/dL (7-20); CALCIUM 9.5 mg/dL (8.4-10.2); CARBON DIOXIDE 18 mmol/L (22-30); CHLORIDE 106 mmol/L (98-107); GLUCOSE 237 mg/dL (75-110); POTASSIUM 3.3 mmol/L (3.6-5.0)
[2020-11-21] MEDS ORDERED: INSULIN GLARGINE,HUM.REC.ANLOG 1,000 UNIT/10 ML VIAL SUBCUT ONE (18:34)
[2020-11-21] MEDS ORDERED: INSULIN GLARGINE,HUM.REC.ANLOG 1,000 UNIT/10 ML VIAL (PYX) SUBCUT ONE (19:23)
[2020-11-21] MEDS: METOCLOPRAMIDE HCL INJ/PF 10 MG/2 ML SDV IV SCH (19:26)
--- NOTE | 2020-11-21 20:30 | EKG REPORT ---
SEVERITY:- BORDERLINE ECG - SINUS TACHYCARDIA PROBABLE LEFT ATRIAL ABNORMALITY : Confirmed by: Jyoti Ashley MD 21-Nov-2020 20:29:40
[2020-11-21] MEDS: POTASSI CL 20 MEQ/50 ML RIDER 20 MEQ/50 ML RTUPB IV SCH ×2 (20:31→22:29)
[2020-11-21] MEDS ORDERED: HEPARIN SOD (PORCINE) 5,000 UNIT/ML 1 ML VIAL SUBCUT SCH (22:00)
[2020-11-21 22:26] LABS: ANION GAP 14 (5-19); BLOOD UREA NITROGEN 2 mg/dL (7-20); CALCIUM 9.6 mg/dL (8.4-10.2); CARBON DIOXIDE 20 mmol/L (22-30); CHLORIDE 106 mmol/L (98-107); GLUCOSE 121 mg/dL (75-110); POTASSIUM 3.7 mmol/L (3.6-5.0)
[2020-11-21] MEDS: ENOXAPARIN SODIUM INJ 120 MG/0.8 ML DISP.SYRIN SUBCUT SCH (22:29)
[2020-11-21] MEDS: HYDROMORPHONE HCL INJ/PF 2 MG/ML AMPULE IV PRN (22:41)
[2020-11-21] MEDS: INSULIN LISPRO 100 UNIT/ML 3 ML VIAL SUBCUT SCH (22:55)
[2020-11-22] MEDS ORDERED: RINGERS SOLUTION,LACTATED 1,000 ML IV ONE (01:30)
[2020-11-22] MEDS: METOCLOPRAMIDE HCL INJ/PF 10 MG/2 ML SDV IV SCH ×3 (01:34→11:58)
[2020-11-22] MEDS: NORMAL SALINE 1000 ML 1,000 ML IV PRN ×2 (02:55→10:30)
[2020-11-22] MEDS: HYDROMORPHONE HCL INJ/PF 2 MG/ML AMPULE IV PRN (06:00)
[2020-11-22 06:37] LABS: HEMATOCRIT 32.7 % (36.0-47.0); HEMOGLOBIN 10.9 g/dL (12.0-15.5); MEAN CORPUSCULAR HEMOGLOBIN 30.3 pg (27.0-33.4); MEAN CORPUSCULAR HGB CONC 33.3 g/dL (32.0-36.0); MEAN CORPUSCULAR VOLUME 91 fl (80-97); PLATELET COUNT 182 10^3/uL (150-450); RED BLOOD COUNT 3.59 10^6/uL (3.72-5.28); WHITE BLOOD COUNT 17.6 10^3/uL (4.0-10.5)
[2020-11-22 07:11] LABS: ALBUMIN 2.7 g/dL (3.5-5.0); ALKALINE PHOSPHATASE 187 U/L (38-126); ANION GAP 11 (5-19); ASPARTATE AMINO TRANSFERASE 80 U/L (14-36); BILIRUBIN,DIRECT 0.5 mg/dL (0.0-0.4); BILIRUBIN,TOTAL 0.7 mg/dL (0.2-1.3); BLOOD UREA NITROGEN 3 mg/dL (7-20); CALCIUM 9.2 mg/dL (8.4-10.2); CARBON DIOXIDE 21 mmol/L (22-30); CHLORIDE 105 mmol/L (98-107); GLUCOSE 179 mg/dL (75-110); POTASSIUM 3.8 mmol/L (3.6-5.0); TOTAL PROTEIN 5.8 g/dL (6.3-8.2)
--- NOTE | 2020-11-22 07:41 | EKG REPORT ---
SEVERITY:- ABNORMAL ECG - SINUS TACHYCARDIA NONSPECIFIC T ABNORMALITIES, DIFFUSE LEADS : Confirmed by: Juan Gutierrez MD 22-Nov-2020 07:40:58
--- NOTE | 2020-11-22 07:44 | PDOC CONSULTATION ---
Consultation Consult Date: 11/22/20 Attending physician:: YASEMIN ALLISON Provider Consulted: DELMA VALENTE Consult reason:: Patient well-known to our oncology service with stage IV pancreatic cancer here with Covid History of Present Illness Admission Date/PCP: 11/21/20 15:43 DELMA VALENTE MD Patient complains of: Weakness, abdominal pain, diarrhea History of Present Illness: This is a telehealth visit based upon Covid restrictions. Patient agreed to go forward with visit. HOA SALES is a 44 year old female with weakness, abdominal pain and diarrhea which does come about from time to time related to her known stage IV pancreatic cancer. Unfortunately, just before [place] she was found to have progressive disease, was given a dose of chemotherapy now about 3 weeks ago and we were planning on initiating new chemotherapy but we gave her a little bit of time off for the holidays, and we were planning on changing her current chemotherapy regimen of FOLFIRI to FOLFOX, based upon [place] recommendations. She was supposed to start that new therapy tomorrow. But unfortunately since she is admitted now, this will need to be delayed. Upon admission PCR was tested and she was positive for Covid. She is currently on isolation. Past Medical History Cardiac Medical History: Reports: Congestive Heart Failure, DVT, Pulmonary Embolism Pulmonary Medical History: Reports: Asthma Endocrine Medical History: Reports: Diabetes Mellitus Type 2 - Insulin- dependent, Obesity Malignancy Medical History: Reports: Pancreatic Cancer GI Medical History: Reports: Gastroesophageal Reflux Disease Psychiatric Medical History: Reports: Depression Past Surgical History Past Surgical History: Reports: Section - x2 Social History Lives with: Family Smoking Status: Unknown if Ever Smoked Electronic Cigarette use?: No Frequency of Alcohol Use: Social Hx Recreational Drug Use: No Drugs: None Hx Prescription Drug Abuse: No - Advance Directive Resuscitation Status: Full Code Family History Family History: Hypertension Parental Family History Reviewed: Yes Children Family History Reviewed: Yes Sibling(s) Family History Reviewed.: Yes Medication/Allergy Home Medications: Gabapentin [Neurontin 300 mg Capsule] 300 mg PO QHS 10/08/19 Insulin Glargine,Hum.rec.anlog [Lantus Insulin 100 Unit/1 ml 10 ml] 35 units SQ QHS 10/08/19 Ondansetron [Zofran Odt 4 mg Tablet] 8 mg PO Q12HP PRN 12/04/19 Trazodone HCl 50 mg PO HSP PRN 10/08/19 Albuterol Sulfate [Albuterol Sulfate Hfa] 1 puff IH Q4HP PRN 07/20/20 Lidocaine/Benadryl\Maalox 5 ml PO Q4 07/20/20 Metoclopramide HCl [Reglan] 10 mg PO TID 07/20/20 Oxycodone HCl [Oxycodone HCl ER] 40 mg PO TIDP PRN 07/20/20 Pantoprazole Sodium [Protonix [address] Tablet] 40 mg PO QAM 07/20/20 Potassium Chloride 20 meq PO DAILY 07/20/20 Enoxaparin Sodium [Lovenox Inj 120 mg/0.8 ml Disp.syrin] 120 mg SUBCUT Q12A 30 Days #240 disp.syrin 07/28/20 Allergies/Adverse Reactions: morphine [Morphine] Allergy (Verified 04/14/20 15:04) Hives Review of Systems Constitutional: ABSENT: chills, fever(s), headache(s), weight gain, weight loss Eyes: ABSENT: visual disturbances Ears: ABSENT: hearing changes Cardiovascular: ABSENT: chest pain, dyspnea on exertion, edema, orthropnea, palpitations Respiratory: ABSENT: cough, hemoptysis Gastrointestinal: ABSENT: abdominal pain, constipation, diarrhea, hematemesis, hematochezia, nausea, vomiting Genitourinary: ABSENT: dysuria, hematuria Musculoskeletal: ABSENT: joint swelling Integumentary: ABSENT: rash, wounds Neurological: ABSENT: abnormal gait, abnormal speech, confusion, dizziness, focal weakness, syncope Psychiatric: ABSENT: anxiety, depression, homidical ideation, suicidal ideation Endocrine: ABSENT: cold intolerance, heat intolerance, polydipsia, polyuria Hematologic/Lymphatic: ABSENT: easy bleeding, easy bruising Physical Exam Vital Signs: Temp Pulse Resp BP Pulse Ox 99.1 F 101 H 18 111/69 97 11/22/20 03:44 11/22/20 07:00 11/22/20 03:44 11/22/20 03:44 11/22/20 03:44 Intake & Output 11/21/20 11/22/20 11/23/20 06:59 06:59 06:59 Intake Total 3140 0 Balance 3140 0 Weight 99.5 kg General appearance: PRESENT: no acute distress, well-developed, well-nourished Head exam: PRESENT: atraumatic, normocephalic Eye exam: PRESENT: conjunctiva pink, EOMI, PERRLA. ABSENT: scleral icterus Ear exam: PRESENT: normal external ear exam Mouth exam: PRESENT: moist, tongue midline Neck exam: ABSENT: carotid bruit, JVD, lymphadenopathy, thyromegaly Respiratory exam: PRESENT: clear to auscultation osmani. ABSENT: rales, rhonchi, wheezes Cardiovascular exam: PRESENT: RRR. ABSENT: diastolic murmur, rubs, systolic murmur Pulses: PRESENT: normal dorsalis pedis pul Vascular exam: PRESENT: normal capillary refill GI/Abdominal exam: PRESENT: normal bowel sounds, soft. ABSENT: distended, guarding, mass, organolmegaly, rebound, tenderness Rectal exam: PRESENT: deferred Extremities exam: PRESENT: full ROM. ABSENT: calf tenderness, clubbing, pedal edema Neurological exam: PRESENT: alert, awake, oriented to person, oriented to place, oriented to time, oriented to situation, CN II-XII grossly intact. ABSENT: motor sensory deficit Psychiatric exam: PRESENT: appropriate affect, normal mood. ABSENT: homicidal ideation, suicidal ideation Skin exam: PRESENT: dry, intact, warm. ABSENT: cyanosis, rash Results Laboratory Results: 11/22/20 05:07 11/22/20 05:07 11/21/20 11/21/20 11/21/20 12:25 12:25 12:30 WBC 15.8 H RBC 4.00 Hgb 11.8 L Hct 37.1 MCV 93 MCH 29.5 MCHC 31.8 L RDW 17.4 H Plt Count 204 Seg Neutrophils % 77.9 VBG pH 7.28 L VBG pCO2 35.2 VBG HCO3 16.1 L VBG Base Excess -9.7 Sodium 137.2 Potassium 4.0 Chloride 98 Carbon Dioxide 16 L Anion Gap 23 H BUN 3 L Creatinine 0.59 Est GFR ( Amer) > 60 Glucose 424 H* Calcium 9.9 Magnesium 1.9 Total Bilirubin 1.0 AST 159 H Alkaline Phosphatase 261 H Total Protein 7.4 Albumin 3.6 Lipase < 10.0 L Urine Color Urine Appearance Urine pH Ur Specific [place] Urine Protein Urine Glucose (UA) Urine Ketones Urine Blood Urine RBC (Auto) 11/21/20 11/21/20 11/21/20 12:44 17:45 22:00 WBC RBC Hgb Hct MCV MCH MCHC RDW Plt Count Seg Neutrophils % VBG pH VBG pCO2 VBG HCO3 VBG Base Excess Sodium 138.4 140.3 Potassium 3.3 L 3.7 Chloride 106 106 Carbon Dioxide 18 L 20 L Anion Gap 14 14 BUN 3 L 2 L Creatinine 0.49 L 0.41 L Est GFR ( Amer) > 60 > 60 Glucose 237 H 121 H Calcium 9.5 9.6 Magnesium Total Bilirubin AST Alkaline Phosphatase Total Protein Albumin Lipase Urine Color YELLOW Urine Appearance CLEAR Urine pH 6.0 Ur Specific [place] 1.028 Urine Protein 30 H Urine Glucose (UA) >=500 H Urine Ketones 80 H Urine Blood NEGATIVE Urine RBC (Auto) 3 11/22/20 11/22/20 05:07 05:07 WBC 17.6 H RBC 3.59 L Hgb 10.9 L Hct 32.7 L MCV 91 MCH 30.3 MCHC 33.3 RDW 17.0 H Plt Count 182 Seg Neutrophils % VBG pH VBG pCO2 VBG HCO3 VBG Base Excess Sodium 137.3 Potassium 3.8 Chloride 105 Carbon Dioxide 21 L Anion Gap 11 BUN 3 L Creatinine 0.40 L Est GFR ( Amer) > 60 Glucose 179 H Calcium 9.2 Magnesium Total Bilirubin 0.7 AST 80 H Alkaline Phosphatase 187 H Total Protein 5.8 L Albumin 2.7 L Lipase Urine Color Urine Appearance Urine pH Ur Specific [place] Urine Protein Urine Glucose (UA) Urine Ketones Urine Blood Urine RBC (Auto) 11/21/20 12:25 Troponin I < 0.012 Impressions: Abdomen/Pelvis CT 11/21/20 12:06 IMPRESSION: 1. Few subtle subpleural ground-glass opacity seen at the right lung base are nonspecific, but may represent developing multifocal pneumonia. 2. Hepatomegaly demonstrating diffusely diminished attenuation and interval increase in size of multiple metastatic masses. Status post distal pancreatecto my. Stable appearance of a left peritoneal implants. Chest X-Ray 11/21/20 12:06 IMPRESSION: Mild hypoinflation without acute radiographic abnormality. Assessment & Plan - Diagnosis (1) Pancreatic cancer metastasized to liver Is this a current diagnosis for this admission?: Yes Plan: Patient with known pancreatic cancer, progressive disease, was going to start on FOLFOX but this will need to be delayed 1 to 2 weeks for her to recover. (2) Pain, neoplasm-related Is this a current diagnosis for this admission?: Yes Plan: Longstanding pain related to the pancreatic cancer, agree with Dilaudid for breakthrough pain relief, asked nursing to call our office to get home regimen initiated as well. (3) Pulmonary embolism Qualifiers: Pulmonary embolism type: multiple subsegmental (without acute cor pulmonale) Qualified Code(s): I26.94 - Multiple subsegmental pulmonary emboli without acute cor pulmonale Is this a current diagnosis for this admission?: Yes Plan: History of repeat thrombosis, she is on lifelong anticoagulation. Needs to continue. - Time Time Spent: Greater than 70 Minutes - Inpatient Certification Based on my medical assessment, after consideration of the patient's com orbidities, presenting symptoms, or acuity I expect that the services needed warrant INPATIENT care.: Yes I certify that my determination is in accordance with my understanding of Medicare's requirements for reasonable and necessary INPATIENT services [42 CFR 412.3e].: Yes Medical Necessity: Risk of Complication if Not Cared For in Hospital
[2020-11-22] MEDS: INSULIN LISPRO 100 UNIT/ML 3 ML VIAL SUBCUT SCH ×2 (08:49→11:58)
[2020-11-22] MEDS ORDERED: DIPHENHYDRAMINE HCL 25 MG CAPSULE PO PRN (09:19)
[2020-11-22] MEDS ORDERED: OXYCODONE HCL SR 40 MG TABLET PO SCH (10:00)
[2020-11-22] MEDS ORDERED: PANTOPRAZOLE SODIUM 40 MG VIAL IV SCH (10:00)
[2020-11-22] MEDS ORDERED: INSULIN GLARGINE,HUM.REC.ANLOG 1,000 UNIT/10 ML VIAL SUBCUT SCH (10:00)
[2020-11-22] MEDS: ENOXAPARIN SODIUM INJ 120 MG/0.8 ML DISP.SYRIN SUBCUT SCH (10:16)
[2020-11-22 12:19] VITALS: BP 124/73
[2020-11-22] MEDS ORDERED: INFLUENZA QUAD (6MOS+) 2020-21 VAC 0.5 ML SYR IM ONE (14:00)
--- NOTE | 2020-11-22 14:12 | PDOC DISCHARGE SUMMARY ---
Impression - Admit/DC Date/PCP Admission Date/Primary Care Provider: 11/21/20 15:43 DELMA VALENTE MD Discharge Date: 11/22/20 - Discharge Diagnosis (1) Diabetic ketoacidosis Is this a current diagnosis for this admission?: Yes (2) Pancreatic cancer metastasized to liver Is this a current diagnosis for this admission?: Yes (3) Dyspnea Is this a current diagnosis for this admission?: Yes (4) Anemia Is this a current diagnosis for this admission?: Yes (5) Morbid obesity Is this a current diagnosis for this admission?: Yes - Additional Information Resuscitation Status: Full Code Discharge Diet: Diabetic Discharge Activity: Activity As Tolerated, Balance Activity w/Rest Referrals: DELMA VALENTE MD [Primary Care Provider] - 12/01/20 3:30 pm Home Medications: Metoclopramide HCl [Reglan 10 mg Tablet] 10 mg PO TID 11/22/20 Pantoprazole Sodium [Protonix [address] Tablet] 40 mg PO QAM 11/22/20 History of Present Illiness History of Present Illness: HOA SALES is a 44 year old female with a past medical history significant for CHF, DVT, PE, asthma, IDDM, pancreatic cancer (s/p splenectomy and pancreas resection), GERD, depression, and obesity who presents to the emergency department with a complaint of 1 week of generalized malaise, fatigue, dyspnea, controlled blood sugars, and abdominal pain. She reports nausea and vomiting with inability to tolerate p.o. intake x3 days. Evaluation in the emergency department revealed stable vital signs, leukocytosis (WBCs 15.8) DKA (anion gap 23, bicarb 16, glucose 424), mildly elevated LFTs, urinalysis positive for protein, glucose, ketones and evidence of dehydration, and a negative UDS. Chest x-ray was benign. Abdominal/pelvic CT incidentally noted groundglass opacity to the right base. Further identified hepatomegaly with interval increase in size of multiple metastatic masses. Patient was provided 2 L normal saline bolus and started on insulin drip. She was then referred to the hospitalist service for further evaluation management of the above-stated complaints findings. Hospital Course Hospital Course: Patient was admitted to the medical floor on continuous cardiac telemetry. She was treated with the standard care set for management of DKA; placed in NPO status, provided aggressive IVF resuscitation, and managed with an insulin drip. Her Anion Gap rapidly closed and her Bicarb improved. She was placed on a clear liquid diet, advancing sowly as tolerated, and covered with subcu Lantus and SSI. The patient continued to have a poor appetite, but took in adequate po fluids. Patient did test positive for COVID19 w/ ground glass opacities noted on CT imagining to her right lung base. However, she denies respiratory symptoms and maintained oxygen saturations on room air while ambulatory. Discussed with patient that she did qualify for treatment with Convalescent Plasma and Ivermectin, but as she was hypoxic, did not warrant treatment with Remdisivir or steroids. Patient elected to forgo treatment at this time. The patient oncologist was notified of her diagnosis of COVID. Patient has maximized her hospital benefit and is discharged home in stable condition. Discussed that she should resume her previously scheduled medications. Continue home dose Lantus. Increase frequency of glucose checks and notify provider if she becomes consistently about 300 or has a glucose of >400. Drink plenty of fluids; eat as tolerated. Return to the emergency department, as needed, for concerning symptoms. Physical Exam Vital Signs: Temp Pulse Resp BP Pulse Ox 99.2 F 103 H 14 124/73 96 11/22/20 13:46 11/22/20 13:46 11/22/20 13:46 11/22/20 11:46 11/22/20 13:46 Intake & Output 11/21/20 11/22/20 11/23/20 06:59 06:59 06:59 Intake Total 3140 1000 Balance 3140 1000 Weight 99.5 kg General appearance: PRESENT: no acute distress, cooperative, morbidly obese, well-developed, well-nourished Head exam: PRESENT: atraumatic, normocephalic Eye exam: PRESENT: conjunctiva pink, EOMI, PERRLA. ABSENT: scleral icterus Mouth exam: PRESENT: moist, tongue midline Respiratory exam: PRESENT: clear to auscultation osmani, symmetrical, unlabored, other - Room air. ABSENT: rales, rhonchi, wheezes Cardiovascular exam: PRESENT: RRR. ABSENT: diastolic murmur, rubs, systolic murmur Pulses: PRESENT: normal dorsalis pedis pul Vascular exam: PRESENT: normal capillary refill GI/Abdominal exam: PRESENT: normal bowel sounds, soft, tenderness - Right upper quadrant. ABSENT: distended, guarding, mass, organolmegaly, rebound Rectal exam: PRESENT: deferred Extremities exam: PRESENT: full ROM. ABSENT: calf tenderness, clubbing, pedal edema Neurological exam: PRESENT: alert, awake, oriented to person, oriented to place, oriented to time, oriented to situation, CN II-XII grossly intact. ABSENT: motor sensory deficit Psychiatric exam: PRESENT: appropriate affect, normal mood. ABSENT: homicidal ideation, suicidal ideation Skin exam: PRESENT: dry, intact, warm. ABSENT: cyanosis, rash Results Laboratory Results: WBC 17.6 10^3/uL (4.0-10.5) H 11/22/20 05:07 RBC 3.59 10^6/uL (3.72-5.28) L 11/22/20 05:07 Hgb 10.9 g/dL (12.0-15.5) L 11/22/20 05:07 Hct 32.7 % (36.0-47.0) L 11/22/20 05:07 MCV 91 fl (80-97) 11/22/20 05:07 MCH 30.3 pg (27.0-33.4) 11/22/20 05:07 MCHC 33.3 g/dL (32.0-36.0) 11/22/20 05:07 RDW 17.0 % (11.5-14.0) H 11/22/20 05:07 Plt Count 182 10^3/uL (150-450) 11/22/20 05:07 Lymph % (Auto) 5.5 % (13-45) L 11/21/20 12:25 [place] % (Auto) 15.0 % (3-13) H 11/21/20 12:25 Eos % (Auto) 0.1 % (0-6) 11/21/20 12:25 Baso % (Auto) 1.5 % (0-2) 11/21/20 12:25 Absolute Neuts (auto) 12.3 10^3/uL (1.7-8.2) H 11/21/20 12:25 Absolute Lymphs (auto) 0.9 10^3/uL (0.5-4.7) 11/21/20 12:25 Absolute Monos (auto) 2.4 10^3/uL (0.1-1.4) H 11/21/20 12:25 Absolute Eos (auto) 0.0 10^3/uL (0.0-0.6) 11/21/20 12:25 Absolute Basos (auto) 0.2 10^3/uL (0.0-0.2) 11/21/20 12:25 Seg Neutrophils % 77.9 % (42-78) 11/21/20 12:25 VBG pH 7.28 (7.30-7.42) L 11/21/20 12:30 VBG pCO2 35.2 mmHg (35-63) 11/21/20 12:30 VBG HCO3 16.1 mmol/L (20-32) L 11/21/20 12:30 VBG Base Excess -9.7 mmol/L 11/21/20 12:30 Sodium 137.3 mmol/L (137-145) 11/22/20 05:07 Potassium 3.8 mmol/L (3.6-5.0) 11/22/20 05:07 Chloride 105 mmol/L (98-107) 11/22/20 05:07 Carbon Dioxide 21 mmol/L (22-30) L 11/22/20 05:07 Anion Gap 11 (5-19) 11/22/20 05:07 BUN 3 mg/dL (7-20) L 11/22/20 05:07 Creatinine 0.40 mg/dL (0.52-1.25) L 11/22/20 05:07 Est GFR ( Amer) > 60 (>60) 11/22/20 05:07 Est GFR (MDRD) Non-Af > 60 (>60) 11/22/20 05:07 Glucose 179 mg/dL (75-110) H 11/22/20 05:07 POC Glucose 285 mg/dL (70-110) H 11/22/20 11:47 Hemoglobin A1c % 9.7 % (4.7-6.0) H 11/22/20 05:07 Calcium 9.2 mg/dL (8.4-10.2) 11/22/20 05:07 Magnesium 1.9 mg/dL (1.6-2.3) 11/21/20 12:25 Total Bilirubin 0.7 mg/dL (0.2-1.3) 11/22/20 05:07 Direct Bilirubin 0.5 mg/dL (0.0-0.4) H 11/22/20 05:07 Neonat Total Bilirubin Not Reportable 11/22/20 05:07 Neonat Direct Bilirubin Not Reportable 11/22/20 05:07 Neonat Indirect Bili Not Reportable 11/22/20 05:07 AST 80 U/L (14-36) H 11/22/20 05:07 ALT 31 U/L (<35) 11/22/20 05:07 Alkaline Phosphatase 187 U/L (38-126) H 11/22/20 05:07 Troponin I < 0.012 ng/mL 11/21/20 12:25 Total Protein 5.8 g/dL (6.3-8.2) L 11/22/20 05:07 Albumin 2.7 g/dL (3.5-5.0) L 11/22/20 05:07 Lipase < 10.0 U/L (23-300) L 11/21/20 12:25 Urine Color YELLOW 11/21/20 12:44 Urine Appearance CLEAR 11/21/20 12:44 Urine pH 6.0 (5.0-9.0) 11/21/20 12:44 Ur Specific [place] 1.028 11/21/20 12:44 Urine Protein 30 mg/dL (NEGATIVE) H 11/21/20 12:44 Urine Glucose (UA) >=500 mg/dL (NEGATIVE) H 11/21/20 12:44 Urine Ketones 80 mg/dL (NEGATIVE) H 11/21/20 12:44 Urine Blood NEGATIVE (NEGATIVE) 11/21/20 12:44 Urine Nitrite (Reflex) NEGATIVE (NEGATIVE) 11/21/20 12:44 Urine Bilirubin NEGATIVE (NEGATIVE) 11/21/20 12:44 Urine Urobilinogen NEGATIVE mg/dL (<2.0) 11/21/20 12:44 Leukocyte Esterase Rfl NEGATIVE (NEGATIVE) 11/21/20 12:44 Urine RBC (Auto) 3 /HPF 11/21/20 12:44 Urine Bacteria (Auto) 1+ /HPF 11/21/20 12:44 Urine WBC (Reflex) < 1 /HPF 11/21/20 12:44 Squamous Epi Cells Auto 1 /HPF 11/21/20 12:44 Urine Mucus (Auto) RARE /LPF 11/21/20 12:44 Urine Ascorbic Acid NEGATIVE (NEGATIVE) 11/21/20 12:44 Urine HCG, Qual NEGATIVE (NEGATIVE) 11/21/20 12:44 Urine Opiates Screen NEGATIVE 11/21/20 12:44 Urine Methadone Screen NEGATIVE 11/21/20 12:44 Ur Barbiturates Screen NEGATIVE 11/21/20 12:44 Ur Phencyclidine Scrn NEGATIVE 11/21/20 12:44 Ur Amphetamines Screen NEGATIVE 11/21/20 12:44 U Benzodiazepines Scrn NEGATIVE 11/21/20 12:44 Urine Cocaine Screen NEGATIVE 11/21/20 12:44 U Marijuana (THC) Screen NEGATIVE 11/21/20 12:44 Influenza A (RT-PCR) NEGATIVE (NEGATIVE) 11/21/20 15:56 Influenza B (RT-PCR) NEGATIVE (NEGATIVE) 11/21/20 15:56 RSV (RT-PCR) NEGATIVE (NEGATIVE) 11/21/20 15:56 SARS-CoV-2 Rap RNA(RT-PCR) POSITIVE (NEGATIVE) H 11/21/20 15:56 11/21/20 12:25 Troponin I < 0.012 Impressions: Abdomen/Pelvis CT 11/21/20 12:06 IMPRESSION: 1. Few subtle subpleural ground-glass opacity seen at the right lung base are nonspecific, but may represent developing multifocal pneumonia. 2. Hepatomegaly demonstrating diffusely diminished attenuation and interval increase in size of multiple metastatic masses. Status post distal pancreatectomy. Stable appearance of a left peritoneal implants. Chest X-Ray 11/21/20 12:06 IMPRESSION: Mild hypoinflation without acute radiographic abnormality. Plan Plan of Treatment: Patient is discharged home in stable condition. She is advised follow-up with her primary care provider within 1 week. Follow-up with Dr. Valente as scheduled. Continue home Covid quarantine through December 01, 2020. Take medications as prescribed. Drink plenty of water. Return to the emergency department, as needed, for concerning symptoms. Time Spent: Greater than 30 Minutes Stroke Is this a Stroke Patient?: No Acute Heart Failure Is this a Heart Failure Patient?: No
[2020-11-23] MEDS ORDERED: INFLUENZA QUAD (6MOS+) 2020-21 VAC 0.5 ML SYR IM ONE (08:00)
== END 2020-11-22 14:57 | disposition home or self-care (01) ==
LOC: ER 11:26 → EH 15:43 → INTOOBSV 15:43 → 3N 19:00
PROVIDERS: ADMIT Internal Medicine; ATTEND Registered Nurse
DX: E13.10 Other specified diabetes mellitus with ketoacidosis without coma (principal); C25.9 Malignant neoplasm of pancreas, unspecified; C78.7 Secondary malignant neoplasm of liver and intrahepatic bile duct; U07.1 COVID-19; R09.02 Hypoxemia; R06.00 Dyspnea, unspecified; D50.8 Other iron deficiency anemias; E66.01 Morbid (severe) obesity due to excess calories; E86.0 Dehydration; I26.94 Multiple subsegmental thrombotic pulmonary emboli without acute cor pulmonale; Z87.891 Personal history of nicotine dependence; Z79.899 Other long term (current) drug therapy; Z90.81 Acquired absence of spleen; Z86.718 Personal history of other venous thrombosis and embolism; Z79.4 Long term (current) use of insulin; K21.9 Gastro-esophageal reflux disease without esophagitis; F32.9 Major depressive disorder, single episode, unspecified; J45.909 Unspecified asthma, uncomplicated; G89.3 Neoplasm related pain (acute) (chronic); Z79.01 Long term (current) use of anticoagulants; Z82.49 Family history of ischemic heart disease and other diseases of the circulatory system; Z90.411 Acquired partial absence of pancreas; Z23 Encounter for immunization
CPT/HCPCS: 93005 ×2; 99285; 96360; 96361; 36415 ×2; 87040; 82962 ×2; 83690; 83735; 85025; 85027; 0241U; 81025; 87077; 80076; 80048; 80053; 81001; 84484; 80307; 83036; 82803; 71045; 74177; 90686; 93010 ×2; G0378 ×3; G0008; J1815 ×3; J1650 ×2; J2765 ×2; J1170 ×2; C9113; J3480; J7050; J7030 ×2; J7120; C9803; 87150; 90471